=== PATIENT | male | born 1955 | race Caucasian/White ===

== ENCOUNTER → 2017-05-17 08:54 | Outpatient (CLI) | payer OTHER, SELFPAY ==
[2017-05-17 11:00] LABS: ALB/GLOB Ratio 0.9 RATIO (0.9-2.4); AST(SGOT) 27 U/L (15-37); Alanine Aminotransfer ALT/SGPT 35 U/L (16-61); Albumin, Serum 3.5 g/dL (3.2-5.0); Alkaline Phosphatase 83 U/L (45-117); Anion Gap 5 (5-15); BUN 11 mg/dL (7-18); BUN/Creat Ratio 11.9 RATIO (10-20); Calcium,Total 8.2 mg/dL (8.5-10.1); Chloride 106 mmol/L (98-107); Creatinine, Serum 0.93 mg/dL (0.70-1.30); EST Glomerular Filtration Rate 88 mL/min (>60); Est Glom Filt Rate - Afr Amer 106 mL/min (>60); Globulin 3.7 g/dL (2.2-4.2); Glucose 90 mg/dL (74-106); PSA,Total - Annual Screen 1.71 ng/mL (0.00-4.00); Protein, Total 7.2 g/dL (6.4-8.2); Sodium Level 141 mmol/L (136-145)
[2017-05-17 11:01] LABS: Vitamin D,25 Hydroxy 51.3 ng/mL (19.95-100.01)
[2017-05-17 11:57] LABS: Phenytoin (Dilantin) Level 25.6 mL (10.0-20.0)
[2017-05-18 09:06] LABS: Hep C Antibodies 0.1 s/co ratio (0.0-0.9)
[2017-05-19 12:08] LABS: CHOLESTEROL TOTAL 174 mg/dL (100-199); HDL-C 51 mg/dL (>39); HDL-P TOTAL 32.9 umol/L (>=30.5); SMALL LDL-P 423 nmol/L (<=527); TRIGLYCERIDES 69 mg/dL (0-149)
[2017-05-19 14:00] LABS: LDL SIZE 21.3 nm (>20.5); LDL-C 109 mg/dL (0-99); LDL-P 1291 nmol/L (<1000); LP-IR SCORE ** 44 (<=45)
== END ==
PROVIDERS: Family Provider Internal Medicine; PCP Internal Medicine; Visit Provider Internal Medicine
DX: G40.909 Epilepsy, unspecified, not intractable, without status epilepticus (principal); Z11.59 Encounter for screening for other viral diseases; E55.9 Vitamin D deficiency, unspecified; E78.5 Hyperlipidemia, unspecified; Z12.5 Encounter for screening for malignant neoplasm of prostate
CPT/HCPCS: 36415; 80053; 80061; 80185; 82306; 83704; 84153; 86803; G0103

== ENCOUNTER 2017-07-12 12:16 | Outpatient (RCR) | payer OTHER, SELFPAY ==
[2017-07-12 13:44] LABS: Phenytoin (Dilantin) Level 18.3 mL (10.0-20.0)
== END 2017-07-12 13:00 | disposition home or self-care (01) ==
LOC: LAB 12:16
PROVIDERS: Family Provider Internal Medicine; PCP Internal Medicine; Visit Provider Internal Medicine
DX: G40.909 Epilepsy, unspecified, not intractable, without status epilepticus (principal)
CPT/HCPCS: 36415; 80185

== ENCOUNTER → 2018-03-02 12:36 | Outpatient (CLI) | payer OTHER, SELFPAY ==
--- NOTE | 2018-03-02 12:42 | RAD_ITS ---
STUDY: X-RAY - ABDOMEN/PELVIS REASON FOR EXAM: Male, 62 years old. Constipation for one month TECHNIQUE: AP supine and upright views of the abdomen and pelvis. COMPARISON: None. FINDINGS: Normal visualized lung bases. There is an unremarkable bowel gas pattern. There is no demonstrated free abdominal air. The visualized liver, spleen and kidneys are grossly normal in size and morphology. Normal soft tissue structures. There are diffuse degenerative changes of the visualized lumbar spine. Levoscoliosis of the thoracolumbar spine. There is a bony protuberance of the left iliac crest. RAD/Abd Inc Decub and/or Erect IMPRESSION: 1. Nonobstructive bowel gas pattern. No significant fecal retention seen. 2. Left iliac crest osteochondroma. Electronically Signed: Jaun Vasques MD at 7:36 EST , Service support ,
== END ==
PROVIDERS: Family Provider Internal Medicine; PCP Internal Medicine; Referring Provider Internal Medicine Gastroenterology; Visit Provider Internal Medicine Gastroenterology
DX: R10.9 Unspecified abdominal pain (principal); K59.00 Constipation, unspecified
CPT/HCPCS: 74019

== ENCOUNTER → 2018-03-25 11:51 | Outpatient (CLI) | payer OTHER, SELFPAY ==
[2018-03-25 14:16] LABS: Phenytoin (Dilantin) Level 17.9 mL (10.0-20.0)
--- OUTSIDE RECORDS SUMMARY | 2018-05-11 05:19 | XMS RPT_ITS | Continuity of Care Document ---
:1955 Author Organization [facility] Address [facility] [address] Phone Care Team Providers Name Role Phone Dede Galan MD Unavailable Hearing Services-- Tato Mccormick Unavailable Federico PADILLA, Dr. Shira Rothman Unavailable VIKAS Martin Unavailable Unavailable Unavailable Unavailable Problems Name Dates Details Abnormal thyroid blood test (R94.6, 794.5) Comments: tsh high normal and t4 little low. will eat brazil nuts night ly. will recheck in 3 months. with atb Status: Active Abnormal TSH (R79.89, 790.6) Comments: 01-26 2.350 Status: Active Acute foot pain, left (M79.672, 729.5) Comments: 1 week ago stove it and will xray if not continue to get better in next 1-2 weeks. on exam no swelling tenderness or red no deformity. Status: Active Allergic rhinitis (J30.9, 477.9) Comments: off jose urinate better less fatigue. singulair is helping allergies but skin may become issue. have eye signs and symptoms and will use otc antihistamine eye drops Status: Active Benign prostatic hyperplasia with urinary hesitancy (N40.1, 600.01) Comments: some improvement off jose. add saw palmetto help Status: Active Bilateral hearing loss, unspecified hearing loss type (H91.93, 389.9) Status: Active BMI 35.0-35.9,adult (Z68.35, V85.35) Comments: bernie about portion control. went through what eating. went over watch and meassure cereal. eat 4 angelina crackers and glass of milk befre bed. increase exercise.35.8 Status: Active BMI 36.0-36.9,adult (Z68.36, V85.36) Comments: 36.56 Status: Active Cardiomegaly (Renamed from Cardiac enlargement) (I51.7, 429.3) Status: Active Current nonsmoker (Renamed from Current non-smoker) (Z78.9, V49.89) Status: Active Depression (F32.9, 311) Comments: doing wellon paxil. mild now not think needs increase Status: Active Encounter for hepatitis C virus screening test for high risk patient (Z11.59, V73.89) Status: Active Encounter for routine adult medical exam with abnormal findings (Z00.01, V70.0) Comments: 01-25-2017 [facility] Exam, colonoscopy 2014, PSA 2-18,PHQ-9=2 (minimal)6CIT=, BMI=36.5. not sexually active and okay with that. made sure exercise in winter so tolerate exercise in summer work Status: Active Epilepsy, unspecified, not intractable, without status epilepticus (G40.909, 345.90) Comments: see Dr. Deana moffett. talk bout changing meds. fell better and more alert at 350 mg dilantin than 400 mg where level 20. like level better at 14-15. will check now. had episode rigid a tnight per no aura. Status: Active GERD (gastroesophageal reflux disease) (K21.9, 530.81) Comments: stable Status: Active Hyperlipidemia, mild (E78.5, 272.4) Comments: better and hdl good. LDL small good. Status: Active Hypoglycemia (E16.2, 251.2) Comments: talkabout not go from breakfast to dinner without food. Status: Active Irritable bowel syndrome (Renamed from Functional bowel disease) (K58.9, 564.1) Comments: ocassionally get diarrhea but good. colonscnopy done 2014. 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 quite toast in am. eating more veggies. eating less angelina crackers...will work down to 2 squares. not to snack on cookies and sweets. working on exerc ise walk daily. will llok at what do through winter. may do swimming. Status: Active Obstructive sleep apnea, adult (G47.33, 327.23) Status: Active Psoriasis (L40.9, 696.1) Comments: Dr. caballero. arms break out ? blanket. had. 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 ramires shoudl go away Status: Active Sinusitis, chronic (J32.9, 473.9) Comments: stable Status: Active SOB (shortness of breath) on exertion (R06.02, 786.05) Status: Active Vitamin D deficiency, unspecified (E55.9, 268.9) Comments: better now Status: Active Medications Name Dates Details BUDESONIDE, 32MCG/ACT (Nasal Suspension) 1 (one) Suspension Suspension 2 sprays each nostril daily for 0 days Quantity: 1 {Each} Refills: 6 Ordered:23-Oct-2014 Codie Curiel Start : 23-Oct-2014 Active DERMA-SMOOTHE/FS BODY, 0.01% (External Oil) uad Oil BID for 90 days Refills: 3 Ordered:02-Apr-2014 Beatrice PADILLA, Dede Ying MD Start : 02-Apr-2014 Active Comments:disp. QS for 90 days Dilantin 100 MG Oral Capsule 3 (three) Capsule qd for 0 days Quantity: 360 {Capsule} Refills: 3 Ordered:02-Jul-2017 Dede Galan MD, MD, Dana M Start : 02-Jul-2017 Active Dilantin Infatabs 50 MG Oral Tablet Chewable 1 (one) Tablet Chewable qd for 0 days Quantity: 90 {Tablet} Refills: 3 Ordered:23-Sep-2017 Dede Galan MD, MD, Dana M Start : 23-Sep-2017 Active Drisdol 80828 UNIT Oral Capsule 1 Capsule three times a week for 0 days Quantity: 12 {Capsule} Refills: 6 Ordered:28-Apr-2017 Dede Galan MD, MD, Dana M Start : 28-Apr-2017 Active Comments:start 3 times a week for for monthen then twice weekly for month then weekly. MUCINEX, 600MG (Oral Tablet Extended Release 12 Hour) 1 (one) Tablet ER 12HR Tablet ER 12HR bid for 0 days Quantity: 30 {Tablet} Refills: 0 Ordered:13-Aug-2015 Anushka KAPADIA Kassandra Start : 13-Aug-2015 Active Mysoline 250 MG Oral Tablet 1 Tablet QID for 0 days Quantity: 360 {Tablet} Refills: 3 Ordered:02-Jul-2017 Dede Galan MD, MD, Dana M Start : 02-Jul-2017 Active Omeprazole 40 MG Oral Capsule Delayed Release 1 (one) Capsule DR QD for 0 days Quantity: 90 {Capsule} Refills: 3 Ordered:21-Oct-2017 Dede Galan MD, MD, Dana M Start : 21-Oct-2017 Active Paxil 20 MG Oral Tablet 1 Tablet QD for 0 days Quantity: 90 {Tablet} Refills: 3 Ordered:21-Oct-2017 Dede Galan MD, MD, Dana M Start : 21-Oct-2017 Active Comments:ok for generic PROAIR HFA, 108 (90 Base)MCG/ACT (Inhalation Aerosol Solution) 2 (two) Puff(s) tid for 0 days Quantity: 1 {Aerosol_Soln} Refills: 0 Ordered:22-Jun-2012 Long AQUATICS SPECIALIST, Tamiko L Start : 22-Jun-2012 Active Singulair 10 MG Oral Tablet 1 Tablet QD for 0 days Quantity: 90 {Tablet} Refills: 3 Ordered:25-Jan-2017 Dede Galan MD MD, Dede M Start : 25-Jan-2017 Active Singulair 10 MG Oral Tablet 1 Tablet QD for 0 days Quantity: 90 {Tablet} Refills: 3 Ordered:25-Jan-2017 Dede Galan MD, MD, Dede Rothman Start : 25-Jan-2017 Active Comments:ok for generic ANTIVERT, 12.5MG (Oral Tablet) 1 Tablet q6hrs prn for dizziness for 0 days Quantity: 30 {Tablet} Refills: 0 Ordered:25-May-2011 VIKAS Martin Start : 04-Feb-2011 End : 25-May-2011 Inactive Augmentin 875-125 MG Oral Tablet 1 Tablet Tablet bid for 0 days Quantity: 20 {Tablet} Refills: 0 Ordered:13-Dec-2015 VIKAS Martin Start : 24-Apr-2014 End : 13-Dec-2015 Inactive BIAXIN, 500MG (Oral Tablet) 1 Tablet bid for 10 days Quantity: 20 {Tablet} Refills: 0 Ordered:22-Jun-2012 Beverley Reveles CNP Start : 22-Jun-2012 End : 02-Jul-2012 Inactive DILANTIN INFATABS, 50MG (Oral Tablet Chewable) 1 Tablet Chewable qd for 0 days Quantity: 90 {Tablet_Chewable} Refills: 3 Ordered:25-Apr-2013 VIKAS Martin Start : 12-May-2012 End : 25-Apr-2013 Inactive DILANTIN, 50MG (PO Chew Tab) 1 qd for 0 days Refills: 0 Ordered:10-Aug-2008 VIKAS Martin End : 10-Aug-2008 Inactive LEVAQUIN, 500MG (Oral Tablet) 1 Tablet QD for 7 days Quantity: 7 {Tablet} Refills: 0 Ordered:13-Aug-2015 Beverley Reveles CNP Start : 13-Aug-2015 End : 20-Aug-2015 Inactive PEANUT OIL (Oil) 1 Oil daily for 0 days Quantity: 30 {Oil} Refills: 0 Ordered:25-May-2011 VIKAS Martin Start : 11-Aug-2010 End : 25-May-2011 Inactive PREDNISONE, 10MG (Oral Tablet) 3 (three) Tablet for 10 days for 0 days Quantity: 30 {Tablet} Refills: 0 Ordered:04-Feb-2011 Kennedi Eddy LPN Start : 27-Sep-2009 End : 04-Feb-2011 Inactive Comments:take with food XYZAL, 5MG (Oral Tablet) 1 Tablet daily for 0 days Quantity: 30 {Tablet} Refills: 11 Ordered:04-Dec-2011 VIKAS Martin Start : 04-Feb-2011 End : 04-Dec-2011 Inactive JOSE, 180MG (Oral Tablet) 1 Tablet QD for 0 days Quantity: 90 {Tablet} Refills: 3 Ordered:27-Jun-2010 Kennedi Eddy LPN Start : 27-Jun-2010 End : 04-Feb-2011 Discontinued Comments:This order discontinued per [facility]. AVELOX, 400MG (Oral Tablet) 1 Tablet daily for 0 days Quantity: 10 {Tablet} Refills: 0 Ordered:23-Apr-2015 Dede Galan MD, MD, Dana M Start : 23-Apr-2015 End : 23-Apr-2015 Discontinued FLONASE, 50MCG/ACT (Nasal Suspension) 2 sprays each nostril Puff(s) qd for 0 days Quantity: 3 {Box} Refills: 3 Ordered:23-Oct-2014 Dede Galan MD, MD, Dana M Start : 23-Oct-2014 End : 23-Oct-2014 Discontinued NEXIUM, 40MG (Oral Capsule Delayed Release) [address] QD for 0 days Quantity: 30 {Capsule_DR} Refills: 3 Ordered:11-Apr-2007 Dede Galan MD, MD, Dana M Start : 11-Apr-2007 End : 11-Apr-2007 Discontinued PREDNISONE, 20MG (Oral Tablet) 1 Tablet bid x 3 days, 1 qd x4 days, 1/2 x 4 days for 0 days Quantity: 12 {Tablet} Refills: 0 Ordered:27-Dec-2013 Kennedi Eddy LPN Start : 11-Jul-2012 End : 27-Dec-2013 Discontinued RHINOCORT AQUA, 32MCG/ACT (Nasal Suspension) 2 sprays each nostril Suspension qd for 0 days Quantity: 3 {Suspension} Refills: 3 Ordered:24-Nov-2010 Dede Galan MD, MD, Dana M Start : 24-Nov-2010 End : 24-Nov-2010 Discontinued RHINOCORT, 32MCG/ACT Unsure Unsure for 0 days Refills: 0 Ordered:19-Oct-2006 Beatrice PADILLA, Dede Ying MD Start : 19-Oct-2006 End : 19-Oct-2006 Discontinued Comments:This order discontinued per [facility]. Allergies and Adverse Reactions Name Dates Details Multiple foods & environmental allergies (Allergy) Status: Active Should avoid antifungals (Allergy) Status: Active Past Medical History Name Dates Details Acute sinusitis, unspecified (J01.90, 461.9) Status: Inactive as of 13-Dec-2015 Acute sinusitis, unspecified (J01.90, 461.9) Status: Inactive as of 10-Sep-2009 Benign paroxysmal positional vertigo, unspecified laterality (H81.10, 386.11) Status: Inactive as of 25-May-2011 Bronchitis (J40, 490) Comments: recurrent Status: Inactive as of 13-Dec-2015 Corns and callosities (L84, 700) Comments: will shave, use cream, not better to podiatry Status: Inactive as of 12-May-2012 Cough (R05, 786.2) Comments: bronchitis./sinusitis will treat with atb Status: Inactive as of 13-Dec-2015 Dermatitis (L30.9, 692.9) Comments: Dr. Caballero Status: Inactive as of 09-Jul-2009 DISORDERS OF CALCIUM METABOLISM, HYPOCALCEMIA (275.41) Status: Inactive as of 13-Dec-2015 Encounter for routine history and physical exam for male (Z00.00, V70.0) Comments: due to have scope Status: Inactive as of 13-Dec-2015 Fatigue, unspecified type (R53.83, 780.79) Comments: alot better Status: Resolved as of 15-Sep-2016 Forgetfulness (R68.89, 780.99) Comments: trouble name finding or not able to pull up. 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 lower amount working Status: Resolved as of 15-Sep-2016 Poison louisa (L23.7, 692.6) Status: Inactive as of 07-Jan-2010 Prediabetes (R73.03, 790.29) Comments: 10 5.6% Status: Resolved as of 15-Mar-2017 Screening for prostate cancer (Z12.5, V76.44) Status: Resolved as of 15-Mar-2017 Stomach cramps, generalized (R10.84, 789.07) Comments: better some with lower coffee. Status: Resolved as of 15-Sep-2016 Unspecified Diagnosis Status: Inactive as of 12-May-2012 Unspecified Diagnosis Status: Inactive as of 13-Dec-2015 Vertigo (R42, 780.4) Comments: BPPV i think no sdtroke signs and symptoms and no seizure. handout given willdo exercises use bonine had in past. if not better all way then willrefer to ENt for epleys Status: Resolved as of 25-Jan-2017 Wheezing (Renamed from Asthmatic breathing) (R06.2, 786.07) Status: Inactive as of 13-Dec-2015 Procedures Procedure Dates Details Colonoscopy, Screening Completed Comments: 05-24-14 Dr. Quispe repeat in 10 years Tonsillectomy Completed Pinning of leg Completed Date Value Details 30-May-2014 Operative Report Result: Comments: See Note; NOTES: [facility] Medical Records Department [address] [place] [address] Operative Report MR#: [id number] Acct: [id number] Name: JOSE MANUEL STEVENS Rep #: [id number] : 1955 58 From: Leoncio Quispe MD PCP: Dede Galan MD Status: REG CLI DATE OF SERVICE: PROCEDURE PERFORMED: Colonoscopy to the cecum. PREOPERATIVE DIAGNOSIS: [facility] for screening colonoscopy. POSTOPERATIVE DIAGNOSES: Normal-looking colon. No large polyps seen, some scattered diverticula in the sigmoid area. MEDICATIONS GIVEN: Anesthesia via MAC. INSTR UMENT: Olympus adjustable pediatric colonoscope. DESCRIPTION OF PROCEDURE: Informed consent was taken prior to the procedure. The patient was brought to the procedure room, placed left shoulder do wn and given the above medications. Anesthesia via MAC. A rectal exam revealed no palpable masses. The colonoscope was passed in the rectum and rectal mucosa appeared normal. Moving up the left colo n, there were scattered diverticula through the left colon. Up across the transverse colon, the mucosa was normal. Down the right colon, the cecum was well visualized. The base of the cecum was ph otographed. There were no large polyps seen in the right colon. Back up in the ascending colon, the mucosa was normal. Back across the transverse colon, there were no large polyps seen. Down to left colon, there was some scattered diverticula noted. Down towards the distal sigmoid, the rectal mucosa was normal. Retroflexion performed in the rectum showed some internal hemorrhoids. The colon was decompressed. The patient tolerated the procedure well. IMPRESSION: Screening colonoscopy in a 58-year-old male with no large polyps seen. PLAN: Repeat a colonoscopy in 10 years. MD Alejandro Ordonez C: Dede Galan MD T: NTS JOB: [id number] 05/30/14 1244 <Electronically signed by Leoncio Quispe MD> Date Leoncio durán MD CC: Dede Galan MD; Leoncio Quispe Date Dictated: 05/24/1433 Date Transcribed: 05/24/14832 Process Controls Technician: Signed 19-Apr-2014 Thyroid Result: Comments: See Note; NOTES: [facility] Imaging Services [address] [place] [address] Ultrasound Report MR#: [id number] Acct: [id number] Name: JOSE MANUEL STEVENS Rep #: [id number] : 1955 M 58 From: Carlos Enrique Collado PCP: Dede Galan MD Status: REG CLI Study: Thyroid Date of Exam: 04/19/14 Exam# [id number] Ordering Dr: Dede Galan MD STUDY: THYROID ULTRASOU ND REASON FOR EXAM: Male, 58 years old. Thyroid goiter TECHNIQUE: Ultrasound evaluation of the thyroid was performed with real-time and static pickering-scale imaging. COMPARISON: None. FINDINGS: RIGHT LOBE: The right lobe of the thyroid gland measures 4.8 x 1.7 x 1.9 cm. There is a homogeneous echotexture. There are no demonstrated solid, cystic or complex lesions. LEFT LOBE: The left lobe of the thyroid gland measures 4.5 x 1.5 x 1.8 cm. There is a homogeneous echotexture. There are no demonstrated solid, cystic or complex lesions. ISTHMUS: The is thmus measures 2.0 mm. . The regional lymph nodes are normal. IMPRESSION: Normal ultrasound examination of the thyroid. Electronically Signed: Carlos Enrique hernandez MD at 6:30 EST , Service support [phone], CC: Dede Galan MD Process Controls Technician: Signed 19-Apr-2014 Thyroid Result: Comments: See Note; NOTES: [facility] Imaging Services [address] [place] [id number] Ultrasound Report MR#: [id number] Acct: [id number] Name: JOSE MANUEL STEVENS Rep #: [id number] : 1955 M 58 From: Carlos Enrique Collado PCP: Dede Galan MD Status: REG CLI Study: Thyroid Date of Exam: 04/19/14 Exam# [id number] Ordering Dr: Dede Galan MD STUDY: THYROID ULTRASOU ND REASON FOR EXAM: Male, 58 years old. Thyroid goiter TECHNIQUE: Ultrasound evaluation of the thyroid was performed with real-time and static pickering-scale imaging. COMPARISON: None. FINDINGS: RIGHT LOBE: The right lobe of the thyroid gland measures 4.8 x 1.7 x 1.9 cm. There is a homogeneous echotexture. There are no demonstrated solid, cystic or complex lesions. LEFT LOBE: The left lobe of the thyroid gland measures 4.5 x 1.5 x 1.8 cm. There is a homogeneous echotexture. There are no demonstrated solid, cystic or complex lesions. ISTHMUS: The is thmus measures 2.0 mm. . The regional lymph nodes are normal. IMPRESSION: Normal ultrasound examination of the thyroid. Electronically Signed: Carlos Enrique hernandez MD at 6:30 EST , Service support [phone], CC: Dede Galan MD Process Controls Technician: Signed Family History Unknown Family Member Name Dates Details Brother 1 Comments: half brother through mother, DMII (father side) Status: Active Brother 2 Comments: older, OA hip replacement Status: Active Father Comments: Liver cancer, liver cirrhosis, alcoholic. Status: Active Maternal Grandmother Comments: dementia later life Status: Active Mother Comments: nonmelanoma skin cancers, OA hip replacements, in 80's and doing well Status: Active no children Status: Active Paternal Grandfather Comments: hard of hearing. Status: Active Paternal Grandmother Comments: blindness Status: Active Sister 1 Comments: nonmelanoma skin cancers, not know of any issues Status: Active Sister 2 Comments: half sister through mother, healthy Status: Active Social History Name Dates Details Caffeine Use Comments: 6-8 cups coffee qd and alot water. Status: Active Current Work/Study Status: Retired. Comments: still working [employer] Status: Active Exercise History Comments: none Status: Active Living Situation Comments: Lives with spouse, [employer] and important Status: Active No Drug Use Status: Active Non Drinker/No Alcohol Use Status: Active Non Smoker/No Tobacco Use Status: Active Tobacco use: Never smoker. Status: Active Smoking Status Name Dates Details Never smoker Vital Signs Date Test Result Details [id number] Temperature 97.9 f Comments: Method: Temporal Pulse 78 /min Comments: Pattern: Regular Respiration Rate 20 /min Comments: Pattern: Unlabored O2 SAT 98 % Comments: Room air BP Systolic 124 mm[Hg] Comments: Patient Position: Sitting; Cuff Location: Left Arm; Cuff Size: Large BP Diastolic 80 mm[Hg] Comments: Patient Position: Sitting; Cuff Location: Left Arm; Cuff Size: Large Weight 206 lb Height 63.8 in Body Mass Index Calculated 35.58 kg/m2 Body Surface Area Calculated 1.98 m2 :59 Pulse 83 /min Comments: Pattern: Regular Respiration Rate 18 /min Comments: Pattern: Unlabored O2 SAT 97 % Comments: Room air BP Systolic 122 mm[Hg] Comments: Patient Position: Sitting; Cuff Location: Left Arm; Cuff Size: Large BP Diastolic 78 mm[Hg] Comments: Patient Position: Sitting; Cuff Location: Left Arm; Cuff Size: Large Weight 209 lb Height 63.8 in Body Mass Index Calculated 36.1 kg/m2 Body Surface Area Calculated 1.99 m2 :06 BP Systolic 120 mm[Hg] Comments: Patient Position: Sitting; Cuff Location: Left Arm; Cuff Size: Large BP Diastolic 80 mm[Hg] Comments: Patient Position: Sitting; Cuff Location: Left Arm; Cuff Size: Large Weight 210 lb Height 63.8 in Body Mass Index Calculated 36.27 kg/m2 Body Surface Area Calculated 1.99 m2 :41 Temperature 97.9 f Comments: Method: Temporal Pulse 74 /min Comments: Pattern: Regular Respiration Rate 20 /min Comments: Pattern: Unlabored O2 SAT 98 % Comments: Room air BP Systolic 120 mm[Hg] Comments: Patient Position: Sitting; Cuff Location: Left Arm; Cuff Size: Large BP Diastolic 80 mm[Hg] Comments: Patient Position: Sitting; Cuff Location: Left Arm; Cuff Size: Large Weight 211 lb Height 63.8 in Body Mass Index Calculated 36.45 kg/m2 Body Surface Area Calculated 2 m2 :44 Pulse 100 /min Comments: Pattern: Regular BP Systolic 100 mm[Hg] Comments: Patient Position: Standing; Cuff Location: Left Arm; Cuff Size: Standard BP Diastolic 70 mm[Hg] Comments: Patient Position: Standing; Cuff Location: Left Arm; Cuff Size: Standard :44 Pulse 98 /min Comments: Pattern: Regular BP Systolic 104 mm[Hg] Comments: Patient Position: Sitting; Cuff Location: Left Arm; Cuff Size: Standard BP Diastolic 68 mm[Hg] Comments: Patient Position: Sitting; Cuff Location: Left Arm; Cuff Size: Standard :39 Temperature 97.9 f Comments: Method: Temporal Pulse 106 /min Comments: Pattern: Regular Respiration Rate 20 /min Comments: Pattern: Unlabored O2 SAT 95 % Comments: Room air BP Systolic 110 mm[Hg] Comments: Patient Position: Supine; Cuff Location: Left Arm; Cuff Size: Standard BP Diastolic 70 mm[Hg] Comments: Patient Position: Supine; Cuff Location: Left Arm; Cuff Size: Standard Weight 213 lb Height 64 in Body Mass Index Calculated 36.56 kg/m2 Body Surface Area Calculated 2.01 m2 :33 Temperature 97.6 f Comments: Method: Temporal Pulse 74 /min Comments: Pattern: Regular Respiration Rate 20 /min Comments: Pattern: Unlabored O2 SAT 97 % Comments: Room air BP Systolic 120 mm[Hg] Comments: Patient Position: Sitting; Cuff Location: Left Arm; Cuff Size: Large BP Diastolic 80 mm[Hg] Comments: Patient Position: Sitting; Cuff Location: Left Arm; Cuff Size: Large Weight 213 lb Height 64 in Body Mass Index Calculated 36.56 kg/m2 Body Surface Area Calculated 2.01 m2 :30 Temperature 97.4 f Comments: Method: Temporal Pulse 90 /min Comments: Pattern: Regular Respiration Rate 20 /min Comments: Pattern: Unlabored O2 SAT 95 % Comments: Room air BP Systolic 120 mm[Hg] Comments: Patient Position: Sitting; Cuff Location: Left Arm; Cuff Size: Large BP Diastolic 80 mm[Hg] Comments: Patient Position: Sitting; Cuff Location: Left Arm; Cuff Size: Large Weight 213 lb Height 64 in Body Mass Index Calculated 36.56 kg/m2 Body Surface Area Calculated 2.01 m2 :11 Temperature 97 f Comments: Method: Temporal Pulse 74 /min Comments: Pattern: Regular Respiration Rate 20 /min Comments: Pattern: Unlabored O2 SAT 92 % Comments: Room air BP Systolic 120 mm[Hg] Comments: Patient Position: Sitting; Cuff Location: Left Arm; Cuff Size: Large BP Diastolic 80 mm[Hg] Comments: Patient Position: Sitting; Cuff Location: Left Arm; Cuff Size: Large Weight 213 lb Height 64 in Body Mass Index Calculated 36.56 kg/m2 Body Surface Area Calculated 2.01 m2 :42 Temperature 97.6 f Comments: Method: Temporal Pulse 100 /min Comments: Pattern: Regular Respiration Rate 20 /min Comments: Pattern: Unlabored O2 SAT 97 % Comments: Room air BP Systolic 120 mm[Hg] Comments: Patient Position: Sitting; Cuff Location: Left Arm; Cuff Size: Large BP Diastolic 70 mm[Hg] Comments: Patient Position: Sitting; Cuff Location: Left Arm; Cuff Size: Large Weight 214 lb Height 64 in Body Mass Index Calculated 36.73 kg/m2 Body Surface Area Calculated 2.01 m2 :03 Temperature 97.6 f Comments: Method: Temporal Pulse 64 /min Comments: Pattern: Regular Respiration Rate 20 /min Comments: Pattern: Unlabored O2 SAT 94 % Comments: Room air BP Systolic 120 mm[Hg] Comments: Patient Position: Sitting; Cuff Location: Left Arm; Cuff Size: Large BP Diastolic 80 mm[Hg] Comments: Patient Position: Sitting; Cuff Location: Left Arm; Cuff Size: Large Weight 211 lb Height 64 in Body Mass Index Calculated 36.22 kg/m2 Body Surface Area Calculated 2 m2 :19 Temperature 97.6 f Comments: Method: Temporal Pulse 76 /min Comments: Pattern: Regular Respiration Rate 20 /min Comments: Pattern: Unlabored O2 SAT 97 % Comments: Room air BP Systolic 130 mm[Hg] Comments: Patient Position: Sitting; Cuff Location: Left Arm; Cuff Size: Large BP Diastolic 86 mm[Hg] Comments: Patient Position: Sitting; Cuff Location: Left Arm; Cuff Size: Large Weight 209 lb Height 64 in Body Mass Index Calculated 35.87 kg/m2 Body Surface Area Calculated 1.99 m2 :47 Temperature 97.8 f Pulse 79 /min Comments: Pattern: Regular Respiration Rate 18 /min Comments: Pattern: Unlabored O2 SAT 97 % Comments: Room air BP Systolic 114 mm[Hg] Comments: Patient Position: Sitting; Cuff Location: Left Arm; Cuff Size: Standard BP Diastolic 78 mm[Hg] Comments: Patient Position: Sitting; Cuff Location: Left Arm; Cuff Size: Standard Weight 215.125 lb Height 64 in Body Mass Index Calculated 36.93 kg/m2 Body Surface Area Calculated 2.02 m2 :12 Pulse 76 /min Comments: Pattern: Regular Respiration Rate 16 /min Comments: Pattern: Unlabored O2 SAT 96 % Comments: Room air BP Systolic 120 mm[Hg] Comments: Patient Position: Sitting; Cuff Location: Left Arm; Cuff Size: Standard BP Diastolic 70 mm[Hg] Comments: Patient Position: Sitting; Cuff Location: Left Arm; Cuff Size: Standard Weight 211 lb Height 64 in Body Mass Index Calculated 36.22 kg/m2 Body Surface Area Calculated 2 m2 :41 Temperature 97.6 f Comments: Method: Oral Pulse 98 /min Comments: Pattern: Regular Respiration Rate 16 /min Comments: Pattern: Unlabored O2 SAT 98 % Comments: Room air BP Systolic 122 mm[Hg] Comments: Patient Position: Sitting; Cuff Location: Left Arm; Cuff Size: Standard BP Diastolic 78 mm[Hg] Comments: Patient Position: Sitting; Cuff Location: Left Arm; Cuff Size: Standard Weight 211 lb Height 64 in Body Mass Index Calculated 36.22 kg/m2 Body Surface Area Calculated 2 m2 :50 Temperature 97.2 f Comments: Method: Temporal Pulse 78 /min Comments: Pattern: Regular Respiration Rate 16 /min Comments: Pattern: Unlabored O2 SAT 96 % Comments: Room air BP Systolic 124 mm[Hg] Comments: Patient Position: Sitting; Cuff Location: Left Arm; Cuff Size: Standard BP Diastolic 76 mm[Hg] Comments: Patient Position: Sitting; Cuff Location: Left Arm; Cuff Size: Standard Weight 208 lb Height 64 in Body Mass Index Calculated 35.7 kg/m2 Body Surface Area Calculated 1.99 m2 :16 Temperature 97.3 f Comments: Method: Temporal Pulse 92 /min Comments: Pattern: Regular Respiration Rate 16 /min Comments: Pattern: Unlabored O2 SAT 99 % Comments: Room air BP Systolic 130 mm[Hg] Comments: Patient Position: Sitting; Cuff Location: Left Arm; Cuff Size: Standard BP Diastolic 74 mm[Hg] Comments: Patient Position: Sitting; Cuff Location: Left Arm; Cuff Size: Standard Weight 205 lb Height 64 in Body Mass Index Calculated 35.19 kg/m2 Body Surface Area Calculated 1.98 m2 :19 Temperature 97.8 f Comments: Method: Oral Pulse 80 /min Comments: Pattern: Regular Respiration Rate 16 /min O2 SAT 97 % Comments: Room air BP Systolic 108 mm[Hg] Comments: Patient Position: Sitting; Cuff Location: Left Arm; Cuff Size: Standard BP Diastolic 70 mm[Hg] Comments: Patient Position: Sitting; Cuff Location: Left Arm; Cuff Size: Standard Weight 210 lb Height 64 in Body Mass Index Calculated 36.05 kg/m2 Body Surface Area Calculated 2 m2 :38 Temperature 97.6 f Comments: Method: Temporal Pulse 76 /min Comments: Pattern: Regular Respiration Rate 16 /min Comments: Pattern: Unlabored O2 SAT 98 % Comments: Room air BP Systolic 122 mm[Hg] Comments: Patient Position: Sitting; Cuff Location: Left Arm; Cuff Size: Standard BP Diastolic 70 mm[Hg] Comments: Patient Position: Sitting; Cuff Location: Left Arm; Cuff Size: Standard Weight 210 lb Height 64 in Body Mass Index Calculated 36.05 kg/m2 Body Surface Area Calculated 2 m2 :46 Temperature 96.9 f Comments: Method: Temporal Pulse 80 /min Comments: Pattern: Regular Respiration Rate 16 /min Comments: Pattern: Unlabored O2 SAT 97 % Comments: Room air BP Systolic 126 mm[Hg] Comments: Patient Position: Sitting; Cuff Location: Left Arm; Cuff Size: Standard BP Diastolic 80 mm[Hg] Comments: Patient Position: Sitting; Cuff Location: Left Arm; Cuff Size: Standard Weight 219 lb Height 64 in Body Mass Index Calculated 37.59 kg/m2 Body Surface Area Calculated 2.03 m2 :42 Temperature 98.4 f Comments: Method: Oral Pulse 78 /min Comments: Pattern: Regular Respiration Rate 18 /min Comments: Pattern: Unlabored BP Systolic 118 mm[Hg] Comments: Patient Position: Sitting; Cuff Location: Left Arm; Cuff Size: Standard BP Diastolic 82 mm[Hg] Comments: Patient Position: Sitting; Cuff Location: Left Arm; Cuff Size: Standard Weight 213.6 lb Height 64 in Body Mass Index Calculated 36.66 kg/m2 Body Surface Area Calculated 2.01 m2 :52 Temperature 97.2 f Comments: Method: Temporal Pulse 98 /min Comments: Pattern: Regular Respiration Rate 16 /min Comments: Pattern: Unlabored O2 SAT 94 % Comments: Room air BP Systolic 124 mm[Hg] Comments: Patient Position: Sitting; Cuff Location: Left Arm; Cuff Size: Standard BP Diastolic 74 mm[Hg] Comments: Patient Position: Sitting; Cuff Location: Left Arm; Cuff Size: Standard Weight 213.6 lb Height 64 in Body Mass Index Calculated 36.66 kg/m2 Body Surface Area Calculated 2.01 m2 :05 Temperature 98.2 f Comments: Method: Oral Pulse 96 /min Comments: Pattern: Regular Respiration Rate 20 /min O2 SAT 99 % Comments: Room air BP Systolic 138 mm[Hg] Comments: Patient Position: Sitting; Cuff Location: Left Arm; Cuff Size: Standard BP Diastolic 80 mm[Hg] Comments: Patient Position: Sitting; Cuff Location: Left Arm; Cuff Size: Standard Weight 211 lb Height 64 in Body Mass Index Calculated 36.22 kg/m2 Body Surface Area Calculated 2 m2 :15 Temperature 98.5 f Comments: Method: Oral Pulse 88 /min Comments: Pattern: Regular Respiration Rate 18 /min Comments: Pattern: Unlabored O2 SAT 96 % Comments: Room air BP Systolic 110 mm[Hg] Comments: Patient Position: Sitting; Cuff Location: Left Arm; Cuff Size: Standard BP Diastolic 72 mm[Hg] Comments: Patient Position: Sitting; Cuff Location: Left Arm; Cuff Size: Standard Weight 211 lb Height 64 in Body Mass Index Calculated 36.22 kg/m2 Body Surface Area Calculated 2 m2 :44 Temperature 97.8 f Comments: Method: Oral Pulse 70 /min Comments: Pattern: Regular Respiration Rate 20 /min Comments: Pattern: Unlabored BP Systolic 114 mm[Hg] Comments: Patient Position: Sitting; Cuff Location: Left Arm; Cuff Size: Standard BP Diastolic 76 mm[Hg] Comments: Patient Position: Sitting; Cuff Location: Left Arm; Cuff Size: Standard Weight 211 lb Height 64 in Body Mass Index Calculated 36.22 kg/m2 Body Surface Area Calculated 2 m2 :04 Temperature 96.6 f Comments: Method: Oral Pulse 78 /min Comments: Pattern: Regular Respiration Rate 18 /min Comments: Pattern: Unlabored O2 SAT 97 % Comments: Room air Weight 213 lb Height 64 in Body Mass Index Calculated 36.56 kg/m2 Body Surface Area Calculated 2.01 m2 :49 Temperature 97.4 f Comments: Method: Oral Pulse 72 /min Comments: Pattern: Regular Respiration Rate 20 /min Comments: Pattern: Unlabored BP Systolic 124 mm[Hg] Comments: Patient Position: Sitting; Cuff Location: Left Arm; Cuff Size: Standard BP Diastolic 80 mm[Hg] Comments: Patient Position: Sitting; Cuff Location: Left Arm; Cuff Size: Standard Weight 213 lb Height 34 in Body Mass Index Calculated 129.54 kg/m2 Body Surface Area Calculated 1.27 m2 :34 Temperature 98 f Comments: Method: Oral Pulse 68 /min Comments: Pattern: Regular Respiration Rate 20 /min Comments: Pattern: Unlabored BP Systolic 126 mm[Hg] Comments: Patient Position: Sitting; Cuff Location: Left Arm; Cuff Size: Standard BP Diastolic 82 mm[Hg] Comments: Patient Position: Sitting; Cuff Location: Left Arm; Cuff Size: Standard Weight 214 lb Height 64 in Body Mass Index Calculated 36.73 kg/m2 Body Surface Area Calculated 2.01 m2 :26 Temperature 98.3 f Comments: Method: Oral Pulse 86 /min Comments: Pattern: Regular Respiration Rate 18 /min Comments: Pattern: Unlabored BP Systolic 128 mm[Hg] Comments: Patient Position: Sitting; Cuff Location: Left Arm; Cuff Size: Standard BP Diastolic 80 mm[Hg] Comments: Patient Position: Sitting; Cuff Location: Left Arm; Cuff Size: Standard Weight 209 lb Height 64 in Body Mass Index Calculated 35.87 kg/m2 Body Surface Area Calculated 1.99 m2 :40 Temperature 97.9 f Comments: Method: Oral Pulse 68 /min Comments: Pattern: Regular Respiration Rate 20 /min Comments: Pattern: Unlabored BP Systolic 120 mm[Hg] Comments: Patient Position: Sitting; Cuff Location: Left Arm; Cuff Size: Standard BP Diastolic 78 mm[Hg] Comments: Patient Position: Sitting; Cuff Location: Left Arm; Cuff Size: Standard Weight 209 lb Height 64 in Body Mass Index Calculated 35.87 kg/m2 Body Surface Area Calculated 1.99 m2 :37 Pulse 68 /min Comments: Pattern: Regular Respiration Rate 16 /min Comments: Pattern: Unlabored BP Systolic 130 mm[Hg] Comments: Patient Position: Sitting; Cuff Location: Left Arm; Cuff Size: Standard BP Diastolic 74 mm[Hg] Comments: Patient Position: Sitting; Cuff Location: Left Arm; Cuff Size: Standard Weight 215.3125 lb Height 64 in Body Mass Index Calculated 36.96 kg/m2 Body Surface Area Calculated 2.02 m2 :01 Temperature 97.1 f Comments: Method: Oral Pulse 74 /min Comments: Pattern: Regular Respiration Rate 18 /min Comments: Pattern: Unlabored BP Systolic 124 mm[Hg] Comments: Patient Position: Sitting; Cuff Location: Left Arm; Cuff Size: Standard BP Diastolic 78 mm[Hg] Comments: Patient Position: Sitting; Cuff Location: Left Arm; Cuff Size: Standard Weight 215.3125 lb Height 64 in Body Mass Index Calculated 36.96 kg/m2 Body Surface Area Calculated 2.02 m2 :23 Temperature 97.6 f Comments: Method: Oral Pulse 68 /min Comments: Pattern: Regular Respiration Rate 18 /min Comments: Pattern: Unlabored BP Systolic 120 mm[Hg] Comments: Patient Position: Sitting; Cuff Location: Left Arm; Cuff Size: Standard BP Diastolic 80 mm[Hg] Comments: Patient Position: Sitting; Cuff Location: Left Arm; Cuff Size: Standard Weight 211 lb :10 Temperature 96.9 f Comments: Method: Oral Pulse 80 /min Comments: Pattern: Regular Respiration Rate 18 /min Comments: Pattern: Unlabored BP Systolic 92 mm[Hg] Comments: Patient Position: Sitting; Cuff Location: Left Arm; Cuff Size: Standard BP Diastolic 62 mm[Hg] Comments: Patient Position: Sitting; Cuff Location: Left Arm; Cuff Size: Standard :58 Temperature 98.6 f Comments: Method: Oral Pulse 68 /min Comments: Pattern: Regular BP Systolic 102 mm[Hg] Comments: Patient Position: Sitting; Cuff Location: Left Arm; Cuff Size: Standard BP Diastolic 72 mm[Hg] Comments: Patient Position: Sitting; Cuff Location: Left Arm; Cuff Size: Standard Weight 216.4375 lb :35 Temperature 98 f Comments: Method: Oral Pulse 70 /min Comments: Pattern: Regular Respiration Rate 18 /min Comments: Pattern: Unlabored BP Systolic 128 mm[Hg] Comments: Patient Position: Sitting; Cuff Location: Left Arm; Cuff Size: Standard BP Diastolic 80 mm[Hg] Comments: Patient Position: Sitting; Cuff Location: Left Arm; Cuff Size: Standard Weight 219 lb :58 Temperature 98.8 f Comments: Method: Oral Pulse 68 /min Comments: Pattern: Regular Respiration Rate 20 /min Comments: Pattern: Unlabored BP Systolic 122 mm[Hg] Comments: Patient Position: Sitting; Cuff Location: Left Arm; Cuff Size: Large BP Diastolic 76 mm[Hg] Comments: Patient Position: Sitting; Cuff Location: Left Arm; Cuff Size: Large Weight 0 lb Height 0 in Head Circumference 0.00 cm :08 Pulse 74 /min Comments: Pattern: Regular Respiration Rate 16 /min Comments: Pattern: Unlabored BP Systolic 120 mm[Hg] Comments: Patient Position: Sitting; Cuff Location: Left Arm; Cuff Size: Standard BP Diastolic 80 mm[Hg] Comments: Patient Position: Sitting; Cuff Location: Left Arm; Cuff Size: Standard Weight 210 lb Height 0 in Head Circumference 0.00 cm :05 Pulse 70 /min Comments: Pattern: Regular Respiration Rate 16 /min Comments: Pattern: Unlabored BP Systolic 118 mm[Hg] Comments: Patient Position: Sitting; Cuff Location: Left Arm; Cuff Size: Large BP Diastolic 78 mm[Hg] Comments: Patient Position: Sitting; Cuff Location: Left Arm; Cuff Size: Large Weight 213.05 lb Height 0 in Head Circumference 0.00 cm :08 Temperature 95.4 f Comments: Method: Oral Pulse 64 /min Comments: Pattern: Regular Respiration Rate 16 /min Comments: Pattern: Unlabored BP Systolic 126 mm[Hg] Comments: Patient Position: Sitting; Cuff Location: Right Arm; Cuff Size: Large BP Diastolic 83 mm[Hg] Comments: Patient Position: Sitting; Cuff Location: Right Arm; Cuff Size: Large Weight 217 lb Height 0 in Head Circumference 0.00 cm :14 Temperature 97.5 f Comments: Method: Oral Pulse 84 /min Comments: Pattern: Regular Respiration Rate 18 /min Comments: Pattern: Unlabored BP Systolic 120 mm[Hg] Comments: Patient Position: Sitting; Cuff Location: Right Arm; Cuff Size: Standard BP Diastolic 80 mm[Hg] Comments: Patient Position: Sitting; Cuff Location: Right Arm; Cuff Size: Standard Weight 215 lb Height 65 in Body Mass Index Calculated 35.78 kg/m2 Body Surface Area Calculated 2.04 m2 Head Circumference 0.00 cm :05 Temperature 98.6 f Comments: Method: Oral Pulse 72 /min Comments: Pattern: Regular Respiration Rate 20 /min Comments: Pattern: Unlabored BP Systolic 114 mm[Hg] Comments: Patient Position: Sitting; Cuff Location: Left Arm; Cuff Size: Standard BP Diastolic 80 mm[Hg] Comments: Patient Position: Sitting; Cuff Location: Left Arm; Cuff Size: Standard Weight 220 lb Height 0 in Head Circumference 0.00 cm Results Date Description Value Details :30 URINALYSIS (71995) Comments: PATIENT NOT FASTINGPERFORMED BY: [facility] FoundationSaint [facility] Medical CenterNghsnr3621 [facility] [id number] Microscopic Examination MICNIP (Normal) Comments: Microscopic not indicated and not performed. Nitrite, Urine Negative (Normal) Urobilinogen,Semi-Qn 0.2 mg/dL (Normal) Range: 0.2-1.0 Bilirubin Negative (Normal) Occult Blood Negative (Normal) Ketones Negative (Normal) Glucose Negative (Normal) Protein Negative (Normal) WBC Esterase Negative (Normal) Appearance Clear (Normal) Urine-Color Yellow (Normal) pH 7.0 (Normal) Range: 5.0-7.5 Specific Ozan 1.014 (Normal) Range: 1.005-1.030 19-Vdk-108699:30 METABOLIC PANEL, COMPREHENSIVE Comments: PATIENT NOT FASTINGPERFORMED BY: [facility] FoundationSaint [facility] CenterNbfsdv7344 [facility] [id number] ([id number]) ALT (SGPT) 20 [iU]/L (Normal) Range: 0-44 AST (SGOT) 24 [iU]/L (Normal) Range: 0-40 Alkaline Phosphatase 66 [iU]/L (Normal) Range: 39-117 Bilirubin, Total <0.2 mg/dL (Normal) Range: 0.0-1.2 A/G Ratio 1.5 (Normal) Range: 1.2-2.2 Globulin, Total 2.8 g/dL (Normal) Range: 1.5-4.5 Albumin 4.3 g/dL (Normal) Range: 3.6-4.8 Protein, Total 7.1 g/dL (Normal) Range: 6.0-8.5 Calcium 9.0 mg/dL (Normal) Range: 8.6-10.2 Carbon Dioxide, Total 23 mmol/L (Normal) Range: 20-29 Chloride 104 mmol/L (Normal) Range: 96-106 Potassium 4.6 mmol/L (Normal) Range: 3.5-5.2 Sodium 142 mmol/L (Normal) Range: 134-144 BUN/Creatinine Ratio 14 (Normal) Range: 10-24 eGFR If Africn Am 105 mL/min/1.73 (Normal) eGFR If NonAfricn Am 91 mL/min/1.73 (Normal) Creatinine 0.90 mg/dL (Normal) Range: 0.76-1.27 BUN 13 mg/dL (Normal) Range: 8-27 Glucose 98 mg/dL (Normal) Range: 65-99 64-Kkl-353566:30 DRUG ASSAY-TOT PHENYTOIN Comments: PATIENT NOT FASTINGPERFORMED BY: [email or web address] [facility] [id number] ([id number]) Phenytoin (Dilantin), Serum 14.7 ug/mL (Normal) Range: 10.0-20.0 Comments: Detection Limit = 0.8 <0.8 Indicates None Detected [id number]-[id number]:30 CBC W/AUTO DIFF WBC ([id number]) Comments: PATIENT NOT FASTINGPERFORMED BY: [employer] [id number] [facility] HospitalShanghai Yu[facility] GroupNovant [facility] [id number] Immature Grans (Abs) 0.0 {x10E3/uL} (Normal) Range: 0.0-0.1 Immature Granulocytes 0 % (Normal) Baso (Absolute) 0.1 {x10E3/uL} (Normal) Range: 0.0-0.2 Eos (Absolute) 0.3 {x10E3/uL} (Normal) Range: 0.0-0.4 Monocytes(Absolute) 0.5 {x10E3/uL} (Normal) Range: 0.1-0.9 Lymphs (Absolute) 1.5 {x10E3/uL} (Normal) Range: 0.7-3.1 Neutrophils (Absolute) 2.9 {x10E3/uL} (Normal) Range: 1.4-7.0 Basos 1 % (Normal) Eos 6 % (Normal) Monocytes 10 % (Normal) Lymphs 28 % (Normal) Neutrophils 55 % (Normal) Platelets 272 {x10E3/uL} (Normal) Range: 150-379 RDW 13.2 % (Normal) Range: 12.3-15.4 MCHC 35.0 g/dL (Normal) Range: 31.5-35.7 MCH 33.0 pg (Normal) Range: 26.6-33.0 MCV 94 fL (Normal) Range: 79-97 Hematocrit 43.1 % (Normal) Range: 37.5-51.0 Hemoglobin 15.1 g/dL (Normal) Range: 13.0-17.7 RBC 4.58 {x10E6/uL} (Normal) Range: 4.14-5.80 WBC 5.2 {x10E3/uL} (Normal) Range: 3.4-10.8 [id number]-Cjx-[id number]:15 Phenytoin (Dilantin) Level Comments: Time Medication is to be Given? 12[facility] [id number] [place], [place], [address] PHENYTOIN 18.3 mL (Normal) Range: 10.0-20.0 [id number]-Uya-[id number]:07 Comprehensive Metabolic Profil Comments: [facility] [id number] [place], [place], [address] GAP 5 (Normal) Range: 5-15 CO2 30.0 mmol/L (Normal) Range: 21.0-32.0 CL 106 mmol/L (Normal) Range: 98-107 K 4.0 mmol/L (Normal) Range: 3.5-5.1 NA 141 mmol/L (Normal) Range: 136-145 T BILI 0.20 mg/dL (Normal) Range: 0.20-1.00 ALT 35 U/L (Normal) Range: 16-61 Comments: Please note revised ALT reference range vpboshfuv64/28/2018. ALK P 83 U/L (Normal) Range: 45-117 AST 27 U/L (Normal) Range: 15-37 CA 8.2 mg/dL (Abnormal) Range: 8.5-10.1 A/G 0.9 {RATIO} (Normal) Range: 0.9-2.4 GLOB 3.7 g/dL (Normal) Range: 2.2-4.2 ALB 3.5 g/dL (Normal) Range: 3.2-5.0 T PROT 7.2 g/dL (Normal) Range: 6.4-8.2 BUN/CRE 11.9 {RATIO} (Normal) Range: 10-20 EST GFR - AA 106 mL/min (Normal) Comments: GFR Calc EST GFR 88 mL/min (Normal) Comments: Non- GFR Calc CREAT,SERUM 0.93 mg/dL (Normal) Range: 0.70-1.30 Comments: The validity of the calculated GFR AND GFRAA in patients over70 years has not been determined. Clinical correlation isessential. BUN 11 mg/dL (Normal) Range: 7-18 GLU 90 mg/dL (Normal) Range: 74-106 [id number]-[id number]:07 Hepatitis C Antibodies Comments: [facility] (refer to report for specific site)refer to report for address and phone number HEP C AB 0.1 {s/co_ratio} (Normal) Range: 0.0-0.9 Comments: Negative: < 0.8 Indeterminate: 0.8 - 0.9 Positive: > 0.9 The CDC recommends that a positive HCV antibody result be followed up with a HCV Nucleic Acid Amplification test ([id number]).Performed at: [address] [id number] Director: Leoncio Martinez PhD, Phone: [phone] 0-Laj-[id number]:07 NMR Lipoprofile Comments: [facility] (refer to report for specific site)refer to report for address and phone number; appt 05/31 LP-IR SCORE 44 (Normal) Comments: INSULIN RESISTANCE MARKER <--Insulin Sensitive Insulin Resistant--> Percentile in Reference PopulationInsulin Resistance ScoreLP-IR Score Low 25th 50th 75th High <27 27 45 63 >63LP-IR Score is inaccurate if patient is non-fasting.The LP-IR score is a laboratory developed index that hasbeen associated with insulin resistance and diabetes riskand should be used as one component of a physician'sclinical assessment. The LP-IR score listed above has notbeen cleared by the [place] Food and Drug Administration.Performed at: [address] [id number] Director: Deangelo Miller MD, Phone: [phone] INS RES/DIAB RK . (Normal) LDL SIZE 21.3 nm (Normal) Comments: INTERPRETATIVE INFORMATION PARTICLE CONCENTRATION AND SIZE <--Lower CVD Risk Highe r CVD Risk--> LDL AND HDL PARTICLES Percentile in Reference Population HDL-P (total) High 75th 50th 25th Low >34.9 34.9 30.5 26.7 <26.7 Small LDL-P Low 25th 50th 75th High <117 117 527 839 >839 LDL Size <-Large (Pattern A)-> <-Small (Pattern B)-> 23.0 20.6 20.5 19.0 Small LDL-P and LDL Size are associated with CVD risk, butnot after LDL-P is taken into account .These assays were developed and their performancecharacteristics determined by [employer]. These assayshave not been cleared by the [place] Food and DrugAdministration. The clinical utility of these laboratoryvalues have not been fully established. SMALL LDL-P 423 nmol/L (Normal) HDL-P TOTAL 32.9 umol/L (Normal) LD HD PARTICLES . (Normal) LDL-P 1291 nmol/L (Abnormal) Comments: Low < 1000 Moderate 1000 - 1299 Borderline-High 1300 - 1599 High 1600 - 2000 Very High > 2000 TRIGLYCERIDES 69 mg/dL (Normal) Range: 0-149 HDL-C 51 mg/dL (Normal) LDL-C 109 mg/dL (Abnormal) Range: 0-99 Comments: Optimal < 100 Above optimal 100 - 129 Borderline 130 - 159 High 160 - 189 Very high > 189LDL-C is inaccurate if patient is non-fasting. CHOLESTEROL TOT 174 mg/dL (Normal) Range: 100-199 LIPIDS . (Normal) 0-Ekr-153920:07 Phenytoin (Dilantin) Level Comments: Time Medication is to be Given? [facility] [address] [place], [address] PHENYTOIN 25.6 mL (Abnormal) Range: 10.0-20.0 Comments: Critical Result(s) Called to Tamiko at [facility] at: 11:57:19 05/17/2017 by: MISSAEL AND @left message on voicemail to call back Wero AND @at 11:17 7-Aon-342531:07 PSA,Total - Annual Screen Comments: [facility] [id number] [place], [phone] PSA,TOT SCREEN 1.71 ng/mL (Normal) Range: 0.00-4.00 Comments: This test was performed using the TPSA assay method for the[employer] chemistry system. Values obtained with differentassay methods cannot be used interchangably.When changing PSA assays in the course of monitoring apatient, additional sequential testing should be carriedout to confirm baseline values. 3-Fcd-743522:07 Vitamin D,25 Hydroxy Comments: [facility] [id number] [place], [id number] Vitamin D 25-OH 51.3 ng/mL (Normal) Range: 19.95-100.01 Comments: Vitamin D 25(OH) Status Range Deficiency <20 ng/mL (50nmol/L) Insuffciency 20 - 30 ng/mL (50 - 75 nmol/L) Sufficiency 30 - 100 ng/mL (75 - 250 nmol/L) Toxicity >100 ng/mL (>250 nmol/L) 0-Brm-133431:34 CBC With Differential/Platelet Comments: PATIENT NOT FASTINGPERFORMED BY: CB [facility] [id number] [facility] [id number] BY: [facility] [address] [id number] Information: client draw Immature Grans (Abs) 0.0 {x10E3/uL} (Normal) Range: 0.0-0.1 Immature Granulocytes 0 % (Normal) Baso (Absolute) 0.0 {x10E3/uL} (Normal) Range: 0.0-0.2 Eos (Absolute) 0.3 {x10E3/uL} (Normal) Range: 0.0-0.4 Monocytes(Absolute) 0.4 {x10E3/uL} (Normal) Range: 0.1-0.9 Lymphs (Absolute) 1.3 {x10E3/uL} (Normal) Range: 0.7-3.1 Neutrophils (Absolute) 2.8 {x10E3/uL} (Normal) Range: 1.4-7.0 Basos 1 % (Normal) Eos 7 % (Normal) Monocytes 9 % (Normal) Lymphs 26 % (Normal) Neutrophils 57 % (Normal) Platelets 290 {x10E3/uL} (Normal) Range: 150-379 RDW 13.4 % (Normal) Range: 12.3-15.4 MCHC 35.0 g/dL (Normal) Range: 31.5-35.7 MCH 33.0 pg (Normal) Range: 26.6-33.0 MCV 94 fL (Normal) Range: 79-97 Hematocrit 42.6 % (Normal) Range: 37.5-51.0 Hemoglobin 14.9 g/dL (Normal) Range: 12.6-17.7 RBC 4.52 {x10E6/uL} (Normal) Range: 4.14-5.80 WBC 4.9 {x10E3/uL} (Normal) Range: 3.4-10.8 [id number] Comp. Metabolic Panel Comments: PATIENT NOT FASTINGPERFORMED BY: CB [facility] [id number] [facility] [id number] BY: BN [facility] [address] [id number] (14) ALT (SGPT) 18 [iU]/L (Normal) Range: 0-44 AST (SGOT) 23 [iU]/L (Normal) Range: 0-40 Alkaline Phosphatase, S 76 [iU]/L (Normal) Range: 39-117 Bilirubin, Total 0.2 mg/dL (Normal) Range: 0.0-1.2 A/G Ratio 1.4 (Normal) Range: 1.2-2.2 Globulin, Total 2.9 g/dL (Normal) Range: 1.5-4.5 Albumin, Serum 4.1 g/dL (Normal) Range: 3.6-4.8 Protein, Total, Serum 7.0 g/dL (Normal) Range: 6.0-8.5 Calcium, Serum 9.0 mg/dL (Normal) Range: 8.6-10.2 Carbon Dioxide, Total 24 mmol/L (Normal) Range: 18-29 Chloride, Serum 103 mmol/L (Normal) Range: 96-106 Potassium, Serum 4.4 mmol/L (Normal) Range: 3.5-5.2 Sodium, Serum 142 mmol/L (Normal) Range: 134-144 BUN/Creatinine Ratio 13 (Normal) Range: 10-24 eGFR If Africn Am 106 mL/min/1.73 (Normal) eGFR If NonAfricn Am 92 mL/min/1.73 (Normal) Creatinine, Serum 0.89 mg/dL (Normal) Range: 0.76-1.27 BUN 12 mg/dL (Normal) Range: 8-27 Glucose, Serum 102 mg/dL (Abnormal) Range: 65-99 :34 Microscopic Examination Comments: PATIENT NOT FASTINGPERFORMED BY: [employer] [id number] [facility] [id number] BY: [employer] [id number] Bacteria None seen (Normal) Mucus Threads Present (Normal) Epithelial Cells (non None seen {/hpf} Range: 0 - 10 renal) (Normal) RBC 0-2 {/hpf} (Normal) Range: 0 - 2 WBC 0-5 {/hpf} (Normal) Range: 0 - 5 Phenobarbital, Serum 29 ug/mL (Normal) Comments: PATIENT NOT FASTINGPERFORMED BY: [employer] [id number] BY: [address] [id number] :34 Range: 15-40 Comments: Detection Limit = 3 Phenytoin (Dilantin), 21.1 ug/mL Comments: PATIENT NOT FASTINGPERFORMED BY: [employer] [id number] Information: client draw :34 Serum (Abnormal) Range: 10.0-20.0 Comments: Detection Limit = 0.8 <0.8 Indicates None DetectedPatient drug level exceeds published reference range. Evaluateclinically for signs of potential toxicity. [id number] Phenytoin, Free, Serum 1.4 ug/mL (Normal) Comments: PATIENT NOT FASTINGPERFORMED BY: [place] [id number] [facility] [id number] BY: [address] [id number] :34 Range: 1.0-2.0 Comments: Detection Limit = 0.5 :34 Urinalysis, Complete Comments: PATIENT NOT FASTINGPERFORMED BY: [place] [id number] [facility] [id number] BY: [address] [id number] Microscopic Examination See below: Comments: Microscopic was indicated and was performed. (Normal) Microscopic Examination MICRON (Normal) Comments: Microscopic follows if indicated. Nitrite, Urine Negative (Normal) Urobilinogen,Semi-Qn 0.2 mg/dL (Normal) Range: 0.2-1.0 Bilirubin Negative (Normal) Occult Blood Negative (Normal) Ketones Negative (Normal) Glucose Negative (Normal) Protein Negative (Normal) WBC Esterase Negative (Normal) Appearance Clear (Normal) Urine-Color Yellow (Normal) pH 7.0 (Normal) Range: 5.0-7.5 Specific Ozan 1.013 (Normal) Range: 1.005-1.030 Written Authorization WAR (Normal) Comments: PATIENT NOT FASTINGPERFORMED BY: [place] [id number] [facility] [id number] :34 Comments: Written Authorization Received.Authorization received from VIKAS MARTIN [phone] by Cinthya Armenta :50 Blood Glucose , Office (15449) Blood Glucose , Office 106 (Normal) 33-Akb-770344:40 HgA1C , Office (02664) HgA1C , Office 5.3 % (Normal) Range: 4.6 - 7.1 :45 Amylase Comments: [facility] [address] [place], [address] KIMBERLY 98 U/L (Normal) Range: 25-115 86-Ycm-207689:45 CBC-Complete Blood Cnt No Diff Comments: [facility] Xxsqjycpet1585 [facility]. [place], [place], [id number] MPV 8.7 fL (Normal) Range: 6.2-12.0 PLT 308 K/mm3 (Normal) Range: 150-450 RDW SD 46.5 fL (Abnormal) Range: 35.1-43.9 RDW CV 12.7 % (Normal) Range: 11.6-14.6 MCHC 33.0 {g/gl} (Normal) Range: 32-36 MCH 32.7 pg (Abnormal) Range: 27.0-32.0 MCV 99.2 fL (Abnormal) Range: 80-94 HCT 47.0 % (Normal) Range: 40-54 HGB 15.5 g/dL (Normal) Range: 13.0-16.5 RBC 4.74 {M/mm3} (Normal) Range: 4.6-6.2 WBC 7.1 K/mm3 (Normal) Range: 4.4-11.0 17-Jvw-741277:45 Comprehensive Metabolic Profil Comments: [facility] Dwuiempexa[address] [facility]. [place], [place], [id number] GAP 6 (Normal) Range: 5-15 CO2 31.0 mmol/L (Normal) Range: 21.0-32.0 CL 102 mmol/L (Normal) Range: 98-107 K 3.9 mmol/L (Normal) Range: 3.5-5.1 NA 139 mmol/L (Normal) Range: 136-145 T BILI 0.30 mg/dL (Normal) Range: 0.20-1.00 ALT 45 U/L (Normal) Range: 12-78 ALK P 90 U/L (Normal) Range: 45-117 AST 34 U/L (Normal) Range: 15-37 CA 8.6 mg/dL (Normal) Range: 8.5-10.1 A/G 1.0 {RATIO} (Normal) Range: 0.9-2.4 GLOB 4.0 g/dL (Abnormal) Range: 2.3-3.5 ALB 3.8 g/dL (Normal) Range: 3.4-5.0 T PROT 7.8 g/dL (Normal) Range: 6.4-8.2 BUN/CRE 13.0 {RATIO} (Normal) Range: 10-20 EST GFR - AA 119 mL/min (Normal) Comments: GFR Calc EST GFR 98 mL/min (Normal) Comments: Non- GFR Calc CREAT,SERUM 0.84 mg/dL (Normal) Range: 0.70-1.30 Comments: The validity of the calculated GFR AND GFRAA in patients over70 years has not been determined. Clinical correlation isessential. BUN 11 mg/dL (Normal) Range: 7-18 GLU 62 mg/dL (Abnormal) Range: 70-110 50-Emy-189238:45 EBV Acute Prof IgG / IgM Comments: [facility] (refer to report for specific site)refer to report for address and phone number INTERPRETATION Comment (Normal) Comments: EBV Interpretation ChartInterpretation EBV-IgM EA(D)-IgG VCA-IgG EBNA-IgGEBV Seronegative - - - -Early Phase + - - -Acute Primary + +or- + -InfectionConvalescence/Past - +or- + +InfectionReactivated +or- + + +Infection + Antibody Present - Antibody Ab sentPerformed at: [facility] [address] [id number] Director: Leoncio Martinez PhD, Phone: [phone] EB-NAg [id number] 283.0 U/mL (Abnormal) Range: 0.0-17.9 Comments: Negative <18.0 Equivocal 18.0 - 21.9 Positive >21.9 EB-VCA [id number] 188.0 U/mL (Abnormal) Range: 0.0-17.9 Comments: Negative <18.0 Equivocal 18.0 - 21.9 Positive >21.9 EB-EA IgG [id number] 84.5 U/mL (Abnormal) Range: 0.0-8.9 Comments: Hepatitis A, Hepatitis C and HIV antibodies may cross-reactwith this assay. Negative < 9.0 Equivocal 9.0 - 10.9 Positive >10.9 EB-VCA [id number] < 36.0 U/mL (Normal) Range: 0.0-35.9 Comments: Negative <36.0 Equivocal 36.0 - 43.9 Positive >43.9 27-Ucf-790291:45 Phenytoin (Dilantin) Level Comments: Time Medication is to be Given? 1200[facility] [address] [place], [address] PHENYTOIN 20.1 mL (Abnormal) Range: 10.0-20.0 Comments: Critical Result(s) Called at: 19:27:37 08/03/2016 by:Ana CULP 30-Ryh-091138:45 T4 Free Direct Comments: [facility] [address] [place], [address] T4 FREE DIRECT 0.75 ng/dL (Abnormal) Range: 0.76-1.46 14-Drq-320561:45 Thyroid Stim Hormone (TSH) Comments: [facility] [address] [place], [address] TSH 1.86 {uIU/mL} (Normal) Range: 0.358-3.74 44-Fcu-482173:10 Urinalysis, Office (73408) UA - LEUKOCYTE ESTERASE Negative (Normal) UA - NITRITE Negative (Normal) URINE UROBILINGN LANE TIMED Normal mg/dL (Normal) UA - PROTEIN Negative mg/dL (Normal) UA - PH 7 (Normal) UA - BLOOD Negative (Normal) UA - SPECIFIC GRAVITY 1.010 (Normal) UA - KETONES Negative mg/dL (Normal) UA - BILIRUBIN Negative (Normal) UA - GLUCOSE Negative (Normal) 09-Dxi-708073:22 Phenobarbital Comments: Time Medication is to be Given? [address] [place] [address] [address] [place], [address] PHENOBARB 26.8 ug/mL (Normal) Range: 10.0-40.0 81-Ftp-465911:22 Phenytoin (Dilantin) Level Comments: Time Medication is to be Given? [address] [place] [address] [address] [place], [address] ; fu 3-31 PHENYTOIN 16.0 mL (Normal) Range: 10.0-20.0 83-Qxr-827860:23 Free T3 Comments: [facility] [address] [place], [address] FREE T3 2.7 pg/mL (Normal) Range: 2.18-3.98 15-Sfz-164282:23 Methylmalonic Acid Bld Comments: [facility] (refer to report for specific site)refer to report for address and phone number METHYLM [id number] 230 nmol/L (Normal) Range: 0-378 Comments: Performed at: [address] [id number] Director: Deangelo Miller MD, Phone: [phone] 70-Rif-458035:23 NMR Lipoprofile Comments: [facility] (refer to report for specific site)refer to report for address and phone number LP-IR SCORE 42 (Normal) Comments: INSULIN RESISTANCE MARKER <--Insulin Sensitive Insulin Resistant--> Percentile in Reference PopulationInsulin Resistance ScoreLP-IR Score Low 25th 50th 75th High <27 27 45 63 >63LP-IR Score is inaccurate if patient is non-fasting.The LP-IR score is a laboratory developed index that hasbeen associated with insulin resistance and diabetes riskand should be used as one component of a physician'sclinical assessment. The LP-IR score listed above has notbeen cleared by the US Food and Drug Administration. INS RES/DIAB RK . (Normal) LDL SIZE 21.3 nm (Normal) Comments: INTERPRETATIVE INFORMATION PARTICLE CONCENTRATION AND SIZE <--Lower CVD Risk Highe r CVD Risk--> LDL AND HDL PARTICLES Percentile in Reference Population HDL-P (total) High 75th 50th 25th Low >34.9 34.9 30.5 26.7 <26.7 Small LDL-P Low 25th 50th 75th High <117 117 527 839 >839 LDL Size <-Large (Pattern A)-> <-Small (Pattern B)-> 23.0 20.6 20.5 19.0 Small LDL-P and LDL Size are associated with CVD risk, butnot after LDL-P is taken into account .These assays were developed and their performancecharacteristics determined by [employer]. These assayshave not been cleared by the US Food and DrugAdministration. The clinical utility of these laboratoryvalues have not been fully established. SMALL LDL-P 412 nmol/L (Normal) HDL-P TOTAL 31.2 umol/L (Normal) LD HD PARTICLES . (Normal) LDL-P 1186 nmol/L (Abnormal) Comments: Low < 1000 Moderate 1000 - 1299 Borderline-High 1300 - 1599 High 1600 - 2000 Very High > 2000 TRIGLYCERIDES 68 mg/dL (Normal) Range: 0-149 HDL-C 51 mg/dL (Normal) LDL-C 113 mg/dL (Abnormal) Range: 0-99 Comments: Optimal < 100 Above optimal 100 - 129 Borderline 130 - 159 High 160 - 189 Very high > 189LDL-C is inaccurate if patient is non-fasting. CHOLESTEROL TOT 178 mg/dL (Normal) Range: 100-199 LIPIDS . (Normal) 63-Avd-359448:23 Phenobarbital Comments: Time Medication is to be Given? 0000[facility] [address] [facility] [address] [place], [place], [id number] PHENOBARB 26.6 ug/mL (Normal) Range: 10.0-40.0 22-Vir-985778:23 Phenytoin (Dilantin) Level Comments: Time Medication is to be Given? 0000[facility] [address] [place], [place], [address] PHENYTOIN 18.9 mL (Normal) Range: 10.0-20.0 80-Uzu-164086:23 T4 Free Direct Comments: [facility] [address] [facility] [address] [place], [place], [address] T4 FREE DIRECT 0.71 ng/dL (Abnormal) Range: 0.76-1.46 15-Kxa-991525:23 Thyroid Stim Hormone (TSH) Comments: [facility] [address] [facility] [address] [place], [place], [address] TSH 2.15 {uIU/mL} (Normal) Range: 0.358-3.74 71-Ebx-395984:23 Vitamin B12 761 pg/mL (Normal) Comments: [facility] [address] [place], [address] Range: 211-911 :23 Vitamin D,25 Hydroxy Comments: [facility] [address] [place], [address] Vitamin D 25-OH 82.1 ng/mL (Normal) Comments: Vitamin D 25(OH) Status Range Deficiency <20 ng/mL (50nmol/L) Insuffciency 20 - 30 ng/mL (50 - 75 nmol/L) Sufficiency 30 - 100 ng/mL (75 - 250 nmol/L) Toxicity >100 ng/mL (>250 nmol/L) :27 Free T3 Comments: [facility] [address] [place] [place], [id number] FREE T3 2.5 pg/mL (Normal) Range: 2.18-3.98 :27 Lipoprotein A 38 nmol/L (Normal) Comments: [facility] (refer to report for specific site)refer to report for address and phone number Comments: Note: Values greater than or equal to 75 nmol/L may indicate an independent risk factor for CHD, but must be evaluated with caution when applied to non- populations due to th e influence of genetic factors on Lp(a) across ethnicities.Performed at: - [facility] [id number] Director: Leoncio Martinez PhD, Phone: [phone] 94-Dzl-852248:27 Methylmalonic Acid Bld Comments: [facility] (refer to report for specific site)refer to report for address and phone number METHYLM [id number] 257 nmol/L (Normal) Range: 0-378 Comments: Performed at: - [facility] [id number] Director: Deangelo Miller MD, Phone: [phone] 80-Jkd-089139:27 Phenobarbital Comments: Time Medication is to be Given? [address] [place] [address] [address] [place], [address] PHENOBARB 26.8 ug/mL (Normal) Range: 10.0-40.0 48-Ebh-891907:27 Phenytoin (Dilantin) Level Comments: Time Medication is to be Given? 1240[facility] [address] [place], [address] PHENYTOIN 20.5 mL (Abnormal) Range: 10.0-20.0 Comments: Critical Result(s) Called at: 14:39:56 01/07/2016 by:Yola Birmingham at [facility] 00-Dvz-184646:27 T4 Free Direct Comments: [place] [address] [address] [place], [address] T4 FREE DIRECT 0.68 ng/dL (Abnormal) Range: 0.76-1.46 22-Rqo-870621:27 Vitamin B12 689 pg/mL (Normal) Comments: [place] [address] [place], [address] ; f/u on 01/12 Range: 211-911 54-Csf-718580:27 Vitamin D,25 Hydroxy Comments: [place] [address] [place], [address] Vitamin D 25-OH 135.4 ng/mL (Normal) Comments: Vitamin D 25(OH) Status Range Deficiency <20 ng/mL (50nmol/L) Insuffciency 20 - 30 ng/mL (50 - 75 nmol/L) Sufficiency 30 - 100 ng/mL (75 - 250 nmol/L) Toxicity >100 ng/mL (>250 nmol/L)Evidence suggests that patients undergoing fluorescein dyeangiography can retain small amounts of fluorescein in thebody for u p to 48 to 72 hours post-treatment. In the casesof patients with renal insufficiency, retention could bemuch longer.Samples containing fluorescein can produce falsely elevatedvalues when tested with the [employer] Cent[employer] Vitamin D assay.With fluorescein interference, observed Vitamin D values canbe as high as >150 ng/mL (>375 nmol/L). Samples should beresubmitted post fluorescein clearance to ensure there is nointerference with Vitamin D test results. Phenytoin, Free, 1.9 ug/mL (Normal) Comments: PERFORMED BY: Social[facility]ial[facility] [id number] [facility] [id number] BY: [address] [id number] :12 Serum Range: 1.0-2.0 Comments: Detection Limit = 0.5 :12 PSA (Prostate Specific Comments: PERFORMED BY: [facility] [place]6370 [facility] [id number] BY: [address] [id number] Antigen), Screening (92541) Prostate Specific Ag, 1.7 ng/mL (Normal) Range: 0.0-4.0 Serum Comments: [employer] ECLIA methodology. .According to the [place] [employer], Serum PSA shoulddecrease and remain at undetectable levels after radicalprostatectomy. The AUA defines biochemical recurrence as an initialPSA value 0.2 ng/mL or greater followed by a subsequent confirmatoryPSA value 0.2 ng/mL or greater.Values obtained with d ifferent assay methods or kits cannot be usedinterchangeably. Results cannot be interpreted as absolute evidenceof the presence or absence of malignant disease. 79-Qps-696574:00 Miscellaneous Lab Procedure Comments: NO VRO CHARGE REDRAWComments: [id number] PHENYTION FREE,RED,RTTest(s) Ordered: [id number] PHENYTION FREE,RED,RTWWVUMedicine [facility] [address]jjpgf[address] [place] [place], 9[address] [facility] Comments: TEST RESULT UNITS REFERENCE INTERVALPhenytoin, Free, Serum 1.9 ug/mL 1.0 - 2.0 Detection Limit = 0.5 LAB (Normal) TESTING PERFORMED AT [facility]. ORIGINAL REPORT ON FILE IN LAB CONTAINS ADDITIONAL TEST SITE INFORMATION. TEST 68-Scr-658661:58 Lipid Profile Comments: [facility] [address]ab[address] [place], [id number] VLDL 13 mg/dL (Normal) Range: 5-40 LDL 112 mg/dL (Normal) Range: 0-130 HDL 53 mg/dL (Normal) Comments: Reference Range HDL <40 mg/dL Low HDL Cholesterol HDL >or= 60 mg/dL High HDL Cholesterol TRIG 65 mg/dL (Normal) Comments: Serum Triglycerides Reference Interval Normal <150 mg/dL Borderline high 150 - 199 mg/dL High 200 - 499 mg/dL Very High > or = 500 mg/dL CHOL 178 mg/dL (Normal) Comments: <200 mg/dL Desirable 200-240 mg/dL Borderline >240 mg/dL High Risk 88-Eco-107814:58 Vitamin D,25 Hydroxy Comments: [facility] [address] [place], [id number] Vitamin D 25-OH 40.4 ng/mL (Normal) Comments: Vitamin D 25(OH) Status Range Deficiency <20 ng/mL (50nmol/L) Insuffciency 20 - 30 ng/mL (50 - 75 nmol/L) Sufficiency 30 - 100 ng/mL (75 - 250 nmol/L) Toxicity >100 ng/mL (>250 nmol/L) 38-Hcv-244239:33 Lipid Panel With LDL/HDL Comments: PATIENT WAS FASTINGPERFORMED BY: CB [facility] Laeiax9171 [facility] [id number] BY: BN [facility] [address] [id number] Ratio LDL/HDL Ratio 2.2 {ratio_units} Range: 0.0-3.6 (Normal) Comments: LDL/HDL Ratio Men Women 1/2 Avg.Risk 1.0 1.5 Av g.Risk 3.6 3.2 2X Avg.Risk 6.2 5.0 3X Avg.Risk 8.0 6.1 LDL Cholesterol Calc 124 mg/dL (Abnormal) Range: 0-99 VLDL Cholesterol Shawn 13 mg/dL (Normal) Range: 5-40 HDL Cholesterol 56 mg/dL (Normal) Comments: According to ATP-III Guidelines, HDL-C >59 mg/dL is considered anegative risk factor for CHD. Triglycerides 64 mg/dL (Normal) Range: 0-149 Cholesterol, Total 193 mg/dL (Normal) Range: 100-199 Phenytoin, Free, Serum 1.4 ug/mL (Normal) Comments: PATIENT WAS FASTINGPERFORMED BY: [employer]70 [facility] [id number] BY: [employer] [id number] 616:33 Range: 1.0-2.0 Comments: Detection Limit = 0.5 Vitamin D, 25-Hydroxy 62.9 ng/mL (Normal) Comments: PATIENT WAS FASTINGPERFORMED BY: [employer]6370 [facility] [id number] BY: [employer] [address] [id number] 616:33 Range: 30.0-100.0 Comments: Vitamin D deficiency has been defined by the [place] [facility] Cent[facility] and an Endocrine Society practice guideline as alevel of serum 25-OH vitamin D less than 20 ng/mL (1,2).The Endocrine Society went on to further define vitamin Dinsufficiency as a level between 21 and 29 ng/mL (2).1. IOM ([place] of Medicine). 2010. Dietary reference intakes for calcium and D. [place]: The National Academies Press.2. Belinda MF, Courtney [place], Jamar KAY, et al. Evaluation, treatment, and prevention of vitamin D deficiency: an Endocrine Society clinical practice guideline. JCEM. 2010; 96(7):1911-30. 90-Fbi-999166:08 CBC W/Diff, Automated Comments: [facility] [address] [place], [address] ; [address] Absolute Lymph 1.50 {X10_3/ul} (Normal) Range: 0.83-4.51 Absolute Neut 2.9 {X10_3/uL} (Normal) Range: 2.0-7.7 IM GRAN % 0.200 % (Normal) Range: 0.0-0.9 Comments: IG% - Immature Granulocytes (promyelocytes, myelocytes andmetamyelocytes) > 1% indicates that a LEFT SHIFT is Present. BASO% 0.6 % (Normal) Range: 0-1 EO% 7.7 % (Abnormal) Range: 0-5 MONO% 7.7 % (Normal) Range: 0-10 LY% 28.8 % (Normal) Range: 19-41 NEUT% 55.0 % (Normal) Range: 47-70 MPV 8.4 fL (Normal) Range: 6.2-12.0 PLT 257 K/mm3 (Normal) Range: 150-450 RDW SD 45.7 fL (Abnormal) Range: 35.1-43.9 RDW CV 12.6 % (Normal) Range: 11.6-14.6 MCHC 33.3 {g/gl} (Normal) Range: 32-36 MCH 32.7 pg (Abnormal) Range: 27.0-32.0 MCV 98.1 fL (Abnormal) Range: 80-94 HCT 46.5 % (Normal) Range: 40-54 HGB 15.5 g/dL (Normal) Range: 13.0-16.5 RBC 4.74 {M/mm3} (Normal) Range: 4.6-6.2 WBC 5.2 K/mm3 (Normal) Range: 4.4-11.0 54-Fta-190633:08 Comprehensive Metabolic Profil Comments: [facility] [address] [place], [place], [address] GAP 7 (Normal) Range: 5-15 CO2 29.0 mmol/L (Normal) Range: 21.0-32.0 CL 107 mmol/L (Normal) Range: 98-107 K 3.9 mmol/L (Normal) Range: 3.5-5.1 NA 143 mmol/L (Normal) Range: 136-145 T BILI 0.20 mg/dL (Normal) Range: 0.20-1.00 ALT 33 U/L (Normal) Range: 12-78 ALK P 78 U/L (Normal) Range: 50-136 AST 22 U/L (Normal) Range: 15-37 CA 8.3 mg/dL (Abnormal) Range: 8.5-10.1 A/G 1.0 {RATIO} (Normal) Range: 0.9-2.4 GLOB 3.8 g/dL (Abnormal) Range: 2.3-3.5 ALB 3.7 g/dL (Normal) Range: 3.4-5.0 T PROT 7.5 g/dL (Normal) Range: 6.4-8.2 BUN/CRE 15.5 {RATIO} (Normal) Range: 10-20 EST GFR - AA 110 mL/min (Normal) Comments: GFR Calc EST GFR 91 mL/min (Normal) Comments: Non- GFR Calc CREAT,SERUM 0.90 mg/dL (Normal) Range: 0.70-1.30 Comments: The validity of the calculated GFR AND GFRAA in patients over70 years has not been determined. Clinical correlation isessential. BUN 14 mg/dL (Normal) Range: 7-18 GLU 96 mg/dL (Normal) Range: 70-110 49-Ypo-397353:08 Dilantin, Free 1.2 ug/mL (Normal) Comments: [facility] (refer to report for specific site)refer to report for address and phone number Range: 1.0-2.0 Comments: Detection Limit = 0.5Performed at: [address] [id number] Director: Denagelo Miller MD, Phone: [phone] 22-Wts-021801:08 Phenobarbital Comments: [facility] [address] [place], [address] PHENOBARB 28.8 ug/mL (Normal) Range: 10.0-40.0 29-Jif-729311:08 PSA,Total - Annual Screen Comments: [facility] [address] [place], [address] PSA,TOT SCREEN 1.71 ng/mL (Normal) Range: 0.00-4.00 Comments: This test was performed using the TPSA assay method for the[facility] [place] chemistry system. Values obtained with differentassay methods cannot be used interchangably.When changing PSA assays in the course of monitoring apatient, additional sequential testing should be carriedout to confirm baseline values. 12-Ccs-260055:08 Thyroid Stim Hormone (TSH) Comments: [facility] [address]ucsu[address] [place], [address] TSH 3.48 {uIU/mL} (Normal) Range: 0.358-3.74 16-Jtv-404428:08 Vitamin D,25 Hydroxy Comments: [facility] [address]wdhoqrp[address] [place] [place], [address] Vitamin D 25-OH > 150.0 ng/mL (Normal) Comments: Vitamin D 25(OH) Status Range Deficiency <20 ng/mL (50nmol/L) Insuffciency 20 - 30 ng/mL (50 - 75 nmol/L) Sufficiency 30 - 100 ng/mL (75 - 250 nmol/L) Toxicity >100 ng/mL (>250 nmol/L)Evidence suggests that patients undergoing fluorescein dyeangiography can retain small amounts of fluorescein in thebody for u p to 48 to 72 hours post-treatment. In the casesof patients with renal insufficiency, retention could bemuch longer.Samples containing fluorescein can produce falsely elevatedvalues when tested with the [employer] Centaur Vitamin D assay.With fluorescein interference, observed Vitamin D values canbe as high as >150 ng/mL (>375 nmol/L). Samples should beresubmitted post fluorescein clearance to ensure there is nointerference with Vitamin D test results. 79-Lnx-422927:16 CBC W/Diff, Automated Comments: Test performed at:[facility] [address]av[address] [place]ín [place] [id number] ; has fu 10-23-14 will review then Absolute Lymph 1.22 {X10_3/ul} (Normal) Range: 0.83-4.51 Absolute Neut 2.7 {X10_3/uL} (Normal) Range: 2.0-7.7 IM GRAN % 0.000 % (Normal) Range: 0.0-0.9 Comments: IG% - Immature Granulocytes (promyelocytes, myelocytes andmetamyelocytes) > 1% indicates that a LEFT SHIFT is Present. BASO% 0.8 % (Normal) Range: 0-1 EO% 7.4 % (Abnormal) Range: 0-5 MONO% 8.8 % (Normal) Range: 0-10 LY% 25.7 % (Normal) Range: 19-41 NEUT% 57.3 % (Normal) Range: 47-70 MPV 8.7 fL (Normal) Range: 6.2-12.0 PLT 288 K/mm3 (Normal) Range: 150-450 RDW SD 44.6 fL (Abnormal) Range: 35.1-43.9 RDW CV 12.6 % (Normal) Range: 11.6-14.6 MCHC 34.5 {g/gl} (Normal) Range: 32-36 MCH 33.6 pg (Abnormal) Range: 27.0-32.0 MCV 97.4 fL (Abnormal) Range: 80-94 HCT 45.5 % (Normal) Range: 40-54 HGB 15.7 g/dL (Normal) Range: 13.0-16.5 RBC 4.67 {M/mm3} (Normal) Range: 4.6-6.2 WBC 4.8 K/mm3 (Normal) Range: 4.4-11.0 72-Pxx-674493:16 Comprehensive Metabolic Profil Comments: Test performed at:[facility] [address] [place] [address] GAP 8 (Normal) Range: 5-15 CO2 28.0 mmol/L (Normal) Range: 21.0-32.0 CL 103 mmol/L (Normal) Range: 98-107 K 3.9 mmol/L (Normal) Range: 3.5-5.1 NA 139 mmol/L (Normal) Range: 136-145 T BILI 0.30 mg/dL (Normal) Range: 0.20-1.00 ALT 38 U/L (Normal) Range: 12-78 ALK P 72 U/L (Normal) Range: 50-136 AST 28 U/L (Normal) Range: 15-37 CA 8.6 mg/dL (Normal) Range: 8.5-10.1 A/G 1.0 {RATIO} (Normal) Range: 0.9-2.4 GLOB 3.6 g/dL (Normal) Range: 2.7-4.2 ALB 3.6 g/dL (Normal) Range: 3.4-5.0 T PROT 7.2 g/dL (Normal) Range: 6.4-8.2 BUN/CRE 11.1 {RATIO} (Normal) Range: 10-20 EST GFR - AA 112 mL/min (Normal) EST GFR 92 mL/min (Normal) CREAT,SERUM 0.9 mg/dL (Normal) Range: 0.8-1.3 BUN 10 mg/dL (Normal) Range: 7-18 GLU 89 mg/dL (Normal) Range: 70-110 38-Qsg-177268:16 Phenobarbital Comments: Time Medication is to be Given? 0000Test performed at:[facility] [address] [place] [address] PHENOBARB 26.9 ug/mL (Normal) Range: 10.0-40.0 :16 Phenytoin (Dilantin) Level Comments: Time Medication is to be Given? 0000Test performed at:[facility] [address] [place] [address] PHENYTOIN 16.0 ug/mL (Normal) Range: 10.0-20.0 21-Fvm-204441:16 Vitamin D,25 Hydroxy Comments: Test performed at:[facility] [address] [place] [address] Vitamin D 25-OH 19.2 ng/mL (Normal) Comments: Vitamin D 25(OH) Status Range Deficiency <20 ng/mL (50nmol/L) Insuffciency 20 - 30 ng/mL (50 - 75 nmol/L) Sufficiency 30 - 100 ng/mL (75 - 250 nmol/L) Toxicity >100 ng/mL (>250 nmol/L) :48 CBC W/Diff, Automated Comments: Test performed at:[facility] [address] [place] [address] Absolute Lymph 1.50 {X10_3/ul} (Normal) Range: 0.83-4.51 Absolute Neut 2.3 {X10_3/uL} (Normal) Range: 2.0-7.7 IM GRAN % 0.200 % (Normal) Range: 0.0-0.9 Comments: IG% - Immature Granulocytes (promyelocytes, myelocytes andmetamyelocytes) > 1% indicates that a LEFT SHIFT is Present. BASO% 0.6 % (Normal) Range: 0-1 EO% 9.6 % (Abnormal) Range: 0-5 MONO% 10.2 % (Abnormal) Range: 0-10 LY% 31.2 % (Normal) Range: 19-41 NEUT% 48.2 % (Normal) Range: 47-70 MPV 8.2 fL (Normal) Range: 6.2-12.0 PLT 257 K/mm3 (Normal) Range: 150-450 RDW SD 45.2 fL (Abnormal) Range: 35.1-43.9 RDW CV 12.6 % (Normal) Range: 11.6-14.6 MCHC 33.5 {g/gl} (Normal) Range: 32-36 MCH 32.6 pg (Abnormal) Range: 27.0-32.0 MCV 97.4 fL (Abnormal) Range: 80-94 HCT 44.8 % (Normal) Range: 40-54 HGB 15.0 g/dL (Normal) Range: 13.0-16.5 RBC 4.60 {M/mm3} (Normal) Range: 4.6-6.2 WBC 4.8 K/mm3 (Normal) Range: 4.4-11.0 [id number] Comprehensive Metabolic Profil Comments: Test performed at:[facility] [address] [place], [place] [id number] GAP 6 (Normal) Range: 5-15 CO2 30.0 mmol/L (Normal) Range: 21.0-32.0 CL 103 mmol/L (Normal) Range: 98-107 K 4.4 mmol/L (Normal) Range: 3.5-5.1 NA 139 mmol/L (Normal) Range: 136-145 T BILI 0.30 mg/dL (Normal) Range: 0.00-4.00 ALT 25 U/L (Normal) Range: 12-78 ALK P 83 U/L (Normal) Range: 50-136 AST 26 U/L (Normal) Range: 15-37 CA 8.8 mg/dL (Normal) Range: 8.5-10.1 A/G 1.0 {RATIO} (Normal) Range: 0.9-2.4 GLOB 3.6 g/dL (Normal) Range: 2.7-4.2 ALB 3.6 g/dL (Normal) Range: 3.4-5.0 T PROT 7.2 g/dL (Normal) Range: 6.4-8.2 BUN/CRE 11.1 {RATIO} (Normal) Range: 10-20 EST GFR - AA 112 mL/min (Normal) EST GFR 92 mL/min (Normal) CREAT,SERUM 0.9 mg/dL (Normal) Range: 0.8-1.3 BUN 10 mg/dL (Normal) Range: 7-18 GLU 97 mg/dL (Normal) Range: 70-110 [id number] Phenobarbital Comments: Time Medication is to be Given? 1200Test performed at:[facility] [address] [place] [address] PHENOBARB 25.3 ug/mL (Normal) Range: 10.0-40.0 :48 Phenytoin (Dilantin) Level Comments: Time Medication is to be Given? 1200Test performed at:[facility] [address] [place], [place] [id number] PHENYTOIN 19.6 ug/mL (Normal) Range: 10.0-20.0 :48 Vitamin D,25 Hydroxy Comments: Test performed at:[facility] [address] [place], [place] [address] Vitamin D 25-OH 44.8 ng/mL (Normal) Comments: Vitamin D 25(OH) Status Range Deficiency <20 ng/mL (50nmol/L) Insuffciency 20 - 30 ng/mL (50 - 75 nmol/L) Sufficiency 30 - 100 ng/mL (75 - 250 nmol/L) Toxicity >100 ng/mL (>250 nmol/L) :23 Phenobarbital Comments: Time Medication is to be Given? 0000Test performed at:[facility] [address] [place] [address] PHENOBARB 28.8 ug/mL (Normal) Range: 10.0-40.0 [id number] Phenytoin (Dilantin) Level Comments: Time Medication is to be Given? 0000Test performed at:[facility] [address] [place] [address] PHENYTOIN 19.4 ug/mL (Normal) Range: 10.0-20.0 [id number]:54 CBC W/Diff, Automated Comments: Test performed at:[facility] [address] [place] [address] Absolute Lymph 1.20 {X10_3/ul} (Normal) Range: 0.83-4.51 Absolute Neut 3.0 {X10_3/uL} (Normal) Range: 2.0-7.7 IM GRAN % 0.200 % (Normal) Range: 0.0-0.9 Comments: IG% - Immature Granulocytes (promyelocytes, myelocytes andmetamyelocytes) > 1% indicates that a LEFT SHIFT is Present. BASO% 1.0 % (Normal) Range: 0-1 EO% 8.3 % (Abnormal) Range: 0-5 MONO% 8.9 % (Normal) Range: 0-10 LY% 23.2 % (Normal) Range: 19-41 NEUT% 58.4 % (Normal) Range: 47-70 MPV 8.2 fL (Normal) Range: 6.2-12.0 PLT 294 K/mm3 (Normal) Range: 150-450 RDW SD 43.2 fL (Normal) Range: 35.1-43.9 RDW CV 12.3 % (Normal) Range: 11.6-14.6 MCHC 33.7 {g/gl} (Normal) Range: 32-36 MCH 32.7 pg (Abnormal) Range: 27.0-32.0 MCV 96.9 fL (Abnormal) Range: 80-94 HCT 44.2 % (Normal) Range: 40-54 HGB 14.9 g/dL (Normal) Range: 13.0-16.5 RBC 4.56 {M/mm3} (Abnormal) Range: 4.6-6.2 WBC 5.2 K/mm3 (Normal) Range: 4.4-11.0 [id number] Comprehensive Metabolic Profil Comments: Test performed at:[facility] [address] [place] [address] GAP 4 (Abnormal) Range: 5-15 CO2 31.0 mmol/L (Normal) Range: 21.0-32.0 CL 104 mmol/L (Normal) Range: 98-107 K 4.1 mmol/L (Normal) Range: 3.5-5.1 NA 139 mmol/L (Normal) Range: 136-145 T BILI 0.30 mg/dL (Normal) Range: 0.00-4.00 ALT 31 U/L (Normal) Range: 12-78 ALK P 73 U/L (Normal) Range: 50-136 AST 23 U/L (Normal) Range: 15-37 CA 8.6 mg/dL (Normal) Range: 8.5-10.1 A/G 1.0 {RATIO} (Normal) Range: 0.9-2.4 GLOB 3.5 g/dL (Normal) Range: 2.7-4.2 ALB 3.4 g/dL (Normal) Range: 3.4-5.0 T PROT 6.9 g/dL (Normal) Range: 6.4-8.2 BUN/CRE 11.1 {RATIO} (Normal) Range: 10-20 EST GFR - AA 112 mL/min (Normal) EST GFR 92 mL/min (Normal) CREAT,SERUM 0.9 mg/dL (Normal) Range: 0.8-1.3 BUN 10 mg/dL (Normal) Range: 7-18 GLU 90 mg/dL (Normal) Range: 70-110 [id number] Lipid Profile Comments: Test performed at:[facility] [address] [place], [place] [id number] VLDL 14 mg/dL (Normal) Range: 5-40 LDL 113 mg/dL (Normal) Range: 0-130 HDL 45 mg/dL (Normal) Comments: Reference Range HDL <40 mg/dL Low HDL Cholesterol HDL >or= 60 mg/dL High HDL Cholesterol TRIG 72 mg/dL (Normal) Range: 0-199 Comments: Serum Triglycerides Reference Interval Normal <150 mg/dL Borderline high 150 - 199 mg/dL High 200 - 499 mg/dL Very High > or = 500 mg/dL CHOL 172 mg/dL (Normal) Comments: <200 mg/dL Desirable 200-240 mg/dL Borderline >240 mg/dL High Risk [id number] Phenobarbital Comments: Time Medication is to be Given? 0600Test performed at:[facility] [address] [place] [address] PHENOBARB 27.6 ug/mL (Normal) Range: 10.0-40.0 [id number]:54 Phenytoin (Dilantin) Level Comments: Time Medication is to be Given? 0600Test performed at:[facility] [address] [place] [address] PHENYTOIN 22.2 ug/mL (Abnormal) Range: 10.0-20.0 Comments: RESULTS CALLED TO VIKAS [place] 04/10/14 1336 CCrytzer.REPORT READ BACK BY SAME. [id number] PSA,Total - Annual Screen Comments: Test performed at:[facility] [address] [place] [address] PSA,TOT SCREEN 1.91 ng/mL (Normal) Range: 0.00-4.00 Comments: This test was performed using the TPSA assay method for the[facility] [place] chemistry system. Values obtained with differentassay methods cannot be used interchangably.When changing PSA assays in the course of monitoring apatient, additional sequential testing should be carriedout to confirm baseline values. [id number]:54 Vitamin D,25 Hydroxy Comments: Test performed at:[facility] [address] [place] [address] Vitamin D 25-OH 58.4 ng/mL (Normal) Comments: Vitamin D 25(OH) Status Range Deficiency <20 ng/mL (50nmol/L) Insuffciency 20 - 30 ng/mL (50 - 75 nmol/L) Sufficiency 30 - 100 ng/mL (75 - 250 nmol/L) Toxicity >100 ng/mL (>250 nmol/L); ADDENDA: normal and pt has apt next week [id number] CBCD ALC 1.31 {X10_3/ul} (Normal) Range: 0.83-4.51 ANC 3.4 {X10_3/uL} (Normal) Range: 2.0-7.7 IG% 0.200 % (Normal) Range: 0.0-0.9 Comments: IG% - Immature Granulocytes (promyelocytes, myelocytes andmetamyelocytes) > 1% indicates that a LEFT SHIFT is Present. B% 0.5 % (Normal) Range: 0-1 E% 7.0 % (Abnormal) Range: 0-5 M% 7.5 % (Normal) Range: 0-10 L% 23.4 % (Normal) Range: 19-41 N% 61.4 % (Normal) Range: 47-70 MPV 8.3 fL (Normal) Range: 6.2-12.0 PLT 270 K/mm3 (Normal) Range: 150-450 RDWSD 45.2 fL (Abnormal) Range: 35.1-43.9 RDWCV 12.9 % (Normal) Range: 11.6-14.6 MCHC 34.1 {g/gl} (Normal) Range: 32-36 MCH 32.8 pg (Abnormal) Range: 27.0-32.0 MCV 96.2 fL (Abnormal) Range: 80-94 HCT 42.8 % (Normal) Range: 40-54 HGB 14.6 g/dL (Normal) Range: 13.0-16.5 RBC 4.45 {M/mm3} (Abnormal) Range: 4.6-6.2 WBC 5.6 K/mm3 (Normal) Range: 4.4-11.0 :44 CMP GAP 3 (Abnormal) Range: 5-15 CO2 29.0 mmol/L (Normal) Range: 21.0-32.0 CL 106 mmol/L (Normal) Range: 98-107 K 4.0 mmol/L (Normal) Range: 3.5-5.1 NA 138 mmol/L (Normal) Range: 136-145 BIT 0.20 mg/dL (Normal) Range: 0.00-1.00 ALT 31 U/L (Normal) Range: 12-78 ALK 71 U/L (Normal) Range: 45-117 AST 21 U/L (Normal) Range: 15-37 CA 8.7 mg/dL (Normal) Range: 8.5-10.1 AG 1.0 {RATIO} (Normal) Range: 0.9-2.4 GLOB 3.4 g/dL (Normal) Range: 2.7-4.2 ALB 3.4 g/dL (Normal) Range: 3.4-5.0 TPROT 6.8 g/dL (Normal) Range: 6.4-8.2 BC 12.5 {RATIO} (Normal) Range: 10-20 GFRAA 128 mL/min (Normal) GFR 106 mL/min (Normal) CREAT 0.8 mg/dL (Normal) Range: 0.8-1.3 BUN 10 mg/dL (Normal) Range: 7-18 GLU 90 mg/dL (Normal) Range: 70-110 [id number]-Qsg-[id number] DIL 19.8 ug/mL (Normal) Comments: Time Medication is to be Given? 1300 Range: 10.0-20.0 :44 PHEN 26.9 ug/mL (Normal) Comments: Time Medication is to be Given? 1300 Range: 10.0-40.0 :44 VITD 72.0 mg/mL (Normal) Comments: Vitamin D 25(OH) Status RangeDeficiency <20 ng/mL (50nmol/L)Insuffciency 20 - 30 ng/mL (50 - 75 nmol/L)Sufficiency 30 - 100 ng/mL (75 - 250 nmol/L)Toxicity >100 ng/mL (>250 nmol/L) 8-[id number]:21 CBCD ANC 3.1 {X10_3/uL} (Normal) Range: 2.0-7.7 IG% 0.000 % (Normal) Range: 0.0-0.9 Comments: IG% - Immature Granulocytes (promyelocytes, myelocytes andmetamyelocytes) > 1% indicates that a LEFT SHIFT is Present. B% 0.4 % (Normal) Range: 0-1 E% 7.2 % (Abnormal) Range: 0-5 M% 8.6 % (Normal) Range: 0-10 L% 23.9 % (Normal) Range: 19-41 N% 59.9 % (Normal) Range: 47-70 MPV 8.1 fL (Normal) Range: 6.2-12.0 PLT 297 K/mm3 (Normal) Range: 150-450 RDWSD 42.1 fL (Normal) Range: 35.1-43.9 RDWCV 12.4 % (Normal) Range: 11.6-14.6 MCHC 34.6 {g/gl} (Normal) Range: 32-36 MCH 32.9 pg (Abnormal) Range: 27.0-32.0 MCV 95.2 fL (Abnormal) Range: 80-94 HCT 46.0 % (Normal) Range: 40-54 HGB 15.9 g/dL (Normal) Range: 13.0-16.5 RBC 4.83 {M/mm3} (Normal) Range: 4.6-6.2 WBC 5.1 K/mm3 (Normal) Range: 4.4-11.0 :21 CMP GAP 7 (Normal) Range: 5-15 CO2 29.0 mmol/L (Normal) Range: 21.0-32.0 CL 104 mmol/L (Normal) Range: 98-107 K 4.2 mmol/L (Normal) Range: 3.5-5.1 NA 140 mmol/L (Normal) Range: 136-145 BIT 0.30 mg/dL (Normal) Range: 0.00-1.00 ALT 36 U/L (Normal) Range: 12-78 ALK 83 U/L (Normal) Range: 50-136 AST 26 U/L (Normal) Range: 15-37 CA 8.6 mg/dL (Normal) Range: 8.5-10.1 AG 1.1 {RATIO} (Normal) Range: 0.9-2.4 GLOB 3.5 g/dL (Normal) Range: 2.7-4.2 ALB 3.9 g/dL (Normal) Range: 3.4-5.0 TPROT 7.4 g/dL (Normal) Range: 6.4-8.2 BC 13.3 {RATIO} (Normal) Range: 10-20 GFRAA 112 mL/min (Normal) GFR 92 mL/min (Normal) CREAT 0.9 mg/dL (Normal) Range: 0.8-1.3 BUN 12 mg/dL (Normal) Range: 7-18 GLU 98 mg/dL (Normal) Range: 70-110 [id number] DIL 19.5 ug/mL (Normal) Comments: Time Medication is to be Given? 1100 Range: 10.0-20.0 [id number]-[id number]:21 LIPID VLDL 19 mg/dL (Normal) Range: 5-40 LDL 115 mg/dL (Normal) Range: 0-130 HDL 45 mg/dL (Normal) Comments: Reference RangeHDL <40 mg/dL Low HDL CholesterolHDL >or= 60 mg/dL High HDL Cholesterol TRIG 93 mg/dL (Normal) Range: 0-199 Comments: Serum Triglycerides Reference IntervalNormal <150 mg/dLBorderline high 150 - 199 mg/dLHigh 200 - 499 mg/ dLVery High > or = 500 mg/dL CHOL 179 mg/dL (Normal) Comments: <200 mg/dL [id number] mg/dL Borderline>240 mg/dL High Risk :21 PHEN 28.9 ug/mL (Normal) Comments: Time Medication is to be Given? 1100 Range: 10.0-40.0 :21 VITD 22.5 mg/mL (Normal) Comments: Vitamin D 25(OH) Status RangeDeficiency <20 ng/mL (50nmol/L)Insuffciency 20 - 30 ng/mL (50 - 75 nmol/L)Sufficiency 30 - 100 ng/mL (75 - 250 nmol/L)Toxicity >100 ng/mL (>250 nmol/L) 10-Oct-20129:46 CBCMD Comments: BEATRICE AND DEANA BOTH ORDERED THE PHENYTOIN ANC 2.3 3/uL (Normal) Range: 2.0-7.7 IG% 0.00 % (Normal) Range: 0.0-0.0 B% 0.4 % (Normal) Range: 0-1 E% 6.6 % (Abnormal) Range: 0-5 M% 10.9 % (Abnormal) Range: 0-10 L% 33.4 % (Normal) Range: 19-41 N% 48.7 % (Normal) Range: 47-70 MPV 8.5 fL (Normal) Range: 6.2-12.0 PLT 226 K/mm3 (Normal) Range: 150-450 RDWSD 46.8 fL (Abnormal) Range: 35.1-43.9 RDWCV 13.2 % (Normal) Range: 11.6-14.6 MCHC 33.2 g/dL (Normal) Range: 32-36 MCH 32.0 pg (Normal) Range: 27.0-32.0 MCV 96.5 fL (Abnormal) Range: 80-94 HCT 43.7 % (Normal) Range: 40-54 HGB 14.5 g/dL (Normal) Range: 13.0-16.5 RBC 4.53 {M/mm3} (Abnormal) Range: 4.6-6.2 WBC 4.7 {k/mm3} (Normal) Range: 4.4-11.0 :46 DIL 18.7 ug/mL (Normal) Comments: BEATRICE AND DEANA BOTH ORDERED THE PHENYTOIN Range: 10.0-20.0 :38 Lower Respiratory Culture Comments: PATIENT NOT FASTINGPERFORMED BY: [facility] [id number] Result 1 RRF (Normal) Comments: Routine respiratory grazyna Lower Respiratory Final report Culture (Normal) Request Problem Final report Comments: PATIENT NOT FASTINGPERFORMED BY: [facility] Onylsi9657 [facility] [id number] :38 (Normal) Comments: A specimen was received for microbiology/virology testing with eitheran incorrect test number or without a written test number. Thespecimen has been processed according to the default policy listed int e Microbiology Appendix of the Directory of Services. Please use thecorrect test numbers to assure optimum processing of the specimens. [id number] CBCMD RBCM NORM C+C {NORMAL} (Normal) EOS 7 % (Abnormal) Range: 0-5 PE ADEQUATE (Normal) MON 5 % (Normal) Range: 0-10 LYMPH 25 % (Normal) Range: 19-41 PMN 63 % (Normal) Range: 47-70 ANC 2.9 3/uL (Normal) Range: 2.0-7.7 MARY 100 (Normal) MPV 8.7 fL (Normal) Range: 6.2-12.0 PLT 266 K/mm3 (Normal) Range: 150-450 RDWSD 44.1 fL (Abnormal) Range: 35.1-43.9 RDWCV 12.6 % (Normal) Range: 11.6-14.6 MCHC 34.2 g/dL (Normal) Range: 32-36 MCH 32.8 pg (Abnormal) Range: 27.0-32.0 HCT 45.6 % (Normal) Range: 40-54 MCV 96.0 fL (Abnormal) Range: 80-94 HGB 15.6 g/dL (Normal) Range: 13.0-16.5 RBC 4.75 {M/mm3} (Normal) Range: 4.6-6.2 WBC 5.0 {k/mm3} (Normal) Range: 4.4-11.0 :02 CMP GAP 7 (Normal) Range: 5-15 CO2 28.0 mmol/L (Normal) Range: 21.0-32.0 CL 102 mmol/L (Normal) Range: 98-107 K 3.9 mmol/L (Normal) Range: 3.5-5.1 NA 137 mmol/L (Normal) Range: 136-145 BIT 0.30 mg/dL (Normal) Range: 0.00-1.00 ALT 36 U/L (Normal) Range: 12-78 ALK 71 U/L (Normal) Range: 50-136 AST 23 U/L (Normal) Range: 15-37 CA 8.5 mg/dL (Normal) Range: 8.5-10.1 AG 1.0 {RATIO} (Normal) Range: 0.9-2.4 GLOB 3.8 g/dL (Normal) Range: 2.7-4.2 ALB 3.8 g/dL (Normal) Range: 3.4-5.0 TPROT 7.6 g/dL (Normal) Range: 6.4-8.2 BC 13.3 {RATIO} (Normal) Range: 10-20 GFR 92 mL/min (Normal) GFRAA 112 mL/min (Normal) CREAT 0.9 mg/dL (Normal) Range: 0.8-1.3 BUN 12 mg/dL (Normal) Range: 7-18 GLU 96 mg/dL (Normal) Range: 70-110 : DIL 13.2 ug/mL (Normal) Range: 10.0-20.0 :02 LIPID HDL 50 mg/dL (Normal) Comments: Reference Range HDL <40 mg/dL Low HDL Cholesterol HDL >or= 60 mg/dL High HDL Cholesterol LDL 121 mg/dL (Normal) Range: 0-130 VLDL 15 mg/dL (Normal) Range: 5-40 CHOL 186 mg/dL (Normal) Comments: <200 mg/dL Desirable 200-240 mg/dL Borderline >240 mg/dL High Risk TRIG 74 mg/dL (Normal) Comments: Serum Triglycerides Reference Interval Normal <150 mg/dL Borderline high 150 - 199 mg/dL High 200 - 499 mg/dL Very High > or = 500 mg/dL [id number] MISC (Normal) Comments: PRIMIDONE (MYSOLINE (R)), SERUM PRIMODONE, SERUM RESULT: 9.0 ug/mL LIMITS: 5.0-12.0 DETECTION LIMIT = 0.3 <0.3 INDICATES NONE DETECTED. TESTING PERFORMED AT [facility]. ORIGINAL REPORT ON FILE IN LAB CONTAINS ADDITIONAL TEST SITE INFORMATION. [id number] VITD 28.4 ng/mL (Abnormal) Range: 30.0-100.0 Comments: Vitamin D deficiency has been defined by the [place] of[place] and an Endocrine Society practice guideline as alevel of serum 25-OH vitamin D less than 20 ng/mL (1,2).The Endocrine Society went on to further define vitamin Dinsufficiency as a level between 21 and 29 ng/mL (2).1. IOM ([place] [employer]). 2010. Dietary reference intakes for calcium and D. [place]: The National Academies Press.2. Belinda NIELSEN, Courtney ROSS, Jamar KAY, et al. Evaluation, treatment, and prevention of vitamin D deficiency: an Endocrine Society clinical practice guideline. JCEM. 2010; 96(): 1911-30.Performed at: [address], [place], [place] [id number] Director: Sean Hansen PhD, Phone: [phone] [id number] CBCMD Comments: ORDERED DILANTIN CBCMD PSA PHENOBARB LIPID CMPVITD ORDERED MYSOLINE DILANTIN RBCM NORM C+C {NORMAL} (Normal) PE ADEQUATE (Normal) BAS 1 % (Normal) Range: 0-1 EOS 7 % (Abnormal) Range: 0-5 MON 4 % (Normal) Range: 0-10 LYMPH 29 % (Normal) Range: 19-41 BAND 2 % (Normal) Range: 0-5 PMN 57 % (Normal) Range: 47-70 MARY 100 (Normal) ANC 3.0 3/uL (Normal) Range: 2.0-7.7 PLT 324 K/mm3 (Normal) Range: 150-450 RDW 13.1 % (Normal) Range: 11.6-14.6 MCHC 33.9 g/dL (Normal) Range: 32-36 MCH 33.0 pg (Abnormal) Range: 27.0-32.0 MCV 97.6 fL (Abnormal) Range: 80-94 HCT 43.7 % (Normal) Range: 40-54 HGB 14.8 g.dL (Normal) Range: 13.0-15.0 Comments: Please note: Revised HEMOGLOBIN REFERENCE RANGES Reference Range effective 11. RBC 4.48 {M/mm3} (Abnormal) Range: 4.6-6.2 WBC 5.1 K/mm3 (Normal) Range: 4.4-11.0 [id number] DIL 11.0 ug/mL (Normal) Comments: ORDERED DILANTIN CBCMD PSA PHENOBARB LIPID CMPVITD ORDERED MYSOLINE DILANTIN Range: 10.0-20.0 [id number] MISC . (Normal) Comments: ORDERED DILANTIN CBCMD PSA PHENOBARB LIPID CMPVITD ORDERED MYSOLINE DILANTIN Comments: TEST RESULT LIMITSPrimidone (Mysoline(R)), Serum Primidone, Serum 8.9 ug/mL 5.0 - 12.0 Detection Limit = 0.3 < 0.3 indicates None Detected Phenobarbital, Serum 22 ug/mL 15 - 40 Detection Limit = 2 < 2 indicates None Detected TESTING PERFORMED AT [facility]. ORIGINAL REPORT ON FILE IN LAB CONTAINS ADDITIONAL TEST SITE INFORMATION. [id number] PSA 1.11 ng/mL (Normal) Comments: ORDERED DILANTIN CBCMD PSA PHENOBARB LIPID CMPVITD ORDERED MYSOLINE DILANTIN Range: 0.00-4.00 Comments: NEW TEST ASSAY METHOD AUGUST 31, 2011This test was performed using the TPSA assay method for the[employer] chemistry system. Values obtained with differentassay methods cannot be used interchangably.When ch anging PSA assays in the course of monitoring apatient, additional sequential testing should be carriedout to confirm baseline values. [id number] CMP Comments: ORDERED DILANTIN CBCMD PSA PHENOBARB LIPID CMPVITD ORDERED MYSOLINE DILANTIN GAP 7 (Normal) Range: 5-15 CO2 27.0 mmol/L (Normal) Range: 21.0-32.0 CL 102 mmol/L (Normal) Range: 98-107 K 4.2 mmol/L (Normal) Range: 3.5-5.1 NA 136 mmol/L (Normal) Range: 136-145 BIT 0.30 mg/dL (Normal) Range: 0.00-1.00 ALT 33 U/L (Normal) Range: 12-78 ALK 67 U/L (Normal) Range: 50-136 AST 22 U/L (Normal) Range: 15-37 CA 8.3 mg/dL (Abnormal) Range: 8.5-10.1 AG 1.0 {RATIO} (Normal) Range: 0.9-2.4 GLOB 3.6 g/dL (Normal) Range: 2.7-4.2 ALB 3.6 g/dL (Normal) Range: 3.4-5.0 TPROT 7.2 g/dL (Normal) Range: 6.4-8.2 BC 12.2 {RATIO} (Normal) Range: 10-20 GFRAA 113 mL/min (Normal) GFR 93 mL/min (Normal) CREAT 0.9 mg/dL (Normal) Range: 0.8-1.3 BUN 11 mg/dL (Normal) Range: 7-18 GLU 94 mg/dL (Normal) Range: 70-110 33-[id number] LIPID Comments: ORDERED DILANTIN CBCMD PSA PHENOBARB LIPID CMPVITD ORDERED MYSOLINE DILANTIN VLDL 14 mg/dL (Normal) Range: 5-40 HDL 46 mg/dL (Normal) Comments: Reference Range HDL <40 mg/dL Low HDL Cholesterol HDL >or= 60 mg/dL High HDL Cholesterol LDL 107 mg/dL (Normal) Range: 0-130 TRIG 69 mg/dL (Normal) Comments: Serum Triglycerides Reference Interval Normal <150 mg/dL Borderline high 150 - 199 mg/dL High 200 - 499 mg/dL Very High > or = 500 mg/dL CHOL 167 mg/dL (Normal) Comments: <200 mg/dL Desirable 200-240 mg/dL Borderline >240 mg/dL High Risk [id number]:32 VIT D,25 37821 26.6 ng/mL (Abnormal) Range: 30.0-100.0 Comments: Vitamin D deficiency has been defined by the [place] [employer] and an Endocrine Society practice guideline as alevel of serum 25-OH vitamin D less than 20 ng/mL (1,2).The Endocrine Society went on to further define vitamin Dinsufficiency as a level between 21 and 29 ng/mL (2).1. IOM ([place] [employer]). 2010. Dietary reference intakes for calcium and D. [place]: The National Academies Press.2. Belinda MF, Courtney [place], Jamar KAY, et al. Evaluation, treatment, and prevention of vitamin D deficiency: an Endocrine Society clinical practice guideline. JCEM. 2010; 96(7): 1911-30.Performed at: [address] [id number] Director: Zeny Contreras MD, Phone: [phone] PSA, SCREEN 1.3 ng/mL (Normal) Range: 0.0-4.0 [id number] VITD 53.5 ng/mL (Normal) Comments: preventative; ORDERED DILANTIN CBCMD PSA PHENOBARB LIPID CMPVITD ORDERED MYSOLINE DILANTIN Range: 30.0-100.0 Comments: Vitamin D deficiency has been defined by the [place] [employer] and an Endocrine Society practice guideline as alevel of serum 25-OH vitamin D less than 20 ng/mL (1,2).The Endocrine Society went on to further define vitamin Dinsufficiency as a level between 21 and 29 ng/mL (2).1. IOM ([place] [employer] [place]). 2010. Dietary reference intakes for calcium and D. [place]: The National Academies Press.2. Belinda MF, Courtney [place], Jamar KAY, et al. Evaluation, treatment, and prevention of vitamin D deficiency: an Endocrine Society clinical practice guideline. JCEM. 2010; 96(7): 1911-30.Performed at: - [facility] [id number] Director: Zeny Contreras MD, Phone: [phone] [id number] COMP METABOLIC Comments: preventative GAP 7 (Normal) Range: 5-15 CO2 26.0 mmol/L (Normal) Range: 21.0-32.0 CL 105 mmol/L (Normal) Range: 98-107 K 4.0 mmol/L (Normal) Range: 3.5-5.1 NA 138 mmol/L (Normal) Range: 136-145 T BILI 0.30 mg/dL (Normal) Range: 0.00-1.00 ALT 28 U/L (Normal) Range: 12-78 ALK P 67 U/L (Normal) Range: 50-136 AST 22 U/L (Normal) Range: 15-37 CA 8.3 mg/dL (Abnormal) Range: 8.5-10.1 A/G 1.1 {RATIO} (Normal) Range: 0.9-2.4 GLOB 3.5 g/dL (Normal) Range: 2.7-4.2 ALB 3.8 g/dL (Normal) Range: 3.4-5.0 T PROT 7.3 g/dL (Normal) Range: 6.4-8.2 BUN/CRE 13.3 {RATIO} (Normal) Range: 10-20 EST GFR - AA 113 mL/min (Normal) EST GFR 93 mL/min (Normal) CREAT,SERUM 0.9 mg/dL (Normal) Range: 0.8-1.3 BUN 12 mg/dL (Normal) Range: 7-18 GLU 98 mg/dL (Normal) Range: 70-110 [id number] LIPID Comments: preventative VLDL 17 mg/dL (Normal) Range: 5-40 LDL 120 mg/dL (Normal) Range: 0-130 HDL 47 mg/dL (Normal) Comments: Reference Range HDL <40 mg/dL Low HDL Cholesterol HDL >or= 60 mg/dL High HDL Cholesterol TRIG 83 mg/dL (Normal) Comments: Serum Triglycerides Reference Interval Normal <150 mg/dL Borderline high 150 - 199 mg/dL High 200 - 499 mg/dL Very High > or = 500 mg/dL CHOL 184 mg/dL (Normal) Comments: <200 mg/dL Desirable 200-240 mg/dL Borderline >240 mg/dL High Risk [id number] CBCD,SMEAR DIFF Comments: preventative RED CELL MORPH SeeNote {NORMAL} Comments: Result: NORM C+C (Normal) PLT EST SeeNote (Normal) Comments: Result: ADEQUATE EOS 4 % (Normal) Range: 0-5 MONOCYTE 9 % (Normal) Range: 0-10 LYMPH 25 % (Normal) Range: 19-41 SEGS 62 % (Normal) Range: 47-70 CELLS COUNTED 100 (Normal) ABSOLUTE NEUT 3.1 3/uL (Normal) Range: 2.0-7.7 PLT 314 K/mm3 (Normal) Range: 150-450 RDW 13.0 % (Normal) Range: 11.6-14.6 MCHC 34.5 g/dL (Normal) Range: 32-36 MCH 33.2 pg (Abnormal) Range: 27.0-32.0 HCT 44.5 % (Normal) Range: 40-54 MCV 96.3 fL (Abnormal) Range: 80-94 HGB 15.3 g/dL (Normal) Range: 14.0-18.0 RBC 4.61 {M/mm3} Range: 4.6-6.2 (Normal) WBC 5.0 K/mm3 (Normal) Range: 4.4-11.0 PHENOBARB 25.6 ug/mL (Normal) Range: 10.0-40.0 :32 PHENYTOIN 16.6 ug/mL (Normal) Range: 10.0-20.0 :32 Phenobarbital, Serum 21 ug/mL (Normal) Comments: PATIENT NOT FASTINGPERFORMED BY: [facility] [id number] [facility] [id number] Range: 15-40 Comments: Detection Limit = 2 <2 indicates None Detected :27 Phenytoin (Dilantin) ([id number]) Comments: PATIENT NOT FASTINGPERFORMED BY: [facility] [id number] [facility] [place] [id number] Phenytoin (Dilantin), Serum 12.6 ug/mL (Normal) Range: 10.0-20.0 Comments: : Therapeutic 6.0 - 14.0 . Detectio n Limit = 0.6 <0.6 Indicates None Detected : CALCIFIDIOL ([id number]) VIT D 25 Comments: PATIENT NOT FASTINGPERFORMED BY: [facility] [id number] [facility] [place] [id number] Vitamin D, 25-Hydroxy 25.6 ng/mL (Abnormal) Range: 32.0-100.0 Comments: Recent studies consider the lower limit of 32.0 ng/mL to be athreshold for optimal health.William ROJAS. J Nutr. 2004;135(2):317-22. :46 CBCD,SMEAR DIFF ANISO 1+ (Normal) EOS 5 % (Normal) Range: 0-5 PLT EST SeeNote (Normal) Comments: Result: ADEQUATE RED CELL MORPH N CHROM {NORMAL} (Normal) MONOCYTE 5 % (Normal) Range: 0-10 LYMPH 20 % (Normal) Range: 19-41 BAND 2 % (Normal) Range: 0-5 SEGS 68 % (Normal) Range: 47-70 ABSOLUTE NEUT 3.6 3/uL (Normal) Range: 2.0-7.7 CELLS COUNTED 100 (Normal) MCHC 33.1 g/dL (Normal) Range: 32-36 PLT 302 K/mm3 (Normal) Range: 150-450 RDW 13.2 % (Normal) Range: 11.6-14.6 MCH 33.0 pg (Abnormal) Range: 27.0-32.0 MCV 99.7 fL (Abnormal) Range: 80-94 HCT 46.3 % (Normal) Range: 40-54 HGB 15.3 g/dL (Normal) Range: 14.0-18.0 RBC 4.64 {M/mm3} (Normal) Range: 4.6-6.2 WBC 6.1 K/mm3 (Normal) Range: 4.4-11.0 :58 CBCD ABSOLUTE NEUT 2.6 3/uL (Normal) Range: 2.0-7.7 BASO% 0.6 % (Normal) Range: 0-1 EO% 6.7 % (Abnormal) Range: 0-5 MONO% 8.2 % (Normal) Range: 0-10 LY% 24.9 % (Normal) Range: 19-41 NEUT% 59.6 % (Normal) Range: 47-70 MPV 6.8 fL (Normal) Range: 6.5-12.0 PLT 303 K/mm3 (Normal) Range: 150-450 RDW 13.1 % (Normal) Range: 11.6-14.6 MCH 33.7 pg (Abnormal) Range: 27.0-32.0 MCHC 35.0 g/dL (Normal) Range: 32-36 MCV 96.0 fL (Abnormal) Range: 80-94 HCT 43.2 % (Normal) Range: 40-54 HGB 15.1 g/dL (Normal) Range: 14.0-18.0 RBC 4.50 {M/mm3} (Abnormal) Range: 4.6-6.2 WBC 4.4 K/mm3 (Normal) Range: 4.4-11.0 [id number] COMP METABOLIC GAP 9 (Normal) Range: 5-15 CL 104 mmol/L (Normal) Range: 98-107 CO2 28.0 mmol/L (Normal) Range: 21.0-32.0 K 4.2 mmol/L (Normal) Range: 3.5-5.1 NA 141 mmol/L (Normal) Range: 136-145 T BILI 0.20 mg/dL (Normal) Range: 0.00-1.00 ALK P 55 U/L (Normal) Range: 50-136 ALT 32 U/L (Normal) Range: 12-78 AST 26 U/L (Normal) Range: 15-37 A/G 1.0 {RATIO} (Normal) Range: 0.9-2.4 CA 8.4 mg/dL (Abnormal) Range: 8.5-10.1 ALB 3.6 g/dL (Normal) Range: 3.4-5.0 GLOB 3.6 g/dL (Normal) Range: 2.7-4.2 T PROT 7.2 g/dL (Normal) Range: 6.4-8.2 BUN/CRE 15.0 {RATIO} (Normal) Range: 10-20 CREAT,SERUM 0.8 mg/dL (Normal) Range: 0.8-1.3 EST GFR 107 mL/min (Normal) EST GFR - AA 130 mL/min (Normal) BUN 12 mg/dL (Normal) Range: 7-18 GLU 87 mg/dL (Normal) Range: 70-110 [id number] LIPID VLDL 16 mg/dL (Normal) Range: 5-40 LDL 120 mg/dL (Normal) Range: 0-130 HDL 48 mg/dL (Normal) Comments: Reference Range HDL <40 mg/dL Low HDL Cholesterol HDL >or= 60 mg/dL High HDL Cholesterol TRIG 79 mg/dL (Normal) Comments: Serum Triglycerides Reference Interval Normal <150 mg/dL Borderline high 150 - 199 mg/dL High 200 - 499 mg/dL Very High > or = 500 mg/dL CHOL 184 mg/dL (Normal) Comments: <200 mg/dL Desirable 200-240 mg/dL Borderline >240 mg/dL High Risk :58 PHENOBARB 22.6 ug/mL (Normal) Range: 10.0-40.0 :58 PHENYTOIN 15.8 ug/mL (Normal) Range: 10.0-20.0 :58 PSA, SCREEN 1.2 ng/mL (Normal) Range: 0.0-4.0 [id number]:58 VIT D,25 40151 40.2 ng/mL (Normal) Range: 32.0-100.0 Comments: Recent studies consider the lower limit of 32.0 ng/mL to dave threshold for optimal health.William ROJAS. J Nutr. 2004;135(2):317-22.Performed at: - [facility] [id number] Director: Zeny Contreras MD, Phone: [phone] [id number] CBCD ABSOLUTE NEUT 3.3 3/uL (Normal) Range: 2.0-7.7 BASO% 0.8 % (Normal) Range: 0-1 EO% 6.2 % (Abnormal) Range: 0-5 MONO% 7.2 % (Normal) Range: 0-10 HCT 45.3 % (Normal) Range: 40-54 HGB 15.4 g/dL (Normal) Range: 14.0-18.0 LY% 23.5 % (Normal) Range: 19-41 MCH 32.9 pg (Abnormal) Range: 27.0-32.0 MCHC 34.0 g/dL (Normal) Range: 32-36 MCV 96.8 fL (Abnormal) Range: 80-94 MPV 5.7 fL (Abnormal) Range: 6.5-12.0 NEUT% 62.3 % (Normal) Range: 47-70 PLT 298 K/mm3 (Normal) Range: 150-450 RBC 4.68 {M/mm3} (Normal) Range: 4.6-6.2 RDW 13.2 % (Normal) Range: 11.6-14.6 WBC 5.3 K/mm3 (Normal) Range: 4.4-11.0 [id number] COMP METABOLIC ALK P 75 U/L (Normal) Range: 50-136 ALT 35 U/L (Normal) Range: 12-78 AST 21 U/L (Normal) Range: 15-37 CA 8.7 mg/dL (Normal) Range: 8.5-10.1 CL 103 mmol/L (Normal) Range: 98-107 CO2 29.0 mmol/L (Normal) Range: 21.0-32.0 GAP 6 (Normal) Range: 5-15 K 4.3 mmol/L (Normal) Range: 3.5-5.1 NA 138 mmol/L (Normal) Range: 136-145 T BILI 0.30 mg/dL (Normal) Range: 0.00-1.00 A/G 1.0 {RATIO} (Normal) Range: 0.9-2.4 ALB 3.6 g/dL (Normal) Range: 3.4-5.0 BUN 12 mg/dL (Normal) Range: 7-18 BUN/CRE 12.0 {RATIO} (Normal) Range: 10-20 CREAT,SERUM 1.0 mg/dL (Normal) Range: 0.8-1.3 EST GFR 83 mL/min (Normal) EST GFR - AA 101 mL/min (Normal) GLOB 3.7 g/dL (Normal) Range: 2.7-4.2 GLU 88 mg/dL (Normal) Range: 70-110 T PROT 7.3 g/dL (Normal) Range: 6.4-8.2 :48 LIPID HDL 41 mg/dL (Normal) Comments: Reference RangeHDL <40 mg/dL Low HDL CholesterolHDL >or= 60 mg/dL High HDL Cholesterol LDL 109 mg/dL (Normal) Range: 0-130 VLDL 14 mg/dL (Normal) Range: 5-40 CHOL 164 mg/dL (Normal) Comments: <200 mg/dL [id number] mg/dL Borderline>240 mg/dL High Risk TRIG 71 mg/dL (Normal) Comments: Serum Triglycerides Reference IntervalNormal <150 mg/dLBorderline high 150 - 199 mg/dLHigh 200 - 499 mg/ dLVery High > or = 500 mg/dL :48 PHENOBARB 20.8 ug/mL (Normal) Range: 10.0-40.0 :48 PHENYTOIN 15.0 ug/mL (Normal) Range: 10.0-20.0 :48 PSA, SCREEN 1.2 ng/mL (Normal) Range: 0.0-4.0 :48 VIT D,25 34274 27.8 ng/mL (Abnormal) Range: 32.0-100.0 Comments: Recent studies consider the lower limit of 32.0 ng/mL to dave threshold for optimal health.William ROJAS. J Nutr. 2004;135(2):317-22.Performed at: - [facility] [address] [id number] Director: Zeny Contreras MD :00 CBCD BASO% 0.6 % (Normal) Range: 0-1 EO% 6.5 % (Abnormal) Range: 0-5 HCT 44.7 % (Normal) Range: 40-54 HGB 15.2 g/dL (Normal) Range: 14.0-18.0 LY% 24.5 % (Normal) Range: 19-41 MCH 32.6 pg (Abnormal) Range: 27.0-32.0 MCHC 34.0 g/dL (Normal) Range: 32-36 MCV 95.8 fL (Abnormal) Range: 80-94 MONO% 6.5 % (Normal) Range: 0-10 MPV 6.6 fL (Normal) Range: 6.5-12.0 NEUT% 61.9 % (Normal) Range: 47-70 PLT 324 K/mm3 (Normal) Range: 150-450 RBC 4.67 {M/mm3} (Normal) Range: 4.6-6.2 RDW 13.4 % (Normal) Range: 11.6-14.6 WBC 5.4 K/mm3 (Normal) Range: 4.4-11.0 :00 COMP METABOLIC A/G 1.0 {RATIO} (Normal) Range: 0.9-2.4 ALB 3.6 g/dL (Normal) Range: 3.4-5.0 ALK P 67 U/L (Normal) Range: 50-136 ALT 30 U/L (Normal) Range: 30-65 AST 25 U/L (Normal) Range: 15-37 BUN 10 mg/dL (Normal) Range: 7-18 BUN/CRE 11.1 {RATIO} (Normal) Range: 10-20 CA 8.6 mg/dL (Normal) Range: 8.5-10.1 CL 106 mmol/L (Normal) Range: 98-107 CO2 30.0 mmol/L (Normal) Range: 21.0-32.0 CREAT,SERUM 0.9 mg/dL (Normal) Range: 0.8-1.3 EST GFR 93 mL/min (Normal) EST GFR - AA 113 mL/min (Normal) GAP 5 (Normal) Range: 5-15 GLOB 3.7 g/dL (Normal) Range: 2.7-4.2 GLU 81 mg/dL (Normal) Range: 70-110 K 5.1 mmol/L (Normal) Range: 3.5-5.1 NA 141 mmol/L (Normal) Range: 136-145 T BILI 0.20 mg/dL (Normal) Range: 0.00-1.00 T PROT 7.3 g/dL (Normal) Range: 6.4-8.2 :00 LIPID CHOL 192 mg/dL (Normal) Comments: <200 mg/dL Desirable 200-240 mg/dL Borderline >240 mg/dL High Risk HDL 49 mg/dL (Normal) Comments: Reference Range HDL <40 mg/dL Low HDL Cholesterol HDL >or= 60 mg/dL High HDL Cholesterol LDL 131 mg/dL (Abnormal) Range: 0-130 TRIG 60 mg/dL (Normal) Comments: Serum Triglycerides Reference Interval Normal <150 mg/dL Borderline high 150 - 199 mg/dL High 200 - 499 mg/dL Very High > or = 500 mg/dL VLDL 12 mg/dL (Normal) Range: 5-40 :00 PHENOBARB 21.9 ug/mL (Normal) Range: 10.0-40.0 : PHENYTOIN 19.2 ug/mL (Normal) Range: 10.0-20.0 :00 TSH 2.12 {uIU/mL} (Normal) Range: 0.358-3.74 :00 VIT D,25 28676 56.4 ng/mL (Normal) Range: 32.0-100.0 Comments: Recent studies consider the lower limit of 32.0 ng/mL to dave threshold for optimal health.William ROJAS. J Nutr. 2004;135(2):317-22.Performed At: [facility] [place], [place] [id number] :03 CA 8.6 mg/dL (Normal) Range: 8.5-10.1 :03 PHOS 3.1 mg/dL (Normal) Range: 2.5-4.9 :03 PTH,[id number] PTH,Intact 33 pg/mL (Normal) Range: 15-65 Comments: Performed At: [facility] [facility], [place] [id number]:03 PTH,[id number] PTH,Intact 33 pg/mL (Normal) Range: 15-65 Comments: Performed At: [facility] [facility], [place] [id number] :03 PTH,[id number] PTH,Intact 33 pg/mL (Normal) Range: 15-65 Comments: Performed At: [facility] [place] [address], [place] [id number] :03 VIT D,25 07252 24.0 ng/mL (Abnormal) Range: 32.0-100.0 Comments: Recent studies consider the lower limit of 32.0 ng/mL to dave threshold for optimal health.William ROJAS. J Nutr. 2004;135(2):317-22. :00 CBC, EMPLOYEE HCT 43.7 % (Normal) Range: 40-54 HGB 15.0 g/dL (Normal) Range: 14.0-18.0 MCH 33.1 pg (Abnormal) Range: 27.0-32.0 MCHC 34.3 g/dL (Normal) Range: 32-36 MCV 96.5 fL (Abnormal) Range: 80-94 MPV 6.3 fL (Abnormal) Range: 6.5-12.0 PLT 341 K/mm3 (Normal) Range: 150-450 RBC 4.53 {M/mm3} (Abnormal) Range: 4.6-6.2 RDW 13.1 % (Normal) Range: 11.6-14.6 WBC 5.1 K/mm3 (Normal) Range: 4.4-11.0 :00 EMP PROF A/G 1.1 {RATIO} (Normal) Range: 0.9-2.4 ALB 3.6 g/dL (Normal) Range: 3.4-5.0 ALK P 81 U/L (Normal) Range: 50-136 AST 26 U/L (Normal) Range: 15-37 BUN 12 mg/dL (Normal) Range: 7-18 BUN/CRE 12.0 {RATIO} (Normal) Range: 10-20 CA 8.1 mg/dL (Abnormal) Range: 8.5-10.1 CHOL 175 mg/dL (Normal) Comments: <200 mg/dL Desirable 200-240 mg/dL Borderline >240 mg/dL High Risk CREAT,SERUM 1.0 mg/dL (Normal) Range: 0.8-1.3 EST GFR 83 mL/min (Normal) EST GFR - AA 101 mL/min (Normal) Comments: ESTIMATED GLOMERULAR FILTRATION RATE The National Kidney Foundation (NKF) guidelines forChronic kidney disease (CKD) recommends all laboratoriesestimate the level of glomerular filtration ra te (GFR)in p atients from age 18 - 70 years of age.The eGFR for patient's is the eGFRmultiplied by 1.212. [facility] Laboratory uses the abbreviated Modification of Diet inRenal Disease (MDRD) study equati on to calculate the eGFR.The Estimated GFR equation is not applicable for patients<18 years of age or patients >70 years of age.The following conditions may alter the eGFR calculationresult: extre mes in body size, severe malnutrition orobesity, skeletal muscle disease, paraplegia, quadriplegia,vegetarian diet, , certain drug therapy and rapidlychanging kidney function. Association o f GFR and Staging of Kidney Disease*GFR (mL/min) With Kidney Disease W/O Kidney Disease>/= 90 Stage One [id number] - 89 Stage Two Suspect Decreased GFR30 - 59 Stage Three Stage Three15 - 29 Stage Four Stage Four< 15 or Dialysis Stage Five Stage Five *Each stage assumes the associ ated GFR level has been ineffect for at least three months.Additional studies & clinical assessments are indicated toconclude diagnosis of Chronic Kidney Disease (CKD). GLOB 3.4 g/dL (Normal) Range: 2.7-4.2 GLU 95 mg/dL (Normal) Range: 70-110 HDL 40 mg/dL (Normal) Comments: Reference Range HDL <40 mg/dL Low HDL Cholesterol HDL >or= 60 mg/dL High HDL Cholesterol LDH 179 U/L (Normal) Range: 100-190 LDL 124 mg/dL (Normal) Range: 0-130 PHOS 2.8 mg/dL (Normal) Range: 2.5-4.9 T BILI 0.25 mg/dL (Normal) Range: 0.00-1.00 T PROT 7.0 g/dL (Normal) Range: 6.4-8.2 TRIG 55 mg/dL (Normal) Comments: Serum Triglycerides Reference Interval Normal <150 mg/dL Borderline high 150 - 199 mg/dL High 200 - 499 mg/dL Very High > or = 500 mg/dL URIC 5.0 mg/dL (Normal) Range: 3.5-7.2 VLDL 11 mg/dL (Normal) Range: 5-40 [id number] EMP URINALYSIS BILIRUBIN URINE SeeNote (Normal) Comments: Result: NEGATIVE CLARITY CLEAR (Normal) COLOR YELLOW (Normal) GLUCOSE, UR SeeNote (Normal) Comments: Result: NEGATIVE KETONE UR SeeNote mg/dL (Normal) Comments: Result: NEGATIVE LEUK ESTERASE SeeNote (Normal) Comments: Result: NEGATIVE NITRITE UR SeeNote (Normal) Comments: Result: NEGATIVE OCCULT BLOOD-UR SeeNote (Normal) Comments: Result: NEGATIVE pH UR 7.0 (Normal) Range: 5.0-8.0 PROT DIPSTX SeeNote (Normal) Comments: Result: NEGATIVE SP.GR. DIPSTX 1.010 (Normal) Range: 1.002-1.030 UROBILI 0.2 EU/dl (Normal) Range: 0.2 - 1.0 [id number]:31 CBCD BASO% 0.6 % (Normal) Range: 0-1 EO% 4.0 % (Normal) Range: 0-5 LY% 23.2 % (Normal) Range: 19-41 MCH 32.8 pg (Abnormal) Range: 27.0-32.0 MCHC 34.0 g/dL (Normal) Range: 32-36 MCV 96.3 fL (Abnormal) Range: 80-94 MONO% 8.1 % (Normal) Range: 0-10 MPV 6.1 fL (Abnormal) Range: 6.5-12.0 NEUT% 64.1 % (Normal) Range: 47-70 PLT 336 K/mm3 (Normal) Range: 150-450 RDW 13.5 % (Normal) Range: 11.6-14.6 HCT 43.0 % (Normal) Range: 40-54 HGB 14.6 g/dL (Normal) Range: 14.0-18.0 RBC 4.46 {M/mm3} (Abnormal) Range: 4.6-6.2 WBC 5.2 K/mm3 (Normal) Range: 4.4-11.0 :31 COMP METABOLIC ALK P 76 U/L (Normal) Range: 50-136 ALT 39 U/L (Normal) Range: 30-65 AST 25 U/L (Normal) Range: 15-37 CA 8.3 mg/dL (Abnormal) Range: 8.5-10.1 CL 103 mmol/L (Normal) Range: 98-107 CO2 30.5 mmol/L (Normal) Range: 21.0-32.0 GAP 3 (Abnormal) Range: 5-15 K 4.0 mmol/L (Normal) Range: 3.5-5.1 NA 136 mmol/L (Normal) Range: 136-145 T BILI 0.25 mg/dL (Normal) Range: 0.00-1.00 A/G 1.1 {RATIO} (Normal) Range: 0.9-2.4 ALB 3.6 g/dL (Normal) Range: 3.4-5.0 BUN 12 mg/dL (Normal) Range: 7-18 BUN/CRE 12.0 {RATIO} (Normal) Range: 10-20 CREAT,SERUM 1.0 mg/dL (Normal) Range: 0.8-1.3 GLOB 3.4 g/dL (Normal) Range: 2.7-4.2 GLU 89 mg/dL (Normal) Range: 70-110 T PROT 7.0 g/dL (Normal) Range: 6.4-8.2 : PHENOBARB 21.1 ug/mL (Normal) Range: 15.0-40.0 : PHENYTOIN 22.5 ug/mL (Abnormal) Range: 10.0-20.0 : PRO TIME INR 1.1 (Normal) PROTIME 11.9 s (Abnormal) Range: 9.1-11.7 : PSA,TOT SCREEN 1.12 ng/mL (Normal) Range: 0.00-4.00 Comments: This test was performed using the TPSA method for the[employer] chemistry system.Values obtained with different assay methods cannot be usedinterchangably.When changing PSA assays in the course of monito ring apatient, additional sequential testing should be carriedout to confirm baseline values. :31 PTT 36.3 s (Abnormal) Range: 25.2-36.2 :31 TSH 2.40 {uIU/mL} (Normal) Range: 0.34-4.82 :58 CBC, EMPLOYEE HCT 45.4 % (Normal) Range: 40-54 HGB 15.7 Gm/dl (Normal) Range: 14.0-18.0 MCH 32.2 PG (Abnormal) Range: 27-32 MCHC 34.7 g/dL (Normal) Range: 32-36 MCV 93 fL (Normal) Range: 80-94 MPV 6.3 fL (Abnormal) Range: 6.5-12.0 PLT 351 K/mm3 (Normal) Range: 150-450 RBC 4.88 {M/mm3} (Normal) Range: 4.6-6.2 RDW 12.9 % (Normal) Range: 11.6-14.6 WBC 4.8 K/mm3 (Normal) Range: 4.4-11.0 :58 CBCD BASO% 0.9 % (Normal) Range: 0-1 EO% 5.8 % (Abnormal) Range: 0-5 HCT 45.4 % (Normal) Range: 40-54 HGB 15.7 g/dL (Normal) Range: 14.0-18.0 LY% 27.5 % (Normal) Range: 19-41 MCH 32.2 pg (Abnormal) Range: 27.0-32.0 MCHC 34.7 g/dL (Normal) Range: 32-36 MCV 93.0 fL (Normal) Range: 80-94 MONO% 9.3 % (Normal) Range: 0-10 MPV 6.3 fL (Abnormal) Range: 6.5-12.0 NEUT% 56.5 % (Normal) Range: 47-70 PLT 351 K/mm3 (Normal) Range: 150-450 RBC 4.88 {M/mm3} (Normal) Range: 4.6-6.2 RDW 12.9 % (Normal) Range: 11.6-14.6 WBC 4.8 K/mm3 (Normal) Range: 4.4-11.0 :58 COMP METABOLIC A/G 1.0 {RATIO} (Normal) Range: 0.9-2.4 ALB 3.7 g/dL (Normal) Range: 3.4-5.0 ALK P 87 U/L (Normal) Range: 50-136 ALT 45 [iU]/L (Normal) Range: 30-65 AST 30 U/L (Normal) Range: 15-37 BUN 12 mg/dL (Normal) Range: 7-18 BUN/CRE 13.3 {RATIO} (Normal) Range: 10-20 CA 8.4 mg/dL (Abnormal) Range: 8.5-10.1 CL 104 mmol/L (Normal) Range: 98-107 CO2 32.5 mmol/L (Abnormal) Range: 21.0-32.0 Comments: Please Note Reference Interval Change CREAT,SERUM 0.9 mg/dL (Normal) Range: 0.8-1.3 GAP 5 (Normal) Range: 5-15 GLOB 3.7 g/dL (Normal) Range: 2.7-4.2 Comments: Please Note Reference Interval Change GLU 91 mg/dL (Normal) Range: 70-110 K 4.3 mmol/L (Normal) Range: 3.5-5.1 NA 141 mmol/L (Normal) Range: 136-145 T BILI 0.24 mg/dL (Normal) Range: 0.00-1.00 T PROT 7.4 g/dL (Normal) Range: 6.4-8.2 :58 EMP PROF A/G 1.0 {RATIO} (Normal) Range: 0.9-2.4 ALB 3.7 g/dL (Normal) Range: 3.4-5.0 ALK P 80 U/L (Normal) Range: 50-136 AST 28 U/L (Normal) Range: 15-37 BUN 12 mg/dL (Normal) Range: 7-18 BUN/CRE 12.0 {RATIO} (Normal) Range: 10-20 CA 8.2 mg/dL (Abnormal) Range: 8.5-10.1 CHOL 177 mg/dL (Normal) Comments: <200 mg/dL Desirable 200-240 mg/dL Borderline >240 mg/dL High Risk CREAT,SERUM 1.0 mg/dL (Normal) Range: 0.8-1.3 GLOB 3.7 g/dL (Normal) Range: 2.7-4.2 Comments: Please Note Reference Interval Change GLU 90 mg/dL (Normal) Range: 70-110 HDL 39 mg/dL (Normal) Comments: Reference Range HDL <40 mg/dL Low HDL Cholesterol HDL >or= 60 mg/dL High HDL Cholesterol LDH 198 U/L (Abnormal) Range: 100-190 LDL 117 mg/dL (Normal) Range: 0-130 PHOS 3.0 mg/dL (Normal) Range: 2.5-4.9 T BILI 0.24 mg/dL (Normal) Range: 0.00-1.00 T PROT 7.4 g/dL (Normal) Range: 6.4-8.2 TRIG 103 mg/dL (Normal) Comments: Serum Triglycerides Reference Interval Normal <150 mg/dL Borderline high 150 - 199 mg/dL High 200 - 499 mg/dL Very High > or = 500 mg/dL URIC 5.0 mg/dL (Normal) Range: 3.5-7.2 VLDL 21 mg/dL (Normal) Range: 5-40 [id number] EMP URINALYSIS BILIRUBIN URINE SeeNote (Normal) Comments: Result: NEGATIVE CLARITY CLEAR (Normal) COLOR STRAW (Normal) GLUCOSE, UR SeeNote (Normal) Comments: Result: NEGATIVE KETONE UR SeeNote mg/dL (Normal) Comments: Result: NEGATIVE LEUK ESTERASE SeeNote (Normal) Comments: Result: NEGATIVE NITRITE UR SeeNote (Normal) Comments: Result: NEGATIVE OCCULT BLOOD-UR SeeNote (Normal) Comments: Result: NEGATIVE pH UR 7.0 (Normal) Range: 5.0-8.0 PROT DIPSTX SeeNote (Normal) Comments: Result: NEGATIVE SP.GR. DIPSTX <=1.005 (Normal) Range: 1.002-1.030 UROBILI 0.2 EU/dl (Normal) Range: 0.2 - 1.0 :58 LIPID CHOL 179 mg/dL (Normal) Comments: <200 mg/dL Desirable 200-240 mg/dL Borderline >240 mg/dL High Risk HDL 40 mg/dL (Normal) Comments: Reference Range HDL <40 mg/dL Low HDL Cholesterol HDL >or= 60 mg/dL High HDL Cholesterol LDL 118 mg/dL (Normal) Range: 0-130 TRIG 103 mg/dL (Normal) Comments: Serum Triglycerides Reference Interval Normal <150 mg/dL Borderline high 150 - 199 mg/dL High 200 - 499 mg/dL Very High > or = 500 mg/dL VLDL 21 mg/dL (Normal) Range: 5-40 :58 PHENOBARB 19.7 ug/mL (Normal) Range: 10.0-40.0 :58 PHENYTOIN 23.2 ug/mL (Abnormal) Range: 10.0-20.0 Comments: CRITICAL VALUE REPEATED AND VERIFIED. CALLED TO VIKAS 05/31/07 1425 DANIEL CHERY.RESULTS READ BACK BY Santos MARTIN . :53 DEXA BONE DENSITY STUDY (HP) Radiology Report See Note (Normal) Comments: Exam Number: [id number] BONE DENSITOMETRY HISTORYHypocalcemia. Bone densitometry of the lumbar spine and left hip was performed. Thebest criteria for evaluation of osteoporosis is the T-value whichrepre sents the comparison of the patient's bone mass to an expectedpeak bone mass. For most patients, the mean T-value of L1 through L4and the T-value of the total left hip are most useful. In this patien t, the mean T-value of L1 through L4 is 0.6 which isnormal. Digital lateral view for evaluation of vertebral deformityonly demonstrates lumbar vertebral bodies only. There is no obviouscompression frac tures of lumbar vertebral bodies. The T-value of theleft femoral neck is -1.1 which is in the range of osteopenia. TheT-value of the total left hip is 0.6 which is normal. IMPRESSION1. Bone densitome try of the lumbar spine and total left hip are inthe normal range. Reported By: FLETCHER ESCALONA M.D. [id number] CBCD BASO% 0.7 % (Normal) Range: 0-1 EO% 5.3 % (Abnormal) Range: 0-5 HCT 44.6 % (Normal) Range: 40-54 HGB 15.1 g/dL (Normal) Range: 14.0-18.0 LY% 24.4 % (Normal) Range: 19-41 MCH 31.9 pg (Normal) Range: 27.0-32.0 MCHC 33.9 g/dL (Normal) Range: 32-36 MCV 94.1 fL (Abnormal) Range: 80-94 MONO% 8.5 % (Normal) Range: 0-10 MPV 6.2 fL (Abnormal) Range: 6.5-12.0 NEUT% 61.1 % (Normal) Range: 47-70 PLT 337 K/mm3 (Normal) Range: 150-450 RBC 4.74 {M/mm3} (Normal) Range: 4.6-6.2 RDW 13.1 % (Normal) Range: 11.6-14.6 WBC 5.5 K/mm3 (Normal) Range: 4.4-11.0 :20 COMP METABOLIC A/G 1.0 {RATIO} (Normal) Range: 0.9-2.4 ALB 3.6 g/dL (Normal) Range: 3.4-5.0 ALK P 79 U/L (Normal) Range: 50-136 ALT 42 [iU]/L (Normal) Range: 30-65 AST 26 U/L (Normal) Range: 15-37 BUN 14 mg/dL (Normal) Range: 7-18 BUN/CRE 15.6 {RATIO} (Normal) Range: 10-20 CA 8.2 mg/dL (Abnormal) Range: 8.5-10.1 CL 103 mmol/L (Normal) Range: 98-107 CO2 29.7 mmol/L (Abnormal) Range: 22.0-29.0 CREAT,SERUM 0.9 mg/dL (Normal) Range: 0.8-1.3 GAP 7 (Normal) Range: 5-15 GLOB 3.7 g/dL (Abnormal) Range: 2.3-3.5 GLU 89 mg/dL (Normal) Range: 70-110 K 4.3 mmol/L (Normal) Range: 3.5-5.1 NA 140 mmol/L (Normal) Range: 136-145 T BILI 0.31 mg/dL (Normal) Range: 0.00-1.00 T PROT 7.3 g/dL (Normal) Range: 6.4-8.2 :20 LIPID CHOL 171 mg/dL (Normal) Comments: <200 mg/dL Desirable 200-240 mg/dL Borderline >240 mg/dL High Risk HDL 37 mg/dL (Normal) Comments: Reference Range HDL <40 mg/dL Low HDL Cholesterol HDL >or= 60 mg/dL High HDL Cholesterol LDL 121 mg/dL (Normal) Range: 0-130 TRIG 65 mg/dL (Normal) Comments: Serum Triglycerides Reference Interval Normal <150 mg/dL Borderline high 150 - 199 mg/dL High 200 - 499 mg/dL Very High > or = 500 mg/dL VLDL 13 mg/dL (Normal) Range: 5-40 [id number] PHENOBARB 21.4 ug/mL (Normal) Range: 10.0-40.0 :20 PHENYTOIN 20.1 ug/mL (Abnormal) Range: 10.0-20.0 Comments: RESULTS CALLED TO IBETH DINH 07/20/06 C[facility] AZAR.REPORT READ BACK BY SAME . :20 PSA,TOT SCREEN 0.98 ng/mL (Normal) Range: 0.00-4.00 Comments: This test was performed using the TPSA method for the[employer] chemistry system.Values obtained with different assay methods cannot be usedinterchangably.When changing PSA assays in the course of monito ring apatient, additionaly sequential testing should be carriedout to confirm baseline values. Plan of Care Name Dates Details Instructions Cough : Follow up if no improvement or if symptoms worsen Indication: Cough Epilepsy, unspecified, not intractable, without status epilepticus : Flu (Influenza) *: flu Indication: Epilepsy, unspecified, not intractable, without status epilepticus Epilepsy, unspecified, not intractable, without status epilepticus : Eprescribed prescriptions ([id number]) Indication: Epilepsy, unspecified, not intractable, without status epilepticus Cardiomegaly (Renamed from Cardiac enlargement) : Heartburn *: gerd Indication: Cardiomegaly (Renamed from Cardiac enlargement) Cardiomegaly (Renamed from Cardiac enlargement) : Eprescribed prescriptions ([id number]) Indication: Cardiomegaly (Renamed from Cardiac enlargement) Epilepsy, unspecified, not intractable, without status epilepticus : Eprescribed prescriptions ([id number]) Indication: Epilepsy, unspecified, not intractable, without status epilepticus Epilepsy, unspecified, not intractable, without status epilepticus : Eprescribed prescriptions ([id number]) Indication: Epilepsy, unspecified, not intractable, without status epilepticus Need for prophylactic vaccination and inoculation against influenza : Flu (Influenza) *: flu shot Indication: Need for prophylactic vaccination and inoculation against influenza Nasal congestion : Follow up if no improvement or if symptoms worsen Indication: Nasal congestion Acute sinusitis, unspecified : *URI Treatment Indication: Acute sinusitis, unspecified Acute sinusitis, unspecified : *URI Symptoms Indication: Acute sinusitis, unspecified Acute sinusitis, unspecified : *Antibiotic Usage Education - Male Indication: Acute sinusitis, unspecified Depression : Eprescribed prescriptions ([id number]) Indication: Depression Sinusitis, chronic : Sinus Headache: face pain Indication: Sinusitis, chronic Wheezing (Renamed from Asthmatic breathing) : Follow up if no improvement or if symptoms worsen Indication: Wheezing (Renamed from Asthmatic breathing) Bronchitis : *URI Treatment Indication: Bronchitis Bronchitis : *URI Symptoms Indication: Bronchitis Bronchitis : *Antibiotic Usage Education - Female Indication: Bronchitis Depression : Depression: Brief Version *: depressed Indication: Depression Cough : *URI Treatment Indication: Cough Cough : *URI Symptoms Indication: Cough Depression : Depression: Brief Version *: depressed Indication: Depression Allergic rhinitis : Follow up if no improvement or if symptoms worsen Indication: Allergic rhinitis Sinusitis, chronic : *URI Symptoms Indication: Sinusitis, chronic Sinusitis, chronic : *Antibiotic Usage Education - Male Indication: Sinusitis, chronic Acute sinusitis, unspecified : *URI Treatment Indication: Acute sinusitis, unspecified Acute sinusitis, unspecified : *URI Symptoms Indication: Acute sinusitis, unspecified Acute sinusitis, unspecified : *Antibiotic Usage Education - Male Indication: Acute sinusitis, unspecified Acute sinusitis, unspecified : *URI Treatment Indication: Acute sinusitis, unspecified Acute sinusitis, unspecified : Antibiotic Usage Education - Male Indication: Acute sinusitis, unspecified Acute sinusitis, unspecified : URI Symptoms Indication: Acute sinusitis, unspecified Planned Observations CALCIFIDIOL ([id number]) VIT D 25Indication: Depression On: 09-May-2018 Request CBC W/AUTO DIFF WBC ([id number])Indication: Epilepsy, unspecified, not intractable, without status epilepticus On: 09-May-2018 Request DRUG ASSAY-PHENOBARBITOL ([id number])Indication: Epilepsy, unspecified, not intractable, without status epilepticus On: 09-May-2018 Request DRUG ASSAY-TOT PHENYTOIN ([id number])Indication: Epilepsy, unspecified, not intractable, without status epilepticus On: 09-May-2018 Request METABOLIC PANEL, COMPREHENSIVE ([id number])Indication: Epilepsy, unspecified, not intractable, without status epilepticus On: 09-May-2018 Request CALCIFIDIOL ([id number]) VIT D 25Indication: Depression On: 1-Rdv-143634:11 Request DRUG ASSAY-PHENOBARBITOL ([id number])Indication: Epilepsy, unspecified, not intractable, without status epilepticus On: 3-Kgk-161872:10 Request DRUG ASSAY-TOT PHENYTOIN ([id number])Indication: Epilepsy, unspecified, not intractable, without status epilepticus On: 48-Poz-666719:05 Request Comments: in 3 weeks and standing order prn DRUG ASSAY-FREE PHENYTOIN ([id number])Indication: Epilepsy, unspecified, not intractable, without status epilepticus On: 2-Icz-667551:16 Request LIPOPROTEIN, BLD, BY NMR ([id number])Indication: Hyperlipidemia, mild On: 99-Gqs-364842:55 Request Comments: 4months along withphenytoin level METABOLIC PANEL, COMPREHENSIVE (59454)Indication: Hyperlipidemia, mild On: 57-Iaw-742335:55 Request PSA (Prostate Specific Antigen), Screening (50488)Indication: Screening for prostate cancer On: :51 Request Comments: check in 6 weeks CALCIFIDIOL (98376) VIT D 25Indication: Vitamin D deficiency, unspecified On: :51 Request Comments: check in 6 weeks HEPATITIS C ANTIBODY (77730)Indication: Encounter for hepatitis C virus screening test for high risk patient On: :50 Request Comments: check 6 weeks Phenytoin (Dilantin) ([id number])Indication: Epilepsy, unspecified, not intractable, without status epilepticus On: 32-Iht-195844:25 Request Comments: standing order DRUG ASSAY-TOT PHENYTOIN ([id number])Indication: Epilepsy, unspecified, not intractable, without status epilepticus On: 3-Hvu-326469:03 Request DRUG ASSAY-FREE PHENYTOIN ([id number])Indication: Vertigo On: 9-Gnp-100175:15 Request DRUG ASSAY-PHENOBARBITOL ([id number])Indication: Vertigo On: 9-Mjd-735851:14 Request URINALYSIS, W/ MICRO ([id number])Indication: Epilepsy, unspecified, not intractable, without status epilepticus On: :14 Request LIPOPROTEIN, BLD, BY NMR ([id number])Indication: Prediabetes On: :14 Request CBC with auto diff ([id number])Indication: Epilepsy, unspecified, not intractable, without status epilepticus On: :14 Request METABOLIC PANEL, COMPREHENSIVE ([id number])Indication: Epilepsy, unspecified, not intractable, without status epilepticus On: :14 Request Phenytoin (Dilantin) ([id number])Indication: Epilepsy, unspecified, not intractable, without status epilepticus On: : Request Comments: last dose 3 hours Metabolic Panel, Comprehensive (06032)Indication: Stomach cramps, generalized On: : Request CBC (Auto) ([id number])Indication: Stomach cramps, generalized On: :57 Request Amylase ([id number])Indication: Stomach cramps, generalized On: 98-Oll-628864:56 Request EBV Panel ([id number])Indication: Fatigue, unspecified type On: 73-Ofm-847537:56 Request T4, FREE (THYROXINE) ([id number])Indication: Abnormal TSH On: 76-Zbo-708651:55 Request TSH ([id number])Indication: Abnormal TSH On: 20-Tgu-883950:55 Request CALCIFIDIOL (79836) VIT D 25Indication: Vitamin D deficiency, unspecified On: :09 Request T4, FREE (THYROXINE) ([id number])Indication: Abnormal thyroid blood test On: :08 Request TSH ([id number])Indication: Abnormal thyroid blood test On: :08 Request DRUG ASSAY-PHENOBARBITOL ([id number])Indication: Epilepsy, unspecified, not intractable, without status epilepticus On: 77-Nfl-685056:03 Request Phenytoin (Dilantin) ([id number])Indication: Epilepsy, unspecified, not intractable, without status epilepticus On: :03 Request TSH ([id number])Indication: Nontoxic goiter, unspecified On: :58 Request Comments: add to labs already drawn Anti-TPO Antibody (34377)Indication: Abnormal thyroid blood test On: : Request TSH (03373)Indication: Abnormal thyroid blood test On: : Request T4, FREE (THYROXINE) ([id number])Indication: Abnormal thyroid blood test On: Request T3, FREE (TRIDOTHYRONINE) ([id number])Indication: Abnormal thyroid blood test On: Request DRUG ASSAY-PHENOBARBITOL ([id number])Indication: Epilepsy, unspecified, not intractable, without status epilepticus On: Request Phenytoin (Dilantin) ([id number])Indication: Epilepsy, unspecified, not intractable, without status epilepticus On: Request Comments: not free regular dilantin CALCIFIDIOL (66744) VIT D 25Indication: Vitamin D deficiency, unspecified On: : Request T3, FREE (TRIDOTHYRONINE) ([id number])Indication: Abnormal TSH On: :38 Request T4, FREE (THYROXINE) ([id number])Indication: Abnormal TSH On: Request Methymalonic Acid, Serum (45432)Indication: Forgetfulness On: :37 Request Vitamin B-12 (cyanocobalamin) (03232)Indication: Forgetfulness On: 37 Request LIPOPROTEIN, BLD, BY NMR ([id number])Indication: Prediabetes On: 34 Request CALCIFIDIOL (34362) VIT D 25Indication: Vitamin D deficiency, unspecified On: Request DRUG ASSAY-PHENOBARBITOL ([id number])Indication: Epilepsy, unspecified, not intractable, without status epilepticus On: : Request Comments: standing order prn Phenytoin (Dilantin) ([id number])Indication: Epilepsy, unspecified, not intractable, without status epilepticus On: : Request Comments: standing order prn DRUG ASSAY-FREE PHENYTOIN ([id number])Indication: Epilepsy, unspecified, not intractable, without status epilepticus On: 83-Fmf-802483:02 Request LIPID PANEL ([id number])Indication: Cardiomegaly (Renamed from Cardiac enlargement) On: :00 Request Comments: in 4 weeks CALCIFIDIOL (33831) VIT D 25Indication: Vitamin D deficiency, unspecified On: :58 Request Comments: 4 weeks DRUG ASSAY-FREE PHENYTOIN ([id number])Indication: Epilepsy, unspecified, not intractable, without status epilepticus On: 21-Qdl-640542:56 Request Comments: recheck in 4 weeks before am dose PSA (PROSTATE SPECIFIC ANTIGEN) (V76.44)Indication: Encounter for routine history and physical exam for male On: :44 Request METABOLIC PANEL, COMPREHENSIVE ([id number])Indication: Epilepsy, unspecified, not intractable, without status epilepticus On: :37 Request CBC with auto diff ([id number])Indication: Epilepsy, unspecified, not intractable, without status epilepticus On: :37 Request TSH ([id number])Indication: Nontoxic goiter, unspecified On: :37 Request CALCIFIDIOL (96710) VIT D 25Indication: Vitamin D deficiency, unspecified On: :37 Request DRUG ASSAY-FREE PHENYTOIN ([id number])Indication: Epilepsy, unspecified, not intractable, without status epilepticus On: :36 Request DRUG ASSAY-PHENOBARBITOL ([id number])Indication: Epilepsy, unspecified, not intractable, without status epilepticus On: 72-Zbp-395229:36 Request METABOLIC PANEL, COMPREHENSIVE ([id number])Indication: Epilepsy, unspecified, not intractable, without status epilepticus On: :34 Request CBC W/AUTO DIFF WBC ([id number])Indication: Epilepsy, unspecified, not intractable, without status epilepticus On: :34 Request CALCIFIDIOL (87386) VIT D 25Indication: Vitamin D deficiency, unspecified On: :34 Request DRUG ASSAY-PHENOBARBITOL ([id number])Indication: Epilepsy, unspecified, not intractable, without status epilepticus On: 58-Esr-819988:31 Request Comments: stqanding order prn Phenytoin (Dilantin) ([id number])Indication: Epilepsy, unspecified, not intractable, without status epilepticus On: :29 Request Comments: standing order prn PSA (PROSTATE SPECIFIC ANTIGEN) (V76.44)Indication: Encounter for routine history and physical exam for male On: :11 Request METABOLIC PANEL, COMPREHENSIVE ([id number])Indication: Epilepsy, unspecified, not intractable, without status epilepticus On: :10 Request LIPID PANEL ([id number])Indication: Epilepsy, unspecified, not intractable, without status epilepticus On: :10 Request CBC WITH MANUAL DIFF ([id number])Indication: Epilepsy, unspecified, not intractable, without status epilepticus On: : Request CALCIFIDIOL ([id number]) VIT D 25Indication: Vitamin D deficiency, unspecified On: : Request DRUG ASSAY-PHENOBARBITOL ([id number])Indication: Epilepsy, unspecified, not intractable, without status epilepticus On: : Request DRUG ASSAY-FREE PHENYTOIN ([id number])Indication: Epilepsy, unspecified, not intractable, without status epilepticus On: :10 Request METABOLIC PANEL, COMPREHENSIVE ([id number])Indication: Epilepsy, unspecified, not intractable, without status epilepticus On: :24 Request CBC WITH MANUAL DIFF ([id number])Indication: Epilepsy, unspecified, not intractable, without status epilepticus On: :24 Request CALCIFEDIOL ([id number])Indication: Vitamin D deficiency, unspecified On: :23 Request DRUG ASSAY-PHENOBARBITOL ([id number])Indication: Epilepsy, unspecified, not intractable, without status epilepticus On: :22 Request Comments: prn standing order Phenytoin (Dilantin) ([id number])Indication: Epilepsy, unspecified, not intractable, without status epilepticus On: :22 Request Comments: prn standing order. DRUG ASSAY-PHENOBARBITOL ([id number])Indication: Epilepsy, unspecified, not intractable, without status epilepticus On: :32 Request Phenytoin (Dilantin) ([id number])Indication: Epilepsy, unspecified, not intractable, without status epilepticus On: :31 Request LIPID PANEL ([id number])Indication: Cardiomegaly (Renamed from Cardiac enlargement) On: :27 Request METABOLIC PANEL, COMPREHENSIVE ([id number])Indication: Epilepsy, unspecified, not intractable, without status epilepticus On: :27 Request CBC WITH MANUAL DIFF ([id number])Indication: Epilepsy, unspecified, not intractable, without status epilepticus On: :27 Request CALCIFIDIOL ([id number]) VIT D 25Indication: Vitamin D deficiency, unspecified On: :26 Request CBC with manual diff ([id number])Indication: Epilepsy, unspecified, not intractable, without status epilepticus On: 82-Hfw-902945:25 Request Phenytoin (Dilantin) ([id number])Indication: Epilepsy, unspecified, not intractable, without status epilepticus On: 22-Etq-111986:25 Request Sputum Culture ([id number])Indication: Bronchitis On: 1-Dwd-714210:06 Request Phenytoin (Dilantin) ([id number])Indication: Epilepsy, unspecified, not intractable, without status epilepticus On: 66-Hvi-060570:14 Request Comments: Dr. 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 On: 38-Swt-480661:12 Request LIPID PANEL ([id number])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 On: 71-Nmj-336290:12 Request DRUG ASSAY-PHENOBARBITOL ([id number])Indication: Epilepsy, unspecified, not intractable, without status epilepticus On: 88-Rjp-474387:08 Request CBC WITH MANUAL DIFF ([id number])Indication: Epilepsy, unspecified, not intractable, without status epilepticus On: 8-Ima-582295:29 Request CALCIFIDIOL (22498) VIT D 25Indication: Vitamin D deficiency, unspecified On: 12-War-192005:07 Request Phenytoin (Dilantin) ([id number])Indication: Epilepsy, unspecified, not intractable, without status epilepticus On: : Request DRUG ASSAY-PHENOBARBITOL ([id number])Indication: Epilepsy, unspecified, not intractable, without status epilepticus On: :07 Request Lipid Panel ([id number])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 On: :02 Request TSH ([id number])Indication: Nontoxic goiter, unspecified On: :02 Request CBC (Auto) ([id number])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 On: :02 Request Metabolic Panel, Comprehensive ([id number])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 On: 70-Vou-089365:02 Request DRUG ASSAY-PHENOBARBITOL ([id number])Indication: Epilepsy, unspecified, not intractable, without status epilepticus On: 28-Pwp-634596:27 Request PSA (PROSTATE SPECIFIC ANTIGEN) (V76.44)Indication: Encounter for routine history and physical exam for male On: 28-Qae-010243:22 Request CBC, Platelets & Auto Diff ([id number])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 On: 74-Qnk-642814:21 Request Lipid Panel ([id number])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 On: 90-Nyd-887438:21 Request Metabolic Panel, Comprehensive ([id number])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 On: 64-Crs-070198:21 Request CALCIFIDIOL (01565) VIT D 25Indication: Vitamin D deficiency, unspecified On: 28-Zom-671684:20 Request Phenytoin (Dilantin) (07773)Indication: Epilepsy, unspecified, not intractable, without status epilepticus On: 83-Pxl-631089:20 Request LIPID PANEL ([id number])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 On: 74-Fyy-301185:48 Request DRUG ASSAY-PHENOBARBITOL ([id number])Indication: Epilepsy, unspecified, not intractable, without status epilepticus On: :43 Request Phenytoin (Dilantin) (88394)Indication: Epilepsy, unspecified, not intractable, without status epilepticus On: :43 Request CBC (Auto) ([id number])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 On: :42 Request Metabolic Panel, Comprehensive ([id number])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 On: :42 Request TSH ([id number])Indication: Nontoxic goiter, unspecified On: :42 Request CALCIFIDIOL ([id number]) VIT D 25Indication: Vitamin D deficiency, unspecified On: : Request VITAMIN D, 1, 25-DIHYDROXY ([id number])Indication: Vitamin D deficiency, unspecified On: 32-Ory-997946:53 Request DRUG ASSAY-PHENOBARBITOL ([id number])Indication: Epilepsy, unspecified, not intractable, without status epilepticus On: : Request Phenytoin (Dilantin) ([id number])Indication: Epilepsy, unspecified, not intractable, without status epilepticus On: : Request CBC (Auto) ([id number])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 On: :26 Request Metabolic Panel, Comprehensive ([id number])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 On: : Request Comments: in six months (approximately) Lipid Panel (88076)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 On: : Request PARATHORMONE ([id number])Indication: DISORDERS OF CALCIUM METABOLISM, HYPOCALCEMIA On: :21 Request Phosphorus (68047)Indication: DISORDERS OF CALCIUM METABOLISM, HYPOCALCEMIA On: : Request CALCIFIDIOL (05758) VIT D 25Indication: DISORDERS OF CALCIUM METABOLISM, HYPOCALCEMIA On: : Request Calcium Serum (95307)Indication: DISORDERS OF CALCIUM METABOLISM, HYPOCALCEMIA On: :21 Request Comments: in three months (approximately) TSH (02951) On: :43 Request PSA (PROSTATE SPECIFIC ANTIGEN) (V76.44)Indication: Encounter for routine adult medical exam with abnormal findings On: :43 Request PTT (Activated Partial Thromboplastin Time) ([id number])Indication: Epilepsy, unspecified, not intractable, without status epilepticus On: :38 Request PT (Prothrobim Time) ([id number])Indication: Epilepsy, unspecified, not intractable, without status epilepticus On: :38 Request CBC (Auto) ([id number])Indication: Epilepsy, unspecified, not intractable, without status epilepticus On: :38 Request Metabolic Panel, Comprehensive ([id number])Indication: Epilepsy, unspecified, not intractable, without status epilepticus On: :38 Request DRUG ASSAY-PHENOBARBITOL ([id number])Indication: Epilepsy, unspecified, not intractable, without status epilepticus On: :37 Request Comments: level Phenytoin (Dilantin) ([id number])Indication: Epilepsy, unspecified, not intractable, without status epilepticus On: :37 Request Lipid Panel (79731)Indication: Encounter for routine adult medical exam with abnormal findings On: :48 Request CBC (Auto) ([id number])Indication: Epilepsy, unspecified, not intractable, without status epilepticus On: 15-Ttg-553310:47 Request Metabolic Panel, Comprehensive ([id number])Indication: Epilepsy, unspecified, not intractable, without status epilepticus On: :47 Request DRUG ASSAY-PHENOBARBITOL ([id number])Indication: Epilepsy, unspecified, not intractable, without status epilepticus On: 78-Nvv-360404:47 Request Phenytoin (Dilantin) ([id number])Indication: Epilepsy, unspecified, not intractable, without status epilepticus On: :46 Request PSA (PROSTATE SPECIFIC ANTIGEN) ([id number])Indication: Encounter for routine history and physical exam for male On: :54 Request DRUG ASSAY-PHENOBARBITOL ([id number])Indication: Epilepsy, unspecified, not intractable, without status epilepticus On: 70-Gbz-677495:54 Request Phenytoin (Dilantin) (44080)Indication: Dermatitis On: :53 Request CBC, Platelets & Auto Diff (33076)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 On: 67-Jrh-739156:53 Request Metabolic Panel, Comprehensive (94287)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 On: :52 Request Lipid Panel ([id number])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 On: 10-Xrt-469827:52 Request Planned Encounters Medical; [facility] (Doctor) - On: 07-Feb-2018 14:30 [facility] Beatrice PADILLA, Dede Crouch MD Planned Procedures Flu Vaccine (Quadrivalent) On: 07-Jan-2018 Intent 40875Yb: VIKAS Martin Comments: Lot #:[id number] date: 6-86-80Vmffod given:0.5mlRoute: IMSite given:L DltdGiven by: Sherri and ISAIAS signed [employer] Flu Vaccine (Quadrivalent) On: 25-Jan-2017 Intent 10410Rr: Dede Galan MD Comments: Lot #:[id number] date:09/27/2017Amount given:0.5mlRoute: IMSite given:L DltdGiven by: Sherri and ISAIAS signed [employer] Dede Galan MD ELECTROCARDIOGRAM, COMPLETE On: 03-Aug-2016 Intent (ECG) (78197)By: Beatrice PADILLA, Comments: see scanned document of test done to see results reviewed today with patient Dede Crouch MD Flu Vaccine (Quadrivalent) On: 04-Feb-2016 Intent 35834Tb: Dede Galan MD Comments: Lot:[id number]:10/09/16Dose:0.5mLRoute:IMSite:L DltdGiven By:asVIS signed Dede Galan MD Radiology - Foot - LeftBy: On: 13-Jan-2016 Intent Dede Galan MD, MD, Comments: if does not continue to get better. Dede Rothman TDAP VACCINE >7 IM (79168)By: On: 13-Dec-2015 Intent Dede Galan MD, MD, Comments: Lot:[id number]:05/03/18Dose:0.5mlRoute:imSite:l armGiven By:Magdalena signed Dede Rothman [place] (39753)By: On: 23-Apr-2015 Intent Vinny Wu Comments: shingleslot:[id number]:02/16/16ite:lt subqroute:TAMIKO Torres [place] (49387)By: On: 23-Apr-2015 Intent Dede Galan MD, MD, Dana M Flu Vaccine (Quadrivalent) On: 22-Jan-2015 Intent 98669Tg: Dede Galan MD Comments: Lot:[id number]:10/10/15Dose:0.5mLRoute:IMSite:L DltdGiven By:LUZ MARINA signed Dede Galan MD IMMUNIZ ADMNIN, 1 VAC, On: 29-Jan-2014 Intent SNGL/COMBO (58650)By: Visit, Nurse FLU VAC, SPLIT, >3 YEARS, On: 29-Jan-2014 Intent INTRAMUSC (84715)By: Beatrice PADILLA, Comments: Lot:[id number]:10/09/14Dose:0.5mLRoute:IMSite:L DltdGiven By:LUZ MARINA signed Dede Crouch MD Ultrasound - ThyroidBy: Beatrice On: 25-Apr-2013 Intent Dede PADILLA MD, Dana M Eprescribed prescriptions On: 25-Apr-2013 Intent (G8553)By: Tamiko Shaffer LPN Eprescribed prescriptions On: 28-Mar-2013 Intent (G8553)By: Valencia Pérez Eprescribed prescriptions On: 01-Nov-2012 Intent (G8553)By: Tamiko Shaffer LPN Aerosol Treatment (44481)By: On: 11-Jul-2012 Intent Beverley Reveles CNP Aerosol Treatment (70102)By: On: 22-Jun-2012 Intent Beverley Reveles CNP Pulse Oximetry (94815)By: On: 07-Apr-2012 Intent Nahum, VIKAS FLU VAC, SPLIT, >3 YEARS, On: 05-Feb-2012 Intent INTRAMUSC (18328)By: Moisés, Comments: Lot:[id number]:6.30.13Dose:prefilledRoute:IMSite:L DltdGiven By:LUZ MARINA signed Codie IMMUNIZ ADMNIN, 1 VAC, On: 05-Feb-2012 Intent SNGL/COMBO (00641)By: Codie Curiel Bio Z (24639)By: Beatrice PADILLA, On: 24-Nov-2010 Intent Dede Crouch MD EKG (19996)By: Dede Galan MD On: 24-Nov-2010 Intent Dede Lyn MD Solu -Medrol Injection, 125 mg On: 27-Sep-2009 Intent (J2930)By: Mihaela Prabhakar DO Comments: Lot #[id number]-8/1/12Site-right hipDose- 125 mggiven by:[facility] EKG (93067)By: Dede Galan MD On: 09-Jul-2009 Intent Dede Lyn MD DXA, BONE DENSITY, AXIAL On: 09-Jul-2009 Intent SKELETON (92429)By: Dede Galan MD, MD, Dana M EKG ([id number])By: Kimberly Beebe On: 07-Feb-2008 Intent Comments: done-aw Bio Z ([id number])By: Kimberly Beebe On: 07-Feb-2008 Intent Comments: done-aw ELECTROCARDIOGRAM, COMPLETE On: 20-Jul-2006 Intent (ECG) (17498)By: Dede Galan MD, MD, Dana M Bio Z (56301)By: Beatrice PADILLA, On: 20-Jul-2006 Intent Dede Crouch MD Bone Density StudyBy: Beatrice On: 20-Jul-2006 Intent Dede PADILLA MD, Dana M Instructions Name Dates Details BMI 35.0-35.9,adult : How to access health information online Indication: BMI 35.0-35.9,adult BMI 35.0-35.9,adult : How to access health information online - Detail Indication: BMI 35.0-35.9,adult BMI 35.0-35.9,adult : Patient Instructions Indication: BMI 35.0-35.9,adult Current nonsmoker (Renamed from Current non-smoker) : How to access health information online - Detail Indication: Current nonsmoker (Renamed from Current non-smoker) Current nonsmoker (Renamed from Current non-smoker) : Patient Instructions Indication: Current nonsmoker (Renamed from Current non-smoker) BMI 36.0-36.9,adult : How to access health information online Indication: BMI 36.0-36.9,adult BMI 36.0-36.9,adult : How to access health information online - Detail Indication: BMI 36.0-36.9,adult BMI 36.0-36.9,adult : Patient Instructions Indication: BMI 36.0-36.9,adult Vertigo : How to access health information online Indication: Vertigo Vertigo : How to access health information online - Detail Indication: Vertigo Vertigo : Patient Instructions Indication: Vertigo BMI 36.0-36.9,adult : How to access health information online Indication: BMI 36.0-36.9,adult BMI 36.0-36.9,adult : How to access health information online - Detail Indication: BMI 36.0-36.9,adult BMI 36.0-36.9,adult : Patient Instructions Indication: BMI 36.0-36.9,adult BMI 36.0-36.9,adult : How to access health information online Indication: BMI 36.0-36.9,adult BMI 36.0-36.9,adult : How to access health information online - Detail Indication: BMI 36.0-36.9,adult BMI 36.0-36.9,adult : Patient Instructions Indication: BMI 36.0-36.9,adult BMI 36.0-36.9,adult : How to access health information online Indication: BMI 36.0-36.9,adult BMI 36.0-36.9,adult : How to access health information online - Detail Indication: BMI 36.0-36.9,adult BMI 36.0-36.9,adult : Patient Instructions Indication: BMI 36.0-36.9,adult Epilepsy, unspecified, not intractable, without status epilepticus : How to access health information online Indication: Epilepsy, unspecified, not intractable, without status epilepticus Epilepsy, unspecified, not intractable, without status epilepticus : How to access health information online - Detail Indication: Epilepsy, unspecified, not intractable, without status epilepticus Epilepsy, unspecified, not intractable, without status epilepticus : Patient Instructions Indication: Epilepsy, unspecified, not intractable, without status epilepticus Epilepsy, unspecified, not intractable, without status epilepticus : How to access health information online Indication: Epilepsy, unspecified, not intractable, without status epilepticus Epilepsy, unspecified, not intractable, without status epilepticus : How to access health information online - Detail Indication: Epilepsy, unspecified, not intractable, without status epilepticus Epilepsy, unspecified, not intractable, without status epilepticus : Patient Instructions Indication: Epilepsy, unspecified, not intractable, without status epilepticus Encounter for routine adult medical exam with abnormal findings : How to access health information online Indication: Encounter for routine adult medical exam with abnormal findings Encounter for routine adult medical exam with abnormal findings : How to access health information online - Detail Indication: Encounter for routine adult medical exam with abnormal findings Encounter for routine adult medical exam with abnormal findings : Patient Instructions Indication: Encounter for routine adult medical exam with abnormal findings Epilepsy, unspecified, not intractable, without status epilepticus : How to access health information online Indication: Epilepsy, unspecified, not intractable, without status epilepticus Epilepsy, unspecified, not intractable, without status epilepticus : How to access health information online - Detail Indication: Epilepsy, unspecified, not intractable, without status epilepticus Epilepsy, unspecified, not intractable, without status epilepticus : Patient Instructions Indication: Epilepsy, unspecified, not intractable, without status epilepticus Cardiomegaly (Renamed from Cardiac enlargement) : How to access health information online Indication: Cardiomegaly (Renamed from Cardiac enlargement) Cardiomegaly (Renamed from Cardiac enlargement) : How to access health information online - Detail Indication: Cardiomegaly (Renamed from Cardiac enlargement) Cardiomegaly (Renamed from Cardiac enlargement) : Patient Instructions Indication: Cardiomegaly (Renamed from Cardiac enlargement) Epilepsy, unspecified, not intractable, without status epilepticus : How to access health information online Indication: Epilepsy, unspecified, not intractable, without status epilepticus Epilepsy, unspecified, not intractable, without status epilepticus : How to access health information online - Detail Indication: Epilepsy, unspecified, not intractable, without status epilepticus Epilepsy, unspecified, not intractable, without status epilepticus : Patient Instructions Indication: Epilepsy, unspecified, not intractable, without status epilepticus Epilepsy, unspecified, not intractable, without status epilepticus : How to access health information online Indication: Epilepsy, unspecified, not intractable, without status epilepticus Epilepsy, unspecified, not intractable, without status epilepticus : How to access health information online - Detail Indication: Epilepsy, unspecified, not intractable, without status epilepticus Epilepsy, unspecified, not intractable, without status epilepticus : Patient Instructions Indication: Epilepsy, unspecified, not intractable, without status epilepticus Depression : Patient Instructions Indication: Depression Sinusitis, chronic : Patient Instructions Indication: Sinusitis, chronic Sinusitis, chronic : Patient Instructions Indication: Sinusitis, chronic GERD (gastroesophageal reflux disease) : Patient Instructions Indication: GERD (gastroesophageal reflux disease) Epilepsy, unspecified, not intractable, without status epilepticus : Patient Instructions Indication: Epilepsy, unspecified, not intractable, without status epilepticus Depression : Patient Instructions Indication: Depression Encounters Office Visit On: 07-Jan-2018 14:09 Encounter Diagnosis: Need for prophylactic vaccination and inoculation against influenza End: 09-Jan-2018 20:57 [facility] Order On: 23-Dec-2017 15:54 Encounter Diagnosis: Epilepsy, unspecified, not intractable, without status epilepticus End: 23-Dec-2017 15:58 [facility] Office Visit On: 28-Sep-2017 11:36 Encounter Reason: Follow up for chronic medical issues - The patient feels well with minor complaints and is sleeping well. Patient has been compliant with instructions. Current medication use: no side effects, compliant End: 28-Sep-2017 12:28 with dosing regimen and considered effective by patient. Patient sleeps 7 hours per night. Impact of disease: emotional impact-mild. Nutrition: balanced diet and supplemental vitamins. The medical issu es the patient is following up for include cardiac issues, depression, high blood pressure, high cholesterol and other (epilepsy, non toxic goiter, BPH, vitamin d def., psoriasis, allergic rhinitis).Encounter Diagnosis: BMI 35.0-35.9,adult, Current nonsmoker (Renamed from Current non-smoker), GERD (gastroesophageal reflux disease), Psoriasis, Sinusitis, chronic, Epilepsy, unspecified, not intractable, without status epilepticus, Hypoglycemia, Nontoxic goiter, unspecified, Raised intraocular pressure, bilateral, Irritable bowel syndrome (Renamed from Functional bowel disease), Bilateral hearing loss, unspecified hearing loss type, Depression, Vitamin D deficiency, unspecified, Allergic rhinitis, Benign prostatic hyperplasia with urinary hesitancy, Hyperlipidemia, mild, Retinal cyst of right eye, Encounter for routine adult medical exam with abnormal findings, Obesity (BMI 30.0-34.9), Cardiomegaly (Renamed from Cardiac enlargement), Obstructive sleep apnea, adult, Abnormal thyroid blood test, BMI 36.0-36.9,adult [facility] Office Visit On: 31-May-2017 12:55 Encounter Reason: Follow up for chronic medical issues - The patient feels well with minor complaints, has good energy level and is sleeping well. Patient has been compliant with instructions. Current medication use: no End: 31-May-2017 13:26 side effects and compliant with dosing regimen. Patient sleeps 8 hours per night. Nutrition: balanced diet and supplemental vitamins. The medical issues the patient is following up for include All ident ified problems below, depression, gastric reflux, high blood pressure and other., [ADDITIONAL REASON] Follow up tests - Date: (05/17 and 05/18). Encounter Diagnosis: BMI 36.0-36.9,adult, Current nonsmoker (Renamed from Current non-smoker), Raised intraocular pressure, bilateral, Nontoxic goiter, unspecified, Irritable bowel syndrome (Renamed from Functional bowel disease), Depression, Bilateral hearing loss, unspecified hearing loss type, Psoriasis, Allergic rhinitis, Abnormal TSH, Vitamin D deficiency, unspecified, GERD (gastroesophageal reflux disease), Sinusitis, chronic, Benign prostatic hyperplasia with urinary hesitancy, Hypoglycemia, Epilepsy, unspecified, not intractable, without status epilepticus, Obesity (BMI 30.0-34.9), Encounter for routine adult medical exam with abnormal findings, Hyperlipidemia, mild, Obstructive sleep apnea, adult, Cardiomegaly (Renamed from Cardiac enlargement), Retinal cyst of right eye [facility] Lab Order On: 18-May-2017 10:09 Encounter Diagnosis: Epilepsy, unspecified, not intractable, without status epilepticus End: 18-May-2017 10:17 [facility] Office Visit On: 15-Mar-2017 13:06 Encounter Reason: Follow up acute care visit - The patient feeling better since last seen and improving. Patient has been compliant with instructions. Current medication use: compliant with dosing regimen. Patient sleeps End: 15-Mar-2017 13:48 7 hours per night. Impact of disease: emotional impact-moderate. Nutrition: balanced diet and supplemental vitamins. The medical issues the patient is following up for include other (allergies).Encounter Diagnosis: BMI 36.0-36.9,adult, Current nonsmoker (Renamed from Current non-smoker), Allergic rhinitis, Sinusitis, chronic, Hypoglycemia, Psoriasis, Prediabetes, Abnormal TSH, GERD (gastroesophageal reflux disease), Vitamin D deficiency, unspecified, Nontoxic goiter, unspecified, Raised intraocular pressure, bilateral, Irritable bowel syndrome (Renamed from Functional bowel disease), Bilateral hearing loss, unspecified hearing loss type, Depression, Hyperlipidemia, mild, Encounter for routine adult medical exam with abnormal findings, Benign prostatic hyperplasia with urinary hesitancy, Epilepsy, unspecified, not intractable, without status epilepticus, Obstructive sleep apnea, adult, Retinal cyst of right eye, Cardiomegaly (Renamed from Cardiac enlargement), Nasal congestion, Acute foot pain, left, SOB (shortness of breath) on exertion, Encounter for hepatitis C virus screening test for high risk patient, BMI 35.0-35.9,adult, Obesity (BMI 30.0-34.9) [facility] Office Visit On: 25-Jan-2017 11:54 Encounter Diagnosis: Hypoglycemia, BMI 36.0-36.9,adult, Sinusitis, chronic, Depression, Encounter for routine adult medical exam with abnormal findings, Current nonsmoker (Renamed from Current non-smoker), Raised intraocular pressure, bilateral, End: 26-Jan-2017 13:11 GERD (gastroesophageal reflux disease), Vitamin D deficiency, unspecified, Nontoxic goiter, unspecified, Irritable bowel syndrome (Renamed from Functional bowel disease), Allergic rhinitis, Benign prostatic hyperplasia with urinary hesitancy, Forgetfulness, Epilepsy, unspecified, not intractable, without status epilepticus, Prediabetes, Retinal cyst of right eye, Abnormal TSH, Cardiomegaly (Renamed from Cardiac enlargement), Obstructive sleep apnea, adult, Psoriasis, Screening for prostate cancer, Need for prophylactic vaccination and inoculation against influenza, Bilateral hearing loss, unspecified hearing loss type, Encounter for hepatitis C virus screening test for high risk patient, Hyperlipidemia, mild [facility] Order On: 13-Jan-2017 14:59 Encounter Diagnosis: Epilepsy, unspecified, not intractable, without status epilepticus End: 13-Jan-2017 15:05 [facility] Office Visit On: 15-Sep-2016 15:39 Encounter Reason: Follow up acute care visit - The patient feeling better since last seen and improving. Patient has been compliant with instructions. Current medication use: no side effects, compliant with dosing regime End: 15-Sep-2016 16:17 n and considered effective by patient. Patient sleeps 8 hours per night. Impact of disease: emotional impact-mild. Nutrition: balanced diet and supplemental vitamins. The medical issues the patient is f ollowing up for include other (jittery and fatigue).Encounter Diagnosis: Vertigo, Current nonsmoker (Renamed from Current non-smoker), BMI 36.0-36.9,adult, Nervous, Stomach cramps, generalized, Fatigue, unspecified type, Epilepsy, unspecified, not intractable, without status epilepticus, Prediabetes [facility] Office Visit On: 07-Aug-2016 13:32 Encounter Reason: Follow up acute care visit - The patient feels the same. Patient has been compliant with instructions. Current medication use: no side effects and compliant with dosing regimen. Patient sleeps 7 hours p End: 07-Aug-2016 14:13 er night. Impact of disease: emotional impact-moderate. Nutrition: balanced diet and supplemental vitamins. The medical issues the patient is following up for include other (multiple somatic symptoms ).Encounter Diagnosis: BMI 36.0-36.9,adult, Hypoglycemia, Prediabetes, Fatigue, unspecified type, Nervous, Stomach cramps, generalized [facility] Office Visit On: 03-Aug-2016 16:29 Encounter Diagnosis: BMI 36.0-36.9,adult, Stomach cramps, generalized, Nervous, SOB (shortness of breath) on exertion, Fatigue, unspecified type, Abnormal TSH, Depression, Epilepsy, unspecified, not intractable, without status epilepticus End: 03-Aug-2016 17:14 [facility] Office Visit On: 10-Jul-2016 14:10 Encounter Reason: Follow up acute care visit - The patient feels the same and has decreased energy level. Patient has been compliant with instructions. Current medication use: no side effects, compliant with dosing regim End: 10-Jul-2016 14:34 en and considered effective by patient. Patient sleeps 7 hours per night. Impact of disease: emotional impact-mild. Nutrition: balanced diet and supplemental vitamins. The medical issues the patient is following up for include other (weight diet and exercise ).Encounter Diagnosis: BMI 36.0-36.9,adult, Current nonsmoker (Renamed from Current non-smoker), Psoriasis, Prediabetes, Allergic rhinitis, Depression, Forgetfulness, Cardiomegaly (Renamed from Cardiac enlargement), Nontoxic goiter, unspecified, GERD (gastroesophageal reflux disease), Raised intraocular pressure, bilateral, Epilepsy, unspecified, not intractable, without status epilepticus, Obstructive sleep apnea, adult, Vitamin D deficiency, unspecified, Abnormal thyroid blood test, Irritable bowel syndrome (Renamed from Functional bowel disease), BPH without urinary obstruction, Abnormal TSH, Retinal cyst of right eye, Sinusitis, chronic, BMI 35.0-35.9,adult, Acute foot pain, left, Encounter for routine history and physical exam for male, Nasal congestion [facility] Office Visit On: 02-Jun-2016 13:41 Encounter Reason: Follow up for chronic medical issues - The patient feels well with minor complaints and has decreased energy level. Patient has been compliant with instructions. Current medication use: no side effects, End: 02-Jun-2016 14:11 compliant with dosing regimen and considered effective by patient. Patient sleeps 8 hours per night. Impact of disease: emotional impact-mild. Nutrition: balanced diet and supplemental vitamins. The il dical issues the patient is following up for include blood sugar issues, cardiac issues, depression, high blood pressure, high cholesterol and other (epilepsy, overweight, DARIEN, BPH, allergic rhinitis ).Encounter Diagnosis: BMI 36.0-36.9,adult, Epilepsy, unspecified, not intractable, without status epilepticus, Current nonsmoker (Renamed from Current non-smoker), Abnormal thyroid blood test, Vitamin D deficiency, unspecified [facility] Order On: 30-Mar-2016 16:57 Encounter Diagnosis: Nontoxic goiter, unspecified End: 30-Mar-2016 16:59 [facility] Office Visit On: 04-Feb-2016 14:23 Encounter Reason: Injections - The medication the patient is here to receive is other (flu).Encounter Diagnosis: Need for prophylactic vaccination and inoculation against influenza End: 05-Feb-2016 14:11 [facility] Office Visit On: 13-Jan-2016 13:03 Encounter Reason: Follow up acute care visit - The patient feeling better since last seen and improving. Patient has been compliant with instructions. Current medication use: no side effects, compliant with dosing regime End: 13-Jan-2016 13:50 n and considered effective by patient. Patient sleeps 7 hours per night. Impact of disease: emotional impact-mild. Nutrition: balanced diet and supplemental vitamins. The medical issues the patient is following up for include other (dilantin level ). Encounter Diagnosis: Epilepsy, unspecified, not intractable, without status epilepticus, Current nonsmoker (Renamed from Current non-smoker), Acute foot pain, left, Vitamin D deficiency, unspecified, Abnormal thyroid blood test [facility] Office Visit On: 13-Dec-2015 10:17 Encounter Reason: Physical male exam - Last seen between 3-6 months ago. General health: feels well with minor complaints, has decreased energy level and is sleeping well. The patient's appetite is normal. Nutrition: nor End: 27-Dec-2015 7:02 mal/adequate. Exercises 0 days per week. Sleeps on average 10 hours per night. Normal bowel and bladder habits. Safety measures include appropriate use of safety belts and home smoke detectors. Current emotional problems include anxiety. Preventative measures done by patient are screening, colonoscopy (2014) and PSA ().Encounter Diagnosis: Encounter for routine history and physical exam for male, Current nonsmoker (Renamed from Current non-smoker), BMI 35.0-35.9,adult, Need for Tdap vaccination (Renamed from Need for onqyiahwhg-wzuxgqo-utvddqgvy (Tdap) vaccine, adult/adolescent), Retinal cyst of right eye, Irritable bowel syndrome (Renamed from Functional bowel disease), Obstructive sleep apnea, adult, Nasal congestion, GERD (gastroesophageal reflux disease), Cardiomegaly (Renamed from Cardiac enlargement), Raised intraocular pressure, bilateral, BPH without urinary obstruction, Nontoxic goiter, unspecified, Sinusitis, chronic, Epilepsy, unspecified, not intractable, without status epilepticus, Vitamin D deficiency, unspecified, Depression, Allergic rhinitis, Psoriasis, Prediabetes, Abnormal TSH, Forgetfulness [facility] Nurse Visit (Non-[facility]) On: 25-Nov-2015 14:10 [facility] End: 25-Nov-2015 14:10 Lab Order On: 25-Nov-2015 10:59 Encounter Diagnosis: Epilepsy, unspecified, not intractable, without status epilepticus, Screening for prostate cancer End: 25-Nov-2015 11:03 [facility] Office Visit On: 13-Aug-2015 14:41 Encounter Reason: Upper Respiratory Infection (URI) - Symptoms include scratchy throat, productive cough (thick brown), fever and chills. Onset was sudden 5 day(s) ago. The symptoms occur constantly. The patient describe End: 13-Aug-2015 15:05 s this as worsening. Symptoms are not exacerbated by activity, smoking, lying down or cold air. Associated symptoms include headache and colored sputum. Presenting symptoms included nasal congestion, sc ratchy throat, productive cough, fever and chills.Encounter Diagnosis: Sinusitis, chronic, Cough [facility] Office Visit On: 28-May-2015 13:04 Encounter Reason: Follow up tests - Date: (05/24/15 blood work)., [ADDITIONAL REASON] Follow up Meds - The patient feels well with minor complaints, has good energy l End: 28-May-2015 13:53 evel and is sleeping well. Patient has been compliant with instructions. Current medication use: no side effects, compliant with dosing regimen and considered effective by patient. Encounter Diagnosis: Epilepsy, unspecified, not intractable, without status epilepticus, Psoriasis, Vitamin D deficiency, unspecified [facility] Office Visit On: 23-Apr-2015 14:40 Encounter Diagnosis: Need for zoster vaccination End: 29-Apr-2015 6:48 [facility] Office Visit On: 23-Apr-2015 13:27 Encounter Reason: Follow up tests - Date: (04/10 blood work)., [ADDITIONAL REASON] Follow up for chronic medical issues - The patient feels well with minor complai End: 23-Apr-2015 14:08 nts, has good energy level (will get decreased when he becomes irritated) and is sleeping well. Patient has been compliant with instructions. Current medication use: no side effects. Patient sleeps 8 ho urs per night. Impact of disease: emotional impact-mild. Nutrition: balanced diet and supplemental vitamins. The medical issues the patient is following up for include blood sugar issues, cardiac issues , depression, gastric reflux and other (Goiter, DARIEN, IBS, psoriasis, allergic rhinitis, epilepsy, glaucoma, obesity ). Encounter Diagnosis: Vitamin D deficiency, unspecified, GERD (gastroesophageal reflux disease), Cardiomegaly (Renamed from Cardiac enlargement), Raised intraocular pressure, bilateral, Psoriasis, Retinal cyst of right eye, Nasal congestion, Encounter for routine history and physical exam for male, Irritable bowel syndrome (Renamed from Functional bowel disease), Epilepsy, unspecified, without mention of intractable epilepsy (345.90), Obstructive sleep apnea, adult, BPH without urinary obstruction, Nontoxic goiter, unspecified, Sinusitis, chronic, Depression, Allergic rhinitis, Need for zoster vaccination [facility] Office Visit On: 22-Jan-2015 14:57 Encounter Reason: Injections - The medication the patient is here to receive is other (flu).Encounter Diagnosis: Need for prophylactic vaccination and inoculation against influenza End: 23-Jan-2015 18:08 [facility] Office Visit On: 23-Oct-2014 12:46 Encounter Reason: Follow up for chronic medical issues - The patient feels well with minor complaints (edgy), has good energy level and is sleeping well. Patient has been compliant with instructions. Current medication u End: 23-Oct-2014 13:49 se: experiencing side effects (dilanting causes grumpiness but I will make that trade). Patient sleeps 8 hours per night. Impact of disease: emotional impact- mild. Nutrition: balanced diet and supplemen levi vitamins. The medical issues the patient is following up for include cardiac issues, depression, gastric reflux and other (Goiter, DARIEN, IBS, psoriasis, allergic rhinitis, epilepsy, glaucoma, obesity )., [ADDITIONAL REASON] Follow up tests - Date: (10.23.14). Encounter Diagnosis: Epilepsy, unspecified, without mention of intractable epilepsy (345.90), Depression (311.), GERD (530.81), BPH without Urin. Obst (600.00), Vitamin D deficiency, unspecified (268.9), Allergic Rhinitis(477.9), Retinal cyst of right eye, Sinusitis,chronic (473.9), Obstructive sleep apnea (327.23), Irritable bowel syndrome (Renamed from Functional bowel disease), Raised intraocular pressure, bilateral, WMV V70.0 (Renamed from WMV), Nasal congestion, Cardiomegaly (Renamed from Cardiac enlargement), Psoriasis, Goiter, unspecified (240.9), Well Male Exam (V70.0) [facility] Historical Summary On: 19-Jun-2014 7:32 [facility] End: 19-Jun-2014 7:32 Annotation/Addendum On: 24-Apr-2014 14:11 Encounter Diagnosis: Unspecified Diagnosis End: 24-Apr-2014 14:12 [facility] Office Visit On: 24-Apr-2014 13:16 Encounter Reason: Follow up for chronic medical issues - The patient feels well with minor complaints (sinuses all better but still some stuffiness ), has good energy level and is sleeping well. Patient has been complian End: 24-Apr-2014 13:44 t with instructions. Current medication use: experiencing side effects (dilanting causes grumpiness but I will make that trade). Patient sleeps 8 hours per night. Impact of disease: emotional impact-mil d. Nutrition: balanced diet and supplemental vitamins. The medical issues the patient is following up for include cardiac issues, depression, gastric reflux and other (Goiter, DARIEN, IBS, psoriasis, allergic rhinitis, epilepsy, glaucoma, obesity ). Encounter Diagnosis: Epilepsy, unspecified, without mention of intractable epilepsy (345.90), Obstructive sleep apnea (327.23), Irritable bowel syndrome (Renamed from Functional bowel disease), Vitamin D deficiency, unspecified (268.9), Sinusitis,chronic (473.9), Allergic Rhinitis(477.9), Depression (311.), GERD (530.81), Nasal congestion, Retinal cyst of right eye, Raised intraocular pressure, bilateral, Psoriasis, Goiter, unspecified (240.9), Cardiomegaly (Renamed from Cardiac enlargement), WMV V70.0 (Renamed from WMV), BPH without Urin. Obst (600.00) [facility] Office Visit On: 29-Jan-2014 15:01 Encounter Reason: Injections - The medication the patient is here to receive is other (flu).Encounter Diagnosis: NEED FOR PROPHYLACTIC VACCINATION AND INOCULATION AGAINST INFLUENZA (V04.81) End: 01-Feb-2014 5:55 [facility] Office Visit On: 27-Dec-2013 14:12 Encounter Reason: Sinusitis/ - The duration of the symptoms are 5 days The course has been increasing. The sinusitis/ has no relieving factors. Associated features include The symptoms have been associated with cough, na End: 27-Dec-2013 14:48 bibi discharge/stuffy nose, sinus pain and sore throat. No previous evaluations were reported. Note for Sinusitis/: At least a week Encounter Diagnosis: ACUTE SINUSITIS, UNSPECIFIED (461.9), Nasal congestion [facility] Office Visit On: 24-Oct-2013 13:36 Encounter Reason: Follow up for chronic medical issues - The patient feels well with minor complaints (sinuses all better but still some stuffiness ), has good energy level and is sleeping well. Patient has been complian End: 24-Oct-2013 14:15 t with instructions. Current medication use: experiencing side effects (dilanting causes grumpiness but I will make that trade). Patient sleeps 8 hours per night. Impact of disease: emotional impact-mil d. Nutrition: balanced diet and supplemental vitamins. The medical issues the patient is following up for include cardiac issues, depression, gastric reflux and other (Goiter, DARIEN, IBS, psoriasis, allergic rhinitis, epilepsy, glaucoma, obesity ). Encounter Diagnosis: Depression (311.), Psoriasis, Allergic Rhinitis(477.9), GERD (530.81), Sinusitis,chronic (473.9), Obstructive sleep apnea (327.23), Irritable bowel syndrome (Renamed from Functional bowel disease), Vitamin D deficiency, unspecified (268.9), Goiter, unspecified (240.9), Epilepsy, unspecified, without mention of intractable epilepsy (345.90), Cardiomegaly (Renamed from Cardiac enlargement), WMV V70.0 (Renamed from WMV), Retinal cyst of right eye , Raised intraocular pressure, bilateral, Well Male Exam (V70.0) [facility] Office Visit On: 25-Apr-2013 13:43 Encounter Reason: Follow up tests - Date: ()., [ADDITIONAL REASON] Follow up for chronic medical issues - The patient feels well with minor complai End: 25-Apr-2013 14:28 nts (sinuses all better but still some stuffiness ), has good energy level and is sleeping well. Patient has been compliant with instructions. Current medication use: experiencing side effects (dilantin g causes grumpiness but I will make that trade). Patient sleeps 8 hours per night. Impact of disease: emotional impact-mild. Nutrition: balanced diet and supplemental vitamins. The medical issues the pa christine is following up for include cardiac issues, depression, gastric reflux and other (Goiter, DARIEN, IBS, psoriasis, allergic rhinitis, epilepsy, glaucoma, obesity ). Encounter Diagnosis: Sinusitis,chronic (473.9), Obstructive sleep apnea (327.23), Epilepsy, unspecified, without mention of intractable epilepsy (345.90), GERD (530.81), Psoriasis, Allergic Rhinitis(477.9), Irritable bowel syndrome (Renamed from Functional bowel disease), Goiter, unspecified (240.9), Vitamin D deficiency, unspecified (268.9), Depression (311.), Cardiomegaly (Renamed from Cardiac enlargement), WMV V70.0 (Renamed from WMV) [facility] Office Visit On: 28-Mar-2013 13:38 Encounter Reason: Cold Symptoms - Symptoms include nasal congestion, runny nose, postnasal drainage, scratchy throat and productive cough (white-yellow mucus), while symptoms do not include headache. Onset was 1 week(s) End: 28-Mar-2013 14:02 ago. The patient describes this as worsening. Associated symptoms include plugged ear(s), while associated symptoms do not include fever or chills. Current treatment includes oral decongestants.Encounter Diagnosis: Sinusitis,chronic (473.9) [facility] Office Visit On: 01-Nov-2012 11:52 Encounter Reason: Follow up for chronic medical issues - The patient feels well with minor complaints (ear might be full of wax -both but R is worse), has good energy level and is sleeping well. Patient has been complian End: 01-Nov-2012 12:34 t with instructions. Current medication use: no side effects. Patient sleeps 8 hours per night. Impact of disease: emotional impact-mild. Nutrition: balanced diet and supplemental vitamins. The medical issues the patient is following up for include cardiac issues, depression, gastric reflux and other (Goiter, DARIEN, IBS, psoriasis, allergic rhinitis, epilepsy, glaucoma, obesity )., [ADDITIONAL REASON] Follow up tests - Date: (labs including dilantin). Encounter Diagnosis: GERD (530.81), Depression (311.), Vitamin D deficiency, unspecified (268.9), Epilepsy, unspecified, without mention of intractable epilepsy (345.90), Sinusitis,chronic (473.9), Goiter, unspecified (240.9), Psoriasis (696.1), Obstructive sleep apnea (327.23), Irritable bowel syndrome (564.1), Wheezing (786.07), BRONCHITIS, NOT SPECIFIED ACUTE OR CHRONIC (490.), Cardiomegaly (429.3), WMV V70.0 (Renamed from WMV), Allergic Rhinitis(477.9), Well Male Exam (V70.0) [facility] Lab Order On: 20-Jul-2012 14:23 Encounter Diagnosis: Epilepsy, unspecified, without mention of intractable epilepsy (345.90) End: 20-Jul-2012 14:26 [facility] Lab Order On: 11-Jul-2012 14:05 Encounter Diagnosis: BRONCHITIS, NOT SPECIFIED ACUTE OR CHRONIC (490.) End: 11-Jul-2012 14:06 [facility] Office Visit On: 11-Jul-2012 11:58 Encounter Reason: Follow up acute care visit - The patient does not feel well, has decreased energy level and worsening. Patient has been compliant with instructions. Current medication use: no side effects, compliant wi End: 11-Jul-2012 12:18 th dosing regimen and not considered effective by patient (after 10 days comming back ). The medical issues the patient is following up for include All identified problems below and other (bronchitis).Encounter Diagnosis: BRONCHITIS, NOT SPECIFIED ACUTE OR CHRONIC (490.), Wheezing (786.07), Cough (786.2) [facility] Office Visit On: 22-Jun-2012 16:11 Encounter Reason: Sinusitis - The last clinic visit was 2 week(s) ago. No changes in management were made at the last visit. Symptoms include nasal congestion, purulent rhinorrhea, postnasal drainage, cheek pain, cheek p End: 22-Jun-2012 16:43 ressure, forehead pain, forehead pressure, cough, ear fullness, ear pressure and headache. Onset was gradual. The patient describes this as moderate in severity and worsening. Symptoms are exacerbated b y remaining upright. Symptoms are relieved by lying down.Encounter Diagnosis: BRONCHITIS, NOT SPECIFIED ACUTE OR CHRONIC (490.), Cough (786.2), Wheezing (786.07) [facility] Office Visit On: 12-May-2012 11:43 Encounter Reason: Follow up for chronic medical issues - The patient feels well with minor complaints, has good energy level and is sleeping well. Patient has been compliant with instructions. Current medication use: no End: 12-May-2012 12:20 side effects, compliant with dosing regimen and considered effective by patient. Patient sleeps 8 hours per night. Impact of disease: emotional impact-mild. Nutrition: balanced diet and supplemental vit amins. The medical issues the patient is following up for include cardiac issues, depression, gastric reflux and other (Goiter, DARIEN, IBS, psoriasis, allergic rhinitis, epilepsy, glaucoma, obesity ).Encounter Diagnosis: GERD (530.81), Epilepsy, unspecified, without mention of intractable epilepsy (345.90), Depression (311.), Glaucoma (365.9), Low back pain (724.2), Sinusitis,chronic (473.9), Goiter, unspecified (240.9), Cardiomegaly (429.3), DISORDERS OF CALCIUM METABOLISM, HYPOCALCEMIA (275.41), Vitamin D deficiency, unspecified (268.9), Allergic Rhinitis(477.9), WMV V70.0 (Renamed from WMV), Psoriasis (696.1), Irritable bowel syndrome (564.1), Obstructive sleep apnea (327.23) [facility] Office Visit On: 07-Apr-2012 12:03 Encounter Reason: Sinusitis/ - The duration of the symptoms are 4 days The course has been constant. The sinusitis/ has no relieving factors. Associated features include The symptoms have been associated with cough, nasa End: 07-Apr-2012 12:46 l discharge/stuffy nose and sinus pain.Encounter Diagnosis: Cough (786.2) [facility] Office Visit On: 05-Feb-2012 13:21 Encounter Reason: Injections - The medication the patient is here to receive is other (flu shot).Encounter Diagnosis: NEED FOR PROPHYLACTIC VACCINATION AND INOCULATION AGAINST INFLUENZA (V04.81) End: 05-Feb-2012 18:59 [facility] Office Visit On: 04-Dec-2011 11:49 Encounter Reason: Follow up for chronic medical issues - The patient feels well with minor complaints, has good energy level and is sleeping well. Patient has been compliant with instructions. Current medication use: no End: 04-Dec-2011 12:16 side effects and considered effective by patient. Patient sleeps 7 hours per night. Impact of disease: emotional impact-mild. Nutrition: balanced diet and supplemental vitamins. The medical issues the p atient is following up for include cardiac issues, depression, gastric reflux and other (psoriasis, epilepsy, obesity, IBS, DARIEN, vitamin d def. ).Encounter Diagnosis: GERD (530.81), Depression (311.), Allergic Rhinitis(477.9), Psoriasis (696.1), Epilepsy, unspecified, without mention of intractable epilepsy (345.90), Irritable bowel syndrome (564.1), Vitamin D deficiency, unspecified (268.9), Obstructive sleep apnea (327.23), WMV V70.0 (Renamed from WMV), Hypertension with LVH (402.90) [facility] Lab Order On: 08-Jun-2011 9:23 Encounter Diagnosis: Unspecified Diagnosis End: 08-Jun-2011 9:26 [facility] Office Visit On: 25-May-2011 11:34 Encounter Reason: Follow up for chronic medical issues - The patient feels well with minor complaints, has good energy level and is sleeping well. Patient has been compliant with instructions. Current medication use: no End: 25-May-2011 12:29 side effects, compliant with dosing regimen and considered effective by patient. Patient sleeps 7 hours per night. Impact of disease: emotional impact-mild. Nutrition: balanced diet and supplemental vit amins. The medical issues the patient is following up for include cardiac issues, depression, gastric reflux, high blood pressure, high cholesterol, osteoarthritis and other (epilepsy, obesity, DARIEN, goiter, glaucoma ).Encounter Diagnosis: Allergic Rhinitis(477.9), Irritable bowel syndrome (564.1), Depression (311.), Hypertension with LVH (402.90), Obstructive sleep apnea (327.23), Vitamin D deficiency, unspecified (268.9), Epilepsy, unspecified, without mention of intractable epilepsy (345.90), Psoriasis (696.1), Goiter, unspecified (240.9), WMV V70.0 (Renamed from WMV), CORNS AND CALLOSITIES (700.), Well Male Exam (V70.0) [facility] Office Visit On: 04-Feb-2011 15:18 Encounter Reason: Seasonal Allergy - Symptoms include itching eyes and watery eyes, while symptoms do not include itching nose, runny nose, itching throat, cough, sneezing or wheezing. The patient describes this as worse End: 04-Feb-2011 15:47 christine. Associated symptoms include fatigue.Encounter Diagnosis: Allergic Rhinitis(477.9), VERTIGO, BENIGN PAROXYSMAL POSITION (386.11) [facility] Office Visit On: 24-Nov-2010 11:40 Encounter Reason: Follow up for chronic medical issues - The patient feels well with no complaints, has decreased energy level and is sleeping well. Patient has been compliant with instructions. Current medication use: n End: 24-Nov-2010 12:17 o side effects, compliant with dosing regimen and considered effective by patient. Patient sleeps 9 hours per night. Impact of disease: emotional impact-mild. Nutrition: balanced diet. The medical issue s the patient is following up for include All identified problems below, cardiac issues (cardiomegaly), depression, gastric reflux, high blood pressure and other (IBS, Vit D deficency).Encounter Diagnosis: Sinusitis,chronic (473.9), GERD (530.81), Allergic Rhinitis(477.9), Epilepsy, unspecified, without mention of intractable epilepsy (345.90), Vitamin D deficiency, unspecified (268.9), Obstructive sleep apnea (327.23), Hypertension with LVH (402.90), Irritable bowel syndrome (564.1), Depression (311.), WMV V70.0 (Renamed from WMV) [facility] Office Visit On: 09-Sep-2010 15:28 Encounter Reason: Sinusitis - The last clinic visit was 3 week(s) ago (was on atb levaquin for 2 weeks. ). No changes in management were made at the last visit. Symptoms include nasal congestion, forehead pain, forehead End: 09-Sep-2010 15:58 pressure, cough and headache. Onset was gradual 2 week(s) ago. The symptoms occur intermittently. The episodes occur daily. The patient describes this as mild and unchanged. Symptoms are exacerbated by air conditioning. Symptoms are relieved by oral decongestant and saline nasal drops. Current treatment includes increased oral fluid intake, oral decongestant and saline nasal drops. By report there is good compliance with treatment. First episode of sinusitis occurred 3 week(s) ago. The patient was previously evaluated by me. Previous presentation included nasal congestion, forehead pain, forehead pr essure and headache. Past treatment has included none (rx for levaquin 2 weeks ago. ).Encounter Diagnosis: Sinusitis,chronic (473.9) [facility] Office Visit On: 11-Aug-2010 10:43 Encounter Reason: Follow up for chronic medical issues - The patient feels well with no complaints, has decreased energy level and is sleeping well. Patient has been compliant with instructions. Current medication use: n End: 11-Aug-2010 11:39 o side effects, compliant with dosing regimen and considered effective by patient. Patient sleeps 9 hours per night. Nutrition: balanced diet. The medical issues the patient is following up for include All identified problems below, cardiac issues (cardiomegaly), depression, gastric reflux, high blood pressure and other (IBS, Vit D deficency).Encounter Diagnosis: Allergic Rhinitis(477.9), Epilepsy, unspecified, without mention of intractable epilepsy (345.90), Vitamin D deficiency, unspecified (268.9), Irritable bowel syndrome (564.1), Low back pain (724.2), Cardiomegaly (429.3), Depression (311.), GERD (530.81), Hypertension with LVH (402.90), Goiter, unspecified (240.9), Psoriasis (696.1), Sinusitis,chronic (473.9) [facility] Office Visit On: 07-Jan-2010 13:22 Encounter Reason: Follow up for chronic medical issues - The patient feels well with minor complaints ,has good energy level and is sleeping well. Patient has been compliant with instructions. Current medication use: no End: 07-Jan-2010 14:08 side effects ,compliant with dosing regimen and considered effective by patient. Patient sleeps 7 hours per night. Impact of disease: emotional impact-mild. Nutrition: balanced diet and supplemental vit amins. The medical issues the patient is following up for include cardiac issues ,depression ,gastric reflux ,high blood pressure ,high cholesterol and other (glaucoma, obesity, DARIEN, IBS, epilepsy, psoriasis, vitamin d def.). Encounter Diagnosis: Goiter, unspecified (240.9), Hypertension with LVH (402.90), GERD (530.81), Depression (311.), DISORDERS OF CALCIUM METABOLISM, HYPOCALCEMIA (275.41), Sinusitis,chronic (473.9), Cardiomegaly (429.3), Psoriasis (696.1), Glaucoma (365.9), Epilepsy, unspecified, without mention of intractable epilepsy (345.90), Obstructive sleep apnea (327.23), Allergic Rhinitis(477.9), Well Male Exam (V70.0), Irritable bowel syndrome (564.1), Low back pain (724.2), Vitamin D deficiency, unspecified (268.9) [facility] Office Visit On: 27-Sep-2009 13:07 Encounter Reason: Rash - The onset of the rash has been gradual and has been occurring in a persistent pattern for 10 days. The course has been constant. The rash is characterized as red and weeping. The rash was first s End: 29-Sep-2009 21:12 een on the face. It spread to the face (eye). Note for Rash: no vision changeEncounter Diagnosis: Poison louisa (692.6) [facility] Phone Encounter On: 03-Sep-2009 15:41 [facility] End: 03-Sep-2009 15:44 Office Visit On: 28-Aug-2009 10:54 Encounter Reason: Allergic rhinitis - The allergic rhinitis has been occurring in spring season pattern for 1 weeks. The course has been gradually worsening. being inside ,being outside and grass. The allergic rhinitis a End: 28-Aug-2009 11:25 re relieved by steriod nasal sprays (usually but not this time.). Associated features include The symptoms have been associated with watery eyes and itchy eyes. Encounter Diagnosis: Acute sinusitis, unspecified (461.9) [facility] Office Visit On: 09-Jul-2009 13:35 Encounter Reason: Follow up for chronic medical issues - The patient feels well with minor complaints and has decreased energy level. Patient has been compliant with instructions. Current medication use: no side effects End: 09-Jul-2009 14:29 ,compliant with dosing regimen and considered effective by patient. Patient sleeps 7 hours per night. Impact of disease: emotional impact-mild. Nutrition: balanced diet and supplemental vitamins. The me dical issues the patient is following up for include cardiac issues ,depression ,fibromyalgia ,gastric reflux and other (epilepsy, vitamin d def., obesity, goiter, allergic rhinitis, psoriasis, IBS, glaucoma, DARIEN). Encounter Diagnosis: Cardiomegaly (429.3), Sinusitis,chronic (473.9), DISORDERS OF CALCIUM METABOLISM, HYPOCALCEMIA (275.41), Depression (311.), GERD (530.81), Hypertension with LVH (402.90), Goiter, unspecified (240.9), Epilepsy, unspecified, without mention of intractable epilepsy (345.90), Glaucoma (365.9), Obstructive sleep apnea (327.23), Psoriasis (696.1), Allergic Rhinitis(477.9), Vitamin D deficiency, unspecified (268.9), Low back pain (724.2), Irritable bowel syndrome (564.1), Well Male Exam (V70.0) [facility] Office Visit On: 15-Mar-2009 14:57 Encounter Reason: Sinus pain - The onset of the pain has been acute and has been occurring in a persistent pattern for 3 days. The course has been constant. The pain is characterized as a pressure sensation. The pain is End: 15-Mar-2009 15:22 described as being located in the frontal area and the temporal area. Encounter Diagnosis: Acute sinusitis, unspecified (461.9) [facility] Office Visit On: 02-Jan-2009 11:07 Encounter Reason: Follow up for chronic medical issues - The patient feels well with minor complaints ,has good energy level and is sleeping well. Patient has been compliant with instructions. Current medication use: no End: 02-Jan-2009 11:48 side effects ,compliant with dosing regimen and considered effective by patient. Patient sleeps 7 hours per night. Impact of disease: emotional impact-mild. Nutrition: balanced diet and supplemental vit amins. The medical issues the patient is following up for include cardiac issues ,depression ,high blood pressure ,high cholesterol and other (obesity, allergic rhinitis, epilepsy, goiter, DARIEN, psoriasis ). Encounter Diagnosis: Goiter, unspecified (240.9), Vitamin D deficiency, unspecified (268.9), Depression (311.), Dermatitis(692.9), Cardiomegaly (429.3), Hypertension with LVH (402.90), Glaucoma (365.9), DISORDERS OF CALCIUM METABOLISM, HYPOCALCEMIA (275.41), Epilepsy, unspecified, without mention of intractable epilepsy (345.90), Psoriasis (696.1), Allergic Rhinitis(477.9), Irritable bowel syndrome (564.1), Obstructive sleep apnea (327.23), Sinusitis,chronic (473.9), GERD (530.81), Low back pain (724.2) [facility] Historical Summary On: 25-Oct-2008 11:41 [facility] End: 25-Oct-2008 11:41 Phone Encounter On: 10-Aug-2008 12:20 [facility] End: 10-Aug-2008 12:28 Phone Encounter On: 05-Jul-2008 14:47 Encounter Diagnosis: Vitamin D deficiency, unspecified (268.9) End: 05-Jul-2008 14:54 [facility] Office Visit On: 19-Jun-2008 13:05 Encounter Reason: Follow up for chronic medical issues - The patient feels well with minor complaints ,has good energy level and is sleeping well. Patient has been compliant with instructions. Current medication use: no End: 19-Jun-2008 13:28 side effects ,compliant with dosing regimen and considered effective by patient. Patient sleeps 7 hours per night. Impact of disease: emotional impact-mild. Nutrition: balanced diet and supplemental vit amins. The medical issues the patient is following up for include cardiac issues ,depression ,gastric reflux ,high blood pressure and other (allergic rhinitis, IBS, psoriasis, seziure disorder, sleep apnea ). Encounter Diagnosis: Hypertension with LVH (402.90), Irritable bowel syndrome (564.1), Obstructive sleep apnea (327.23), Glaucoma (365.9), Allergic Rhinitis(477.9), DISORDERS OF CALCIUM METABOLISM, HYPOCALCEMIA (275.41), Psoriasis (696.1), goiter, Epilepsy, unspecified, without mention of intractable epilepsy (345.90), Depression (311.), Dermatitis(692.9), Cardiomegaly (429.3), GERD (530.81), Sinusitis,chronic (473.9), WMV [facility] Office Visit On: 07-Feb-2008 14:07 Encounter Reason: Follow up for chronic medical issues - The patient feels well with no complaints. Patient has been compliant with instructions. Current medication use: experiencing side effects (Mysoline occasionally c End: 07-Feb-2008 14:44 auses drowsiness). Patient sleeps 9 hours per night. Nutrition: balanced diet. The medical issues the patient is following up for include All identified problems below ,cardiac issues ,depression ,gastr ic reflux ,high blood pressure and other (epilepsy). Encounter Diagnosis: Depression (311.), Epilepsy, unspecified, without mention of intractable epilepsy (345.90), Hypertension with LVH (402.90), Irritable bowel syndrome (564.1), Obstructive sleep apnea (327.23), WMV, Glaucoma (365.9), Sinusitis,chronic (473.9), Allergic Rhinitis(477.9), GERD (530.81), DISORDERS OF CALCIUM METABOLISM, HYPOCALCEMIA (275.41), Cardiomegaly (429.3), Psoriasis (696.1), Dermatitis(692.9), goiter [facility] Office Visit On: 11-Apr-2007 12:14 Encounter Reason: Follow up for chronic medical issues - The patient feels well with minor complaints (LLQ Pain- occasionally- none today). Patient has been compliant with instructions. Current medication use: no side ef End: 11-Apr-2007 12:50 fects ,experiencing side effects (drowsiness with Dilantin) ,has decreased dose ,has increased dose ,compliant with dosing regimen ,non-compliant with dosing regimen ,considered effective by patient and not considered effective by patient. Patient sleeps 8 hours per night. Nutrition: balanced diet. The medical issues the patient is following up for include All identified problems below ,cardiac issues ,depression ,gastric reflux ,high blood pressure and other (DARIEN, Glaucoma). Note for Follow up for chronic medical issues: occas ache in abd move around in lower sides, mild comes and goes doing for awhile not worese relate to caffiene. does have IBS. some loose stoools rarely but can get constipationEncounter Diagnosis: Epilepsy, unspecified, without mention of intractable epilepsy (345.90), Allergic Rhinitis(477.9), GERD (530.81), Depression (311.), Irritable bowel syndrome (564.1), Obstructive sleep apnea (327.23), Dermatitis(692.9), WMV [facility] Office Visit On: 19-Oct-2006 12:27 Encounter Diagnosis: Allergic Rhinitis(477.9) End: 19-Oct-2006 12:28 [facility] Office Visit On: 20-Jul-2006 11:05 Encounter Reason: Follow up for chronic medical issues - The patient feels well with minor complaints ,has good energy level and is sleeping well. Patient has been compliant with instructions. Current medication use: no End: 20-Jul-2006 12:04 side effects ,compliant with dosing regimen and considered effective by patient. Impact of disease: emotional impact-mild. Nutrition: balanced diet. The medical issues the patient is following up for in clude depression ,gastric reflux ,high blood pressure and other (epilepsy, psoriasis, eczema ). Encounter Diagnosis: Hypertension with LVH (402.90), Allergic Rhinitis(477.9), Epilepsy, unspecified, without mention of intractable epilepsy (345.90), GERD (530.81), Depression (311.), Dermatitis(692.9), Obstructive sleep apnea (327.23), Psoriasis (696.1), Glaucoma (365.9), Cardiomegaly (429.3), Sinusitis,chronic (473.9), DISORDERS OF CALCIUM METABOLISM, HYPOCALCEMIA (275.41), Well Male Exam (V70.0) [facility] Historical Summary On: 14-Jul-2006 14:53 [facility] End: 14-Jul-2006 15:04 Historical Summary On: 19-May-2006 14:22 [facility] End: 19-May-2006 14:24 [facility]; freddie guarantor
--- OUTSIDE RECORDS SUMMARY | 2018-05-11 05:20 | XMS RPT_ITS | Continuity of Care Document ---
:1955 Author Organization [facility] Address [facility] [address] Phone Care Team Providers Name Role Phone [...] Dana M Start : 23-Sep-2017 Active Drisdol 90354 UNIT Oral Capsule 1 Capsule three times [...] Quantity: 1 {Aerosol_Soln} Refills: 0 Ordered:22-Jun-2012 Long REPEATER CHIEF, Tamiko L Start : 22-Jun-2012 Active Singulair 10 MG Oral Tablet 1 Tablet QD for 0 days Quantity: 90 {Tablet} Refills: 3 Ordered:01-Feb-2018 Dede Galan MD MD, Dede M Start : 01-Feb-2018 Active Comments:ok for generic ANTIVERT, 12.5MG (Oral [...] days Quantity: 20 {Tablet} Refills: 0 Ordered:22-Jun-2012 Anushka KAPADIA Kassandra Start : 22-Jun-2012 End : 02-Jul-2012 Inactive [...] days Quantity: 7 {Tablet} Refills: 0 Ordered:13-Aug-2015 Anushka KAPADIA Beverley Jones Start : 13-Aug-2015 End : 20-Aug-2015 Inactive [...] Unsure for 0 days Refills: 0 Ordered:19-Oct-2006 Dede Galan MD, MD, Dana M Start : 19-Oct-2006 End : 19-Oct-2006 Discontinued [...] for Tdap vaccination (Renamed from Need for ukbipbtmic-hlkmsbx-lgxggrchi (Tdap) vaccine, adult/adolescent) (Z23, V06.1) Status: Inactive [...] Operative Report Result: Comments: See Note; NOTES: [facility] Medical Records Department [address] [place] [address] Operative Report MR#: [id number] Acct: [id number] Name: JOSE MANUEL STEVENS Rep #: [id number] : 1955 58 From: Leoncio Quispe MD PCP: Dede Galan MD Status: REG CLI DATE OF SERVICE: PROCEDURE PERFORMED: Colonoscopy to the cecum. PREOPERATIVE DIAGNOSIS: The kodak ent for screening colonoscopy. 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 19-Apr-2014 Thyroid Result: Comments: See Note; NOTES: [facility] Imaging Services [address] [place] [address] Ultrasound Report MR#: [id number] Acct: [id number] Name: JOSE MANUEL STEVENS Rep #: [id number] : 1955 M 58 From: Carlos Enrique Collado PCP: Dede Galan MD Status: REG CLI Study: Thyroid Date of Exam: 04/19/14 Exam# [id number] Ordering Dr: Dede Galan MD STUDY: THYROID [...] MD at 6:30 EST , Service support [phone], CC: Dede Galan MD 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: 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 Comments: still working [employer] [facility] Status: Active Exercise History Comments: none Status: Active Living Situation Comments: Lives with spouse, alevism and important Status: Active No Drug Use Status: Active Non Drinker/No Alcohol Use Status: Active Non Smoker/No Tobacco Use Status: Active Tobacco use: Never smoker. Status: Active Smoking Status Name Dates Details Never smoker Vital Signs Date Test Result Details 02-Fym-877764:46 Temperature 97.9 f Comments: Method: Temporal Pulse [...] Results Date Description Value Details :30 URINALYSIS (75230) Comments: PATIENT NOT FASTINGPERFORMED BY: PADMAJA [facility]CoSum[facility] HospitalKhvhdj0974 [facility] [id number] Microscopic Examination MICNIP (Normal) Comments: Microscopic not indicated and not performed. Nitrite, Urine Negative (Normal) Urobilinogen,Semi-Qn 0.2 mg/dL (Normal) Range: 0.2-1.0 Bilirubin Negative (Normal) Occult Blood Negative (Normal) Ketones Negative (Normal) Glucose Negative (Normal) Protein Negative (Normal) WBC Esterase Negative (Normal) Appearance Clear (Normal) Urine-Color Yellow (Normal) pH 7.0 (Normal) Range: 5.0-7.5 Specific [place] 1.014 (Normal) Range: 1.005-1.030 74-Rat-943798:30 METABOLIC PANEL, COMPREHENSIVE Comments: PATIENT NOT FASTINGPERFORMED BY: [facility]edSum[facility] Oaks HospitalWpbwsw3010 [facility] [id number] (07842) ALT (SGPT) 20 [iU]/L (Normal) Range: 0-44 [...] 8-27 Glucose 98 mg/dL (Normal) Range: 65-99 62-Trd-346946:30 DRUG ASSAY-TOT PHENYTOIN Comments: PATIENT NOT FASTINGPERFORMED BY: [facility]6370 [facility] [id number] (83135) Phenytoin (Dilantin), Serum 14.7 ug/mL (Normal) Range: 10.0-20.0 Comments: Detection Limit = 0.8 <0.8 Indicates None Detected :30 CBC W/AUTO DIFF WBC (22129) Comments: PATIENT NOT FASTINGPERFORMED BY: [facility]6370 [facility] [id number] Immature Grans (Abs) 0.0 {x10E3/uL} (Normal) Range: [...] 4.14-5.80 WBC 5.2 {x10E3/uL} (Normal) Range: 3.4-10.8 8-Tqa-349826:15 Phenytoin (Dilantin) Level Comments: Time Medication is to be Given? [facility] [address]jl[address] [place], [address] PHENYTOIN 18.3 mL (Normal) Range: 10.0-20.0 7-Jju-626422:07 Comprehensive Metabolic Profil Comments: [facility] Ujpdkhdggt[address] [place], [address] GAP 5 (Normal) Range: 5-15 CO2 30.0 mmol/L (Normal) Range: 21.0-32.0 CL 106 mmol/L (Normal) Range: 98-107 K 4.0 mmol/L (Normal) Range: 3.5-5.1 NA 141 mmol/L (Normal) Range: 136-145 T BILI 0.20 mg/dL (Normal) Range: 0.20-1.00 ALT 35 U/L (Normal) Range: 16-61 Comments: Please note revised ALT reference range gituscwjt77/28/2018. ALK P 83 U/L (Normal) Range: 45-117 [...] 7-18 GLU 90 mg/dL (Normal) Range: 74-106 1-Yfy-519747:07 Hepatitis C Antibodies Comments: [facility] (refer to report for specific site)refer to report for address and phone number HEP C AB 0.1 {s/co_ratio} (Normal) Range: 0.0-0.9 Comments: Negative: < 0.8 Indeterminate: 0.8 - 0.9 Positive: > 0.9 The CDC recommends that a positive HCV antibody result be followed up with a HCV Nucleic Acid Amplification test (620166).Performed at: [address] [id number] Director: Leoncio Martinez PhD, Phone: [phone] 8-Bzs-441364:07 NMR Lipoprofile Comments: [facility] (refer to report [...] the US Food and Drug Administration.Performed at: [address] [id number] Director: Deangelo Miller MD, Phone: [phone] INS RES/DIAB RK . (Normal) LDL SIZE [...] mg/dL (Normal) Range: 100-199 LIPIDS . (Normal) 9-Yim-929247:07 Phenytoin (Dilantin) Level Comments: Time Medication is to be Given? 0000[facility] [address]ptdvv[address] [place], [place], [address] PHENYTOIN 25.6 mL (Abnormal) Range: 10.0-20.0 Comments: Critical Result(s) Called to Tamiko at [facility] at: 11:57:19 05/17/2017 by: MISSAEL AND @left message on voicemail to call back Wero AND @at 11:17 3-Ydq-291413:07 PSA,Total - Annual Screen Comments: [facility] [address] [place], [address] PSA,TOT SCREEN 1.71 ng/mL (Normal) Range: 0.00-4.00 Comments: This test was performed using the TPSA assay method for theBiOM chemistry system. Values obtained with differentassay methods cannot be used interchangably.When changing PSA assays in the course of monitoring apatient, additional sequential testing should be carriedout to confirm baseline values. 8-Plr-141882:07 Vitamin D,25 Hydroxy Comments: [facility] [address] [place], [address] Vitamin D 25-OH 51.3 ng/mL (Normal) Range: 19.95-100.01 Comments: Vitamin D 25(OH) Status Range Deficiency <20 ng/mL (50nmol/L) Insuffciency 20 - 30 ng/mL (50 - 75 nmol/L) Sufficiency 30 - 100 ng/mL (75 - 250 nmol/L) Toxicity >100 ng/mL (>250 nmol/L) 5-Gpm-399899:34 CBC With Differential/Platelet Comments: PATIENT NOT FASTINGPERFORMED BY: CB [facility] Ymdflx1921 [facility] [id number] BY: BN [facility] [address] [id number] Information: client draw Immature Grans (Abs) 0.0 [...] 4.14-5.80 WBC 4.9 {x10E3/uL} (Normal) Range: 3.4-10.8 5-Aam-044784:34 Comp. Metabolic Panel Comments: PATIENT NOT FASTINGPERFORMED BY: CB [facility] [address] [id number] BY: BN [facility] Ugxnxhgvnw5279 [facility] [id number] (14) ALT (SGPT) 18 [iU]/L (Normal) Range: [...] Microscopic Examination Comments: PATIENT NOT FASTINGPERFORMED BY: Nukona haku [facility] [id number] BY: [address] [id number] Bacteria None seen (Normal) Mucus Threads Present (Normal) Epithelial Cells (non None seen {/hpf} Range: 0 - 10 renal) (Normal) RBC 0-2 {/hpf} (Normal) Range: 0 - 2 WBC 0-5 {/hpf} (Normal) Range: 0 - 5 Phenobarbital, Serum 29 ug/mL (Normal) Comments: PATIENT NOT FASTINGPERFORMED BY: Nukona haku [facility] [id number] BY: [address] [id number] :34 Range: 15-40 Comments: Detection Limit = 3 Phenytoin (Dilantin), 21.1 ug/mL Comments: PATIENT NOT FASTINGPERFORMED BY: Minded Oayadc0453 [facility] [id number] Information: client draw :34 Serum (Abnormal) Range: 10.0-20.0 Comments: Detection Limit = 0.8 <0.8 Indicates None DetectedPatient drug level exceeds published reference range. Evaluateclinically for signs of potential toxicity. Phenytoin, Free, Serum 1.4 ug/mL (Normal) Comments: PATIENT NOT FASTINGPERFORMED BY: Nukona Meyiju9274 [facility] [id number] BY: BN [facility] [id number] :34 Range: 1.0-2.0 Comments: Detection Limit = 0.5 1-Xkp-415820:34 Urinalysis, Complete Comments: PATIENT NOT FASTINGPERFORMED BY: [place] 8514170 [facility] [id number] BY: [address] [id number] Microscopic Examination See below: Comments: Microscopic was indicated and was performed. (Normal) Microscopic Examination MICRON (Normal) Comments: Microscopic follows if indicated. Nitrite, Urine Negative (Normal) Urobilinogen,Semi-Qn 0.2 mg/dL (Normal) Range: 0.2-1.0 Bilirubin Negative (Normal) Occult Blood Negative (Normal) Ketones Negative (Normal) Glucose Negative (Normal) Protein Negative (Normal) WBC Esterase Negative (Normal) Appearance Clear (Normal) Urine-Color Yellow (Normal) pH 7.0 (Normal) Range: 5.0-7.5 Specific [place] 1.013 (Normal) Range: 1.005-1.030 Written Authorization WAR (Normal) Comments: PATIENT NOT FASTINGPERFORMED BY: [address] [id number] :34 Comments: Written Authorization Received.Authorization received from VIKAS MARTIN [id number] by Cinthya Armenta :50 Blood Glucose , Office (78872) Blood Glucose , Office 106 (Normal) 46-Gfi-400195:40 HgA1C , Office (63797) HgA1C , Office 5.3 % (Normal) Range: 4.6 - 7.1 71-Cpm-838217:45 Amylase Comments: [facility] [address] [place], [address] KIMBERLY 98 U/L (Normal) Range: 25-115 57-Vcz-016918:45 CBC-Complete Blood Cnt No Diff Comments: [facility] [address] [place], [address] MPV 8.7 fL (Normal) Range: 6.2-12.0 PLT [...] 4.6-6.2 WBC 7.1 K/mm3 (Normal) Range: 4.4-11.0 27-Fne-211691:45 Comprehensive Metabolic Profil Comments: [facility] [address] [place], [address] GAP 6 (Normal) Range: 5-15 CO2 31.0 [...] 7-18 GLU 62 mg/dL (Abnormal) Range: 70-110 82-Abd-831194:45 EBV Acute Prof IgG / IgM Comments: [facility] (refer to report for specific site)refer to report for address and phone number INTERPRETATION Comment (Normal) Comments: EBV Interpretation ChartInterpretation EBV-IgM EA(D)-IgG VCA-IgG EBNA-IgGEBV Seronegative - - - -Early Phase + - - -Acute Primary + +or- + -InfectionConvalescence/Past - +or- + +InfectionReactivated +or- + + +Infection + Antibody Present - Antibody Ab sentPerformed at: [facility] [id number] Director: Leoncio Martinez PhD, Phone: [phone] EB-NAg [id number] 283.0 U/mL (Abnormal) Range: 0.0-17.9 Comments: Negative <18.0 Equivocal 18.0 - 21.9 Positive >21.9 EB-VCA [id number] 188.0 U/mL (Abnormal) Range: 0.0-17.9 Comments: Negative <18.0 Equivocal 18.0 - 21.9 Positive >21.9 EB-EA IgG 54929 84.5 U/mL (Abnormal) Range: 0.0-8.9 Comments: Hepatitis A, Hepatitis C and HIV antibodies may cross-reactwith this assay. Negative < 9.0 Equivocal 9.0 - 10.9 Positive >10.9 EB-VCA [id number] < 36.0 U/mL (Normal) Range: 0.0-35.9 Comments: Negative <36.0 Equivocal 36.0 - 43.9 Positive >43.9 32-Kjd-938201:45 Phenytoin (Dilantin) Level Comments: Time Medication is to be Given? 1200[facility] [address] [place], [place], [id number] PHENYTOIN 20.1 mL (Abnormal) Range: 10.0-20.0 Comments: Critical Result(s) Called at: 19:27:37 08/03/2016 by:Ana CUPL 89-Sdg-014491:45 T4 Free Direct Comments: [facility] [address]fg[address] [place], [place], [address] T4 FREE DIRECT 0.75 ng/dL (Abnormal) Range: 0.76-1.46 99-Hcf-586414:45 Thyroid Stim Hormone (TSH) Comments: [facility] [address] [place], [address] TSH 1.86 {uIU/mL} (Normal) Range: 0.358-3.74 65-Mns-405763:10 Urinalysis, Office (30466) UA - LEUKOCYTE ESTERASE Negative (Normal) UA - NITRITE Negative (Normal) URINE UROBILINGN LANE TIMED Normal mg/dL (Normal) UA - PROTEIN Negative mg/dL (Normal) UA - PH 7 (Normal) UA - BLOOD Negative (Normal) UA - SPECIFIC GRAVITY 1.010 (Normal) UA - KETONES Negative mg/dL (Normal) UA - BILIRUBIN Negative (Normal) UA - GLUCOSE Negative (Normal) 64-Use-935519:22 Phenobarbital Comments: Time Medication is to be Given? [address] [place] [address] [address] [place], [address] PHENOBARB 26.8 ug/mL (Normal) Range: 10.0-40.0 76-Zov-262910:22 Phenytoin (Dilantin) Level Comments: Time Medication is to be Given? [address] [place] [address] [address] [place], [place], [phone] ; fu 3-31 PHENYTOIN 16.0 mL (Normal) Range: 10.0-20.0 04-Mjv-818276:23 Free T3 Comments: [facility] [address] [place], [address] FREE T3 2.7 pg/mL (Normal) Range: 2.18-3.98 46-Vzu-497095:23 Methylmalonic Acid Bld Comments: [facility] (refer to report for specific site)refer to report for address and phone number [facility] [phone] nmol/L (Normal) Range: 0-378 Comments: Performed at: [address] [id number] Director: Deangelo Miller MD, Phone: [phone] 62-Pqf-594113:23 NMR Lipoprofile Comments: [facility] (refer to report [...] mg/dL (Normal) Range: 100-199 LIPIDS . (Normal) 12-Sll-629376:23 Phenobarbital Comments: Time Medication is to be Given? 0000[facility] Xuliwxbrng9289 [facility] [address]. [place], [place], [address] PHENOBARB 26.6 ug/mL (Normal) Range: 10.0-40.0 95-Fsy-474047:23 Phenytoin (Dilantin) Level Comments: Time Medication is to be Given? 0000[facility] [address]zm[address] [place], [place], [address] PHENYTOIN 18.9 mL (Normal) Range: 10.0-20.0 04-Fyc-984785:23 T4 Free Direct Comments: [facility] [address] [place], [place], [address] T4 FREE DIRECT 0.71 ng/dL (Abnormal) Range: 0.76-1.46 81-Zdd-153573:23 Thyroid Stim Hormone (TSH) Comments: [facility] [address]hwzz[address] [place], [place], [address] TSH 2.15 {uIU/mL} (Normal) Range: 0.358-3.74 72-Xhx-309138:23 Vitamin B12 761 pg/mL (Normal) Comments: [facility] [address] [place], [place], [address] Range: 211-911 11-Ouf-152279:23 Vitamin D,25 Hydroxy Comments: [facility] [address] [place], [address] Vitamin D 25-OH 82.1 ng/mL (Normal) Comments: Vitamin D 25(OH) Status Range Deficiency <20 ng/mL (50nmol/L) Insuffciency 20 - 30 ng/mL (50 - 75 nmol/L) Sufficiency 30 - 100 ng/mL (75 - 250 nmol/L) Toxicity >100 ng/mL (>250 nmol/L) 66-Wyh-394397:27 Free T3 Comments: [facility] [address] [place], [address] FREE T3 2.5 pg/mL (Normal) Range: 2.18-3.98 [...] factors on Lp(a) across ethnicities.Performed at: - [facility] [id number] Director: Leoncio Martinez PhD, Phone: [phone] 93-Hlf-156039:27 Methylmalonic Acid Bld Comments: [facility] (refer to report for specific site)refer to report for address and phone number METHYLM [phone] nmol/L (Normal) Range: 0-378 Comments: Performed at: - [facility] [id number] Director: Deangelo Miller MD, Phone: [phone] 26-Zpj-420644:27 Phenobarbital Comments: Time Medication is to be Given? [address] [place] [address] [address]fs[address]65 [place], [address] PHENOBARB 26.8 ug/mL (Normal) Range: 10.0-40.0 28-Rgp-446139:27 Phenytoin (Dilantin) Level Comments: Time Medication is to be Given? [facility] [address]apjik[address] [place], [address] PHENYTOIN 20.5 mL (Abnormal) Range: 10.0-20.0 Comments: Critical Result(s) Called at: 14:39:56 01/07/2016 by:Yola Birmingham at [facility] 53-Hea-063256:27 T4 Free Direct Comments: [facility] [address]lx[address]xpj[address] [place], [id number] T4 FREE DIRECT 0.68 ng/dL (Abnormal) Range: 0.76-1.46 40-Gjg-945396:27 Vitamin B12 689 pg/mL (Normal) Comments: [facility] [address]sc[address] [place], [address] ; f/u on 01/12 Range: 211-911 27-Thl-544093:27 Vitamin D,25 Hydroxy Comments: [facility] [address]epbnac[address] [place], [address] Vitamin D 25-OH 135.4 ng/mL (Normal) Comments: [...] Free, 1.9 ug/mL (Normal) Comments: PERFORMED BY: [facility]6370 [facility] [id number] BY: [facility]1447 [facility] [id number] :12 Serum Range: 1.0-2.0 Comments: Detection Limit = 0.5 30-Tat-660812:12 PSA (Prostate Specific Comments: PERFORMED BY: [facility] Sntuov3296 [facility] [id number] BY: [address] [id number] Antigen), Screening (06140) Prostate Specific Ag, 1.7 ng/mL (Normal) Range: 0.0-4.0 Serum Comments: [employer] ECLIA methodology. .According to the [place] [employer] Association, Serum PSA shoulddecrease and remain at undetectable levels after radicalprostatectomy. The AUA defines biochemical recurrence as an initialPSA value 0.2 ng/mL or greater followed by a subsequent confirmatoryPSA value 0.2 ng/mL or greater.Values obtained with d ifferent assay methods or kits cannot be usedinterchangeably. Results cannot be interpreted as absolute evidenceof the presence or absence of malignant disease. 55-Gat-167818:00 Miscellaneous Lab Procedure Comments: NO VRO CHARGE REDRAWComments: [id number] PHENYTION FREE,RED,RTTest(s) Ordered: [id number] PHENYTION FREE,RED,[facility]WBrec[facility]ville [facility] [address]zfeehh[address] [place], [place], [address] [facility] Comments: TEST RESULT UNITS REFERENCE INTERVALPhenytoin, Free, Serum 1.9 ug/mL 1.0 - 2.0 Detection Limit = 0.5 LAB (Normal) TESTING PERFORMED AT [facility]. ORIGINAL REPORT ON FILE IN LAB CONTAINS ADDITIONAL TEST SITE INFORMATION. TEST 41-Khp-072583:58 Lipid Profile Comments: [facility] [address] [place], [address] VLDL 13 mg/dL (Normal) Range: 5-40 LDL [...] mg/dL Borderline >240 mg/dL High Risk :58 Vitamin D,25 Hydroxy Comments: [facility] [address]vxwi[address] [place], [address] Vitamin D 25-OH 40.4 ng/mL (Normal) Comments: Vitamin D 25(OH) Status Range Deficiency <20 ng/mL (50nmol/L) Insuffciency 20 - 30 ng/mL (50 - 75 nmol/L) Sufficiency 30 - 100 ng/mL (75 - 250 nmol/L) Toxicity >100 ng/mL (>250 nmol/L) 49-Krm-989768:33 Lipid Panel With LDL/HDL Comments: PATIENT WAS FASTINGPERFORMED BY: CB [facility] [address] [id number] BY: BN [facility] [address] [id number] Ratio LDL/HDL Ratio 2.2 {ratio_units} Range: 0.0-3.6 [...] ug/mL (Normal) Comments: PATIENT WAS FASTINGPERFORMED BY: [facility] Fbtppl8187 [facility] [id number] BY: [facility] [id number] 616:33 Range: 1.0-2.0 Comments: Detection Limit = 0.5 Vitamin D, 25-Hydroxy 62.9 ng/mL (Normal) Comments: PATIENT WAS FASTINGPERFORMED BY: [facility] Dqepxt0762 [facility] [id number] BY: [facility] [id number] 616:33 Range: 30.0-100.0 Comments: Vitamin D deficiency has been defined by the [place] of[place] and an Endocrine Society practice guideline as alevel of serum 25-OH vitamin D less than 20 ng/mL (1,2).The Endocrine Society went on to further define vitamin Dinsufficiency as a level between 21 and 29 ng/mL (2).1. IOM ([place] of Medicine). 2010. Dietary reference intakes for calcium and D. [place]: The National Academies Press.2. Belinda MF, Courtney NC, Jamar KAY, et al. Evaluation, treatment, and prevention of vitamin D deficiency: an Endocrine Society clinical practice guideline. JCEM. 2010; 96(7):1911-30. 25-Rko-230924:08 CBC W/Diff, Automated Comments: [facility] [address]ws[address] [place], [address] ; [address] Absolute Lymph 1.50 {X10_3/ul} (Normal) Range: 0.83-4.51 [...] 4.6-6.2 WBC 5.2 K/mm3 (Normal) Range: 4.4-11.0 83-Ynd-120433:08 Comprehensive Metabolic Profil Comments: [facility] [address] [place], [place], [address] GAP 7 (Normal) Range: 5-15 CO2 29.0 [...] 7-18 GLU 96 mg/dL (Normal) Range: 70-110 21-Tdh-388072:08 Dilantin, Free 1.2 ug/mL (Normal) Comments: [facility] (refer to report for specific site)refer to report for address and phone number Range: 1.0-2.0 Comments: Detection Limit = 0.5Performed at: [address] [id number] Director: Deangelo Miller MD, Phone: [phone] 67-Kfq-677961:08 Phenobarbital Comments: [facility] [address] [place], [address] PHENOBARB 28.8 ug/mL (Normal) Range: 10.0-40.0 35-Riy-817099:08 PSA,Total - Annual Screen Comments: [facility] [address] [place], [address] PSA,TOT SCREEN 1.71 ng/mL (Normal) Range: 0.00-4.00 Comments: This test was performed using the TPSA assay method for the[employer] chemistry system. Values obtained with differentassay methods cannot be used interchangably.When changing PSA assays in the course of monitoring apatient, additional sequential testing should be carriedout to confirm baseline values. 11-Fsr-057330:08 Thyroid Stim Hormone (TSH) Comments: [facility] [address]rax[address] [place], [address] TSH 3.48 {uIU/mL} (Normal) Range: 0.358-3.74 :08 Vitamin D,25 Hydroxy Comments: [facility] [address]aflx[address] [place], [address] Vitamin D 25-OH > 150.0 ng/mL (Normal) [...] is nointerference with Vitamin D test results. 80-Qvr-591262:16 CBC W/Diff, Automated Comments: Test performed at:[facility] [address] [place] [address] ; [facility] will review then Absolute Lymph 1.22 [...] 4.6-6.2 WBC 4.8 K/mm3 (Normal) Range: 4.4-11.0 04-Mwe-183163:16 Comprehensive Metabolic Profil Comments: Test performed at:[facility] [address]so[address] [place] [address] GAP 8 (Normal) Range: 5-15 CO2 28.0 [...] 7-18 GLU 89 mg/dL (Normal) Range: 70-110 :16 Phenobarbital Comments: Time Medication is to be Given? 0000Test performed at:[facility] Mdwnpvsvts4916 [facility] [place] [address] PHENOBARB 26.9 ug/mL (Normal) Range: 10.0-40.0 :16 Phenytoin (Dilantin) Level Comments: Time Medication is to be Given? 0000Test performed at:[facility] [address] [place] [address] PHENYTOIN 16.0 ug/mL (Normal) Range: 10.0-20.0 :16 Vitamin D,25 Hydroxy Comments: Test performed at:[facility] Bnygkfjkel4484 [facility] [place] [address] Vitamin D 25-OH 19.2 ng/mL (Normal) Comments: Vitamin D 25(OH) Status Range Deficiency <20 ng/mL (50nmol/L) Insuffciency 20 - 30 ng/mL (50 - 75 nmol/L) Sufficiency 30 - 100 ng/mL (75 - 250 nmol/L) Toxicity >100 ng/mL (>250 nmol/L) 54-Uju-726040:48 CBC W/Diff, Automated Comments: Test performed at:[facility] Zkybth[address]mf[address] [facility] [place] [address] Absolute Lymph 1.50 {X10_3/ul} (Normal) Range: [...] 4.6-6.2 WBC 4.8 K/mm3 (Normal) Range: 4.4-11.0 23-Clo-582317:48 Comprehensive Metabolic Profil Comments: Test performed at:[facility] [address] [place], [place] [id number] GAP 6 (Normal) Range: 5-15 CO2 30.0 [...] 7-18 GLU 97 mg/dL (Normal) Range: 70-110 26-Tgo-655334:48 Phenobarbital Comments: Time Medication is to be Given? 1200Test performed at:[facility] [address] [place] [address] PHENOBARB 25.3 ug/mL (Normal) Range: 10.0-40.0 :48 Phenytoin (Dilantin) Level Comments: Time Medication is to be Given? 1200Test performed at:[facility] [address] [place] [address] PHENYTOIN 19.6 ug/mL (Normal) Range: 10.0-20.0 :48 Vitamin D,25 Hydroxy Comments: Test performed at:[facility] [address] [place], [place] [address] Vitamin D 25-OH 44.8 ng/mL (Normal) Comments: Vitamin D 25(OH) Status Range Deficiency <20 ng/mL (50nmol/L) Insuffciency 20 - 30 ng/mL (50 - 75 nmol/L) Sufficiency 30 - 100 ng/mL (75 - 250 nmol/L) Toxicity >100 ng/mL (>250 nmol/L) :23 Phenobarbital Comments: Time Medication is to be Given? 0000Test performed at:[facility] [address] [place] [address] PHENOBARB 28.8 ug/mL (Normal) Range: 10.0-40.0 3-Miu-313963:23 Phenytoin (Dilantin) Level Comments: Time Medication is to be Given? 0000Test performed at:[facility] [address] [place] [address] PHENYTOIN 19.4 ug/mL (Normal) Range: 10.0-20.0 :54 CBC W/Diff, Automated Comments: Test performed at:[facility] [address] [place] [address] Absolute Lymph 1.20 {X10_3/ul} (Normal) [...] 4.6-6.2 WBC 5.2 K/mm3 (Normal) Range: 4.4-11.0 :54 Comprehensive Metabolic Profil Comments: Test performed at:[facility] [address] [place] [address] GAP 4 (Abnormal) Range: 5-15 [...] 7-18 GLU 90 mg/dL (Normal) Range: 70-110 16-Psl-101259:54 Lipid Profile Comments: Test performed at:[facility] [address] [place], [place] [address] VLDL 14 mg/dL (Normal) Range: 5-40 LDL [...] 200-240 mg/dL Borderline >240 mg/dL High Risk :54 Phenobarbital Comments: Time Medication is to be Given? 0600Test performed at:[facility] [address] [place] [address] PHENOBARB 27.6 ug/mL (Normal) Range: 10.0-40.0 :54 Phenytoin (Dilantin) Level Comments: Time Medication is to be Given? 0600Test performed at:[facility] [address] [place] [address] PHENYTOIN 22.2 ug/mL (Abnormal) Range: 10.0-20.0 Comments: RESULTS CALLED TO VIKAS MARTIN 04/10/14 1336 CCrytzer.REPORT READ BACK BY SAME. :54 PSA,Total - Annual Screen Comments: Test performed at:[facility] [address] [place] [address] PSA,TOT SCREEN 1.91 ng/mL (Normal) Range: 0.00-4.00 Comments: This test was performed using the TPSA assay method for [employer] chemistry system. Values obtained with differentassay methods cannot be used interchangably.When changing PSA assays in the course of monitoring apatient, additional sequential testing should be carriedout to confirm baseline values. :54 Vitamin D,25 Hydroxy Comments: Test performed at:[facility] [address] [place] [address] Vitamin D 25-OH 58.4 ng/mL (Normal) Comments: Vitamin D 25(OH) Status Range Deficiency <20 ng/mL (50nmol/L) Insuffciency 20 - 30 ng/mL (50 - 75 nmol/L) Sufficiency 30 - 100 ng/mL (75 - 250 nmol/L) Toxicity >100 ng/mL (>250 nmol/L); ADDENDA: normal and pt has apt next week :44 CBCD ALC 1.31 {X10_3/ul} (Normal) Range: 0.83-4.51 [...] 4.6-6.2 WBC 5.6 K/mm3 (Normal) Range: 4.4-11.0 5-Saw-828773:44 CMP GAP 3 (Abnormal) Range: 5-15 CO2 [...] 7-18 GLU 90 mg/dL (Normal) Range: 70-110 :44 DIL 19.8 ug/mL (Normal) Comments: Time Medication is to be Given? 1300 Range: 10.0-20.0 :44 PHEN 26.9 ug/mL (Normal) Comments: Time Medication is to be Given? 1300 Range: 10.0-40.0 :44 VITD 72.0 mg/mL (Normal) Comments: Vitamin D 25(OH) Status RangeDeficiency <20 ng/mL (50nmol/L)Insuffciency 20 - 30 ng/mL (50 - 75 nmol/L)Sufficiency 30 - 100 ng/mL (75 - 250 nmol/L)Toxicity >100 ng/mL (>250 nmol/L) 9-Xno-774064:21 CBCD ANC 3.1 {X10_3/uL} (Normal) Range: 2.0-7.7 [...] 7-18 GLU 98 mg/dL (Normal) Range: 70-110 :21 DIL 19.5 ug/mL (Normal) Comments: Time Medication is to be Given? 1100 Range: 10.0-20.0 :21 LIPID VLDL 19 mg/dL (Normal) Range: 5-40 [...] CHOL 179 mg/dL (Normal) Comments: <200 mg/dL Wxnjahxor355-511 mg/dL Borderline>240 mg/dL High Risk 9-Eqq-715918:21 PHEN 28.9 ug/mL (Normal) Comments: Time Medication [...] Respiratory Culture Comments: PATIENT NOT FASTINGPERFORMED BY: [facility] Uxbogs3130 [facility] [id number] Result 1 RRF (Normal) Comments: Routine respiratory grazyna Lower Respiratory Final report Culture (Normal) Request Problem Final report Comments: PATIENT NOT FASTINGPERFORMED BY: [facility] [id number] [facility] [id number] :38 (Normal) Comments: A specimen was received for microbiology/virology testing with eitheran incorrect test number or without a written test number. Thespecimen has been processed according to the default policy listed int e Microbiology Appendix of the Directory of Services. Please use thecorrect test numbers to assure optimum processing of the specimens. 17-Zbq-564344:02 CBCMD RBCM NORM C+C {NORMAL} (Normal) EOS [...] 4.6-6.2 WBC 5.0 {k/mm3} (Normal) Range: 4.4-11.0 : CMP GAP 7 (Normal) Range: 5-15 CO2 [...] Very High > or = 500 mg/dL 67-Gdx-378045:02 MISC (Normal) Comments: PRIMIDONE (MYSOLINE (R)), SERUM PRIMODONE, SERUM RESULT: 9.0 ug/mL LIMITS: 5.0-12.0 DETECTION LIMIT = 0.3 <0.3 INDICATES NONE DETECTED. TESTING PERFORMED AT [facility]. ORIGINAL REPORT ON FILE IN LAB CONTAINS ADDITIONAL TEST SITE INFORMATION. 74-Mlq-124088:02 VITD 28.4 ng/mL (Abnormal) Range: 30.0-100.0 Comments: Vitamin D deficiency has been defined by the [place] of[place] and an Endocrine Society practice guideline as alevel of serum 25-OH vitamin D less than 20 ng/mL (1,2).The Endocrine Society went on to further define vitamin Dinsufficiency as a level between 21 and 29 ng/mL (2).1. IOM ([place] [employer]). 2010. Dietary reference intakes for calcium and D. [place]: The National Academies Press.2. Belinda MF, Courtney NC, Jamar KAY, et al. Evaluation, treatment, and prevention of vitamin D deficiency: an Endocrine Society clinical practice guideline. JCEM. 2010; 96(7): 1911-30.Performed at: [facility] [address] [id number] Director: Sean Hansen PhD, Phone: [phone] 30-Fzt-591024:18 CBCMD Comments: ORDERED DILANTIN CBCMD PSA PHENOBARB [...] 4.6-6.2 WBC 5.1 K/mm3 (Normal) Range: 4.4-11.0 11-Jde-675121:18 DIL 11.0 ug/mL (Normal) Comments: ORDERED DILANTIN CBCMD PSA PHENOBARB LIPID CMPVITD ORDERED MYSOLINE DILANTIN Range: 10.0-20.0 26-Dbh-179769:18 MISC . (Normal) Comments: ORDERED DILANTIN CBCMD PSA PHENOBARB LIPID CMPVITD ORDERED MYSOLINE DILANTIN Comments: TEST RESULT LIMITSPrimidone (Mysoline(R)), Serum Primidone, Serum 8.9 ug/mL 5.0 - 12.0 Detection Limit = 0.3 < 0.3 indicates None Detected Phenobarbital, Serum 22 ug/mL 15 - 40 Detection Limit = 2 < 2 indicates None Detected TESTING PERFORMED AT [facility]. ORIGINAL REPORT ON FILE IN LAB CONTAINS ADDITIONAL TEST SITE INFORMATION. 57-Oye-087269:18 PSA 1.11 ng/mL (Normal) Comments: ORDERED DILANTIN CBCMD PSA PHENOBARB LIPID CMPVITD ORDERED MYSOLINE DILANTIN Range: 0.00-4.00 Comments: NEW TEST ASSAY METHOD AUGUST 31, 2011This test was performed using the TPSA assay method for theBiOM chemistry system. Values obtained with differentassay methods cannot be used interchangably.When ch anging PSA assays in the course of monitoring apatient, additional sequential testing should be carriedout to confirm baseline values. 32-Vjz-071850:18 CMP Comments: ORDERED DILANTIN CBCMD PSA PHENOBARB [...] 7-18 GLU 94 mg/dL (Normal) Range: 70-110 52-Iva-088614:18 LIPID Comments: ORDERED DILANTIN CBCMD PSA PHENOBARB [...] 200-240 mg/dL Borderline >240 mg/dL High Risk 72-Iou-922956:32 VIT D,25 90316 26.6 ng/mL (Abnormal) Range: 30.0-100.0 Comments: Vitamin D deficiency has been defined by the [place] of[place]icine and an Endocrine Society practice guideline as alevel of serum 25-OH vitamin D less than 20 ng/mL (1,2).The Endocrine Society went on to further define vitamin Dinsufficiency as a level between 21 and 29 ng/mL (2).1. IOM ([place] [employer]). 2010. Dietary reference intakes for calcium and D. [place]: The National Academies Press.2. Belinda MF, Courtney NC, Jamar KAY, et al. Evaluation, treatment, and prevention of vitamin D deficiency: an Endocrine Society clinical practice guideline. JCEM. 2010; 96(7): 1911-30.Performed at: [address] [id number] Director: Zeny Contreras MD, Phone: [phone] 56-Gcd-074174:32 PSA, SCREEN 1.3 ng/mL (Normal) Range: 0.0-4.0 73-Ihh-662619:18 VITD 53.5 ng/mL (Normal) Comments: preventative; ORDERED DILANTIN CBCMD PSA PHENOBARB LIPID CMPVITD ORDERED MYSOLINE DILANTIN Range: 30.0-100.0 Comments: Vitamin D deficiency has been defined by the [place] of[place]icine and an Endocrine Society practice guideline as alevel of serum 25-OH vitamin D less than 20 ng/mL (1,2).The Endocrine Society went on to further define vitamin Dinsufficiency as a level between 21 and 29 ng/mL (2).1. IOM ([place] of Medicine). 2010. Dietary reference intakes for calcium and D. [place]: The National Academies Press.2. Belinda MF, Courtney NC, Jamar KAY, et al. Evaluation, treatment, and prevention of vitamin D deficiency: an Endocrine Society clinical practice guideline. JCEM. 2010; 96(7): 1911-30.Performed at: [address] [id number] Director: Zeny Contreras MD, Phone: [phone] 48-Zux-994097:32 COMP METABOLIC Comments: preventative GAP 7 (Normal) [...] 7-18 GLU 98 mg/dL (Normal) Range: 70-110 :32 LIPID Comments: preventative VLDL 17 mg/dL (Normal) [...] 200-240 mg/dL Borderline >240 mg/dL High Risk :32 CBCD,SMEAR DIFF Comments: preventative RED CELL MORPH [...] ug/mL (Normal) Comments: PATIENT NOT FASTINGPERFORMED BY: CB [facility] [id number] RoadDublin [place] [id number] :27 Range: 15-40 Comments: Detection Limit = 2 <2 indicates None Detected :27 Phenytoin (Dilantin) (66414) Comments: PATIENT NOT FASTINGPERFORMED BY: CB [facility] Wzistt5162 [address] RoadDublin [place] [id number] Phenytoin (Dilantin), Serum 12.6 ug/mL (Normal) Range: 10.0-20.0 Comments: : Therapeutic 6.0 - 14.0 . Detectio n Limit = 0.6 <0.6 Indicates None Detected : CALCIFIDIOL (57197) VIT D 25 Comments: PATIENT NOT FASTINGPERFORMED BY: CB [facility] [id number] [address]Dublin [place] [id number] Vitamin D, 25-Hydroxy 25.6 ng/mL (Abnormal) Range: [...] 4.6-6.2 WBC 6.1 K/mm3 (Normal) Range: 4.4-11.0 34-Ycx-195764:58 CBCD ABSOLUTE NEUT 2.6 3/uL (Normal) Range: [...] 4.6-6.2 WBC 4.4 K/mm3 (Normal) Range: 4.4-11.0 :58 COMP METABOLIC GAP 9 (Normal) Range: 5-15 [...] 7-18 GLU 87 mg/dL (Normal) Range: 70-110 :58 LIPID VLDL 16 mg/dL (Normal) Range: 5-40 [...] PSA, SCREEN 1.2 ng/mL (Normal) Range: 0.0-4.0 :58 VIT D,25 85872 40.2 ng/mL (Normal) Range: 32.0-100.0 Comments: Recent studies consider the lower limit of 32.0 ng/mL to dave threshold for optimal health.William ROJAS. J Nutr. 2005 Feb;135(2):317-22.Performed at: - [facility] [place] [id number] Director: Zeny Contreras MD, Phone: [phone] 29-Vtr-514450:48 CBCD ABSOLUTE NEUT 3.3 3/uL (Normal) Range: [...] 11.6-14.6 WBC 5.3 K/mm3 (Normal) Range: 4.4-11.0 :48 COMP METABOLIC ALK P 75 U/L (Normal) [...] CHOL 164 mg/dL (Normal) Comments: <200 mg/dL Pdcydjrji753-117 mg/dL Borderline>240 mg/dL High Risk TRIG 71 mg/dL (Normal) Comments: Serum Triglycerides Reference IntervalNormal <150 mg/dLBorderline high 150 - 199 mg/dLHigh 200 - 499 mg/ dLVery High > or = 500 mg/dL :48 PHENOBARB 20.8 ug/mL (Normal) Range: 10.0-40.0 :48 PHENYTOIN 15.0 ug/mL (Normal) Range: 10.0-20.0 :48 PSA, SCREEN 1.2 ng/mL (Normal) Range: 0.0-4.0 :48 VIT D,25 22653 27.8 ng/mL (Abnormal) Range: 32.0-100.0 Comments: Recent studies consider the lower limit of 32.0 ng/mL to dave threshold for optimal health.William ROJAS. J Nutr. 2004;135(2):317-22.Performed at: [facility] [address] [id number] Director: Zeny Contreras MD 11-Rln-01293:00 CBCD BASO% 0.6 % (Normal) Range: 0-1 [...] {uIU/mL} (Normal) Range: 0.358-3.74 :00 VIT D,25 80991 56.4 ng/mL (Normal) Range: 32.0-100.0 Comments: Recent studies consider the lower limit of 32.0 ng/mL to dave threshold for optimal health.William ROJAS. J Nutr. 2004;135(2):317-22.Performed At: [facility] [facility] [place], [place] [id number] 88-Lam-131284:03 CA 8.6 mg/dL (Normal) Range: 8.5-10.1 : PHOS 3.1 mg/dL (Normal) Range: 2.5-4.9 :03 PTH,[id number] PTH,Intact 33 pg/mL (Normal) Range: 15-65 Comments: Performed At: [employer] [place], [place] [id number] 01-Hkt-030507:03 PTH,[id number] PTH,Intact 33 pg/mL (Normal) Range: 15-65 Comments: Performed At: [address] [id number] 03-Ulw-110398:03 PTH,[id number] PTH,Intact 33 pg/mL (Normal) Range: 15-65 Comments: Performed At: [address] [id number] 52-Tij-838127:03 VIT D,25 39024 24.0 ng/mL (Abnormal) Range: 32.0-100.0 Comments: Recent [...] for patient's is the eGFRmultiplied by 1.212. [facility] Laboratory uses the abbreviated Modification of Diet [...] Disease W/O Kidney Disease>/= 90 Stage One Rnqega72 - 89 Stage Two Suspect Decreased GFR30 [...] 3.5-7.2 VLDL 11 mg/dL (Normal) Range: 5-40 45-Xmm-589040:00 EMP URINALYSIS BILIRUBIN URINE SeeNote (Normal) Comments: [...] 0.2 EU/dl (Normal) Range: 0.2 - 1.0 78-Fow-297740:31 CBCD BASO% 0.6 % (Normal) Range: 0-1 [...] 4.6-6.2 WBC 5.2 K/mm3 (Normal) Range: 4.4-11.0 42-Qjw-425925:31 COMP METABOLIC ALK P 76 U/L (Normal) [...] T PROT 7.0 g/dL (Normal) Range: 6.4-8.2 :31 PHENOBARB 21.1 ug/mL (Normal) Range: 15.0-40.0 :31 PHENYTOIN 22.5 ug/mL (Abnormal) Range: 10.0-20.0 :31 PRO TIME INR 1.1 (Normal) PROTIME 11.9 s (Abnormal) Range: 9.1-11.7 :31 PSA,TOT SCREEN 1.12 ng/mL (Normal) Range: 0.00-4.00 Comments: This test was performed using the TPSA method for the[facility] chemistry system.Values obtained with different assay methods [...] T PROT 7.4 g/dL (Normal) Range: 6.4-8.2 74-Lmb-354187:58 EMP PROF A/G 1.0 {RATIO} (Normal) Range: [...] 3.5-7.2 VLDL 21 mg/dL (Normal) Range: 5-40 02-Jfy-026702:58 EMP URINALYSIS BILIRUBIN URINE SeeNote (Normal) Comments: [...] 0.2 EU/dl (Normal) Range: 0.2 - 1.0 06-Lex-638084:58 LIPID CHOL 179 mg/dL (Normal) Comments: <200 [...] mg/dL VLDL 21 mg/dL (Normal) Range: 5-40 36-Kwb-279707:58 PHENOBARB 19.7 ug/mL (Normal) Range: 10.0-40.0 :58 PHENYTOIN 23.2 ug/mL (Abnormal) Range: 10.0-20.0 Comments: CRITICAL VALUE REPEATED AND VERIFIED. CALLED TO VIAKS 05/31/07 1425 DANIEL CHERY.RESULTS READ BACK BY Karen MARTIN . 59-Kiw-241667:53 DEXA BONE DENSITY STUDY () Radiology Report See Note (Normal) Comments: Exam Number: [id number] BONE DENSITOMETRY HISTORYHypocalcemia. Bone densitometry of the [...] normal range. Reported By: FLETCHER ESCALONA M.D. 93-Ibu-326973:20 CBCD BASO% 0.7 % (Normal) Range: 0-1 [...] mg/dL VLDL 13 mg/dL (Normal) Range: 5-40 :20 PHENOBARB 21.4 ug/mL (Normal) Range: 10.0-40.0 :20 PHENYTOIN 20.1 ug/mL (Abnormal) Range: 10.0-20.0 Comments: RESULTS CALLED TO IBETH DINH 07/20/06 CINTHIA AZAR.REPORT READ BACK BY SAME . :20 PSA,TOT SCREEN 0.98 ng/mL (Normal) Range: 0.00-4.00 Comments: This test was performed using the TPSA method for [employer] chemistry system.Values obtained with different assay methods [...] Indication: Acute sinusitis, unspecified Planned Observations CALCIFIDIOL (15912) VIT D 25Indication: Depression On: 09-May-2018 Request CBC W/AUTO DIFF WBC (10444)Indication: Epilepsy, unspecified, not intractable, without status epilepticus On: 09-May-2018 Request DRUG ASSAY-PHENOBARBITOL (05615)Indication: Epilepsy, unspecified, not intractable, without status epilepticus On: 09-May-2018 Request DRUG ASSAY-TOT PHENYTOIN (48081)Indication: Epilepsy, unspecified, not intractable, without status epilepticus On: 09-May-2018 Request METABOLIC PANEL, COMPREHENSIVE (38669)Indication: Epilepsy, unspecified, not intractable, without status epilepticus On: 09-May-2018 Request CALCIFIDIOL (20057) VIT D 25Indication: Depression On: 1-Cab-350386:11 Request DRUG ASSAY-PHENOBARBITOL (87836)Indication: Epilepsy, unspecified, not intractable, without status epilepticus On: 8-Cgc-900316:10 Request DRUG ASSAY-TOT PHENYTOIN (36885)Indication: Epilepsy, unspecified, not intractable, without status epilepticus On: 64-Upo-145335:05 Request Comments: in 3 weeks and standing order prn DRUG ASSAY-FREE PHENYTOIN (44204)Indication: Epilepsy, unspecified, not intractable, without status epilepticus On: 5-Aeh-237708:16 Request LIPOPROTEIN, BLD, BY NMR (86967)Indication: Hyperlipidemia, mild On: :55 Request Comments: 4months along withphenytoin level METABOLIC PANEL, COMPREHENSIVE (48910)Indication: Hyperlipidemia, mild On: :55 Request PSA (Prostate Specific Antigen), Screening (31930)Indication: Screening for prostate cancer On: 24-Xej-724724:51 Request Comments: check in 6 weeks CALCIFIDIOL (70036) VIT D 25Indication: Vitamin D deficiency, unspecified On: :51 Request Comments: check in 6 weeks HEPATITIS C ANTIBODY (96322)Indication: Encounter for hepatitis C virus screening test for high risk patient On: 52-Lrc-029636:50 Request Comments: check 6 weeks Phenytoin (Dilantin) (53329)Indication: Epilepsy, unspecified, not intractable, without status epilepticus On: 62-Ztw-574435:25 Request Comments: standing order DRUG ASSAY-TOT PHENYTOIN (45974)Indication: Epilepsy, unspecified, not intractable, without status epilepticus On: 9-Vgl-886204:03 Request DRUG ASSAY-FREE PHENYTOIN (50303)Indication: Vertigo On: :15 Request DRUG ASSAY-PHENOBARBITOL (76389)Indication: Vertigo On: :14 Request URINALYSIS, W/ MICRO (60674)Indication: Epilepsy, unspecified, not intractable, without status epilepticus On: :14 Request LIPOPROTEIN, BLD, BY NMR (21403)Indication: Prediabetes On: :14 Request CBC with auto diff (16020)Indication: Epilepsy, unspecified, not intractable, without status epilepticus On: 6-Ins-267321:14 Request METABOLIC PANEL, COMPREHENSIVE (57583)Indication: Epilepsy, unspecified, not intractable, without status epilepticus On: 9-Tfx-350197:14 Request Phenytoin (Dilantin) (93219)Indication: Epilepsy, unspecified, not intractable, without status epilepticus On: 91-Wpw-346965:01 Request Comments: last dose 3 hours Metabolic Panel, Comprehensive (16911)Indication: Stomach cramps, generalized On: 39-Osv-636321:01 Request CBC (Auto) (84952)Indication: Stomach cramps, generalized On: :57 Request Amylase (49894)Indication: Stomach cramps, generalized On: :56 Request EBV Panel (97316)Indication: Fatigue, unspecified type On: 77-Lcn-338049:56 Request T4, FREE (THYROXINE) (23088)Indication: Abnormal TSH On: 16-Qtz-147550:55 Request TSH (89331)Indication: Abnormal TSH On: 85-Ibz-675248:55 Request CALCIFIDIOL (33896) VIT D 25Indication: Vitamin D deficiency, unspecified On: 36-Sjo-960853:09 Request T4, FREE (THYROXINE) (82819)Indication: Abnormal thyroid blood test On: :08 Request TSH (17614)Indication: Abnormal thyroid blood test On: 71-Mqn-783925:08 Request DRUG ASSAY-PHENOBARBITOL (56683)Indication: Epilepsy, unspecified, not intractable, without status epilepticus On: 86-Bgx-407495:03 Request Phenytoin (Dilantin) (50205)Indication: Epilepsy, unspecified, not intractable, without status epilepticus On: 92-Rrw-846795:03 Request TSH (21992)Indication: Nontoxic goiter, unspecified On: 44-Vlk-312238:58 Request Comments: add to labs already drawn Anti-TPO Antibody (63546)Indication: Abnormal thyroid blood test On: :32 Request TSH (84422)Indication: Abnormal thyroid blood test On: : Request T4, FREE (THYROXINE) (74910)Indication: Abnormal thyroid blood test On: Request T3, FREE (TRIDOTHYRONINE) (09519)Indication: Abnormal thyroid blood test On: : Request DRUG ASSAY-PHENOBARBITOL (67684)Indication: Epilepsy, unspecified, not intractable, without status epilepticus On: Request Phenytoin (Dilantin) (39044)Indication: Epilepsy, unspecified, not intractable, without status epilepticus On: : Request Comments: not free regular dilantin CALCIFIDIOL (74922) VIT D 25Indication: Vitamin D deficiency, unspecified On: : Request T3, FREE (TRIDOTHYRONINE) (89852)Indication: Abnormal TSH On: : Request T4, FREE (THYROXINE) (79658)Indication: Abnormal TSH On: Request Methymalonic Acid, Serum (36963)Indication: Forgetfulness On: :37 Request Vitamin B-12 (cyanocobalamin) (76711)Indication: Forgetfulness On: :37 Request LIPOPROTEIN, BLD, BY NMR (72574)Indication: Prediabetes On: :34 Request CALCIFIDIOL (92454) VIT D 25Indication: Vitamin D deficiency, unspecified On: Request DRUG ASSAY-PHENOBARBITOL (26500)Indication: Epilepsy, unspecified, not intractable, without status epilepticus On: :02 Request Comments: standing order prn Phenytoin (Dilantin) (89481)Indication: Epilepsy, unspecified, not intractable, without status epilepticus On: : Request Comments: standing order prn DRUG ASSAY-FREE PHENYTOIN (92445)Indication: Epilepsy, unspecified, not intractable, without status epilepticus On: :02 Request LIPID PANEL (33792)Indication: Cardiomegaly (Renamed from Cardiac enlargement) On: 13-Krz-218572:00 Request Comments: in 4 weeks CALCIFIDIOL (43714) VIT D 25Indication: Vitamin D deficiency, unspecified On: :58 Request Comments: 4 weeks DRUG ASSAY-FREE PHENYTOIN (18016)Indication: Epilepsy, unspecified, not intractable, without status epilepticus On: 11-Uei-738520:56 Request Comments: recheck in 4 weeks before am dose PSA (PROSTATE SPECIFIC ANTIGEN) (V76.44)Indication: Encounter for routine history and physical exam for male On: :44 Request METABOLIC PANEL, COMPREHENSIVE (34621)Indication: Epilepsy, unspecified, not intractable, without status epilepticus On: :37 Request CBC with auto diff (71077)Indication: Epilepsy, unspecified, not intractable, without status epilepticus On: :37 Request TSH (32085)Indication: Nontoxic goiter, unspecified On: :37 Request CALCIFIDIOL (71928) VIT D 25Indication: Vitamin D deficiency, unspecified On: :37 Request DRUG ASSAY-FREE PHENYTOIN (26196)Indication: Epilepsy, unspecified, not intractable, without status epilepticus On: :36 Request DRUG ASSAY-PHENOBARBITOL (33470)Indication: Epilepsy, unspecified, not intractable, without status epilepticus On: :36 Request METABOLIC PANEL, COMPREHENSIVE (63940)Indication: Epilepsy, unspecified, not intractable, without status epilepticus On: :34 Request CBC W/AUTO DIFF WBC (29768)Indication: Epilepsy, unspecified, not intractable, without status epilepticus On: :34 Request CALCIFIDIOL (60890) VIT D 25Indication: Vitamin D deficiency, unspecified On: :34 Request DRUG ASSAY-PHENOBARBITOL (50482)Indication: Epilepsy, unspecified, not intractable, without status epilepticus On: :31 Request Comments: stqanding order prn Phenytoin (Dilantin) (95154)Indication: Epilepsy, unspecified, not intractable, without status epilepticus On: :29 Request Comments: standing order prn PSA (PROSTATE SPECIFIC ANTIGEN) (V76.44)Indication: Encounter for routine history and physical exam for male On: :11 Request METABOLIC PANEL, COMPREHENSIVE (33293)Indication: Epilepsy, unspecified, not intractable, without status epilepticus On: : Request LIPID PANEL (23243)Indication: Epilepsy, unspecified, not intractable, without status epilepticus On: : Request CBC WITH MANUAL DIFF (52523)Indication: Epilepsy, unspecified, not intractable, without status epilepticus On: : Request CALCIFIDIOL (70871) VIT D 25Indication: Vitamin D deficiency, unspecified On: : Request DRUG ASSAY-PHENOBARBITOL ([id number])Indication: Epilepsy, unspecified, not intractable, without status epilepticus On: : Request DRUG ASSAY-FREE PHENYTOIN ([id number])Indication: Epilepsy, unspecified, not intractable, without status epilepticus On: : Request METABOLIC PANEL, COMPREHENSIVE ([id number])Indication: Epilepsy, unspecified, not intractable, without status epilepticus On: :24 Request CBC WITH MANUAL DIFF ([id number])Indication: Epilepsy, unspecified, not intractable, without status epilepticus On: :24 Request CALCIFEDIOL ([id number])Indication: Vitamin D deficiency, unspecified On: :23 Request DRUG ASSAY-PHENOBARBITOL ([id number])Indication: Epilepsy, unspecified, not intractable, without status epilepticus On: :22 Request Comments: prn standing order Phenytoin (Dilantin) ([id number])Indication: Epilepsy, unspecified, not intractable, without status epilepticus On: :22 Request Comments: prn standing order. DRUG ASSAY-PHENOBARBITOL ([id number])Indication: Epilepsy, unspecified, not intractable, without status epilepticus On: :32 Request Phenytoin (Dilantin) ([id number])Indication: Epilepsy, unspecified, not intractable, without status epilepticus On: :31 Request LIPID PANEL ([id number])Indication: Cardiomegaly (Renamed from Cardiac enlargement) On: :27 Request METABOLIC PANEL, COMPREHENSIVE ([id number])Indication: Epilepsy, unspecified, not intractable, without status epilepticus On: : Request CBC WITH MANUAL DIFF ([id number])Indication: Epilepsy, unspecified, not intractable, without status epilepticus On: : Request CALCIFIDIOL ([id number]) VIT D 25Indication: Vitamin D deficiency, unspecified On: :26 Request CBC with manual diff ([id number])Indication: Epilepsy, unspecified, not intractable, without status epilepticus On: :25 Request Phenytoin (Dilantin) ([id number])Indication: Epilepsy, unspecified, not intractable, without status epilepticus On: :25 Request Sputum Culture ([id number])Indication: Bronchitis On: :06 Request Phenytoin (Dilantin) ([id number])Indication: Epilepsy, unspecified, not intractable, without status epilepticus On: 68-Lqm-833597:14 Request Comments: Dr. 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 On: :12 Request LIPID PANEL ([id number])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 On: :12 Request DRUG ASSAY-PHENOBARBITOL ([id number])Indication: Epilepsy, unspecified, not intractable, without status epilepticus On: :08 Request CBC WITH MANUAL DIFF ([id number])Indication: Epilepsy, unspecified, not intractable, without status epilepticus On: 6-Eof-719003:29 Request CALCIFIDIOL ([id number]) VIT D 25Indication: Vitamin D deficiency, unspecified On: :07 Request Phenytoin (Dilantin) ([id number])Indication: Epilepsy, unspecified, not intractable, without status epilepticus On: : Request DRUG ASSAY-PHENOBARBITOL ([id number])Indication: Epilepsy, unspecified, not intractable, without status epilepticus On: :07 Request Lipid Panel ([id number])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 On: : Request TSH ([id number])Indication: Nontoxic goiter, unspecified On: : Request CBC (Auto) ([id number])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 On: : Request Metabolic Panel, Comprehensive ([id number])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 On: :02 Request DRUG ASSAY-PHENOBARBITOL ([id number])Indication: Epilepsy, unspecified, not intractable, without status epilepticus On: :27 Request PSA (PROSTATE SPECIFIC ANTIGEN) (V76.44)Indication: Encounter for routine history and physical exam for male On: :22 Request CBC, Platelets & Auto Diff ([id number])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 On: :21 Request Lipid Panel ([id number])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 On: :21 Request Metabolic Panel, Comprehensive ([id number])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 On: :21 Request CALCIFIDIOL (13573) VIT D 25Indication: Vitamin D deficiency, unspecified On: 25-Yfd-731346:20 Request Phenytoin (Dilantin) ([id number])Indication: Epilepsy, unspecified, not intractable, without status epilepticus On: :20 Request LIPID PANEL ([id number])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 On: 00-Zdy-946192:48 Request DRUG ASSAY-PHENOBARBITOL ([id number])Indication: Epilepsy, unspecified, not intractable, without status epilepticus On: 05-Pmq-121712:43 Request Phenytoin (Dilantin) ([id number])Indication: Epilepsy, unspecified, not intractable, without status epilepticus On: :43 Request CBC (Auto) ([id number])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 On: : Request Metabolic Panel, Comprehensive ([id number])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 On: :42 Request TSH ([id number])Indication: Nontoxic goiter, unspecified On: : Request CALCIFIDIOL ([id number]) VIT D 25Indication: Vitamin D deficiency, unspecified On: : Request VITAMIN D, 1, 25-DIHYDROXY ([id number])Indication: Vitamin D deficiency, unspecified On: :53 Request DRUG ASSAY-PHENOBARBITOL ([id number])Indication: Epilepsy, unspecified, not intractable, without status epilepticus On: : Request Phenytoin (Dilantin) ([id number])Indication: Epilepsy, unspecified, not intractable, without status epilepticus On: : Request CBC (Auto) ([id number])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 On: : Request Metabolic Panel, Comprehensive ([id number])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 On: : Request Comments: in six months (approximately) Lipid Panel ([id number])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 On: : Request PARATHORMONE ([id number])Indication: DISORDERS OF CALCIUM METABOLISM, HYPOCALCEMIA On: : Request Phosphorus (41346)Indication: DISORDERS OF CALCIUM METABOLISM, HYPOCALCEMIA On: : Request CALCIFIDIOL (04329) VIT D 25Indication: DISORDERS OF CALCIUM METABOLISM, HYPOCALCEMIA On: : Request Calcium Serum (93153)Indication: DISORDERS OF CALCIUM METABOLISM, HYPOCALCEMIA On: : Request Comments: in three months (approximately) TSH (89709) On: :43 Request PSA (PROSTATE SPECIFIC ANTIGEN) (V76.44)Indication: Encounter for routine adult medical exam with abnormal findings On: :43 Request PTT (Activated Partial Thromboplastin Time) ([id number])Indication: Epilepsy, unspecified, not intractable, without status epilepticus On: :38 Request PT (Prothrobim Time) ([id number])Indication: Epilepsy, unspecified, not intractable, without status epilepticus On: :38 Request CBC (Auto) ([id number])Indication: Epilepsy, unspecified, not intractable, without status epilepticus On: :38 Request Metabolic Panel, Comprehensive ([id number])Indication: Epilepsy, unspecified, not intractable, without status epilepticus On: :38 Request DRUG ASSAY-PHENOBARBITOL ([id number])Indication: Epilepsy, unspecified, not intractable, without status epilepticus On: :37 Request Comments: level Phenytoin (Dilantin) ([id number])Indication: Epilepsy, unspecified, not intractable, without status epilepticus On: :37 Request Lipid Panel ([id number])Indication: Encounter for routine adult medical exam with abnormal findings On: :48 Request CBC (Auto) ([id number])Indication: Epilepsy, unspecified, not intractable, without status epilepticus On: :47 Request Metabolic Panel, Comprehensive ([id number])Indication: Epilepsy, unspecified, not intractable, without status epilepticus On: 96-Cjn-860332:47 Request DRUG ASSAY-PHENOBARBITOL ([id number])Indication: Epilepsy, unspecified, not intractable, without status epilepticus On: :47 Request Phenytoin (Dilantin) (75035)Indication: Epilepsy, unspecified, not intractable, without status epilepticus On: 91-Xmh-407434:46 Request PSA (PROSTATE SPECIFIC ANTIGEN) (73324)Indication: Encounter for routine history and physical exam for male On: :54 Request DRUG ASSAY-PHENOBARBITOL ([id number])Indication: Epilepsy, unspecified, not intractable, without status epilepticus On: 82-Hoo-073199:54 Request Phenytoin (Dilantin) ([id number])Indication: Dermatitis On: :53 Request CBC, Platelets & Auto Diff ([id number])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 On: 56-Hvn-349965:53 Request Metabolic Panel, Comprehensive ([id number])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 On: 16-Duh-047541:52 Request Lipid Panel ([id number])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 On: 05-Qha-115787:52 Request Planned Encounters Medical; [facility] (Doctor) - On: 07-Feb-2018 14:30 [facility] Beatrice PADILLA, Dede Crouch MD Planned Procedures Flu Vaccine (Quadrivalent) On: 07-Jan-2018 Intent [id number]: VIKAS Martin Comments: Lot #:[id number] date: 4-26-09Pdybdg given:0.5mlRoute: IMSite given:L DltdGiven by: Sherri and ISAIAS signed [employer] Flu Vaccine (Quadrivalent) On: 25-Jan-2017 Intent [id number]: Dede Galan MD Comments: Lot #:[id number] date:09/27/2017Amount given:0.5mlRoute: IMSite given:L DltdGiven by: Sherri and ISAIAS signed [employer] Dede Galan MD ELECTROCARDIOGRAM, COMPLETE On: 03-Aug-2016 Intent (ECG) ([id number])By: Beatrice PADILLA, Comments: see scanned document of test done to see results reviewed today with patient Dede Crouch MD Flu Vaccine (Quadrivalent) On: 04-Feb-2016 Intent [id number]: Dede Galan MD Comments: Lot:[id number]:10/09/16Dose:0.5mLRoute:IMSite:L DltdGiven By:asVIS signed Dede Galan MD Radiology - Foot - LeftBy: On: 13-Jan-2016 Intent Dede Galan MD, MD, Comments: if does not continue to get better. Dede Rothman TDAP VACCINE >7 IM ([id number])By: On: 13-Dec-2015 Intent Dede Galan MD, MD, Comments: Lot:[id number]:05/03/18Dose:0.5mlRoute:imSite:l armGiven By:Magdalena signed Dede Rothman [place] VACC, [place] ([id number])By: On: 23-Apr-2015 Intent Vinny Wu Comments: shingleslot:[id number]:02/16/16ite:lt subqroute:TAMIKO Torres [place] VACC, [place] (38474)By: On: 23-Apr-2015 Intent Dede Galan MD, MD, Dana M Flu Vaccine (Quadrivalent) On: 22-Jan-2015 Intent [id number]: Dede Galan MD Comments: Lot:[id number]:10/10/15Dose:0.5mLRoute:IMSite:L DltdGiven By:LUZ MARINA signed Dede Galan MD IMMUNIZ ADMNIN, 1 VAC, On: 29-Jan-2014 Intent SNGL/COMBO ([id number])By: Mio, Nurse FLU VAC, SPLIT, >3 YEARS, On: 29-Jan-2014 Intent INTRAMUSC (39704)By: Beatrice PADILLA, Comments: Lot:[id number]:10/09/14Dose:0.5mLRoute:IMSite:L DltdGiven By:LUZ MARINA signed Dede Crouch MD Ultrasound - ThyroidBy: Beatrice On: 25-Apr-2013 Intent Dede PADILLA MD, Dana M Eprescribed prescriptions On: 25-Apr-2013 Intent ([id number])By: Tamiko Shaffer LPN Eprescribed prescriptions On: 28-Mar-2013 Intent ([id number])By: Valencia Pérez Eprescribed prescriptions On: 01-Nov-2012 Intent (G8553)By: Tamiko Shaffer LPN Aerosol Treatment (14227)By: On: 11-Jul-2012 Intent Beverley Reveles CNP Aerosol Treatment (40534)By: On: 22-Jun-2012 Intent Beverley Reveles CNP Pulse Oximetry (74061)By: On: 07-Apr-2012 Intent VIKAS Martin FLU VAC, SPLIT, >3 YEARS, On: 05-Feb-2012 Intent INTRAMUSC (68324)By: Moisés, Comments: Lot:[id number]:10.09.12Dose:prefilledRoute:IMSite:L DltdGiven By:LUZ MARINA signed Codie MCCALL ADMNIN, 1 VAC, On: 05-Feb-2012 Intent SNGL/COMBO (38624)By: Codie Curiel Bio Z (74954)By: Beatrice PADILLA, On: 24-Nov-2010 Intent Dede Crouch MD EKG (33179)By: Dede Galan MD On: 24-Nov-2010 Intent Dede Lyn MD Solu -Medrol Injection, 125 mg On: 27-Sep-2009 Intent ([id number])By: Mihaela Prabhakar DO Comments: Lot #[id number]-0/1/12Site-right hipDose- 125 mggiven by:[facility] EKG (07799)By: Dede Galan MD On: 09-Jul-2009 Intent Dede Lyn MD DXA, BONE DENSITY, AXIAL On: 09-Jul-2009 Intent SKELETON (87935)By: Dede Galan MD, MD, Dana M EKG ([id number])By: Kimberly Beebe On: 07-Feb-2008 Intent Comments: done-aw Bio Z (30609)By: Kimberly Beebe On: 07-Feb-2008 Intent Comments: done-aw ELECTROCARDIOGRAM, COMPLETE On: 20-Jul-2006 Intent (ECG) (83058)By: eDde Galan MD, MD, Dana M Bio Z ([id number])By: Beatrice PADILLA, On: 20-Jul-2006 Intent Dede Crouch [...] for Tdap vaccination (Renamed from Need for rxoonpbglv-cxvqtpw-dysioztor (Tdap) vaccine, adult/adolescent), Retinal cyst of right [...] 14:22 [facility] End: 19-May-2006 14:24 [facility]; freddie guarantor
--- OUTSIDE RECORDS SUMMARY | 2018-05-11 05:21 | XMS RPT_ITS | Continuity of Care Document ---
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 Start : 22-Jun-2012 Active Singulair [...] for Tdap vaccination (Renamed from Need for jmisunmzal-dwzdspt-zdpvipigm (Tdap) vaccine, adult/adolescent) (Z23, V06.1) Status: Inactive [...] Operative Report Result: Comments: See Note; NOTES: [facility] Medical Records Department [address] [place] [address] Operative Report MR#: [id number] Acct: [id number] Name: JOSE MANUEL STEVENS Rep #: [id number] : 1955 58 From: Leoncio Quispe MD [...] Alejandro Ordonez C: Dede Galan MD T: [facility] JOB: [id number] 05/30/14 1244 <Electronically signed by Leoncio Quispe MD> Date Leoncio durán MD CC: Dede Galan MD; Leoncio Quispe Date Dictated: 05/24/14832 Date Transcribed: 05/24/14832 Urban And Regional Planner: Signed 19-Apr-2014 Thyroid Result: Comments: See Note; NOTES: [facility] Imaging Services [address] [place] [address] Ultrasound Report MR#: [id number] Acct: [id number] Name: JOSE MANUEL STEVENS Rep #: [id number] : 1955 M 58 From: Carlos Enrique Collado PCP: Dede Galan MD Status: REG CLI Study: Thyroid Date of Exam: 04/19/14 Exam# [id number] Ordering Dr: Dede Galan MD STUDY: THYROID [...] MD at 6:30 EST , Service support [phone], CC: Dede Galan MD Urban And Regional Planner: Signed 19-Apr-2014 Thyroid Result: Comments: See Note; NOTES: [facility] [place] Imaging Services [address] [place] [address] Ultrasound Report MR#: [id number] Acct: [id number] Name: JOSE MANUEL STEVENS Rep #: [id number] : 1955 M 58 From: Carlos Enrique Collado PCP: Dede Galan MD Status: REG CLI Study: Thyroid Date of Exam: 04/19/14 Exam# [id number] Ordering Dr: Dede Galan MD STUDY: THYROID [...] MD at 6:30 EST , Service support [phone], CC: Dede Galan MD Urban And Regional Planner: Signed Family History Unknown Family Member Name [...] Work/Study Status: Retired. Comments: still working [employer] [facility] Status: Active Exercise History Comments: none Status: Active Living Situation Comments: Lives with spouse, anglican and important Status: Active No Drug Use Status: Active Non Drinker/No Alcohol Use Status: Active Non Smoker/No Tobacco Use Status: Active Tobacco use: Never smoker. Status: Active Smoking Status Name Dates Details Never smoker Vital Signs Date Test Result Details 16-Ixh-979545:46 Temperature 97.9 f Comments: Method: Temporal Pulse [...] Results Date Description Value Details :30 URINALYSIS (70612) Comments: PATIENT NOT FASTINGPERFORMED BY: PADMAJA [facility] HospitalDqhncc3970 [facility] [id number] Microscopic Examination MICNIP (Normal) Comments: Microscopic not indicated and not performed. Nitrite, Urine Negative (Normal) Urobilinogen,Semi-Qn 0.2 mg/dL (Normal) Range: 0.2-1.0 Bilirubin Negative (Normal) Occult Blood Negative (Normal) Ketones Negative (Normal) Glucose Negative (Normal) Protein Negative (Normal) WBC Esterase Negative (Normal) Appearance Clear (Normal) Urine-Color Yellow (Normal) pH 7.0 (Normal) Range: 5.0-7.5 Specific Barry 1.014 (Normal) Range: 1.005-1.030 36-Pzv-637690:30 METABOLIC PANEL, COMPREHENSIVE Comments: PATIENT NOT FASTINGPERFORMED BY: [facility] HospitalWfioen2389 [facility] [id number] (18752) ALT (SGPT) 20 [iU]/L (Normal) Range: 0-44 [...] 8-27 Glucose 98 mg/dL (Normal) Range: 65-99 65-Znx-724665:30 DRUG ASSAY-TOT PHENYTOIN Comments: PATIENT NOT FASTINGPERFORMED BY: [facility]6370 [facility] [id number] (95417) Phenytoin (Dilantin), Serum 14.7 ug/mL (Normal) Range: 10.0-20.0 Comments: Detection Limit = 0.8 <0.8 Indicates None Detected :30 CBC W/AUTO DIFF WBC (45249) Comments: PATIENT NOT FASTINGPERFORMED BY: [facility]6370 [facility] [id number] Immature Grans (Abs) 0.0 {x10E3/uL} (Normal) Range: [...] 4.14-5.80 WBC 5.2 {x10E3/uL} (Normal) Range: 3.4-10.8 3-Kqf-838343:15 Phenytoin (Dilantin) Level Comments: Time Medication is to be Given? [facility] [address]qfjmueq[address] [place], [address] PHENYTOIN 18.3 mL (Normal) Range: 10.0-20.0 0-Gtu-798890:07 Comprehensive Metabolic Profil Comments: [facility] Rnjfjpdyqs7168 [place], [address] GAP 5 (Normal) Range: 5-15 CO2 30.0 mmol/L (Normal) Range: 21.0-32.0 CL 106 mmol/L (Normal) Range: 98-107 K 4.0 mmol/L (Normal) Range: 3.5-5.1 NA 141 mmol/L (Normal) Range: 136-145 T BILI 0.20 mg/dL (Normal) Range: 0.20-1.00 ALT 35 U/L (Normal) Range: 16-61 Comments: Please note revised ALT reference range bcdlnyxay74/28/2018. ALK P 83 U/L (Normal) Range: 45-117 [...] 7-18 GLU 90 mg/dL (Normal) Range: 74-106 2-Mdg-603482:07 Hepatitis C Antibodies Comments: [facility] (refer to report for specific site)refer to report for address and phone number HEP C AB 0.1 {s/co_ratio} (Normal) Range: 0.0-0.9 Comments: Negative: < 0.8 Indeterminate: 0.8 - 0.9 Positive: > 0.9 The CDC recommends that a positive HCV antibody result be followed up with a HCV Nucleic Acid Amplification test (953086).Performed at: [address] [id number] Director: Leoncio Martinez PhD, Phone: [phone] 2-Rli-027660:07 NMR Lipoprofile Comments: [facility] (refer to report [...] the US Food and Drug Administration.Performed at: [address] [id number] Director: Deangelo Miller MD, Phone: [phone] INS RES/DIAB RK . (Normal) LDL SIZE [...] mg/dL (Normal) Range: 100-199 LIPIDS . (Normal) 2-Acx-571202:07 Phenytoin (Dilantin) Level Comments: Time Medication is to be Given? [facility] Soihvzzphy[address] [place], [place], [address] PHENYTOIN 25.6 mL (Abnormal) Range: 10.0-20.0 Comments: Critical Result(s) Called to Tamiko at [facility] at: 11:57:19 05/17/2017 by: MISSAEL AND @left message on voicemail to call back Wero AND @at 11:17 9-Ckx-005134:07 PSA,Total - Annual Screen Comments: [facility] Uqoeefpfxp7498 [place], [id number] PSA,TOT SCREEN 1.71 ng/mL (Normal) Range: 0.00-4.00 Comments: This test was performed using the TPSA assay method for theBeta Dash chemistry system. Values obtained with differentassay methods cannot be used interchangably.When changing PSA assays in the course of monitoring apatient, additional sequential testing should be carriedout to confirm baseline values. 3-Nwa-086905:07 Vitamin D,25 Hydroxy Comments: [facility] Vruziewfsw2048 [place], [id number] Vitamin D 25-OH 51.3 ng/mL (Normal) Range: 19.95-100.01 Comments: Vitamin D 25(OH) Status Range Deficiency <20 ng/mL (50nmol/L) Insuffciency 20 - 30 ng/mL (50 - 75 nmol/L) Sufficiency 30 - 100 ng/mL (75 - 250 nmol/L) Toxicity >100 ng/mL (>250 nmol/L) 3-Hjo-884392:34 CBC With Differential/Platelet Comments: PATIENT NOT FASTINGPERFORMED BY: CB [facility] Tqdmvu3270 [facility] [id number] BY: BN [facility] [address] [id number] Information: client draw Immature Grans (Abs) 0.0 [...] 4.14-5.80 WBC 4.9 {x10E3/uL} (Normal) Range: 3.4-10.8 3-Gtv-258036:34 Comp. Metabolic Panel Comments: PATIENT NOT FASTINGPERFORMED BY: CB [facility] [address] [id number] BY: BN [facility] Uqmlpcpybk6449 [facility] [id number] (14) ALT (SGPT) 18 [iU]/L (Normal) Range: [...] Microscopic Examination Comments: PATIENT NOT FASTINGPERFORMED BY: [facility] [employer] [facility] [id number] BY: [address] [id number] Bacteria None seen (Normal) Mucus Threads Present (Normal) Epithelial Cells (non None seen {/hpf} Range: 0 - 10 renal) (Normal) RBC 0-2 {/hpf} (Normal) Range: 0 - 2 WBC 0-5 {/hpf} (Normal) Range: 0 - 5 Phenobarbital, Serum 29 ug/mL (Normal) Comments: PATIENT NOT FASTINGPERFORMED BY: [employer] [facility] [id number] BY: [address] [id number] :34 Range: 15-40 Comments: Detection Limit = 3 Phenytoin (Dilantin), 21.1 ug/mL Comments: PATIENT NOT FASTINGPERFORMED BY: [facility] Lnkbqt2516 [facility] [id number] Information: client draw :34 Serum (Abnormal) Range: 10.0-20.0 Comments: Detection Limit = 0.8 <0.8 Indicates None DetectedPatient drug level exceeds published reference range. Evaluateclinically for signs of potential toxicity. Phenytoin, Free, Serum 1.4 ug/mL (Normal) Comments: PATIENT NOT FASTINGPERFORMED BY: [facility] Bmdccz0781 [facility] [id number] BY: BN [facility] [id number] :34 Range: 1.0-2.0 Comments: Detection Limit = 0.5 7-Qzi-385422:34 Urinalysis, Complete Comments: PATIENT NOT FASTINGPERFORMED BY: [place] 4366470 [facility] [id number] BY: [address] [id number] Microscopic Examination See below: Comments: Microscopic was indicated and was performed. (Normal) Microscopic Examination MICRON (Normal) Comments: Microscopic follows if indicated. Nitrite, Urine Negative (Normal) Urobilinogen,Semi-Qn 0.2 mg/dL (Normal) Range: 0.2-1.0 Bilirubin Negative (Normal) Occult Blood Negative (Normal) Ketones Negative (Normal) Glucose Negative (Normal) Protein Negative (Normal) WBC Esterase Negative (Normal) Appearance Clear (Normal) Urine-Color Yellow (Normal) pH 7.0 (Normal) Range: 5.0-7.5 Specific Barry 1.013 (Normal) Range: 1.005-1.030 Written Authorization WAR (Normal) Comments: PATIENT NOT FASTINGPERFORMED BY: [address] [id number] :34 Comments: Written Authorization Received.Authorization received from VIKAS MARTIN [id number] by Cinthya Armenta :50 Blood Glucose , Office (22661) Blood Glucose , Office 106 (Normal) 37-Hyq-418048:40 HgA1C , Office (85453) HgA1C , Office 5.3 % (Normal) Range: 4.6 - 7.1 65-Jdz-543312:45 Amylase Comments: [facility] [address] [place], [address] KIMBERLY 98 U/L (Normal) Range: 25-115 42-Ova-338135:45 CBC-Complete Blood Cnt No Diff Comments: [facility] [address] [place], [address] MPV 8.7 fL (Normal) Range: [...] 4.6-6.2 WBC 7.1 K/mm3 (Normal) Range: 4.4-11.0 68-Fvd-707244:45 Comprehensive Metabolic Profil Comments: [facility] Tdloqyznkx24[address] [place], [address] GAP 6 (Normal) Range: 5-15 CO2 31.0 [...] 7-18 GLU 62 mg/dL (Abnormal) Range: 70-110 49-Ykx-291567:45 EBV Acute Prof IgG / IgM Comments: [facility] (refer to report for specific site)refer to report for address and phone number INTERPRETATION Comment (Normal) Comments: EBV Interpretation ChartInterpretation EBV-IgM EA(D)-IgG VCA-IgG EBNA-IgGEBV Seronegative - - - -Early Phase + - - -Acute Primary + +or- + -InfectionConvalescence/Past - +or- + +InfectionReactivated +or- + + +Infection + Antibody Present - Antibody Ab sentPerformed at: [facility] [id number] Director: Leoncio Martinez PhD, Phone: [phone] EB-NAg AjQ85859 283.0 U/mL (Abnormal) Range: 0.0-17.9 Comments: Negative <18.0 Equivocal 18.0 - 21.9 Positive >21.9 EB-VCA PgD28988 188.0 U/mL (Abnormal) Range: 0.0-17.9 Comments: Negative <18.0 Equivocal 18.0 - 21.9 Positive >21.9 EB-EA IgG 29759 84.5 U/mL (Abnormal) Range: 0.0-8.9 Comments: Hepatitis A, Hepatitis C and HIV antibodies may cross-reactwith this assay. Negative < 9.0 Equivocal 9.0 - 10.9 Positive >10.9 EB-VCA [id number] < 36.0 U/mL (Normal) Range: 0.0-35.9 Comments: Negative <36.0 Equivocal 36.0 - 43.9 Positive >43.9 95-Gnr-267460:45 Phenytoin (Dilantin) Level Comments: Time Medication is to be Given? 1200[facility] Nufduecjtt[address] [place], [place], [address] PHENYTOIN 20.1 mL (Abnormal) Range: 10.0-20.0 Comments: Critical Result(s) Called at: 19:27:37 08/03/2016 by:Ana CULP 20-Xiz-658621:45 T4 Free Direct Comments: [facility] Kicmejhvmn[address] [place], [place], [address] T4 FREE DIRECT 0.75 ng/dL (Abnormal) Range: 0.76-1.46 15-Euu-985966:45 Thyroid Stim Hormone (TSH) Comments: [facility] Fagtigfons[address] [place], [address] TSH 1.86 {uIU/mL} (Normal) Range: 0.358-3.74 32-Gye-733917:10 Urinalysis, Office (78039) UA - LEUKOCYTE ESTERASE Negative (Normal) UA - NITRITE Negative (Normal) URINE UROBILINGN LANE TIMED Normal mg/dL (Normal) UA - PROTEIN Negative mg/dL (Normal) UA - PH 7 (Normal) UA - BLOOD Negative (Normal) UA - SPECIFIC GRAVITY 1.010 (Normal) UA - KETONES Negative mg/dL (Normal) UA - BILIRUBIN Negative (Normal) UA - GLUCOSE Negative (Normal) 22-Rey-456994:22 Phenobarbital Comments: Time Medication is to be Given? [address] [place] [address] T[address] [place], [address] PHENOBARB 26.8 ug/mL (Normal) Range: 10.0-40.0 01-Yjg-628592:22 Phenytoin (Dilantin) Level Comments: Time Medication is to be Given? [address] [place] [address] Iwo[address] [place], [place], [id number] ; fu 3-31 PHENYTOIN 16.0 mL (Normal) Range: 10.0-20.0 72-Pgg-243795:23 Free T3 Comments: [facility] Ajqzqnmorg3052 [place], [address] FREE T3 2.7 pg/mL (Normal) Range: 2.18-3.98 95-Epj-572675:23 Methylmalonic Acid Bld Comments: [facility] (refer to report for specific site)refer to report for address and phone number [facility] [id number] 230 nmol/L (Normal) Range: 0-378 Comments: Performed at: [address] [id number] Director: Deangelo Miller MD, Phone: [phone] 64-Lxl-603120:23 NMR Lipoprofile Comments: [facility] (refer to report [...] mg/dL (Normal) Range: 100-199 LIPIDS . (Normal) 26-Kqc-990571:23 Phenobarbital Comments: Time Medication is to be Given? 0000[facility] Xaefxxwsut1015 [facility] [address]. [place], [place], [address] PHENOBARB 26.6 ug/mL (Normal) Range: 10.0-40.0 70-Sev-659084:23 Phenytoin (Dilantin) Level Comments: Time Medication is to be Given? 0000[facility] Kzflibqbzj220[address] [place], [place], [address] PHENYTOIN 18.9 mL (Normal) Range: 10.0-20.0 78-Ckc-790705:23 T4 Free Direct Comments: [facility] Pycizkimvf1750 [address] [place], [place], [address] T4 FREE DIRECT 0.71 ng/dL (Abnormal) Range: 0.76-1.46 51-Ify-331338:23 Thyroid Stim Hormone (TSH) Comments: [facility] Wdtwybvoxv[address] [place], [place], [address] TSH 2.15 {uIU/mL} (Normal) Range: 0.358-3.74 54-Xqa-257759:23 Vitamin B12 761 pg/mL (Normal) Comments: [facility] Twphwcvfst2[address] [place], [place], [address] Range: 211-911 68-Xxz-730387:23 Vitamin D,25 Hydroxy Comments: [facility] Rcmhovyipf7952 [place], [id number] Vitamin D 25-OH 82.1 ng/mL (Normal) Comments: Vitamin D 25(OH) Status Range Deficiency <20 ng/mL (50nmol/L) Insuffciency 20 - 30 ng/mL (50 - 75 nmol/L) Sufficiency 30 - 100 ng/mL (75 - 250 nmol/L) Toxicity >100 ng/mL (>250 nmol/L) 72-Vws-583167:27 Free T3 Comments: [facility] Byfrbxxkwd3670 [place], [address] FREE T3 2.5 pg/mL (Normal) Range: [...] factors on Lp(a) across ethnicities.Performed at: - [facility] [id number] Director: Leoncio Martinez PhD, Phone: [phone] 94-Grh-455775:27 Methylmalonic Acid Bld Comments: [facility] (refer to report for specific site)refer to report for address and phone number METHYLM [id number] 257 nmol/L (Normal) Range: 0-378 Comments: Performed at: - [facility] [id number] Director: Deangelo Miller MD, Phone: [phone] 75-Ewj-182661:27 Phenobarbital Comments: Time Medication is to be Given? [address] [place] [address] Mgotlrqeut0057 [place], [address] PHENOBARB 26.8 ug/mL (Normal) Range: 10.0-40.0 14-Ygb-463745:27 Phenytoin (Dilantin) Level Comments: Time Medication is to be Given? [facility] Qqvnumycaz1561 [place], [address] PHENYTOIN 20.5 mL (Abnormal) Range: 10.0-20.0 Comments: Critical Result(s) Called at: 14:39:56 01/07/2016 by:Yola Birmingham at [facility] 64-Nox-326002:27 T4 Free Direct Comments: [facility] Peqbauaekr6[address] [place], [id number] T4 FREE DIRECT 0.68 ng/dL (Abnormal) Range: 0.76-1.46 84-Xem-545434:27 Vitamin B12 689 pg/mL (Normal) Comments: [facility] Oipqtjzerh2605 [address] [place], [address] ; f/u on 01/12 Range: 211-911 85-Swx-605449:27 Vitamin D,25 Hydroxy Comments: [facility] Dvqhjxznab48[address] [place], [address] Vitamin D 25-OH 135.4 ng/mL (Normal) Comments: [...] Free, 1.9 ug/mL (Normal) Comments: PERFORMED BY: [facility]6370 [facility] [id number] BY: [facility][note 3]1447 [facility] [id number] :12 Serum Range: 1.0-2.0 Comments: Detection Limit = 0.5 82-Vve-650068:12 PSA (Prostate Specific Comments: PERFORMED BY: [facility] Njqzji1394 [facility] [id number] BY: [address] [id number] Antigen), Screening (87870) Prostate Specific Ag, 1.7 ng/mL (Normal) Range: 0.0-4.0 Serum Comments: i.[employer] ECLIA methodology. .According to the [place] [employer], Serum PSA shoulddecrease and remain at undetectable levels after radicalprostatectomy. The AUA defines biochemical recurrence as an initialPSA value 0.2 ng/mL or greater followed by a subsequent confirmatoryPSA value 0.2 ng/mL or greater.Values obtained with d ifferent assay methods or kits cannot be usedinterchangeably. Results cannot be interpreted as absolute evidenceof the presence or absence of malignant disease. 07-Tju-555164:00 Miscellaneous Lab Procedure Comments: NO VRO CHARGE REDRAWComments: [id number] PHENYTION FREE,RED,RTTest(s) Ordered: [id number] PHENYTION FREE,RED,RTWKettering Health Hamilton Swbisnacen9[address] [place], [place], [address] [facility] Comments: TEST RESULT UNITS REFERENCE INTERVALPhenytoin, Free, Serum 1.9 ug/mL 1.0 - 2.0 Detection Limit = 0.5 LAB (Normal) [facility]. ORIGINAL REPORT ON FILE IN LAB CONTAINS ADDITIONAL TEST SITE INFORMATION. TEST 41-Wzf-261434:58 Lipid Profile Comments: [facility] Crqrnzvkwv1602G[place]ia [place], [id number] VLDL 13 mg/dL (Normal) Range: 5-40 LDL [...] High Risk :58 Vitamin D,25 Hydroxy Comments: [facility] Angxlotxfi7356 [address] [place], [id number] Vitamin D 25-OH 40.4 ng/mL (Normal) Comments: Vitamin D 25(OH) Status Range Deficiency <20 ng/mL (50nmol/L) Insuffciency 20 - 30 ng/mL (50 - 75 nmol/L) Sufficiency 30 - 100 ng/mL (75 - 250 nmol/L) Toxicity >100 ng/mL (>250 nmol/L) 94-Znt-190990:33 Lipid Panel With LDL/HDL Comments: PATIENT WAS FASTINGPERFORMED BY: CB [facility] [address] [id number] BY: BN [facility] [address] [id number] Ratio LDL/HDL Ratio 2.2 {ratio_units} Range: 0.0-3.6 [...] (Normal) Comments: PATIENT WAS FASTINGPERFORMED BY: [facility] Wnkdap0771 [facility] [id number] BY: [facility] [id number] 616:33 Range: 1.0-2.0 Comments: Detection Limit = 0.5 Vitamin D, 25-Hydroxy 62.9 ng/mL (Normal) Comments: PATIENT WAS FASTINGPERFORMED BY: [facility] Uaepcu8095 [facility] [id number] BY: [facility] [id number] 616:33 Range: 30.0-100.0 Comments: Vitamin D deficiency has been defined by the [place] ofMedicine and an Endocrine Society practice guideline as alevel of serum 25-OH vitamin D less than 20 ng/mL (1,2).The Endocrine Society went on to further define vitamin Dinsufficiency as a level between 21 and 29 ng/mL (2).1. IOM ([place] of Medicine). 2010. Dietary reference intakes for calcium and D. [place]: The National Academies Press.2. Belinda MF, Courtney NC, Jamar KAY, et al. Evaluation, treatment, and prevention of vitamin D deficiency: an Endocrine Society clinical practice guideline. JCEM. 2010; 96(7):1911-30. 02-Fex-023255:08 CBC W/Diff, Automated Comments: [facility] Gvxsyycojb06[address] [place], [address] ; [address] Absolute Lymph 1.50 {X10_3/ul} [...] 4.6-6.2 WBC 5.2 K/mm3 (Normal) Range: 4.4-11.0 59-Vjf-039093:08 Comprehensive Metabolic Profil Comments: [facility] Brpkhrzwox[address] [place], [place], [address] GAP 7 (Normal) Range: 5-15 CO2 29.0 [...] 7-18 GLU 96 mg/dL (Normal) Range: 70-110 13-Jmg-917570:08 Dilantin, Free 1.2 ug/mL (Normal) Comments: [facility] (refer to report for specific site)refer to report for address and phone number Range: 1.0-2.0 Comments: Detection Limit = 0.5Performed at: [address] [id number] Director: Deangelo Miller MD, Phone: [phone] 97-Ikb-651124:08 Phenobarbital Comments: [facility] [address] [place], [address] PHENOBARB 28.8 ug/mL (Normal) Range: 10.0-40.0 46-Jxo-024824:08 PSA,Total - Annual Screen Comments: [facility] [address] [place], [address] PSA,TOT SCREEN 1.71 ng/mL (Normal) Range: 0.00-4.00 Comments: This test was performed using the TPSA assay method for theABSMaterialsBucketFeet chemistry system. Values obtained with differentassay methods cannot be used interchangably.When changing PSA assays in the course of monitoring apatient, additional sequential testing should be carriedout to confirm baseline values. 94-Rmo-467015:08 Thyroid Stim Hormone (TSH) Comments: [facility] Nezhfcvhhh8[address] [place], [id number] TSH 3.48 {uIU/mL} (Normal) Range: 0.358-3.74 :08 Vitamin D,25 Hydroxy Comments: [facility] Waarpmktrp34[address] [place], [address] Vitamin D 25-OH > 150.0 ng/mL (Normal) [...] is nointerference with Vitamin D test results. 65-Pyw-891197:16 CBC W/Diff, Automated Comments: Test performed at:[facility] Jwpbkquyze[address] [place] [id number] ; [facility] 10-23-14 will review then Absolute Lymph [...] 4.6-6.2 WBC 4.8 K/mm3 (Normal) Range: 4.4-11.0 76-Jed-217561:16 Comprehensive Metabolic Profil Comments: Test performed at:[facility] Lnnmddkblb9685 [place] [address] GAP 8 (Normal) Range: 5-15 CO2 28.0 [...] Medication is to be Given? 0000Test performed at:[facility] Bmvrubsxcn2706 [facility] [place] [address] PHENOBARB 26.9 ug/mL (Normal) Range: 10.0-40.0 :16 Phenytoin (Dilantin) Level Comments: Time Medication is to be Given? 0000Test performed at:[facility] [address] [place] [address] PHENYTOIN 16.0 ug/mL (Normal) Range: 10.0-20.0 :16 Vitamin D,25 Hydroxy Comments: Test performed at:[facility] Xlgdldxupc3842 [place] [address] Vitamin D 25-OH 19.2 ng/mL (Normal) Comments: Vitamin D 25(OH) Status Range Deficiency <20 ng/mL (50nmol/L) Insuffciency 20 - 30 ng/mL (50 - 75 nmol/L) Sufficiency 30 - 100 ng/mL (75 - 250 nmol/L) Toxicity >100 ng/mL (>250 nmol/L) 33-Emg-255404:48 CBC W/Diff, Automated Comments: Test performed at:[facility] Bufogbgwlv5189 [place] [address] Absolute Lymph 1.50 {X10_3/ul} (Normal) [...] 4.6-6.2 WBC 4.8 K/mm3 (Normal) Range: 4.4-11.0 69-Lgx-834008:48 Comprehensive Metabolic Profil Comments: Test performed at:[facility] Whdlwoqqij37[address] [place], [place] [address] GAP 6 (Normal) Range: 5-15 CO2 30.0 [...] 7-18 GLU 97 mg/dL (Normal) Range: 70-110 41-Rag-926142:48 Phenobarbital Comments: Time Medication is to be Given? 1200Test performed at:[facility] Ohpopgbazp[address] [place] [address] PHENOBARB 25.3 ug/mL (Normal) Range: 10.0-40.0 :48 Phenytoin (Dilantin) Level Comments: Time Medication is to be Given? 1200Test performed at:[facility] [id number] [place] [address] PHENYTOIN 19.6 ug/mL (Normal) Range: 10.0-20.0 :48 Vitamin D,25 Hydroxy Comments: Test performed at:[facility] [address] [place], [place] [address] Vitamin D 25-OH 44.8 ng/mL (Normal) Comments: Vitamin D 25(OH) Status Range Deficiency <20 ng/mL (50nmol/L) Insuffciency 20 - 30 ng/mL (50 - 75 nmol/L) Sufficiency 30 - 100 ng/mL (75 - 250 nmol/L) Toxicity >100 ng/mL (>250 nmol/L) :23 Phenobarbital Comments: Time Medication is to be Given? 0000Test performed at:[facility] [address] [place] [id number] PHENOBARB 28.8 ug/mL (Normal) Range: 10.0-40.0 6-Lyx-191833:23 Phenytoin (Dilantin) Level Comments: Time Medication is to be Given? 0000Test performed at:[facility] [address] [place] [address] PHENYTOIN 19.4 ug/mL (Normal) Range: 10.0-20.0 :54 CBC W/Diff, Automated Comments: Test performed at:[facility] [address] [place] [address] Absolute Lymph 1.20 {X10_3/ul} (Normal) [...] :54 Comprehensive Metabolic Profil Comments: Test performed at:[facility] [address] [place] [address] GAP 4 (Abnormal) Range: 5-15 [...] 7-18 GLU 90 mg/dL (Normal) Range: 70-110 62-Fjm-658639:54 Lipid Profile Comments: Test performed at:[facility] [address] [place], [place] [address] VLDL 14 mg/dL (Normal) Range: 5-40 LDL [...] Medication is to be Given? 0600Test performed at:[facility] [address] [place] [address] PHENOBARB 27.6 ug/mL (Normal) Range: 10.0-40.0 :54 Phenytoin (Dilantin) Level Comments: Time Medication is to be Given? 0600Test performed at:[facility] [address] [place] [address] PHENYTOIN 22.2 ug/mL (Abnormal) Range: 10.0-20.0 Comments: RESULTS CALLED TO VIKAS MARTIN 04/10/14 1336 CCrytzer.REPORT READ BACK BY SAME. :54 PSA,Total - Annual Screen Comments: Test performed at:[facility] [address] [place] [address] PSA,TOT SCREEN 1.91 ng/mL (Normal) Range: 0.00-4.00 Comments: This test was performed using the TPSA assay method for ID AMERICA chemistry system. Values obtained with differentassay methods cannot be used interchangably.When changing PSA assays in the course of monitoring apatient, additional sequential testing should be carriedout to confirm baseline values. :54 Vitamin D,25 Hydroxy Comments: Test performed at:[facility] [address] [place] [address] Vitamin D [...] 4.6-6.2 WBC 5.6 K/mm3 (Normal) Range: 4.4-11.0 2-Tyw-144202:44 CMP GAP 3 (Abnormal) Range: 5-15 CO2 [...] - 250 nmol/L)Toxicity >100 ng/mL (>250 nmol/L) 6-Qop-168067:21 CBCD ANC 3.1 {X10_3/uL} (Normal) Range: 2.0-7.7 [...] CHOL 179 mg/dL (Normal) Comments: <200 mg/dL Jdqlzxbcn250-307 mg/dL Borderline>240 mg/dL High Risk 8-Khn-309631:21 PHEN 28.9 ug/mL (Normal) Comments: Time Medication [...] Culture Comments: PATIENT NOT FASTINGPERFORMED BY: [facility] [id number] [facility] [id number] Result 1 RRF (Normal) Comments: Routine respiratory grazyna Lower Respiratory Final report Culture (Normal) Request Problem Final report Comments: PATIENT NOT FASTINGPERFORMED BY: [facility] [id number] [facility] [id number] :38 (Normal) Comments: A specimen was received for microbiology/virology testing with eitheran incorrect test number or without a written test number. Thespecimen has been processed according to the default policy listed int e Microbiology Appendix of the Directory of Services. Please use thecorrect test numbers to assure optimum processing of the specimens. 94-Kal-418337:02 CBCMD RBCM NORM C+C {NORMAL} (Normal) EOS [...] Very High > or = 500 mg/dL 41-Biv-041230:02 MISC (Normal) Comments: PRIMIDONE (MYSOLINE (R)), SERUM PRIMODONE, SERUM RESULT: 9.0 ug/mL LIMITS: 5.0-12.0 DETECTION LIMIT = 0.3 <0.3 INDICATES NONE DETECTED. TESTING PERFORMED AT [facility]. ORIGINAL REPORT ON FILE IN LAB CONTAINS ADDITIONAL TEST SITE INFORMATION. 46-Cdt-465193:02 VITD 28.4 ng/mL (Abnormal) Range: 30.0-100.0 Comments: Vitamin D deficiency has been defined by the [place] ofMedicine and an Endocrine Society practice guideline as alevel of serum 25-OH vitamin D less than 20 ng/mL (1,2).The Endocrine Society went on to further define vitamin Dinsufficiency as a level between 21 and 29 ng/mL (2).1. IOM ([place] of [employer]). 2010. Dietary reference intakes for calcium and D. [place]: The National Academies Press.2. Belinda MF, Courtney NC, Jamar KAY, et al. Evaluation, treatment, and prevention of vitamin D deficiency: an Endocrine Society clinical practice guideline. JCEM. 2010; 96(7): 1911-30.Performed at: [facility] [address] [id number] Director: Sean Hansen PhD, Phone: [phone] 09-Dhu-096365:18 CBCMD Comments: ORDERED DILANTIN CBCMD PSA PHENOBARB [...] 4.6-6.2 WBC 5.1 K/mm3 (Normal) Range: 4.4-11.0 55-Lhb-083634:18 DIL 11.0 ug/mL (Normal) Comments: ORDERED DILANTIN CBCMD PSA PHENOBARB LIPID CMPVITD ORDERED MYSOLINE DILANTIN Range: 10.0-20.0 54-Eco-683862:18 MISC . (Normal) Comments: ORDERED DILANTIN CBCMD PSA PHENOBARB LIPID CMPVITD ORDERED MYSOLINE DILANTIN Comments: TEST RESULT LIMITSPrimidone (Mysoline(R)), Serum Primidone, Serum 8.9 ug/mL 5.0 - 12.0 Detection Limit = 0.3 < 0.3 indicates None Detected Phenobarbital, Serum 22 ug/mL 15 - 40 Detection Limit = 2 < 2 indicates None Detected TESTING PERFORMED AT [facility]. ORIGINAL REPORT ON FILE IN LAB CONTAINS ADDITIONAL TEST SITE INFORMATION. 63-Mgf-046824:18 PSA 1.11 ng/mL (Normal) Comments: ORDERED DILANTIN CBCMD PSA PHENOBARB LIPID CMPVITD ORDERED MYSOLINE DILANTIN Range: 0.00-4.00 Comments: NEW TEST ASSAY METHOD AUGUST 31, 2011This test was performed using the TPSA assay method for the[employer] Dash chemistry system. Values obtained with differentassay methods cannot be used interchangably.When ch anging PSA assays in the course of monitoring apatient, additional sequential testing should be carriedout to confirm baseline values. 69-Gmg-821238:18 CMP Comments: ORDERED DILANTIN CBCMD PSA PHENOBARB [...] 7-18 GLU 94 mg/dL (Normal) Range: 70-110 17-Gqh-074183:18 LIPID Comments: ORDERED DILANTIN CBCMD PSA PHENOBARB [...] 200-240 mg/dL Borderline >240 mg/dL High Risk 19-Feb-864359:32 VIT D,25 22359 26.6 ng/mL (Abnormal) Range: 30.0-100.0 Comments: Vitamin D deficiency has been defined by the [place] of[place]icine and an Endocrine Society practice guideline as alevel of serum 25-OH vitamin D less than 20 ng/mL (1,2).The Endocrine Society went on to further define vitamin Dinsufficiency as a level between 21 and 29 ng/mL (2).1. IOM ([place] [employer]). 2010. Dietary reference intakes for calcium and D. [place]: The National Academies Press.2. Belinda MF, Courtney NC, Jamar KAY, et al. Evaluation, treatment, and prevention of vitamin D deficiency: an Endocrine Society clinical practice guideline. JCEM. 2010; 96(7): 1911-30.Performed at: [address] [id number] Director: Zeny Contreras MD, Phone: [phone] 82-Yyt-753296:32 PSA, SCREEN 1.3 ng/mL (Normal) Range: 0.0-4.0 81-Clg-547026:18 VITD 53.5 ng/mL (Normal) Comments: preventative; ORDERED DILANTIN CBCMD PSA PHENOBARB LIPID CMPVITD ORDERED MYSOLINE DILANTIN Range: 30.0-100.0 Comments: Vitamin D deficiency has been defined by the [place] of[place] and an Endocrine Society practice guideline as alevel of serum 25-OH vitamin D less than 20 ng/mL (1,2).The Endocrine Society went on to further define vitamin Dinsufficiency as a level between 21 and 29 ng/mL (2).1. IOM ([place]). 2010. Dietary reference intakes for calcium and D. [place]: The National Academies Press.2. Belinda MF, Courtney NC, Jamar KAY, et al. Evaluation, treatment, and prevention of vitamin D deficiency: an Endocrine Society clinical practice guideline. JCEM. 2010; 96(7): 1911-30.Performed at: [address] [id number] Director: Zeny Contreras MD, Phone: [phone] 12-Axk-995048:32 COMP METABOLIC Comments: preventative GAP 7 (Normal) [...] Comments: PATIENT NOT FASTINGPERFORMED BY: CB [facility] [id number] Road[address]ublin [place] [id number] :27 Range: 15-40 Comments: Detection Limit = 2 <2 indicates None Detected :27 Phenytoin (Dilantin) (51204) Comments: PATIENT NOT FASTINGPERFORMED BY: CB [facility] Vymvlw69[address] [place] [id number] Phenytoin (Dilantin), Serum 12.6 ug/mL (Normal) Range: 10.0-20.0 Comments: : Therapeutic 6.0 - 14.0 . Detectio n Limit = 0.6 <0.6 Indicates None Detected : CALCIFIDIOL (88937) VIT D 25 Comments: PATIENT NOT FASTINGPERFORMED BY: CB [facility] [id number] [address] [place] [id number] Vitamin D, 25-Hydroxy 25.6 ng/mL (Abnormal) Range: [...] 4.6-6.2 WBC 6.1 K/mm3 (Normal) Range: 4.4-11.0 72-Etk-101602:58 CBCD ABSOLUTE NEUT 2.6 3/uL (Normal) Range: [...] ng/mL (Normal) Range: 0.0-4.0 :58 VIT D,25 88288 40.2 ng/mL (Normal) Range: 32.0-100.0 Comments: Recent studies consider the lower limit of 32.0 ng/mL to dave threshold for optimal health.William ROJAS. J Nutr. 2005 Feb;135(2):317-22.Performed at: - [facility] [place] [id number] Director: Zeny Contreras MD, Phone: [phone] 30-Axj-086554:48 CBCD ABSOLUTE NEUT 3.3 3/uL (Normal) Range: [...] CHOL 164 mg/dL (Normal) Comments: <200 mg/dL Xpiqcpgse913-854 mg/dL Borderline>240 mg/dL High Risk TRIG 71 mg/dL (Normal) Comments: Serum Triglycerides Reference IntervalNormal <150 mg/dLBorderline high 150 - 199 mg/dLHigh 200 - 499 mg/ dLVery High > or = 500 mg/dL :48 PHENOBARB 20.8 ug/mL (Normal) Range: 10.0-40.0 :48 PHENYTOIN 15.0 ug/mL (Normal) Range: 10.0-20.0 :48 PSA, SCREEN 1.2 ng/mL (Normal) Range: 0.0-4.0 :48 VIT D,25 94485 27.8 ng/mL (Abnormal) Range: 32.0-100.0 Comments: Recent studies consider the lower limit of 32.0 ng/mL to dave threshold for optimal health.William ROJAS. J Nutr. 2004;135(2):317-22.Performed at: [facility] [address] [id number] Director: Zeny Contreras MD 38-Uln-18305:00 CBCD BASO% 0.6 % (Normal) Range: 0-1 [...] {uIU/mL} (Normal) Range: 0.358-3.74 :00 VIT D,25 40670 56.4 ng/mL (Normal) Range: 32.0-100.0 Comments: Recent studies consider the lower limit of 32.0 ng/mL to dave threshold for optimal health.William ROJAS. J Nutr. 2004;135(2):317-22.Performed At: [facility] [facility] [place], [place] [id number] 74-Hkw-032303:03 CA 8.6 mg/dL (Normal) Range: 8.5-10.1 : PHOS 3.1 mg/dL (Normal) Range: 2.5-4.9 :03 PTH,[id number] PTH,Intact 33 pg/mL (Normal) Range: 15-65 Comments: Performed At: [facility] [employer] [facility] [place], [place] [id number] 09-Emm-386664:03 PTH,[id number] PTH,Intact 33 pg/mL (Normal) Range: 15-65 Comments: Performed At: [address] [id number] 10-Zhz-514285:03 PTH,[id number] PTH,Intact 33 pg/mL (Normal) Range: 15-65 Comments: Performed At: [address] [id number] 43-Scc-994584:03 VIT D,25 11223 24.0 ng/mL (Abnormal) Range: 32.0-100.0 Comments: Recent [...] for patient's is the eGFRmultiplied by 1.212. [facility] Laboratory uses the abbreviated Modification of [...] Disease W/O Kidney Disease>/= 90 Stage One Bsioog83 - 89 Stage Two Suspect Decreased GFR30 [...] 3.5-7.2 VLDL 11 mg/dL (Normal) Range: 5-40 72-Xow-753346:00 EMP URINALYSIS BILIRUBIN URINE SeeNote (Normal) Comments: [...] 0.2 EU/dl (Normal) Range: 0.2 - 1.0 19-Ujm-570522:31 CBCD BASO% 0.6 % (Normal) Range: 0-1 [...] 4.6-6.2 WBC 5.2 K/mm3 (Normal) Range: 4.4-11.0 81-Ppl-198229:31 COMP METABOLIC ALK P 76 U/L (Normal) [...] was performed using the TPSA method for the[facility] chemistry system.Values obtained with different assay methods [...] T PROT 7.4 g/dL (Normal) Range: 6.4-8.2 75-Mfs-348001:58 EMP PROF A/G 1.0 {RATIO} (Normal) Range: [...] 3.5-7.2 VLDL 21 mg/dL (Normal) Range: 5-40 94-Vmr-511169:58 EMP URINALYSIS BILIRUBIN URINE SeeNote (Normal) Comments: [...] 0.2 EU/dl (Normal) Range: 0.2 - 1.0 75-Eki-595120:58 LIPID CHOL 179 mg/dL (Normal) Comments: <200 [...] mg/dL VLDL 21 mg/dL (Normal) Range: 5-40 45-Hch-672664:58 PHENOBARB 19.7 ug/mL (Normal) Range: 10.0-40.0 :58 PHENYTOIN 23.2 ug/mL (Abnormal) Range: 10.0-20.0 Comments: CRITICAL VALUE REPEATED AND VERIFIED. CALLED TO VIKAS 05/31/07 1425 DANIEL CHERY.RESULTS READ BACK BY Karen MARTIN . 19-Qbf-636098:53 DEXA BONE DENSITY STUDY () Radiology Report See Note (Normal) Comments: Exam Number: [id number] BONE DENSITOMETRY HISTORYHypocalcemia. Bone densitometry of the [...] normal range. Reported By: FLETCHER ESCALONA M.D. 68-Hqn-636016:20 CBCD BASO% 0.7 % (Normal) Range: 0-1 [...] was performed using the TPSA method for ID [employer] chemistry system.Values obtained with different assay methods [...] Indication: Acute sinusitis, unspecified Planned Observations CALCIFIDIOL (42483) VIT D 25Indication: Depression On: 09-May-2018 Request CBC W/AUTO DIFF WBC (66408)Indication: Epilepsy, unspecified, not intractable, without status epilepticus On: 09-May-2018 Request DRUG ASSAY-PHENOBARBITOL (10932)Indication: Epilepsy, unspecified, not intractable, without status epilepticus On: 09-May-2018 Request DRUG ASSAY-TOT PHENYTOIN (02121)Indication: Epilepsy, unspecified, not intractable, without status epilepticus On: 09-May-2018 Request METABOLIC PANEL, COMPREHENSIVE (52667)Indication: Epilepsy, unspecified, not intractable, without status epilepticus On: 09-May-2018 Request CALCIFIDIOL (71216) VIT D 25Indication: Depression On: 6-Fsr-223371:11 Request DRUG ASSAY-PHENOBARBITOL (27348)Indication: Epilepsy, unspecified, not intractable, without status epilepticus On: 8-Fpi-343359:10 Request DRUG ASSAY-TOT PHENYTOIN (39826)Indication: Epilepsy, unspecified, not intractable, without status epilepticus On: 97-Zsz-270759:05 Request Comments: in 3 weeks and standing order prn DRUG ASSAY-FREE PHENYTOIN (80194)Indication: Epilepsy, unspecified, not intractable, without status epilepticus On: 5-Tqw-848443:16 Request LIPOPROTEIN, BLD, BY NMR (15006)Indication: Hyperlipidemia, mild On: :55 Request Comments: 4months along withphenytoin level METABOLIC PANEL, COMPREHENSIVE (94049)Indication: Hyperlipidemia, mild On: :55 Request PSA (Prostate Specific Antigen), Screening (10005)Indication: Screening for prostate cancer On: 41-Xbm-388322:51 Request Comments: check in 6 weeks CALCIFIDIOL (99607) VIT D 25Indication: Vitamin D deficiency, unspecified On: :51 Request Comments: check in 6 weeks HEPATITIS C ANTIBODY (63281)Indication: Encounter for hepatitis C virus screening test for high risk patient On: 87-Pct-565516:50 Request Comments: check 6 weeks Phenytoin (Dilantin) (73846)Indication: Epilepsy, unspecified, not intractable, without status epilepticus On: 87-Bcz-257641:25 Request Comments: standing order DRUG ASSAY-TOT PHENYTOIN (16422)Indication: Epilepsy, unspecified, not intractable, without status epilepticus On: 5-Lpz-377883:03 Request DRUG ASSAY-FREE PHENYTOIN (17468)Indication: Vertigo On: :15 Request DRUG ASSAY-PHENOBARBITOL (96416)Indication: Vertigo On: :14 Request URINALYSIS, W/ MICRO (59791)Indication: Epilepsy, unspecified, not intractable, without status epilepticus On: :14 Request LIPOPROTEIN, BLD, BY NMR (92174)Indication: Prediabetes On: :14 Request CBC with auto diff (72675)Indication: Epilepsy, unspecified, not intractable, without status epilepticus On: 6-Pmo-164197:14 Request METABOLIC PANEL, COMPREHENSIVE (72750)Indication: Epilepsy, unspecified, not intractable, without status epilepticus On: 3-Nsl-303236:14 Request Phenytoin (Dilantin) (81301)Indication: Epilepsy, unspecified, not intractable, without status epilepticus On: 25-Wuz-616502:01 Request Comments: last dose 3 hours Metabolic Panel, Comprehensive (35107)Indication: Stomach cramps, generalized On: 21-Bnu-254979:01 Request CBC (Auto) (84539)Indication: Stomach cramps, generalized On: :57 Request Amylase (78765)Indication: Stomach cramps, generalized On: :56 Request EBV Panel (99665)Indication: Fatigue, unspecified type On: 23-Sfq-813063:56 Request T4, FREE (THYROXINE) (57848)Indication: Abnormal TSH On: 15-Zyb-708482:55 Request TSH (14181)Indication: Abnormal TSH On: 56-Tzv-391649:55 Request CALCIFIDIOL (84899) VIT D 25Indication: Vitamin D deficiency, unspecified On: 49-Hmn-515465:09 Request T4, FREE (THYROXINE) (98996)Indication: Abnormal thyroid blood test On: :08 Request TSH (63979)Indication: Abnormal thyroid blood test On: 92-Cgn-219909:08 Request DRUG ASSAY-PHENOBARBITOL (82198)Indication: Epilepsy, unspecified, not intractable, without status epilepticus On: 66-Gbp-099233:03 Request Phenytoin (Dilantin) (55289)Indication: Epilepsy, unspecified, not intractable, without status epilepticus On: 21-Hqq-482548:03 Request TSH (90025)Indication: Nontoxic goiter, unspecified On: 04-Cqc-909084:58 Request Comments: add to labs already drawn Anti-TPO Antibody (70753)Indication: Abnormal thyroid blood test On: :32 Request TSH (09417)Indication: Abnormal thyroid blood test On: : Request T4, FREE (THYROXINE) (88413)Indication: Abnormal thyroid blood test On: Request T3, FREE (TRIDOTHYRONINE) (01407)Indication: Abnormal thyroid blood test On: : Request DRUG ASSAY-PHENOBARBITOL (72146)Indication: Epilepsy, unspecified, not intractable, without status epilepticus On: Request Phenytoin (Dilantin) (22918)Indication: Epilepsy, unspecified, not intractable, without status epilepticus On: : Request Comments: not free regular dilantin CALCIFIDIOL (72709) VIT D 25Indication: Vitamin D deficiency, unspecified On: : Request T3, FREE (TRIDOTHYRONINE) (65443)Indication: Abnormal TSH On: : Request T4, FREE (THYROXINE) (83194)Indication: Abnormal TSH On: Request Methymalonic Acid, Serum (79011)Indication: Forgetfulness On: :37 Request Vitamin B-12 (cyanocobalamin) (67280)Indication: Forgetfulness On: :37 Request LIPOPROTEIN, BLD, BY NMR (35822)Indication: Prediabetes On: :34 Request CALCIFIDIOL (72922) VIT D 25Indication: Vitamin D deficiency, unspecified On: Request DRUG ASSAY-PHENOBARBITOL (90311)Indication: Epilepsy, unspecified, not intractable, without status epilepticus On: :02 Request Comments: standing order prn Phenytoin (Dilantin) (59554)Indication: Epilepsy, unspecified, not intractable, without status epilepticus On: : Request Comments: standing order prn DRUG ASSAY-FREE PHENYTOIN (34387)Indication: Epilepsy, unspecified, not intractable, without status epilepticus On: :02 Request LIPID PANEL (83639)Indication: Cardiomegaly (Renamed from Cardiac enlargement) On: 60-Akh-428901:00 Request Comments: in 4 weeks CALCIFIDIOL (00578) VIT D 25Indication: Vitamin D deficiency, unspecified On: :58 Request Comments: 4 weeks DRUG ASSAY-FREE PHENYTOIN (82388)Indication: Epilepsy, unspecified, not intractable, without status epilepticus On: 26-Nso-030304:56 Request Comments: recheck in 4 weeks before am dose PSA (PROSTATE SPECIFIC ANTIGEN) (V76.44)Indication: Encounter for routine history and physical exam for male On: :44 Request METABOLIC PANEL, COMPREHENSIVE (60313)Indication: Epilepsy, unspecified, not intractable, without status epilepticus On: :37 Request CBC with auto diff (97453)Indication: Epilepsy, unspecified, not intractable, without status epilepticus On: :37 Request TSH (96802)Indication: Nontoxic goiter, unspecified On: :37 Request CALCIFIDIOL (42434) VIT D 25Indication: Vitamin D deficiency, unspecified On: :37 Request DRUG ASSAY-FREE PHENYTOIN (76417)Indication: Epilepsy, unspecified, not intractable, without status epilepticus On: :36 Request DRUG ASSAY-PHENOBARBITOL (71195)Indication: Epilepsy, unspecified, not intractable, without status epilepticus On: :36 Request METABOLIC PANEL, COMPREHENSIVE (14808)Indication: Epilepsy, unspecified, not intractable, without status epilepticus On: :34 Request CBC W/AUTO DIFF WBC (95611)Indication: Epilepsy, unspecified, not intractable, without status epilepticus On: :34 Request CALCIFIDIOL (49939) VIT D 25Indication: Vitamin D deficiency, unspecified On: :34 Request DRUG ASSAY-PHENOBARBITOL (71776)Indication: Epilepsy, unspecified, not intractable, without status epilepticus On: :31 Request Comments: stqanding order prn Phenytoin (Dilantin) (56274)Indication: Epilepsy, unspecified, not intractable, without status epilepticus On: :29 Request Comments: standing order prn PSA (PROSTATE SPECIFIC ANTIGEN) (V76.44)Indication: Encounter for routine history and physical exam for male On: :11 Request METABOLIC PANEL, COMPREHENSIVE (56361)Indication: Epilepsy, unspecified, not intractable, without status epilepticus On: : Request LIPID PANEL (37318)Indication: Epilepsy, unspecified, not intractable, without status epilepticus On: : Request CBC WITH MANUAL DIFF (46786)Indication: Epilepsy, unspecified, not intractable, without status epilepticus On: : Request CALCIFIDIOL (97673) VIT D 25Indication: Vitamin D deficiency, unspecified On: : Request DRUG ASSAY-PHENOBARBITOL (25033)Indication: Epilepsy, unspecified, not intractable, without status epilepticus On: : Request DRUG ASSAY-FREE PHENYTOIN (71640)Indication: Epilepsy, unspecified, not intractable, without status epilepticus On: : Request METABOLIC PANEL, COMPREHENSIVE (74015)Indication: Epilepsy, unspecified, not intractable, without status epilepticus On: :24 Request CBC WITH MANUAL DIFF (72728)Indication: Epilepsy, unspecified, not intractable, without status epilepticus On: :24 Request CALCIFEDIOL (87897)Indication: Vitamin D deficiency, unspecified On: :23 Request DRUG ASSAY-PHENOBARBITOL (77108)Indication: Epilepsy, unspecified, not intractable, without status epilepticus On: :22 Request Comments: prn standing order Phenytoin (Dilantin) (24999)Indication: Epilepsy, unspecified, not intractable, without status epilepticus On: :22 Request Comments: prn standing order. DRUG ASSAY-PHENOBARBITOL (65265)Indication: Epilepsy, unspecified, not intractable, without status epilepticus On: :32 Request Phenytoin (Dilantin) (73743)Indication: Epilepsy, unspecified, not intractable, without status epilepticus On: :31 Request LIPID PANEL (05825)Indication: Cardiomegaly (Renamed from Cardiac enlargement) On: :27 Request METABOLIC PANEL, COMPREHENSIVE (34961)Indication: Epilepsy, unspecified, not intractable, without status epilepticus On: : Request CBC WITH MANUAL DIFF ([id number])Indication: Epilepsy, unspecified, not intractable, without status epilepticus On: : Request CALCIFIDIOL (68645) VIT D 25Indication: Vitamin D deficiency, unspecified On: :26 Request CBC with manual diff (71593)Indication: Epilepsy, unspecified, not intractable, without status epilepticus On: :25 Request Phenytoin (Dilantin) (50458)Indication: Epilepsy, unspecified, not intractable, without status epilepticus On: :25 Request Sputum Culture ([id number])Indication: Bronchitis On: :06 Request Phenytoin (Dilantin) (12562)Indication: Epilepsy, unspecified, not intractable, without status epilepticus On: 10-Bub-319366:14 Request Comments: Dr. 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 On: :12 Request LIPID PANEL (92543)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 On: :12 Request DRUG ASSAY-PHENOBARBITOL (05177)Indication: Epilepsy, unspecified, not intractable, without status epilepticus On: :08 Request CBC WITH MANUAL DIFF (99124)Indication: Epilepsy, unspecified, not intractable, without status epilepticus On: 2-Nlw-533546:29 Request CALCIFIDIOL (31074) VIT D 25Indication: Vitamin D deficiency, unspecified On: :07 Request Phenytoin (Dilantin) (38809)Indication: Epilepsy, unspecified, not intractable, without status epilepticus On: : Request DRUG ASSAY-PHENOBARBITOL (57026)Indication: Epilepsy, unspecified, not intractable, without status epilepticus On: :07 Request Lipid Panel (01164)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 On: : Request TSH (32375)Indication: Nontoxic goiter, unspecified On: : Request CBC (Auto) (18130)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 On: : Request Metabolic Panel, Comprehensive (13976)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 On: :02 Request DRUG ASSAY-PHENOBARBITOL (77109)Indication: Epilepsy, unspecified, not intractable, without status epilepticus On: :27 Request PSA (PROSTATE SPECIFIC ANTIGEN) (V76.44)Indication: Encounter for routine history and physical exam for male On: :22 Request CBC, Platelets & Auto Diff (98721)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 On: :21 Request Lipid Panel (65863)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 On: :21 Request Metabolic Panel, Comprehensive (79021)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 On: :21 Request CALCIFIDIOL (71044) VIT D 25Indication: Vitamin D deficiency, unspecified On: 27-Pkg-980962:20 Request Phenytoin (Dilantin) (12962)Indication: Epilepsy, unspecified, not intractable, without status epilepticus On: :20 Request LIPID PANEL (11473)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 On: 75-Gjt-549737:48 Request DRUG ASSAY-PHENOBARBITOL (76027)Indication: Epilepsy, unspecified, not intractable, without status epilepticus On: 34-Ytd-471674:43 Request Phenytoin (Dilantin) (81168)Indication: Epilepsy, unspecified, not intractable, without status epilepticus On: :43 Request CBC (Auto) (48286)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 On: : Request Metabolic Panel, Comprehensive (62521)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 On: :42 Request TSH (87564)Indication: Nontoxic goiter, unspecified On: : Request CALCIFIDIOL (74134) VIT D 25Indication: Vitamin D deficiency, unspecified On: : Request VITAMIN D, 1, 25-DIHYDROXY (22745)Indication: Vitamin D deficiency, unspecified On: :53 Request DRUG ASSAY-PHENOBARBITOL (80936)Indication: Epilepsy, unspecified, not intractable, without status epilepticus On: : Request Phenytoin (Dilantin) (07275)Indication: Epilepsy, unspecified, not intractable, without status epilepticus On: : Request CBC (Auto) (11410)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 On: : Request Metabolic Panel, Comprehensive (24772)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 On: : Request Comments: in six months (approximately) Lipid Panel (49490)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 On: : Request PARATHORMONE (54854)Indication: DISORDERS OF CALCIUM METABOLISM, HYPOCALCEMIA On: : Request Phosphorus (08351)Indication: DISORDERS OF CALCIUM METABOLISM, HYPOCALCEMIA On: : Request CALCIFIDIOL (76121) VIT D 25Indication: DISORDERS OF CALCIUM METABOLISM, HYPOCALCEMIA On: : Request Calcium Serum (03598)Indication: DISORDERS OF CALCIUM METABOLISM, HYPOCALCEMIA On: : Request Comments: in three months (approximately) TSH (01068) On: :43 Request PSA (PROSTATE SPECIFIC ANTIGEN) (V76.44)Indication: Encounter for routine adult medical exam with abnormal findings On: :43 Request PTT (Activated Partial Thromboplastin Time) (05852)Indication: Epilepsy, unspecified, not intractable, without status epilepticus On: :38 Request PT (Prothrobim Time) (67689)Indication: Epilepsy, unspecified, not intractable, without status epilepticus On: :38 Request CBC (Auto) (23940)Indication: Epilepsy, unspecified, not intractable, without status epilepticus On: :38 Request Metabolic Panel, Comprehensive (74591)Indication: Epilepsy, unspecified, not intractable, without status epilepticus On: :38 Request DRUG ASSAY-PHENOBARBITOL (58835)Indication: Epilepsy, unspecified, not intractable, without status epilepticus On: :37 Request Comments: level Phenytoin (Dilantin) (45557)Indication: Epilepsy, unspecified, not intractable, without status epilepticus On: :37 Request Lipid Panel (57553)Indication: Encounter for routine adult medical exam with abnormal findings On: :48 Request CBC (Auto) (53442)Indication: Epilepsy, unspecified, not intractable, without status epilepticus On: :47 Request Metabolic Panel, Comprehensive (59381)Indication: Epilepsy, unspecified, not intractable, without status epilepticus On: 69-Emq-494591:47 Request DRUG ASSAY-PHENOBARBITOL (08978)Indication: Epilepsy, unspecified, not intractable, without status epilepticus On: :47 Request Phenytoin (Dilantin) (92999)Indication: Epilepsy, unspecified, not intractable, without status epilepticus On: 42-Azx-931289:46 Request PSA (PROSTATE SPECIFIC ANTIGEN) (83774)Indication: Encounter for routine history and physical exam for male On: :54 Request DRUG ASSAY-PHENOBARBITOL (15203)Indication: Epilepsy, unspecified, not intractable, without status epilepticus On: 53-Ude-540559:54 Request Phenytoin (Dilantin) (50131)Indication: Dermatitis On: :53 Request CBC, Platelets & Auto Diff (55961)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 On: 01-Txv-285928:53 Request Metabolic Panel, Comprehensive (93201)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 On: 72-Swy-355559:52 Request Lipid Panel (15342)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 On: 36-Yxg-590771:52 Request Planned Encounters Medical; [facility] Exam (Doctor) - On: 07-Feb-2018 14:30 [facility] Beatrice PADILLA, Dede Crouch MD Planned Procedures Flu Vaccine (Quadrivalent) On: 07-Jan-2018 Intent 70010Fm: VIKAS Martin Comments: Lot #:[id number] date: 8-98-87Oozoip given:0.5mlRoute: IMSite given:L DltdGiven by: Sherri and ISAIAS signed Fluarix Flu Vaccine (Quadrivalent) On: 25-Jan-2017 Intent 66711Wm: Dede Galan MD Comments: Lot #:[id number] date:09/27/2017Amount given:0.5mlRoute: IMSite given:L DltdGiven by: Sherri and ISAIAS signed Fluarix Dede Galan MD ELECTROCARDIOGRAM, COMPLETE On: 03-Aug-2016 Intent (ECG) (41041)By: Beatrice PADILLA, Comments: see scanned document of test done to see results reviewed today with patient Dede Crouch MD Flu Vaccine (Quadrivalent) On: 04-Feb-2016 Intent 58720Vm: Dede Galan MD Comments: Lot:[id number]:10/09/16Dose:0.5mLRoute:IMSite:L DltdGiven By:asVIS signed Dede Galan MD Radiology - Foot - LeftBy: On: 13-Jan-2016 Intent Dede Galan MD, MD, Comments: if does not continue to get better. Dede Rothman TDAP VACCINE >7 IM (31733)By: On: 13-Dec-2015 Intent Dede Galan MD, MD, Comments: Lot:[id number]:05/03/18Dose:0.5mlRoute:imSite:l armGiven By:Magdalena signed Dede Rothman [place] VACC[place] (07980)By: On: 23-Apr-2015 Intent Vinny Wu Comments: shingleslot:[id number]:02/16/16ite:lt subqroute:TAMIKO Torres [place]ACC, [place] (97310)By: On: 23-Apr-2015 Intent Dede Galan MD, MD, Dana M Flu Vaccine (Quadrivalent) On: 22-Jan-2015 Intent 65948Wh: Dede Galan MD Comments: Lot:[id number]:10/10/15Dose:0.5mLRoute:IMSite:L DltdGiven By:LUZ MARINA signed Dede Galan MD IMMUNIZ ADMNIN, 1 VAC, On: 29-Jan-2014 Intent SNGL/COMBO (29243)By: Mio, Nurse FLU VAC, SPLIT, >3 YEARS, On: 29-Jan-2014 Intent INTRAMUSC (18454)By: Beatrice PADILLA, Comments: Lot:[id number]:10/09/14Dose:0.5mLRoute:IMSite:L DltdGiven By:LUZ MARINA signed Dede Crouch MD Ultrasound - ThyroidBy: Beatrice On: 25-Apr-2013 Intent Dede PADILLA MD, Dana M Eprescribed prescriptions On: 25-Apr-2013 Intent (G8553)By: Tamiko Shaffer LPN Eprescribed prescriptions On: 28-Mar-2013 Intent (G8553)By: Valencia Pérez Eprescribed prescriptions On: 01-Nov-2012 Intent (G8553)By: Tamiko Shaffer LPN Aerosol Treatment (64303)By: On: 11-Jul-2012 Intent Beverley Reveles CNP Aerosol Treatment (70718)By: On: 22-Jun-2012 Intent Beverley Reveles CNP Pulse Oximetry (33098)By: On: 07-Apr-2012 Intent VIKAS Martin FLU VAC, SPLIT, >3 YEARS, On: 05-Feb-2012 Intent INTRAMUSC (31085)By: Moisés, Comments: Lot:[id number]:10.09.12Dose:prefilledRoute:IMSite:L DltdGiven By:LUZ MARINA signed Codie MCCALL ADMNIN, 1 VAC, On: 05-Feb-2012 Intent SNGL/COMBO (56032)By: Codie Curiel Bio Z (15457)By: Beatrice PADILLA, On: 24-Nov-2010 Intent Dede Crouch MD EKG (78437)By: Dede Galan MD On: 24-Nov-2010 Intent Dede Lyn MD Solu -Medrol Injection, 125 mg On: 27-Sep-2009 Intent (J2930)By: Mihaela Prabhakar DO Comments: Lot #[id number]-1/1/12Site-right hipDose- 125 mggiven by:[facility] EKG (61242)By: Dede Galan MD On: 09-Jul-2009 Intent Dede Lyn MD DXA, BONE DENSITY, AXIAL On: 09-Jul-2009 Intent SKELETON (89178)By: Dede Galan MD, MD, Dana M EKG (95892)By: Kimberly Beebe On: 07-Feb-2008 Intent Comments: done-aw Bio Z (88093)By: Kimberly Beebe On: 07-Feb-2008 Intent Comments: done-aw ELECTROCARDIOGRAM, COMPLETE On: 20-Jul-2006 Intent (ECG) (97214)By: Dede Galan MD, MD, Dana M Bio Z (63814)By: Beatrice PADILLA, On: 20-Jul-2006 Intent Dede Crouch [...] for Tdap vaccination (Renamed from Need for nhokmmjppp-rgxdfgc-rxyqhyjii (Tdap) vaccine, adult/adolescent), Retinal cyst of right [...] 14:22 [facility] End: 19-May-2006 14:24 [facility]; freddie guarantor
--- OUTSIDE RECORDS SUMMARY | 2018-05-11 05:23 | XMS RPT_ITS ---
:1955 Author Organization OHIP Care Team Providers Name Role Phone Dede Galan Attending Unavailable Bonezzi, Dede Referring Unavailable Bonezzi, Dede Primary Care Unavailable Bonezzi, Dede Attending Unavailable Bonezzi, Dede Referring Unavailable Bonezzi, Dede Primary Care Unavailable Bonezzi, Dede Attending Unavailable Bonezzi, Dede Referring Unavailable Bonezzi, Dede Primary Care Unavailable Bonezzi, Dede Attending Unavailable Bonezzi, Dede Referring Unavailable Bonezzi, Dede Primary Care Unavailable Bonezzi, Dede Primary Care Unavailable JaLeoncio mckeon Attending Unavailable Brittaney, Leoncio Referring Unavailable PROBLEMS PROBLEMS DATE TYPE CONDITION / CODE ATTENDING STATUS SOURCE 08/10/2017 Unknown G40.909 - Bonezzi, Dede Active [place] Epilepsy, Community unspecified, not Hospital intractable, Repository without status epilepticus / G40.909(ICD-10) 05/17/2017 Unknown E55.9 - Vitamin D Bonezzi, Dede Active [place] deficiency, Community unspecified / Hospital E55.9(ICD-10) Repository 05/17/2017 Unknown Z12.5 - Encounter Bonezzi, Dede Active [place] for screening for Community malignant Hospital neoplasm of Repository prostate / Z12.5(ICD-10) 05/17/2017 Unknown E78.5 - Dede Galan Active [place] Hyperlipidemia, Community unspecified / Hospital E78.5(ICD-10) Repository PROCEDURES PROCEDURES No Procedure Records FoundRESULTS RESULTS PHENYTOIN (DILANTIN) Collected: 03/25/2018 Status: F Source: KEVIN LEVEL 12:42 PM [facility] REPOSITORY Order Comment: PATIENT HASNT TAKEN MEDICATION TODAY Time Medication is to be Given? 0000 TYPE CODE TESTS RESULT OUT OF RANGE REFERENCE UNITS LAB L501.7700 10.0-20.0 mL Normal PHENYTOIN 17.9 Performed By: #### L501.7700 #### [facility] [address] [place], [address] ABD INC DECUB Observed: 03/02/2018 Status: F Source: KEVIN AND/OR ERECT 12:42 PM [facility] REPOSITORY [facility] Imaging Services [address] [place] [address] Abd Inc Decub and/or Erect MR#: [id number] Acct: [id number] Name: EMMETT STEVENS Rep #: [id number] : 1955 62 From: Jaun Vasques MD PCP: Dede Galan MD Status: REG CLI Study: Abd Inc Decub and/or Erect Date of Exam: 03/02/18 Exam# [id number] Ordering Dr: Leoncio Quispe MD STUDY: X-RAY - ABDOMEN/PELVIS REASON FOR EXAM: Male, 62 years old. Constipation for one month TECHNIQUE: AP supine and upright views of the abdomen and pelvis. COMPARISON: None. FINDINGS: Normal visualized lung bases. There is an unremarkable bowel gas pattern. There is no demonstrated free abdominal air. The visualized liver, spleen and kidneys are grossly normal in size and morphology. Normal soft tissue structures. There are diffuse degenerative changes of the visualized lumbar spine. Levoscoliosis of the thoracolumbar spine. There is a bony protuberance of the left iliac crest. RAD/Abd Inc Decub and/or Erect IMPRESSION: 1. Nonobstructive bowel gas pattern. No significant fecal retention seen. 2. Left iliac crest osteochondroma. Electronically Signed: Jaun Vasques MD at 7:36 EST , Service support , CC: Dede Galan MD; Leoncio Quispe Florist Designer: Signed PHENYTOIN (DILANTIN) Collected: 07/12/2017 Status: F Source: [place]ET[place] LEVEL 12:15 PM [facility] REPOSITORY Order Comment: Time Medication is to be Given? 1230 TYPE CODE TESTS RESULT OUT OF RANGE REFERENCE UNITS LAB L501.7700 10.0-20.0 mL Normal PHENYTOIN 18.3 Performed By: #### L501.7700 #### [facility] Laboratory [facility] [place], [address] COMPREHENSIVE METABOLIC Collected: 05/17/2017 Status: F Source: KEVIN PROFIL 10:07 AM [facility] REPOSITORY TYPE CODE TESTS RESULT OUT OF RANGE REFERENCE UNITS LAB L501.0100 74-106 mg/dL Normal GLU 90 LAB L501.1000 7-18 mg/dL Normal BUN 11 LAB L501.1100 0.70-1.30 mg/dL Normal 0.93 CREAT,SERUM Result Comment: The validity of the calculated GFR AND GFRAA in patients over 70 years has not been determined. Clinical correlation is essential. LAB L501.1110 >60 mL/min Normal EST GFR 88 Result Comment: Non- GFR Calc LAB L501.1115 >60 mL/min Normal EST GFR - AA 106 Result Comment: GFR Calc LAB L501.1300 10-20 RATIO Normal BUN/CRE 11.9 LAB L501.1500 6.4-8.2 g/dL T Normal PROT 7.2 LAB L501.1800 3.2-5.0 g/dL Normal ALB 3.5 LAB L501.1950 2.2-4.2 g/dL Normal GLOB 3.7 LAB L501.2000 0.9-2.4 RATIO Normal A/G 0.9 LAB L501.2200 8.5-10.1 mg/dL Low CA 8.2 LAB L501.4100 15-37 U/L Normal AST 27 LAB L501.4305 45-117 U/L Normal ALK P 83 LAB L501.4405 16-61 U/L Normal ALT 35 Result Comment: Please note revised ALT reference range effective 2017. LAB L501.4600 0.20-1.00 mg/dL Normal T BILI 0.20 LAB L501.5300 136-145 mmol/L Normal NA 141 LAB L501.5600 3.5-5.1 mmol/L Normal K 4.0 LAB L501.5900 98-107 mmol/L Normal CL 106 LAB L501.6100 21.0-32.0 mmol/L Normal CO2 30.0 LAB L501.6200 5-15 Normal GAP 5 Performed By: #### L500.4050, L501.9910 #### [facility] [address] [place], [address] PSA,TOTAL - ANNUAL Collected: 05/17/2017 Status: F Source: KEVIN SCREEN 10:07 AM [facility] REPOSITORY TYPE CODE TESTS RESULT OUT OF RANGE REFERENCE UNITS LAB L501.9910 0.00-4.00 ng/mL Normal PSA,TOT 1.71 SCREEN Result Comment: This test was performed using the TPSA assay method for the [employer] chemistry system. Values obtained with different assay methods cannot be used interchangably. When changing PSA assays in the course of monitoring a patient, additional sequential testing should be carried out to confirm baseline values. Performed By: #### L500.4050, L501.9910 #### [facility] [address] [place], [place], [address] VITAMIN D,25 HYDROXY Collected: 05/17/2017 Status: F Source: KEVIN 10:07 AM [facility] REPOSITORY TYPE CODE TESTS RESULT OUT OF RANGE REFERENCE UNITS LAB L506.1000 19.95-100.01 ng/mL Normal Vitamin D 51.3 25-OH Result Comment: Vitamin D 25(OH) Status Range Deficiency <20 ng/mL (50nmol/L) Insuffciency 20 - 30 ng/mL (50 - 75 nmol/L) Sufficiency 30 - 100 ng/mL (75 - 250 nmol/L) Toxicity >100 ng/mL (>250 nmol/L) Performed By: #### L506.1000 #### [facility] [address] [place], [place], [address] PHENYTOIN (DILANTIN) Collected: 05/17/2017 Status: F Source: MAYETTA LEVEL 10:07 AM [facility] REPOSITORY Order Comment: Time Medication is to be Given? 0000 TYPE CODE TESTS RESULT OUT OF REFERENCE UNITS RANGE LAB L501.7700 10.0-20.0 mL High alert PHENYTOIN 25.6 Result Comment: Critical Result(s) Called to Tamiko at [facility] Internal Medicine at: 11:57:19 05/17/2017 by: FAIZA PINZON AND XA AND @left message on [employer] to call back for result AND XA AND @at 11:17 Performed By: #### L501.7700 #### [facility] [address] [place], [place], [address] HEPATITIS C ANTIBODIES Collected: 05/17/2017 Status: F Source: MAYETTA 10:07 AM [facility] REPOSITORY TYPE CODE TESTS RESULT OUT OF RANGE REFERENCE UNITS LAB L3100.0650 0.0-0.9 s/co ratio Normal HEP C AB 0.1 Result Comment: Negative: < 0.8 Indeterminate: 0.8 - 0.9 Positive: > 0.9 The CDC recommends that a positive HCV antibody result be followed up with a HCV Nucleic Acid Amplification test (897205). Performed at: - [facility] [address] [id number] Cat Sitter: Leoncio Martinez PhD, Phone: [phone] Performed By: #### L3100.0625 #### [facility] (refer to report for specific site) refer to report for address and phone number NMR LIPOPROFILE Collected: 05/17/2017 Status: F Source: [place]ET[place] 10:07 AM [facility] REPOSITORY TYPE CODE TESTS RESULT OUT OF RANGE REFERENCE UNITS LAB L3500.0250 LIPIDS Normal . LAB L3500.0300 100-199 mg/dL CHOLESTEROL Normal TOT 174 LAB L3500.0350 0-99 mg/dL High LDL-C 109 Result Comment: Optimal < 100 Above optimal 100 - 129 Borderline 130 - 159 High 160 - 189 Very high > 189 LDL-C is inaccurate if patient is non-fasting. LAB L3500.0400 >39 mg/dL HDL-C Normal 51 LAB L3500.0450 0-149 mg/dL TRIGLYCERIDES Normal 69 LAB L3500.0560 <1000 nmol/L High LDL-P 1291 Result Comment: Low < 1000 Moderate 1000 - 1299 Borderline-High 1300 - 1599 High 1600 - 2000 Very High > 2000 LAB L3500.0575 Normal LD HD PARTICLES . LAB L3500.0580 >=30.5 umol/L Normal HDL-P TOTAL 32.9 LAB L3500.0585 <=527 nmol/L Normal SMALL LDL-P 423 LAB L3500.0590 >20.5 nm Normal LDL SIZE 21.3 Result Comment: INTERPRETATIVE INFORMATION PARTICLE CONCENTRATION AND SIZE <--Lower CVD Risk Higher CVD Risk--> LDL AND HDL PARTICLES Percentile in Reference Population HDL-P (total) High 75th 50th 25th Low >34.9 34.9 30.5 26.7 <26.7 Small LDL-P Low 25th 50th 75th High <117 117 527 839 >839 LDL Size <-Large (Pattern A)-> <-Small (Pattern B)-> 23.0 20.6 20.5 19.0 Small LDL-P and LDL Size are associated with CVD risk, but not after LDL-P is taken into account. These assays were developed and their performance characteristics determined by [employer]. These assays have not been cleared by the [place] Food and Drug Administration. The clinical utility of these laboratory values have not been fully established. LAB L3500.0595 Normal INS RES/DIAB RK . LAB L3500.0875 <=45 Normal LP-IR SCORE 44 Result Comment: INSULIN RESISTANCE MARKER <--Insulin Sensitive Insulin Resistant--> Percentile in Reference Population Insulin Resistance Score LP-IR Score Low 25th 50th 75th High <27 27 45 63 >63 LP-IR Score is inaccurate if patient is non-fasting. The LP-IR score is a laboratory developed index that has been associated with insulin resistance and diabetes risk and should be used as one component of a physician's clinical assessment. The LP-IR score listed above has not been cleared by the [place] Food and Drug Administration. Performed at: - [facility] [address] [id number] Cat Sitter: Deangelo Miller MD, Phone: [phone] Performed By: #### L3500.0000 #### [facility] (refer to report for specific site) refer to report for address and phone number ALLERGIES ALLERGIES DATE TYPE / CODE NAME / CODE REACTION SEVERITY SOURCE 05/21/2014 Drug No Known Unknown [place] [facility] Allergy/4160 Allergies/F00 Hospital [address](SNOMED [id number](RXNOR Repository CT) M) ENCOUNTERS ENCOUNTERS ADMIT/DISCHARGE ACCOUNT ADMITTING ENCOUNTER LOCATION SOURCE NUMBER CLASS 03/25/2018 [id number] Ambulatory [place] Kevin 5 [facility] ing:LAB Repository 03/02/2018 [id number] Ambulatory [place] 0 [facility] ing:MTRAD Repository 08/10/2017 [id number] Ambulatory Kevin [place] 3 [facility] ing:LAB Repository 07/12/2017/ [id number] Ambulatory [place] Kevin 8 8 [facility] ing:LAB Repository 05/17/2017 [id number] Ambulatory [place] Kevin 8 [facility] ing:LAB Repository PAYERS PAYERS ENCOUNTER GUARANTOR PAYER SUBSCRIBER SOURCE 03/25/2018 EMMETT NICHOLAS Primary EMMETT GIRALDO [facility] Insurance:MEDICAL SNYDERDOB: [facility] [id number] Hospital [address]Zjt: [phone]) Number: Repository [phone] () [id number] Date:0008-99-77IH [address] [place] [address]WP: 03/25/2018 Secondary NOT GIVENUNK [place] Insurance:SELF PAY [facility] Number: Effective Repository Date:2018-03-25 03/02/2018 Emmett R [id number] [place]:MEDICAL SnyderDOB: [facility] [id number] Hospital [address]Rkp: [phone] Number: Repository [phone] () [id number] Date:0142-71-87MS [address] [address]KC: 03/02/2018 Secondary NOT GIVENUNK [place] Insurance:SELF PAY [facility] Number: Effective Repository Date:2018-03-02 08/10/2017 Emmett R [id number] Primary [place] R [place]:MEDICAL SnyderDOB: [facility] [id number] [address]Tel: [phone]) Number: Repository [phone] () [id number] Date:[id number] [address] [address]IX: 08/10/2017 Secondary NOT GIVENUNK [place] Insurance:SELF PAY [facility] Number: Effective Repository Date:2017-08-10 07/12/2017 Emmett R [id number] Primary [place] R [place]:MEDICAL SnyderDOB: [facility] [id number] Hospital [address]Wkt: [phone]) Number: Repository [phone] () [id number] Date:1263-48-09NI [address] [address]TC: 07/12/2017 Secondary NOT GIVENUNK [place] Insurance:SELF PAY [facility] Number: Effective Repository Date:2017-07-12 05/17/2017 Emmett R [id number] Primary [place] R [place]:MEDICAL SnyderDOB: [facility] [id number] Hospital [address]Usc: [phone]) Number: Repository [phone] HP) [id number] Date:3171-16-78[address], [place] [address]CM: 05/17/2017 Secondary NOT GIVENUNK [place] Insurance:SELF PAY [facility] Number: Effective Repository Date:2017-05-17
--- OUTSIDE RECORDS SUMMARY | 2018-05-11 05:23 | XMS RPT_ITS | Continuity of Care Document ---
:1955 Author Organization [facility] Address [facility] [address] Phone Care Team Providers Name Role Phone [...] improvement off jose. add saw palmetto help some. up at [facility] 1-2 times Status: Active Bilateral hearing loss, unspecified hearing [...] exam with abnormal findings (Z00.01, V70.0) Comments: 02-07-18 [facility]am, colonoscopy 2014, PSA 2-18,PHQ-9=2 [...] Status: Active Hyperlipidemia, mild (E78.5, 272.4) Comments: reveiwed with patient recent tests stable will do BV screening Status: Active Hypoglycemia (E16.2, 251.2) Comments: talkabout [...] Active Obesity (BMI 30.0-34.9) (E66.9, 278.00) Comments: talk about exercise and diet needs to decrease portions. Status: Active Obstructive sleep apnea, adult (G47.33, 327.23) Status: Active Psoriasis (L40.9, 696.1) Comments: Dr. caballero. arms break out ? blanket. had. 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 ramires shoudl go away Status: Active Screening for prostate cancer (Z12.5, V76.44) Status: Active Sinusitis, chronic (J32.9, 473.9) Comments: [...] days Quantity: 360 {Capsule} Refills: 3 Ordered:02-Jul-2017 Beatrice PADILLA, Dede Ying MD Start : 02-Jul-2017 Active Dilantin Infatabs 50 MG Oral Tablet Chewable 1 (one) Tablet Chewable qd for 0 days Quantity: 90 {Tablet} Refills: 3 Ordered:23-Sep-2017 Dede Galan MD, MD, Dana M Start : 23-Sep-2017 Active Drisdol 24772 UNIT Oral Capsule 1 Capsule three times [...] days Quantity: 30 {Tablet} Refills: 0 Ordered:13-Aug-2015 Bebekarinafreddie KAPADIABeverley Start : 13-Aug-2015 Active Mysoline 250 MG [...] Quantity: 1 {Aerosol_Soln} Refills: 0 Ordered:22-Jun-2012 Long Tamiko SANDERS L Start : 22-Jun-2012 Active Singulair 10 MG Oral Tablet 1 Tablet QD for 0 days Quantity: 90 {Tablet} Refills: 3 Ordered:01-Feb-2018 Dede Galan MD, MD, Dana M Start : 01-Feb-2018 Active Comments:ok for generic ANTIVERT, 12.5MG (Oral Tablet) 1 Tablet q6hrs prn for dizziness for 0 days Quantity: 30 {Tablet} Refills: 0 Ordered:25-May-2011 VIKAS aMrtin Start : 04-Feb-2011 End : 25-May-2011 Inactive Augmentin 875-125 MG Oral Tablet 1 Tablet Tablet bid for 0 days Quantity: 20 {Tablet} Refills: 0 Ordered:13-Dec-2015 VIKAS Martin Start : 24-Apr-2014 End : 13-Dec-2015 Inactive BIAXIN, 500MG (Oral Tablet) 1 Tablet bid for 10 days Quantity: 20 {Tablet} Refills: 0 Ordered:22-Jun-2012 Anushka KAPADIA Beverley Jones Start : 22-Jun-2012 End : 02-Jul-2012 Inactive [...] Quantity: 7 {Tablet} Refills: 0 Ordered:13-Aug-2015 Anushka KAPADIABeverley Start : 13-Aug-2015 End : 20-Aug-2015 Inactive [...] days Quantity: 90 {Tablet} Refills: 3 Ordered:27-Jun-2010 uSrjit SANDERS Kennedi Start : 27-Jun-2010 End : 04-Feb-2011 Discontinued [...] days Quantity: 12 {Tablet} Refills: 0 Ordered:27-Dec-2013 Surjit SANDERS Kennedi Start : 11-Jul-2012 End : 27-Dec-2013 Discontinued [...] for Tdap vaccination (Renamed from Need for tfeuhoxiaj-jvchaee-rhriyfxig (Tdap) vaccine, adult/adolescent) (Z23, V06.1) Status: Inactive as of 02-Jun-2016 Need for zoster vaccination (Z23, V04.89) Status: Inactive as of 13-Dec-2015 Nervous (R45.0, 799.21) Comments: okay better on lower caffiene. lower amount working Status: Resolved as of 15-Sep-2016 Poison louisa (L23.7, 692.6) Status: Inactive as of 07-Jan-2010 Prediabetes (R73.03, 790.29) Comments: 10 5.6% Status: Resolved as of 15-Mar-2017 Stomach cramps, [...] Operative Report Result: Comments: See Note; NOTES: [facility] Medical Records Department [address] [place] [address] Operative Report MR#: [id number] Acct: [id number] Name: JOSE MANUEL STEVENS Rep #: [id number] : 1955 58 From: Leoncio Quispe MD PCP: Dede Galan MD Status: REG CLI DATE OF SERVICE: PROCEDURE PERFORMED: Colonoscopy to the cecum. PREOPERATIVE DIAGNOSIS: The [facility] ent for screening colonoscopy. POSTOPERATIVE DIAGNOSES: Normal-looking [...] C: Dede Galan MD T: NTS JOB: [id number] 05/30/14 1244 <Electronically signed by Leoncio Quispe MD> Date Leoncio durán MD CC: Dede Galan MD; Leoncio Quispe Date Dictated: 05/24/14832 Date Transcribed: 05/24/14832 City Planner: Signed 19-Apr-2014 Thyroid Result: Comments: See Note; NOTES: [facility] Imaging Services [address] [place] [address] Ultrasound Report MR#: [id number] Acct: [id number] Name: JOSE MANUEL STEVENS Rep #: [id number] : 1955 58 From: Carlos Enrique Collado PCP: Dede Galan MD Status: REG CLI Study: Thyroid Date of Exam: 04/19/14 Exam# [id number] Ordering Dr: Dede Galan MD STUDY: THYROID [...] MD at 6:30 EST , Service support [phone], CC: Dede Galan MD City Planner: Signed 19-Apr-2014 Thyroid Result: Comments: See Note; NOTES: [facility] Imaging Services [address] [place] [address] Ultrasound Report MR#: [id number] Acct: [id number] Name: JOSE MANUEL STEVENS Rep #: [id number] : 1955 58 From: Carlos Enrique Collado PCP: Dede Galan MD Status: REG CLI Study: Thyroid Date of Exam: 04/19/14 Exam# [id number] Ordering Dr: Dede Galan MD STUDY: THYROID [...] MD at 6:30 EST , Service support [phone], CC: Dede Galan MD City Planner: Signed Family History Unknown Family Member [...] Work/Study Status: Retired. Comments: still working [employer] [facility] Status: Active Exercise History Comments: none Status: Active Living Situation Comments: Lives with spouse, anabaptism and important Status: Active No Drug Use Status: Active Non Drinker/No Alcohol Use Status: Active Non Smoker/No Tobacco Use Status: Active Tobacco use: Never smoker. Status: Active Smoking Status Name Dates Details Never smoker Vital Signs Date Test Result Details 70-Eur-936423:30 Temperature 97.9 f Comments: Method: Temporal Pulse 84 /min Comments: Pattern: Regular Respiration Rate 20 /min Comments: Pattern: Unlabored O2 SAT 97 % Comments: Room air BP Systolic 144 mm[Hg] Comments: Patient Position: Sitting; Cuff Location: Left Arm; Cuff Size: Standard BP Diastolic 86 mm[Hg] Comments: Patient Position: Sitting; Cuff Location: Left Arm; Cuff Size: Standard Weight 213 lb Height 64 in Body Mass Index Calculated 36.56 kg/m2 Body Surface Area Calculated 2.01 m2 :46 Temperature 97.9 f Comments: Method: Temporal Pulse [...] Results Date Description Value Details :30 URINALYSIS (87437) Comments: PATIENT NOT FASTINGPERFORMED BY: [facility]6370 [facility] [id number] Microscopic Examination MICNIP (Normal) Comments: Microscopic not indicated and not performed. Nitrite, Urine Negative (Normal) Urobilinogen,Semi-Qn 0.2 mg/dL (Normal) Range: 0.2-1.0 Bilirubin Negative (Normal) Occult Blood Negative (Normal) Ketones Negative (Normal) Glucose Negative (Normal) Protein Negative (Normal) WBC Esterase Negative (Normal) Appearance Clear (Normal) Urine-Color Yellow (Normal) pH 7.0 (Normal) Range: 5.0-7.5 Specific Sunman 1.014 (Normal) Range: 1.005-1.030 49-Bqb-358136:30 METABOLIC PANEL, COMPREHENSIVE Comments: PATIENT NOT FASTINGPERFORMED BY: [facility] Hfqjmg3140 [facility] [id number] (62632) ALT (SGPT) 20 [iU]/L (Normal) Range: 0-44 [...] 8-27 Glucose 98 mg/dL (Normal) Range: 65-99 47-Biu-409197:30 DRUG ASSAY-TOT PHENYTOIN Comments: PATIENT NOT FASTINGPERFORMED BY: [facility]6370 [facility] [id number] (80206) Phenytoin (Dilantin), Serum 14.7 ug/mL (Normal) Range: 10.0-20.0 Comments: Detection Limit = 0.8 <0.8 Indicates None Detected 05-Lea-875063:30 CBC W/AUTO DIFF WBC (78814) Comments: PATIENT NOT FASTINGPERFORMED BY: [facility]70 [facility] [id number] Immature Grans (Abs) 0.0 {x10E3/uL} (Normal) Range: [...] 4.14-5.80 WBC 5.2 {x10E3/uL} (Normal) Range: 3.4-10.8 8-Jhy-250455:15 Phenytoin (Dilantin) Level Comments: Time Medication is to be Given? 1230[facility] [address] [place], [place], [id number] PHENYTOIN 18.3 mL (Normal) Range: 10.0-20.0 0-Mod-366721:07 Comprehensive Metabolic Profil Comments: [facility] [address] [place], [place], [address] GAP 5 (Normal) Range: 5-15 CO2 30.0 mmol/L (Normal) Range: 21.0-32.0 CL 106 mmol/L (Normal) Range: 98-107 K 4.0 mmol/L (Normal) Range: 3.5-5.1 NA 141 mmol/L (Normal) Range: 136-145 T BILI 0.20 mg/dL (Normal) Range: 0.20-1.00 ALT 35 U/L (Normal) Range: 16-61 Comments: Please note revised ALT reference range ponniichf98/28/2018. ALK P 83 U/L (Normal) Range: 45-117 [...] 7-18 GLU 90 mg/dL (Normal) Range: 74-106 9-Izi-096142:07 Hepatitis C Antibodies Comments: [facility] (refer to report for specific site)refer to report for address and phone number HEP C AB 0.1 {s/co_ratio} (Normal) Range: 0.0-0.9 Comments: Negative: < 0.8 Indeterminate: 0.8 - 0.9 Positive: > 0.9 The CDC recommends that a positive HCV antibody result be followed up with a HCV Nucleic Acid Amplification test (156953).Performed at: [facility] [id number] Director: Leoncio Martinez PhD, Phone: [phone] 5-Jsv-680672:07 NMR Lipoprofile Comments: [facility] (refer to report for specific site)refer to [...] the [place] Food and Drug Administration.Performed at: [facility] Recorded [address] [id number] Director: Deangelo Miller MD, Phone: [phone] INS RES/DIAB RK . (Normal) LDL SIZE [...] mg/dL (Normal) Range: 100-199 LIPIDS . (Normal) 2-Vtz-747855:07 Phenytoin (Dilantin) Level Comments: Time Medication is to be Given? [facility] [address] [place], [address] PHENYTOIN 25.6 mL (Abnormal) Range: 10.0-20.0 Comments: Critical Result(s) Called to Tamiko at [facility] at: 11:57:19 05/17/2017 by: MISSAEL AND @left message on voicemail to call back Wero AND @at 11:17 3-Fui-380416:07 PSA,Total - Annual Screen Comments: [facility] [address] [place], [id number] PSA,TOT SCREEN 1.71 ng/mL (Normal) Range: 0.00-4.00 Comments: This test was performed using the TPSA assay method for [employer] chemistry system. Values obtained with differentassay methods cannot be used interchangably.When changing PSA assays in the course of monitoring apatient, additional sequential testing should be carriedout to confirm baseline values. 1-Jfn-699728:07 Vitamin D,25 Hydroxy Comments: [facility] [address] [place], [id number] Vitamin D 25-OH 51.3 ng/mL (Normal) Range: 19.95-100.01 Comments: Vitamin D 25(OH) Status Range Deficiency <20 ng/mL (50nmol/L) Insuffciency 20 - 30 ng/mL (50 - 75 nmol/L) Sufficiency 30 - 100 ng/mL (75 - 250 nmol/L) Toxicity >100 ng/mL (>250 nmol/L) 2-Otc-218399:34 CBC With Differential/Platelet Comments: PATIENT NOT FASTINGPERFORMED BY: [facility] Rxmlvd6008 [facility] [id number] BY: BN [facility] [address] [id number] Information: client draw Immature Grans (Abs) 0.0 [...] 4.14-5.80 WBC 4.9 {x10E3/uL} (Normal) Range: 3.4-10.8 8-Wup-272030:34 Comp. Metabolic Panel Comments: PATIENT NOT FASTINGPERFORMED BY: [facility] Bzbapa3084 [facility] [id number] BY: BN [facility] [address] [id number] (14) ALT (SGPT) 18 [iU]/L (Normal) Range: [...] Microscopic Examination Comments: PATIENT NOT FASTINGPERFORMED BY: [employer] [facility] [id number] BY: [facility] [id number] Bacteria None seen (Normal) Mucus Threads Present (Normal) Epithelial Cells (non None seen {/hpf} Range: 0 - 10 renal) (Normal) RBC 0-2 {/hpf} (Normal) Range: 0 - 2 WBC 0-5 {/hpf} (Normal) Range: 0 - 5 Phenobarbital, Serum 29 ug/mL (Normal) Comments: PATIENT NOT FASTINGPERFORMED BY: [employer] Fgkpgb3506 [facility] [id number] BY: Recorded [employer] [id number] :34 Range: 15-40 Comments: Detection Limit = 3 Phenytoin (Dilantin), 21.1 ug/mL Comments: PATIENT NOT FASTINGPERFORMED BY: [employer] [id number] Information: client draw :34 Serum (Abnormal) Range: 10.0-20.0 Comments: Detection Limit = 0.8 <0.8 Indicates None DetectedPatient drug level exceeds published reference range. Evaluateclinically for signs of potential toxicity. Phenytoin, Free, Serum 1.4 ug/mL (Normal) Comments: PATIENT NOT FASTINGPERFORMED BY: [place] [id number] [facility] [id number] BY: [address] [id number] :34 Range: 1.0-2.0 Comments: Detection Limit = 0.5 :34 Urinalysis, Complete Comments: PATIENT NOT FASTINGPERFORMED BY: [place] 9796270 [facility] [id number] BY: [address] [id number] Microscopic Examination See below: Comments: Microscopic was indicated and was performed. (Normal) Microscopic Examination MICRON (Normal) Comments: Microscopic follows if indicated. Nitrite, Urine Negative (Normal) Urobilinogen,Semi-Qn 0.2 mg/dL (Normal) Range: 0.2-1.0 Bilirubin Negative (Normal) Occult Blood Negative (Normal) Ketones Negative (Normal) Glucose Negative (Normal) Protein Negative (Normal) WBC Esterase Negative (Normal) Appearance Clear (Normal) Urine-Color Yellow (Normal) pH 7.0 (Normal) Range: 5.0-7.5 Specific Sunman 1.013 (Normal) Range: 1.005-1.030 Written Authorization WAR (Normal) Comments: PATIENT NOT FASTINGPERFORMED BY: [facility]6370 [facility] [id number] :34 Comments: Written Authorization Received.Authorization received from VIKAS MARTIN 25-03-9203Hmbypr by Cinthya Armenta :50 Blood Glucose , Office (72866) Blood Glucose , Office 106 (Normal) :40 HgA1C , Office (01026) HgA1C , Office 5.3 % (Normal) Range: 4.6 - 7.1 56-Lwc-491538:45 Amylase Comments: [facility] [address] [place], [place], [address] KIMBERLY 98 U/L (Normal) Range: 25-115 97-Bzn-646805:45 CBC-Complete Blood Cnt No Diff Comments: [facility] Nklhgkjxzj5654 [facility] [address] [place], [place], [address] MPV 8.7 fL (Normal) Range: 6.2-12.0 PLT [...] 4.6-6.2 WBC 7.1 K/mm3 (Normal) Range: 4.4-11.0 96-Oik-770165:45 Comprehensive Metabolic Profil Comments: [facility] Uyuswsjumu1517 [facility] [address] [place], [place], [address] GAP 6 (Normal) Range: 5-15 CO2 31.0 [...] 7-18 GLU 62 mg/dL (Abnormal) Range: 70-110 27-Xgr-449682:45 EBV Acute Prof IgG / IgM Comments: [facility] (refer to report for specific site)refer to report for address and phone number INTERPRETATION Comment (Normal) Comments: EBV Interpretation ChartInterpretation EBV-IgM EA(D)-IgG VCA-IgG EBNA-IgGEBV Seronegative - - - -Early Phase + - - -Acute Primary + +or- + -InfectionConvalescence/Past - +or- + +InfectionReactivated +or- + + +Infection + Antibody Present - Antibody Ab sentPerformed at: [facility] [id number] Director: Leoncio Martinez PhD, Phone: [phone] EB-NAg [id number] 283.0 U/mL (Abnormal) Range: 0.0-17.9 Comments: Negative <18.0 Equivocal 18.0 - 21.9 Positive >21.9 EB-VCA [id number] 188.0 U/mL (Abnormal) Range: 0.0-17.9 Comments: Negative <18.0 Equivocal 18.0 - 21.9 Positive >21.9 EB-EA IgG 00819 84.5 U/mL (Abnormal) Range: 0.0-8.9 Comments: Hepatitis A, Hepatitis C and HIV antibodies may cross-reactwith this assay. Negative < 9.0 Equivocal 9.0 - 10.9 Positive >10.9 EB-VCA [id number] < 36.0 U/mL (Normal) Range: 0.0-35.9 Comments: Negative <36.0 Equivocal 36.0 - 43.9 Positive >43.9 20-Wis-871505:45 Phenytoin (Dilantin) Level Comments: Time Medication is to be Given? [address] [place] [address] [address] [place], [address] PHENYTOIN 20.1 mL (Abnormal) Range: 10.0-20.0 Comments: Critical Result(s) Called at: 19:27:37 08/03/2016 by:Ana CULP 64-Toe-563492:45 T4 Free Direct Comments: [facility] [address] [place], [place], [address] T4 FREE DIRECT 0.75 ng/dL (Abnormal) Range: 0.76-1.46 33-Zit-918542:45 Thyroid Stim Hormone (TSH) Comments: [facility] [address] [place], [address] TSH 1.86 {uIU/mL} (Normal) Range: 0.358-3.74 89-Qga-693388:10 Urinalysis, Office (22700) UA - LEUKOCYTE ESTERASE Negative (Normal) UA - NITRITE Negative (Normal) URINE UROBILINGN LANE TIMED Normal mg/dL (Normal) UA - PROTEIN Negative mg/dL (Normal) UA - PH 7 (Normal) UA - BLOOD Negative (Normal) UA - SPECIFIC GRAVITY 1.010 (Normal) UA - KETONES Negative mg/dL (Normal) UA - BILIRUBIN Negative (Normal) UA - GLUCOSE Negative (Normal) 69-Idb-618271:22 Phenobarbital Comments: Time Medication is to be Given? [address] [place] [address] [place], [place], [address] PHENOBARB 26.8 ug/mL (Normal) Range: 10.0-40.0 53-Yjx-994368:22 Phenytoin (Dilantin) Level Comments: Time Medication is to be Given? [address] [place] [address] [place], [place], [address] ; fu 3-31 PHENYTOIN 16.0 mL (Normal) Range: 10.0-20.0 69-Gov-396880:23 Free T3 Comments: [facility] [address] [place], [address] FREE T3 2.7 pg/mL (Normal) Range: 2.18-3.98 :23 Methylmalonic Acid Bld Comments: [facility] (refer to report for specific site)refer to report for address and phone number METHYLM [phone] nmol/L (Normal) Range: 0-378 Comments: Performed at: [address] [id number] Director: Deangelo Miller MD, Phone: [phone] :23 NMR Lipoprofile Comments: [facility] (refer to report [...] mg/dL (Normal) Range: 100-199 LIPIDS . (Normal) 30-Csm-654146:23 Phenobarbital Comments: Time Medication is to be Given? 0000[facility] Nexykovmes2847 [facility] [address] [place], [place], [address] PHENOBARB 26.6 ug/mL (Normal) Range: 10.0-40.0 18-Xjt-078493:23 Phenytoin (Dilantin) Level Comments: Time Medication is to be Given? 0000[facility] Kyrjprzrba5084 [facility] [address] [place], [place], [address] PHENYTOIN 18.9 mL (Normal) Range: 10.0-20.0 46-Ezj-710497:23 T4 Free Direct Comments: [facility] [address] [place], [place], [address] T4 FREE DIRECT 0.71 ng/dL (Abnormal) Range: 0.76-1.46 38-Czs-226077:23 Thyroid Stim Hormone (TSH) Comments: [facility] [address] [place], [place], [address] TSH 2.15 {uIU/mL} (Normal) Range: 0.358-3.74 48-Pfz-441299:23 Vitamin B12 761 pg/mL (Normal) Comments: [facility] [address] [place], [address] Range: 211-911 88-Vqk-824992:23 Vitamin D,25 Hydroxy Comments: [facility] [address] [place], [address] Vitamin D 25-OH 82.1 ng/mL (Normal) Comments: Vitamin D 25(OH) Status Range Deficiency <20 ng/mL (50nmol/L) Insuffciency 20 - 30 ng/mL (50 - 75 nmol/L) Sufficiency 30 - 100 ng/mL (75 - 250 nmol/L) Toxicity >100 ng/mL (>250 nmol/L) :27 Free T3 Comments: [facility] [address] [place] [place], [address] FREE T3 2.5 pg/mL (Normal) Range: 2.18-3.98 [...] genetic factors on Lp(a) across ethnicities.Performed at: [facility] [id number] Director: Leoncio Martinez PhD, Phone: [phone] 23-Pjx-590223:27 Methylmalonic Acid Bld Comments: [facility] (refer to report for specific site)refer to report for address and phone number METHYLM [phone] nmol/L (Normal) Range: 0-378 Comments: Performed at: - [facility] [id number] Director: Deangelo Miller MD, Phone: [phone] 62-Idq-498164:27 Phenobarbital Comments: Time Medication is to be Given? [address] [place] [address] [address] [place], [address] PHENOBARB 26.8 ug/mL (Normal) Range: 10.0-40.0 33-Yng-762178:27 Phenytoin (Dilantin) Level Comments: Time Medication is to be Given? [address] [place] [address] [address] [place], [address] PHENYTOIN 20.5 mL (Abnormal) Range: 10.0-20.0 Comments: Critical Result(s) Called at: 14:39:56 01/07/2016 by:Yola Birmingham at [facility] 70-Kuf-930881:27 T4 Free Direct Comments: [place] [address] [place], [id number] T4 FREE DIRECT 0.68 ng/dL (Abnormal) Range: 0.76-1.46 33-Aoi-961294:27 Vitamin B12 689 pg/mL (Normal) Comments: [place] [address] [place], [address] ; f/u on 01/12 Range: 211-911 85-Cxj-602296:27 Vitamin D,25 Hydroxy Comments: [place] [address]4761 [place], [address] Vitamin D 25-OH 135.4 [...] falsely elevatedvalues when tested with the [employer]ia Gnammoaur Vitamin D assay.With fluorescein interference, observed Vitamin D values canbe as high as >150 ng/mL (>375 nmol/L). Samples should beresubmitted post fluorescein clearance to ensure there is nointerference with Vitamin D test results. Phenytoin, Free, 1.9 ug/mL (Normal) Comments: PERFORMED BY: [facility] Kpjwbf6993 [facility] [id number] BY: [address] [id number] :12 Serum Range: 1.0-2.0 Comments: Detection Limit = 0.5 :12 PSA (Prostate Specific Comments: PERFORMED BY: [facility] [employer] Fwgvzk5167 [facility] [id number] BY: [address] [id number] Antigen), Screening (38467) Prostate Specific Ag, 1.7 ng/mL (Normal) Range: 0.0-4.0 Serum Comments: [email or web address] ECLIA methodology. .According to the [employer], Serum PSA shoulddecrease and remain at undetectable levels after radicalprostatectomy. The AUA defines biochemical recurrence as an initialPSA value 0.2 ng/mL or greater followed by a subsequent confirmatoryPSA value 0.2 ng/mL or greater.Values obtained with d ifferent assay methods or kits cannot be usedinterchangeably. Results cannot be interpreted as absolute evidenceof the presence or absence of malignant disease. 49-Goc-764656:00 Miscellaneous Lab Procedure Comments: NO VRO CHARGE REDRAWComments: [id number] PHENYTION FREE,RED,RTTest(s) Ordered: [id number] PHENYTION FREE,RED,RTWSal[facility] [address]orb[address], [place], [id number] [facility] Comments: TEST RESULT UNITS REFERENCE INTERVALPhenytoin, Free, Serum 1.9 ug/mL 1.0 - 2.0 Detection Limit = 0.5 LAB (Normal) TESTING PERFORMED AT [facility]. ORIGINAL REPORT ON FILE IN LAB CONTAINS ADDITIONAL TEST SITE INFORMATION. TEST 03-Ifq-613330:58 Lipid Profile Comments: [facility] [address] [place], [id number] VLDL 13 mg/dL (Normal) Range: 5-40 LDL [...] 200-240 mg/dL Borderline >240 mg/dL High Risk 04-Qiv-092030:58 Vitamin D,25 Hydroxy Comments: [facility] [address] [place], [address] Vitamin D 25-OH 40.4 ng/mL (Normal) Comments: Vitamin D 25(OH) Status Range Deficiency <20 ng/mL (50nmol/L) Insuffciency 20 - 30 ng/mL (50 - 75 nmol/L) Sufficiency 30 - 100 ng/mL (75 - 250 nmol/L) Toxicity >100 ng/mL (>250 nmol/L) 39-Hhf-102841:33 Lipid Panel With LDL/HDL Comments: PATIENT WAS FASTINGPERFORMED BY: CB [facility] Wfsrjf2900 [facility] [id number] BY: [facility] Jhlypwkerb7512 [facility] [id number] Ratio LDL/HDL Ratio 2.2 {ratio_units} Range: 0.0-3.6 [...] ug/mL (Normal) Comments: PATIENT WAS FASTINGPERFORMED BY: [facility]70 [facility] [id number] BY: [employer] [id number] 616:33 Range: 1.0-2.0 Comments: Detection Limit = 0.5 Vitamin D, 25-Hydroxy 62.9 ng/mL (Normal) Comments: PATIENT WAS FASTINGPERFORMED BY: [employer]6370 [facility] [id number] BY: [facility] [employer] [address] [id number] 616:33 Range: 30.0-100.0 Comments: Vitamin D deficiency has been defined by the [place] of[facility] and an Endocrine Society practice guideline as alevel of serum 25-OH vitamin D less than 20 ng/mL (1,2).The Endocrine Society went on to further define vitamin Dinsufficiency as a level between 21 and 29 ng/mL (2).1. IOM ([place] of Medicine). 2010. Dietary reference intakes for calcium and D. [place]: The National Academies Press.2. Belinda MF, Courtney NC, Jamar KAY, et al. Evaluation, treatment, and prevention of vitamin D deficiency: an Endocrine Society clinical practice guideline. JCEM. 2010; 96(7):1911-30. 82-Amv-065579:08 CBC W/Diff, Automated Comments: [facility] [address] [place], [address] ; [address] Absolute Lymph 1.50 {X10_3/ul} [...] 4.6-6.2 WBC 5.2 K/mm3 (Normal) Range: 4.4-11.0 33-Npx-461104:08 Comprehensive Metabolic Profil Comments: [facility] Bmwp[address]ts[address] [facility] [address]. [place], [place], [id number] GAP 7 (Normal) Range: 5-15 CO2 29.0 [...] 7-18 GLU 96 mg/dL (Normal) Range: 70-110 75-Sfi-773461:08 Dilantin, Free 1.2 ug/mL (Normal) Comments: [facility] (refer to report for specific site)refer to report for address and phone number Range: 1.0-2.0 Comments: Detection Limit = 0.5Performed at: [facility] [id number] Director: Deangelo Miller MD, Phone: [phone] 33-Kvr-490928:08 Phenobarbital Comments: [facility] [address] [place], [address] PHENOBARB 28.8 ug/mL (Normal) Range: 10.0-40.0 99-Kwf-821499:08 PSA,Total - Annual Screen Comments: [facility] [address] [place], [address] PSA,TOT SCREEN 1.71 ng/mL (Normal) Range: 0.00-4.00 Comments: This test was performed using the TPSA assay method for [employer] chemistry system. Values obtained with differentassay methods cannot be used interchangably.When changing PSA assays in the course of monitoring apatient, additional sequential testing should be carriedout to confirm baseline values. 61-Agw-606755:08 Thyroid Stim Hormone (TSH) Comments: [facility] [address] [place], [id number] TSH 3.48 {uIU/mL} (Normal) Range: 0.358-3.74 78-Wvx-580521:08 Vitamin D,25 Hydroxy Comments: [facility] [address] [place], [address] Vitamin D 25-OH > 150.0 ng/mL [...] is nointerference with Vitamin D test results. 86-Jzt-455904:16 CBC W/Diff, Automated Comments: Test performed at:[facility] [address] [place] [id number] ; has fu 10-23-14 will review then [...] 4.6-6.2 WBC 4.8 K/mm3 (Normal) Range: 4.4-11.0 86-Tly-457083:16 Comprehensive Metabolic Profil Comments: Test performed at:[facility] [address] [place] [address] GAP 8 (Normal) Range: 5-15 CO2 28.0 [...] Medication is to be Given? 0000Test performed at:[facility] [address]leg[address] [facility] [address] [place], [place] [id number] PHENOBARB 26.9 ug/mL (Normal) Range: 10.0-40.0 :16 Phenytoin (Dilantin) Level Comments: Time Medication is to be Given? 0000Test performed at:[facility] [address] [facility] [place] [address] PHENYTOIN 16.0 ug/mL (Normal) Range: 10.0-20.0 44-Gio-424059:16 Vitamin D,25 Hydroxy Comments: Test performed at:[facility] [address] [place] [address] Vitamin D 25-OH 19.2 ng/mL (Normal) Comments: Vitamin D 25(OH) Status Range Deficiency <20 ng/mL (50nmol/L) Insuffciency 20 - 30 ng/mL (50 - 75 nmol/L) Sufficiency 30 - 100 ng/mL (75 - 250 nmol/L) Toxicity >100 ng/mL (>250 nmol/L) :48 CBC W/Diff, Automated Comments: Test performed at:[facility] Em[address]bzjs[address]56 [facility] [place] [address] Absolute Lymph 1.50 {X10_3/ul} (Normal) Range: [...] 4.6-6.2 WBC 4.8 K/mm3 (Normal) Range: 4.4-11.0 00-Ffl-557928:48 Comprehensive Metabolic Profil Comments: Test performed at:[facility] [address] [place] [address] GAP 6 (Normal) Range: 5-15 CO2 30.0 [...] 7-18 GLU 97 mg/dL (Normal) Range: 70-110 67-Wwv-062420:48 Phenobarbital Comments: Time Medication is to be Given? 1200Test performed at:[facility] [address] [place] [address] PHENOBARB 25.3 ug/mL (Normal) Range: 10.0-40.0 :48 Phenytoin (Dilantin) Level Comments: Time Medication is to be Given? 1200Test performed at:[facility] [address] [place] [address] PHENYTOIN 19.6 ug/mL (Normal) Range: 10.0-20.0 08-Wkt-842321:48 Vitamin D,25 Hydroxy Comments: Test performed at:[facility] [address] [place] [address] Vitamin D 25-OH 44.8 ng/mL (Normal) Comments: Vitamin D 25(OH) Status Range Deficiency <20 ng/mL (50nmol/L) Insuffciency 20 - 30 ng/mL (50 - 75 nmol/L) Sufficiency 30 - 100 ng/mL (75 - 250 nmol/L) Toxicity >100 ng/mL (>250 nmol/L) 7-Hha-630859:23 Phenobarbital Comments: Time Medication is to be Given? 0000Test performed at:[facility] [address] [place] [address] PHENOBARB 28.8 ug/mL (Normal) Range: 10.0-40.0 7-Fcy-496068:23 Phenytoin (Dilantin) Level Comments: Time Medication is to be Given? 0000Test performed at:[facility] [address] [facility] [place] [address] PHENYTOIN 19.4 ug/mL (Normal) Range: 10.0-20.0 33-Ehs-261798:54 CBC W/Diff, Automated Comments: Test performed at:[facility] [address] [facility] [place] [address] Absolute Lymph 1.20 {X10_3/ul} (Normal) [...] 4.6-6.2 WBC 5.2 K/mm3 (Normal) Range: 4.4-11.0 79-Ngk-872835:54 Comprehensive Metabolic Profil Comments: Test performed at:[facility] [address] [place] [address] GAP 4 (Abnormal) Range: 5-15 [...] 7-18 GLU 90 mg/dL (Normal) Range: 70-110 03-Ojg-942067:54 Lipid Profile Comments: Test performed at:[facility] [address] [place], [place] [address] VLDL 14 mg/dL (Normal) Range: 5-40 LDL [...] 200-240 mg/dL Borderline >240 mg/dL High Risk 51-Sfn-674086:54 Phenobarbital Comments: Time Medication is to be Given? 0600Test performed at:[facility] [address] [address] PHENOBARB 27.6 ug/mL (Normal) Range: 10.0-40.0 :54 Phenytoin (Dilantin) Level Comments: Time Medication is to be Given? 0600Test performed at:[facility] [address] [place] [address] PHENYTOIN 22.2 ug/mL (Abnormal) Range: 10.0-20.0 Comments: RESULTS CALLED TO VIKAS MARTIN 04/10/14 1336 CCrytzer.REPORT READ BACK BY SAME. 93-Dcp-986627:54 PSA,Total - Annual Screen Comments: Test performed at:[facility] [address] [place] [address] PSA,TOT SCREEN 1.91 ng/mL (Normal) Range: 0.00-4.00 Comments: This test was performed using the TPSA assay method for the[facility] chemistry system. Values obtained with differentassay methods cannot be used interchangably.When changing PSA assays in the course of monitoring apatient, additional sequential testing should be carriedout to confirm baseline values. 35-Rei-312569:54 Vitamin D,25 Hydroxy Comments: Test performed at:[facility] [address] [place] [address] Vitamin D 25-OH [...] - 250 nmol/L)Toxicity >100 ng/mL (>250 nmol/L) 0-Qwn-504017:21 CBCD ANC 3.1 {X10_3/uL} (Normal) Range: 2.0-7.7 [...] 4.6-6.2 WBC 5.1 K/mm3 (Normal) Range: 4.4-11.0 6-Lvp-978033:21 CMP GAP 7 (Normal) Range: 5-15 CO2 [...] 7-18 GLU 98 mg/dL (Normal) Range: 70-110 5-Ucd-883713:21 DIL 19.5 ug/mL (Normal) Comments: Time Medication is to be Given? 1100 Range: 10.0-20.0 1-Mju-127376:21 LIPID VLDL 19 mg/dL (Normal) Range: 5-40 [...] CHOL 179 mg/dL (Normal) Comments: <200 mg/dL Fczenywsr492-795 mg/dL Borderline>240 mg/dL High Risk :21 PHEN 28.9 ug/mL (Normal) Comments: Time Medication is to be Given? 1100 Range: 10.0-40.0 5-Eet-712320:21 VITD 22.5 mg/mL (Normal) Comments: Vitamin D [...] Respiratory Culture Comments: PATIENT NOT FASTINGPERFORMED BY: [facility] CenterGuzrxj8462 [facility] [id number] Result 1 RRF (Normal) Comments: Routine respiratory grazyna Lower Respiratory Final report Culture (Normal) Request Problem Final report Comments: PATIENT NOT FASTINGPERFORMED BY: [facility]Co[facility] CenterOborjp9[address] [place] [address] [id number] :38 (Normal) Comments: A specimen was received for microbiology/virology testing with eitheran incorrect test number or without a written test number. Thespecimen has been processed according to the default policy listed int e Microbiology Appendix of the Directory of Services. Please use thecorrect test numbers to assure optimum processing of the specimens. 32-Vwl-270072:02 CBCMD RBCM NORM C+C {NORMAL} (Normal) EOS [...] : DIL 13.2 ug/mL (Normal) Range: 10.0-20.0 41-Tyd-999557:02 LIPID HDL 50 mg/dL (Normal) Comments: Reference [...] Very High > or = 500 mg/dL 02-Pua-013207:02 MISC (Normal) Comments: PRIMIDONE (MYSOLINE (R)), SERUM PRIMODONE, SERUM RESULT: 9.0 ug/mL LIMITS: 5.0-12.0 DETECTION LIMIT = 0.3 <0.3 INDICATES NONE DETECTED. TESTING PERFORMED AT [facility]. ORIGINAL REPORT ON FILE IN LAB CONTAINS ADDITIONAL TEST SITE INFORMATION. 21-Kif-075997:02 VITD 28.4 ng/mL (Abnormal) Range: 30.0-100.0 Comments: Vitamin D deficiency has been defined by the [place] ofMedicine and an Endocrine Society practice guideline as alevel of serum 25-OH vitamin D less than 20 ng/mL (1,2).The Endocrine Society went on to further define vitamin Dinsufficiency as a level between 21 and 29 ng/mL (2).1. IOM ([place] of Medicine). 2010. Dietary reference intakes for calcium and D. [place]: The National Academies Press.2. Belinda MF, Courtney NC, Jamar KAY, et al. Evaluation, treatment, and prevention of vitamin D deficiency: an Endocrine Society clinical practice guideline. JCEM. 2010; 96(7): 1911-89.Performed at: - [address] [id number] Director: Sean Hansen PhD, Phone: [phone] 53-Jcp-395944:18 CBCMD Comments: ORDERED DILANTIN CBCMD PSA PHENOBARB [...] 4.6-6.2 WBC 5.1 K/mm3 (Normal) Range: 4.4-11.0 22-Hhl-227689:18 DIL 11.0 ug/mL (Normal) Comments: ORDERED DILANTIN CBCMD PSA PHENOBARB LIPID CMPVITD ORDERED MYSOLINE DILANTIN Range: 10.0-20.0 37-Dqj-278404:18 MISC . (Normal) Comments: ORDERED DILANTIN CBCMD PSA PHENOBARB LIPID CMPVITD ORDERED MYSOLINE DILANTIN Comments: TEST RESULT LIMITSPrimidone (Mysoline(R)), Serum Primidone, Serum 8.9 ug/mL 5.0 - 12.0 Detection Limit = 0.3 < 0.3 indicates None Detected Phenobarbital, Serum 22 ug/mL 15 - 40 Detection Limit = 2 < 2 indicates None Detected TESTING PERFORMED AT [facility]. ORIGINAL REPORT ON FILE IN LAB CONTAINS ADDITIONAL TEST SITE INFORMATION. 14-Ltn-325238:18 PSA 1.11 ng/mL (Normal) Comments: ORDERED DILANTIN CBCMD PSA PHENOBARB LIPID CMPVITD ORDERED MYSOLINE DILANTIN Range: 0.00-4.00 Comments: NEW TEST ASSAY METHOD AUGUST 31, 2011This test was performed using the TPSA assay method for [employer] chemistry system. Values obtained with differentassay methods cannot be used interchangably.When ch anging PSA assays in the course of monitoring apatient, additional sequential testing should be carriedout to confirm baseline values. 62-Fgo-291645:18 CMP Comments: ORDERED DILANTIN CBCMD PSA PHENOBARB [...] 7-18 GLU 94 mg/dL (Normal) Range: 70-110 54-Bic-102660:18 LIPID Comments: ORDERED DILANTIN CBCMD PSA PHENOBARB [...] 200-240 mg/dL Borderline >240 mg/dL High Risk 08-Bct-581111:32 VIT D,25 13494 26.6 ng/mL (Abnormal) Range: 30.0-100.0 Comments: Vitamin D deficiency has been defined by the [place] ofMedicine and an Endocrine Society practice guideline as alevel of serum 25-OH vitamin D less than 20 ng/mL (1,2).The Endocrine Society went on to further define vitamin Dinsufficiency as a level between 21 and 29 ng/mL (2).1. IOM ([place] of Medicine). 2010. Dietary reference intakes for calcium and D. [place]: The National Academies Press.2. Belinda MF, Courtney ROSS, Jamar KAY, et al. Evaluation, treatment, and prevention of vitamin D deficiency: an Endocrine Society clinical practice guideline. JCEM. 2010; 96(7): 1911-30.Performed at: CB - [facility] [id number] Director: Zeny Contreras MD, Phone: [phone] 18-Gxa-092985:32 PSA, SCREEN 1.3 ng/mL (Normal) Range: 0.0-4.0 :18 VITD 53.5 ng/mL (Normal) Comments: preventative; ORDERED DILANTIN CBCMD PSA PHENOBARB LIPID CMPVITD ORDERED MYSOLINE DILANTIN Range: 30.0-100.0 Comments: Vitamin D deficiency has been defined by the [place] ofMedicine and an Endocrine Society practice guideline as alevel of serum 25-OH vitamin D less than 20 ng/mL (1,2).The Endocrine Society went on to further define vitamin Dinsufficiency as a level between 21 and 29 ng/mL (2).1. IOM ([place] of Medicine). 2010. Dietary reference intakes for calcium and D. [place]: The National Academies Press.2. Belinda MF, Courtney NC, Jamar KAY, et al. Evaluation, treatment, and prevention of vitamin D deficiency: an Endocrine Society clinical practice guideline. JCEM. 2010; 96(7): 1911-30.Performed at: [facility] [address] [id number] Director: Zeny Contreras MD, Phone: [phone] 14-Fvx-421179:32 COMP METABOLIC Comments: preventative GAP 7 (Normal) [...] 7-18 GLU 98 mg/dL (Normal) Range: 70-110 55-Ryz-988558:32 LIPID Comments: preventative VLDL 17 mg/dL (Normal) [...] 200-240 mg/dL Borderline >240 mg/dL High Risk 60-Yqq-480873:32 CBCD,SMEAR DIFF Comments: preventative RED CELL MORPH [...] ug/mL (Normal) Comments: PATIENT NOT FASTINGPERFORMED BY: [employer] [employer] [place] [id number] :27 Range: 15-40 Comments: Detection Limit = 2 <2 indicates None Detected :27 Phenytoin (Dilantin) (45341) Comments: PATIENT NOT FASTINGPERFORMED BY: [facility] Mcrqcl[address]47 [address] [employer]antage[address]in [place] [id number] Phenytoin (Dilantin), Serum 12.6 ug/mL (Normal) Range: 10.0-20.0 Comments: : Therapeutic 6.0 - 14.0 . Detectio n Limit = 0.6 <0.6 Indicates None Detected :27 CALCIFIDIOL (11253) VIT D 25 Comments: PATIENT NOT FASTINGPERFORMED BY: [facility] Ywxprt8487 [address] [facility]antagePsych[facility] Hospitalin [place] [id number] Vitamin D, 25-Hydroxy 25.6 ng/mL (Abnormal) Range: [...] 4.6-6.2 WBC 6.1 K/mm3 (Normal) Range: 4.4-11.0 18-Ngh-952743:58 CBCD ABSOLUTE NEUT 2.6 3/uL (Normal) Range: [...] 4.6-6.2 WBC 4.4 K/mm3 (Normal) Range: 4.4-11.0 09-Pra-726945:58 COMP METABOLIC GAP 9 (Normal) Range: 5-15 [...] 7-18 GLU 87 mg/dL (Normal) Range: 70-110 22-Lrd-796096:58 LIPID VLDL 16 mg/dL (Normal) Range: 5-40 [...] PSA, SCREEN 1.2 ng/mL (Normal) Range: 0.0-4.0 88-Qps-642073:58 VIT D,25 69202 40.2 ng/mL (Normal) Range: 32.0-100.0 Comments: Recent studies consider the lower limit of 32.0 ng/mL to dave threshold for optimal health.William ROJAS. J Nutr. 2004;135(2):317-22.Performed at: - [place]Co[place] [id number]Lab Director: Zeny Contreras MD, Phone: [phone] 31-Gvt-119395:48 CBCD ABSOLUTE NEUT 3.3 3/uL (Normal) Range: [...] 11.6-14.6 WBC 5.3 K/mm3 (Normal) Range: 4.4-11.0 84-Xxe-371408:48 COMP METABOLIC ALK P 75 U/L (Normal) [...] CHOL 164 mg/dL (Normal) Comments: <200 mg/dL Kjrztazmd606-515 mg/dL Borderline>240 mg/dL High Risk TRIG 71 mg/dL (Normal) Comments: Serum Triglycerides Reference IntervalNormal <150 mg/dLBorderline high 150 - 199 mg/dLHigh 200 - 499 mg/ dLVery High > or = 500 mg/dL :48 PHENOBARB 20.8 ug/mL (Normal) Range: 10.0-40.0 :48 PHENYTOIN 15.0 ug/mL (Normal) Range: 10.0-20.0 :48 PSA, SCREEN 1.2 ng/mL (Normal) Range: 0.0-4.0 :48 VIT D,25 39873 27.8 ng/mL (Abnormal) Range: 32.0-100.0 Comments: Recent studies consider the lower limit of 32.0 ng/mL to dave threshold for optimal health.William ROJAS. J Nutr. 2004;135(2):317-22.Performed at: - [facility] [id number] Director: Zeny Contreras MD :00 CBCD BASO% [...] :00 PHENOBARB 21.9 ug/mL (Normal) Range: 10.0-40.0 :00 PHENYTOIN 19.2 ug/mL (Normal) Range: 10.0-20.0 :00 TSH 2.12 {uIU/mL} (Normal) Range: 0.358-3.74 :00 VIT D,25 96470 56.4 ng/mL (Normal) Range: 32.0-100.0 Comments: Recent studies consider the lower limit of 32.0 ng/mL to dave threshold for optimal health.William ROJAS. J Nutr. 2004;135(2):317-22.Performed At: [address] [id number] :03 CA 8.6 mg/dL (Normal) Range: 8.5-10.1 :03 PHOS 3.1 mg/dL (Normal) Range: 2.5-4.9 :03 PTH,PPSTGK49071 PTH,Intact 33 pg/mL (Normal) Range: 15-65 Comments: Performed At: [address] [id number] :03 PTH,[id number] PTH,Intact 33 pg/mL (Normal) Range: 15-65 Comments: Performed At: [address] [id number] :03 PTH,[id number] PTH,Intact 33 pg/mL (Normal) Range: 15-65 Comments: Performed At: [address] [id number] :03 VIT D,25 22549 24.0 ng/mL (Abnormal) Range: 32.0-100.0 Comments: Recent [...] for patient's is the eGFRmultiplied by 1.212. [facility] Laboratory uses the abbreviated Modification of [...] Disease W/O Kidney Disease>/= 90 Stage One Cnonrk76 - 89 Stage Two Suspect Decreased GFR30 [...] 3.5-7.2 VLDL 11 mg/dL (Normal) Range: 5-40 45-Imq-763592:00 EMP URINALYSIS BILIRUBIN URINE SeeNote (Normal) Comments: [...] 0.2 EU/dl (Normal) Range: 0.2 - 1.0 52-Fnk-666937:31 CBCD BASO% 0.6 % (Normal) Range: 0-1 [...] was performed using the TPSA method for the[employer] chemistry system.Values obtained with different assay methods [...] 3.5-7.2 VLDL 21 mg/dL (Normal) Range: 5-40 :58 EMP URINALYSIS BILIRUBIN URINE SeeNote (Normal) Comments: [...] REPEATED AND VERIFIED. CALLED TO VIKAS 05/31/07 DANIEL NELSON.RESULTS READ BACK BY Santos MARTIN . :53 DEXA BONE DENSITY STUDY (HP) Radiology Report See Note (Normal) Comments: Exam Number: [id number] BONE DENSITOMETRY HISTORYHypocalcemia. Bone densitometry of the [...] normal range. Reported By: FLETCHER ESCALONA M.D. 41-Ecg-655318:20 CBCD BASO% 0.7 % (Normal) Range: 0-1 [...] was performed using the TPSA method for theUniversity of [place] chemistry system.Values obtained with different assay methods [...] Indication: Acute sinusitis, unspecified Planned Observations CALCIFIDIOL (22788) VIT D 25Indication: Depression On: 09-May-2018 Request CBC W/AUTO DIFF WBC (82340)Indication: Epilepsy, unspecified, not intractable, without status epilepticus On: 09-May-2018 Request DRUG ASSAY-PHENOBARBITOL (75618)Indication: Epilepsy, unspecified, not intractable, without status epilepticus On: 09-May-2018 Request PSA (PROSTATE SPECIFIC ANTIGEN) (V76.44)Indication: Screening for prostate cancer On: 09-Kqx-412855:35 Request METABOLIC PANEL, COMPREHENSIVE (32016)Indication: Epilepsy, unspecified, not intractable, without status epilepticus On: 87-Cgg-943646:33 Request DRUG ASSAY-PHENOBARBITOL (19191)Indication: Epilepsy, unspecified, not intractable, without status epilepticus On: :32 Request DRUG ASSAY-TOT PHENYTOIN (17665)Indication: Epilepsy, unspecified, not intractable, without status epilepticus On: 70-Omu-326386:32 Request CALCIFIDIOL (39608) VIT D 25Indication: Depression On: 1-Jea-914403:11 Request DRUG ASSAY-TOT PHENYTOIN (82650)Indication: Epilepsy, unspecified, not intractable, without status epilepticus On: 57-Dna-824448:05 Request Comments: in 3 weeks and standing order prn DRUG ASSAY-FREE PHENYTOIN (32676)Indication: Epilepsy, unspecified, not intractable, without status epilepticus On: 3-Mhg-899048:16 Request LIPOPROTEIN, BLD, BY NMR (20605)Indication: Hyperlipidemia, mild On: :55 Request Comments: 4months along withphenytoin level METABOLIC PANEL, COMPREHENSIVE (03346)Indication: Hyperlipidemia, mild On: :55 Request PSA (Prostate Specific Antigen), Screening (72169)Indication: Screening for prostate cancer On: :51 Request Comments: check in 6 weeks CALCIFIDIOL (32783) VIT D 25Indication: Vitamin D deficiency, unspecified On: :51 Request Comments: check in 6 weeks HEPATITIS C ANTIBODY (31483)Indication: Encounter for hepatitis C virus screening test for high risk patient On: :50 Request Comments: check 6 weeks Phenytoin (Dilantin) (91157)Indication: Epilepsy, unspecified, not intractable, without status epilepticus On: :25 Request Comments: standing order DRUG ASSAY-TOT PHENYTOIN (35651)Indication: Epilepsy, unspecified, not intractable, without status epilepticus On: 7-Acr-882181:03 Request DRUG ASSAY-FREE PHENYTOIN (73507)Indication: Vertigo On: :15 Request DRUG ASSAY-PHENOBARBITOL (66971)Indication: Vertigo On: :14 Request URINALYSIS, W/ MICRO (58551)Indication: Epilepsy, unspecified, not intractable, without status epilepticus On: :14 Request LIPOPROTEIN, BLD, BY NMR (29559)Indication: Prediabetes On: :14 Request CBC with auto diff (03141)Indication: Epilepsy, unspecified, not intractable, without status epilepticus On: :14 Request METABOLIC PANEL, COMPREHENSIVE (60782)Indication: Epilepsy, unspecified, not intractable, without status epilepticus On: :14 Request Phenytoin (Dilantin) (40100)Indication: Epilepsy, unspecified, not intractable, without status epilepticus On: 80-Mmh-440905:01 Request Comments: last dose 3 hours Metabolic Panel, Comprehensive (40392)Indication: Stomach cramps, generalized On: 70-Rmd-900643:01 Request CBC (Auto) (38713)Indication: Stomach cramps, generalized On: 08-Pks-555534:57 Request Amylase (02206)Indication: Stomach cramps, generalized On: 80-Amj-095461:56 Request EBV Panel (29866)Indication: Fatigue, unspecified type On: 79-Bvx-772286:56 Request T4, FREE (THYROXINE) (07833)Indication: Abnormal TSH On: 78-Vmh-831068:55 Request TSH (36717)Indication: Abnormal TSH On: 54-Jpu-287458:55 Request CALCIFIDIOL (87261) VIT D 25Indication: Vitamin D deficiency, unspecified On: 91-Lmw-006311:09 Request T4, FREE (THYROXINE) (98917)Indication: Abnormal thyroid blood test On: :08 Request TSH (22220)Indication: Abnormal thyroid blood test On: 72-Gud-121740:08 Request DRUG ASSAY-PHENOBARBITOL (31678)Indication: Epilepsy, unspecified, not intractable, without status epilepticus On: 16-Ikg-595121:03 Request Phenytoin (Dilantin) (20689)Indication: Epilepsy, unspecified, not intractable, without status epilepticus On: 37-Eqg-518299:03 Request TSH (69131)Indication: Nontoxic goiter, unspecified On: 16-Fbi-758787:58 Request Comments: add to labs already drawn Anti-TPO Antibody (91623)Indication: Abnormal thyroid blood test On: :32 Request TSH (33913)Indication: Abnormal thyroid blood test On: : Request T4, FREE (THYROXINE) (41863)Indication: Abnormal thyroid blood test On: : Request T3, FREE (TRIDOTHYRONINE) (55326)Indication: Abnormal thyroid blood test On: : Request DRUG ASSAY-PHENOBARBITOL (42581)Indication: Epilepsy, unspecified, not intractable, without status epilepticus On: : Request Phenytoin (Dilantin) (73011)Indication: Epilepsy, unspecified, not intractable, without status epilepticus On: :23 Request Comments: not free regular dilantin CALCIFIDIOL (39683) VIT D 25Indication: Vitamin D deficiency, unspecified On: : Request T3, FREE (TRIDOTHYRONINE) (36218)Indication: Abnormal TSH On: :38 Request T4, FREE (THYROXINE) (03564)Indication: Abnormal TSH On: :38 Request Methymalonic Acid, Serum (98897)Indication: Forgetfulness On: :37 Request Vitamin B-12 (cyanocobalamin) ([id number])Indication: Forgetfulness On: :37 Request LIPOPROTEIN, BLD, BY NMR ([id number])Indication: Prediabetes On: :34 Request CALCIFIDIOL ([id number]) VIT D 25Indication: Vitamin D deficiency, unspecified On: :34 Request DRUG ASSAY-PHENOBARBITOL ([id number])Indication: Epilepsy, unspecified, not intractable, without status epilepticus On: :02 Request Comments: standing order prn Phenytoin (Dilantin) ([id number])Indication: Epilepsy, unspecified, not intractable, without status epilepticus On: 1-Ebj-198456:01 Request Comments: standing order prn DRUG ASSAY-FREE PHENYTOIN ([id number])Indication: Epilepsy, unspecified, not intractable, without status epilepticus On: 23-Huc-277436:02 Request LIPID PANEL ([id number])Indication: Cardiomegaly (Renamed from Cardiac enlargement) On: 82-Cmk-103499:00 Request Comments: in 4 weeks CALCIFIDIOL ([id number]) VIT D 25Indication: Vitamin D deficiency, unspecified On: 36-Dlg-788738:58 Request Comments: 4 weeks DRUG ASSAY-FREE PHENYTOIN ([id number])Indication: Epilepsy, unspecified, not intractable, without status epilepticus On: 29-Zmc-779013:56 Request Comments: recheck in 4 weeks before am dose PSA (PROSTATE SPECIFIC ANTIGEN) (V76.44)Indication: Encounter for routine history and physical exam for male On: :44 Request METABOLIC PANEL, COMPREHENSIVE ([id number])Indication: Epilepsy, unspecified, not intractable, without status epilepticus On: :37 Request CBC with auto diff ([id number])Indication: Epilepsy, unspecified, not intractable, without status epilepticus On: :37 Request TSH ([id number])Indication: Nontoxic goiter, unspecified On: :37 Request CALCIFIDIOL ([id number]) VIT D 25Indication: Vitamin D deficiency, unspecified On: :37 Request DRUG ASSAY-FREE PHENYTOIN ([id number])Indication: Epilepsy, unspecified, not intractable, without status epilepticus On: :36 Request DRUG ASSAY-PHENOBARBITOL ([id number])Indication: Epilepsy, unspecified, not intractable, without status epilepticus On: :36 Request METABOLIC PANEL, COMPREHENSIVE ([id number])Indication: Epilepsy, unspecified, not intractable, without status epilepticus On: :34 Request CBC W/AUTO DIFF WBC ([id number])Indication: Epilepsy, unspecified, not intractable, without status epilepticus On: :34 Request CALCIFIDIOL ([id number]) VIT D 25Indication: Vitamin D deficiency, unspecified On: :34 Request DRUG ASSAY-PHENOBARBITOL ([id number])Indication: Epilepsy, unspecified, not intractable, without status epilepticus On: :31 Request Comments: stqanding order prn Phenytoin (Dilantin) ([id number])Indication: Epilepsy, unspecified, not intractable, without status epilepticus On: :29 Request Comments: standing order prn PSA (PROSTATE SPECIFIC ANTIGEN) (V76.44)Indication: Encounter for routine history and physical exam for male On: :11 Request METABOLIC PANEL, COMPREHENSIVE ([id number])Indication: Epilepsy, unspecified, not intractable, without status epilepticus On: :10 Request LIPID PANEL ([id number])Indication: Epilepsy, unspecified, not intractable, without status epilepticus On: : Request CBC WITH MANUAL DIFF ([id number])Indication: Epilepsy, unspecified, not intractable, without status epilepticus On: :10 Request CALCIFIDIOL ([id number]) VIT D 25Indication: Vitamin D deficiency, unspecified On: :10 Request DRUG ASSAY-PHENOBARBITOL ([id number])Indication: Epilepsy, unspecified, not intractable, without status epilepticus On: : Request DRUG ASSAY-FREE PHENYTOIN ([id number])Indication: Epilepsy, unspecified, not intractable, without status epilepticus On: :10 Request METABOLIC PANEL, COMPREHENSIVE ([id number])Indication: Epilepsy, unspecified, not intractable, without status epilepticus On: :24 Request CBC WITH MANUAL DIFF ([id number])Indication: Epilepsy, unspecified, not intractable, without status epilepticus On: :24 Request CALCIFEDIOL ([id number])Indication: Vitamin D deficiency, unspecified On: :23 Request DRUG ASSAY-PHENOBARBITOL ([id number])Indication: Epilepsy, unspecified, not intractable, without status epilepticus On: :22 Request Comments: prn standing order Phenytoin (Dilantin) ([id number])Indication: Epilepsy, unspecified, not intractable, without status epilepticus On: 72-Pup-071379:22 Request Comments: prn standing order. DRUG ASSAY-PHENOBARBITOL ([id number])Indication: Epilepsy, unspecified, not intractable, without status epilepticus On: :32 Request Phenytoin (Dilantin) ([id number])Indication: Epilepsy, unspecified, not intractable, without status epilepticus On: :31 Request LIPID PANEL ([id number])Indication: Cardiomegaly (Renamed from Cardiac enlargement) On: :27 Request METABOLIC PANEL, COMPREHENSIVE ([id number])Indication: Epilepsy, unspecified, not intractable, without status epilepticus On: :27 Request CBC WITH MANUAL DIFF ([id number])Indication: Epilepsy, unspecified, not intractable, without status epilepticus On: : Request CALCIFIDIOL ([id number]) VIT D 25Indication: Vitamin D deficiency, unspecified On: :26 Request CBC with manual diff ([id number])Indication: Epilepsy, unspecified, not intractable, without status epilepticus On: 71-Ana-705544:25 Request Phenytoin (Dilantin) ([id number])Indication: Epilepsy, unspecified, not intractable, without status epilepticus On: 19-Cbr-619550:25 Request Sputum Culture ([id number])Indication: Bronchitis On: 6-Mjl-933786:06 Request Phenytoin (Dilantin) ([id number])Indication: Epilepsy, unspecified, not intractable, without status epilepticus On: :14 Request Comments: Dr. 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 On: :12 Request LIPID PANEL ([id number])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 On: 58-Zex-621112:12 Request DRUG ASSAY-PHENOBARBITOL ([id number])Indication: Epilepsy, unspecified, not intractable, without status epilepticus On: :08 Request CBC WITH MANUAL DIFF ([id number])Indication: Epilepsy, unspecified, not intractable, without status epilepticus On: 6-Scp-792452:29 Request CALCIFIDIOL ([id number]) VIT D 25Indication: Vitamin D deficiency, unspecified On: : Request Phenytoin (Dilantin) ([id number])Indication: Epilepsy, unspecified, not intractable, without status epilepticus On: : Request DRUG ASSAY-PHENOBARBITOL ([id number])Indication: Epilepsy, unspecified, not intractable, without status epilepticus On: :07 Request Lipid Panel ([id number])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 On: :02 Request TSH ([id number])Indication: Nontoxic goiter, unspecified On: :02 Request CBC (Auto) ([id number])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 On: :02 Request Metabolic Panel, Comprehensive ([id number])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 On: 41-Wwl-139209:02 Request DRUG ASSAY-PHENOBARBITOL ([id number])Indication: Epilepsy, unspecified, not intractable, without status epilepticus On: :27 Request PSA (PROSTATE SPECIFIC ANTIGEN) (V76.44)Indication: Encounter for routine history and physical exam for male On: :22 Request CBC, Platelets & Auto Diff ([id number])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 On: 76-Sot-040100:21 Request Lipid Panel ([id number])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 On: : Request Metabolic Panel, Comprehensive ([id number])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 On: 73-Iqa-956096:21 Request CALCIFIDIOL (69032) VIT D 25Indication: Vitamin D deficiency, unspecified On: 00-Gne-322389:20 Request Phenytoin (Dilantin) ([id number])Indication: Epilepsy, unspecified, not intractable, without status epilepticus On: 69-Nsx-045773:20 Request LIPID PANEL ([id number])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 On: 80-Skp-589232:48 Request DRUG ASSAY-PHENOBARBITOL ([id number])Indication: Epilepsy, unspecified, not intractable, without status epilepticus On: :43 Request Phenytoin (Dilantin) ([id number])Indication: Epilepsy, unspecified, not intractable, without status epilepticus On: :43 Request CBC (Auto) ([id number])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 On: :42 Request Metabolic Panel, Comprehensive ([id number])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 On: :42 Request TSH ([id number])Indication: Nontoxic goiter, unspecified On: :42 Request CALCIFIDIOL (54314) VIT D 25Indication: Vitamin D deficiency, unspecified On: :42 Request VITAMIN D, 1, 25-DIHYDROXY (11042)Indication: Vitamin D deficiency, unspecified On: 14-Rvz-232168:53 Request DRUG ASSAY-PHENOBARBITOL ([id number])Indication: Epilepsy, unspecified, not intractable, without status epilepticus On: :27 Request Phenytoin (Dilantin) ([id number])Indication: Epilepsy, unspecified, not intractable, without status epilepticus On: :27 Request CBC (Auto) ([id number])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 On: :26 Request Metabolic Panel, Comprehensive ([id number])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 On: :26 Request Comments: in six months (approximately) Lipid Panel ([id number])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 On: :26 Request PARATHORMONE ([id number])Indication: DISORDERS OF CALCIUM METABOLISM, HYPOCALCEMIA On: :21 Request Phosphorus ([id number])Indication: DISORDERS OF CALCIUM METABOLISM, HYPOCALCEMIA On: :21 Request CALCIFIDIOL ([id number]) VIT D 25Indication: DISORDERS OF CALCIUM METABOLISM, HYPOCALCEMIA On: :21 Request Calcium Serum (36584)Indication: DISORDERS OF CALCIUM METABOLISM, HYPOCALCEMIA On: :21 Request Comments: in three months (approximately) TSH (30215) On: :43 Request PSA (PROSTATE SPECIFIC ANTIGEN) (V76.44)Indication: Encounter for routine adult medical exam with abnormal findings On: :43 Request PTT (Activated Partial Thromboplastin Time) ([id number])Indication: Epilepsy, unspecified, not intractable, without status epilepticus On: :38 Request PT (Prothrobim Time) ([id number])Indication: Epilepsy, unspecified, not intractable, without status epilepticus On: :38 Request CBC (Auto) ([id number])Indication: Epilepsy, unspecified, not intractable, without status epilepticus On: :38 Request Metabolic Panel, Comprehensive ([id number])Indication: Epilepsy, unspecified, not intractable, without status epilepticus On: :38 Request DRUG ASSAY-PHENOBARBITOL ([id number])Indication: Epilepsy, unspecified, not intractable, without status epilepticus On: :37 Request Comments: level Phenytoin (Dilantin) ([id number])Indication: Epilepsy, unspecified, not intractable, without status epilepticus On: :37 Request Lipid Panel ([id number])Indication: Encounter for routine adult medical exam with abnormal findings On: :48 Request CBC (Auto) ([id number])Indication: Epilepsy, unspecified, not intractable, without status epilepticus On: :47 Request Metabolic Panel, Comprehensive ([id number])Indication: Epilepsy, unspecified, not intractable, without status epilepticus On: :47 Request DRUG ASSAY-PHENOBARBITOL ([id number])Indication: Epilepsy, unspecified, not intractable, without status epilepticus On: :47 Request Phenytoin (Dilantin) ([id number])Indication: Epilepsy, unspecified, not intractable, without status epilepticus On: :46 Request PSA (PROSTATE SPECIFIC ANTIGEN) ([id number])Indication: Encounter for routine history and physical exam for male On: :54 Request DRUG ASSAY-PHENOBARBITOL ([id number])Indication: Epilepsy, unspecified, not intractable, without status epilepticus On: :54 Request Phenytoin (Dilantin) ([id number])Indication: Dermatitis On: :53 Request CBC, Platelets & Auto Diff (56156)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 On: :53 Request Metabolic Panel, Comprehensive ([id number])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 On: :52 Request Lipid Panel ([id number])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 On: :52 Request Planned Encounters Medical; ACRELIA 4 Month Fu - On: 10-Jun-2018 13:00 [facility] Dede Galan MD, MD, Dana M Planned Procedures Flu Vaccine (Quadrivalent) On: 07-Jan-2018 Intent 93368Cv: VIKAS Martin Comments: Lot #:[id number] date: 7-57-28Tceqvn given:0.5mlRoute: IMSite given:L DltdGiven by: ElBo and ISAIAS signed [employer] Flu Vaccine (Quadrivalent) On: 25-Jan-2017 Intent [id number]: Dede Galan MD Comments: Lot #:[id number] date:09/27/2017Amount given:0.5mlRoute: IMSite given:L DltdGiven by: Sherri and ABN signed [employer] Dede Galan MD ELECTROCARDIOGRAM, COMPLETE On: 03-Aug-2016 Intent (ECG) (44266)By: Beatrice PADILLA, Comments: see scanned document of test done to see results reviewed today with patient Dede Crouch MD Flu Vaccine (Quadrivalent) On: 04-Feb-2016 Intent [id number]: Dede Galan MD Comments: Lot:[id number]:10/09/16Dose:0.5mLRoute:IMSite:L DltdGiven By:asVIS signed Dede Galan MD Radiology - Foot - LeftBy: On: 13-Jan-2016 Intent Dede Galan MD, MD, Comments: if does not continue to get better. Dede Rothman TDAP VACCINE >7 IM ([id number])By: On: 13-Dec-2015 Intent Dede Galan MD, MD, Comments: Lot:[id number]:05/03/18Dose:0.5mlRoute:imSite:l armGiven By:Magdalena [place] ([id number])By: On: 23-Apr-2015 Intent Vinny Wu Comments: shingleslot:[id number]:02/16/16ite:lt subqroute:TAMIKO [place] ([address]15)By: On: 23-Apr-2015 Intent Dede Galan MD, MD, Dana M Flu Vaccine (Quadrivalent) On: 22-Jan-2015 Intent [id number]: Dede Galan MD Comments: Lot:[id number]:10/10/15Dose:0.5mLRoute:IMSite:L DltdGiven By:LUZ MARINA signed Dede Galan MD IMMUNIZ ADMNIN, 1 VAC, On: 29-Jan-2014 Intent SNGL/COMBO (88769)By: Visit, Nurse FLU VAC, SPLIT, >3 YEARS, On: 29-Jan-2014 Intent INTRAMUSC (57339)By: Beatrice PADILLA, Comments: Lot:[id number]:10/09/14Dose:0.5mLRoute:IMSite:L DltdGiven By:LUZ MARINA signed Dede Crouch MD Ultrasound - ThyroidBy: Beatrice On: 25-Apr-2013 Intent Dede PADILLA MD, Dana M Eprescribed prescriptions On: 25-Apr-2013 Intent (G8553)By: Tamiko Shaffer LPN Eprescribed prescriptions On: 28-Mar-2013 Intent (G8553)By: Valencia Pérez Eprescribed prescriptions On: 01-Nov-2012 Intent (G8553)By: Tamiko Shaffer LPN Aerosol Treatment (74657)By: On: 11-Jul-2012 Intent Beverley Reveles CNP Aerosol Treatment (42553)By: On: 22-Jun-2012 Intent Beverley Reveles CNP Pulse Oximetry (50463)By: On: 07-Apr-2012 Intent VIKAS Martin FLU VAC, SPLIT, >3 YEARS, On: 05-Feb-2012 Intent INTRAMUSC (37953)By: Moisés, Comments: Lot:[id number]:6.30.13Dose:prefilledRoute:IMSite:L DltdGiven By:LUZ MARINA signed Codie IMMUNIZ ADMNIN, 1 VAC, On: 05-Feb-2012 Intent SNGL/COMBO (46530)By: Codie Curiel Bio Z (73422)By: Beatrice PADILLA, On: 24-Nov-2010 Intent Dede Crouch MD EKG (47998)By: Dede Galan MD On: 24-Nov-2010 Intent Dede Lyn MD Solu -Medrol Injection, 125 mg On: 27-Sep-2009 Intent (J2930)By: Mihaela Prabhakar DO Comments: Lot #[id number]-0/1/12Site-right hipDose- 125 mggiven by:[facility] EKG (55784)By: Dede Galan MD On: 09-Jul-2009 Intent Dede Lyn MD DXA, BONE DENSITY, AXIAL On: 09-Jul-2009 Intent SKELETON (47895)By: Dede Galan MD, MD, Dana M EKG (70614)By: Kimberly Beebe On: 07-Feb-2008 Intent Comments: done-aw Bio Z (68320)By: Kimberly Beebe On: 07-Feb-2008 Intent Comments: done-aw ELECTROCARDIOGRAM, COMPLETE On: 20-Jul-2006 Intent (ECG) (69707)By: Dede Galan MD, MD, Dana M Bio Z (13647)By: Beatrice PADILLA, On: 20-Jul-2006 Intent Dede Crouch MD Bone Density StudyBy: Beatrice On: 20-Jul-2006 Intent Dede PADILLA MD, Dana M Instructions Name Dates Details Encounter for routine adult medical exam with [...] routine adult medical exam with abnormal findings BMI 35.0-35.9,adult : How to access health [...] Instructions Indication: Depression Encounters Office Visit On: 07-Feb-2018 13:30 Encounter Reason: Physical male exam - Last seen between 6-12 months ago. General health: feels well with minor complaints, has good energy level and is sleeping well. The patient's appetite is normal. Nutrition: normal/ End: 08-Feb-2018 15:13 adequate. Exercises 3 days per week. Sleeps on average 9 hours per night. Normal bowel and bladder habits. Safety measures include appropriate use of safety belts and home smoke detectors. Current emoti onal problems include anxiety and depression. The patient's libido is absent. Preventative measures done by patient are screening, colonoscopy (2014), PSA (05-30) and rectal exam ().Encounter Diagnosis: BMI 36.0-36.9,adult, Current nonsmoker (Renamed from Current non-smoker), Encounter for routine adult medical exam with abnormal findings, Bilateral hearing loss, unspecified hearing loss type, Raised intraocular pressure, bilateral, Vitamin D deficiency, unspecified, Depression, Nontoxic goiter, unspecified, Psoriasis, GERD (gastroesophageal reflux disease), Hypoglycemia, Sinusitis, chronic, Benign prostatic hyperplasia with urinary hesitancy, Irritable bowel syndrome (Renamed from Functional bowel disease), Abnormal thyroid blood test, Epilepsy, unspecified, not intractable, without status epilepticus, Allergic rhinitis, Obstructive sleep apnea, adult, Retinal cyst of right eye, Hyperlipidemia, mild, Cardiomegaly (Renamed from Cardiac enlargement), Obesity (BMI 30.0-34.9), Screening for prostate cancer [facility] Office Visit On: 07-Jan-2018 14:09 Encounter Diagnosis: [...] for Tdap vaccination (Renamed from Need for ofdbycixwu-pbaxktc-yugkfrrrp (Tdap) vaccine, adult/adolescent), Retinal cyst of right [...] supplemental vitamins. The medical issues the pa tient is following up for include cardiac issues, [...] 14:22 [facility] End: 19-May-2006 14:24 [facility]; freddie guarantor
== END ==
PROVIDERS: Family Provider Internal Medicine; PCP Internal Medicine; Referring Provider Internal Medicine; Visit Provider Internal Medicine
DX: G40.909 Epilepsy, unspecified, not intractable, without status epilepticus (principal)
CPT/HCPCS: 36415; 80185

== ENCOUNTER → 2018-06-14 12:15 | Outpatient (CLI) | payer OTHER, SELFPAY ==
[2018-06-14 14:10] LABS: ALB/GLOB Ratio 0.9 RATIO (0.9-2.4); AST(SGOT) 28 U/L (15-37); Alanine Aminotransfer ALT/SGPT 30 U/L (16-61); Albumin, Serum 3.6 g/dL (3.2-5.0); Alkaline Phosphatase 80 U/L (45-117); Anion Gap 8 (5-15); BUN 11 mg/dL (7-18); BUN/Creat Ratio 12.3 RATIO (10-20); Calcium,Total 8.2 mg/dL (8.5-10.1); Chloride 103 mmol/L (98-107); EST Glomerular Filtration Rate 91 mL/min (>60); Est Glom Filt Rate - Afr Amer 110 mL/min (>60); Globulin 3.8 g/dL (2.2-4.2); Glucose 89 mg/dL (74-106); PSA,Total - Annual Screen 1.68 ng/mL (0.00-4.00); Potassium 4.1 mmol/L (3.5-5.1); Protein, Total 7.4 g/dL (6.4-8.2); Sodium Level 139 mmol/L (136-145)
[2018-06-14 14:24] LABS: Phenytoin (Dilantin) Level 17.1 mL (10.0-20.0)
== END ==
PROVIDERS: Family Provider Internal Medicine; PCP Internal Medicine; Referring Provider Internal Medicine; Visit Provider Internal Medicine
DX: G40.909 Epilepsy, unspecified, not intractable, without status epilepticus (principal); Z12.5 Encounter for screening for malignant neoplasm of prostate
CPT/HCPCS: 36415; 80053; 80184; 80185; 84153; G0103

== ENCOUNTER → 2019-01-20 13:29 | Outpatient (CLI) | payer OTHER, SELFPAY ==
[2019-01-20 14:31] LABS: Color, Urine Yellow (Yellow); Glucose, Dipstick Normal (Normal); Ketone-Dipstick Negative (Negative); Leukocyte Esterase-Dipstick Negative /ul (Negative); Nitrite-Dipstick Negative (Negative); Occult Blood-Urine Negative /ul (Negative); Protein-Dipstick Negative (Negative); Specific Gravity, Urine 1.005 (1.002-1.030); Urine Bilirubin Dipstick Negative (Negative); Urine Clarity Clear (Clear); Urine Urobilinogen Normal (Normal)
[2019-01-20 14:42] LABS: Phenytoin (Dilantin) Level 14.2 mL (10.0-20.0)
[2019-01-20 14:45] LABS: ALB/GLOB Ratio 1.1 RATIO (0.9-2.4); AST(SGOT) 28 U/L (15-37); Alanine Aminotransfer ALT/SGPT 30 U/L (16-61); Albumin, Serum 3.5 g/dL (3.2-5.0); Alkaline Phosphatase 73 U/L (45-117); Anion Gap 7 (5-15); BUN 16 mg/dL (7-18); BUN/Creat Ratio 16.7 RATIO (10-20); Calcium,Total 8.2 mg/dL (8.5-10.1); Chloride 108 mmol/L (98-107); Creatinine, Serum 0.96 mg/dL (0.70-1.30); EST Glomerular Filtration Rate 84 mL/min (>60); Est Glom Filt Rate - Afr Amer 102 mL/min (>60); Globulin 3.2 g/dL (2.2-4.2); Glucose 82 mg/dL (74-106); PSA,Total- Diagnostic 2.13 ng/mL (0.0-4.0); Potassium 4.4 mmol/L (3.5-5.1); Protein, Total 6.7 g/dL (6.4-8.2); Sodium Level 144 mmol/L (136-145)
[2019-01-20 14:47] LABS: Absolute Lymphocyte Count 1.87 X10^3/uL (0.83-4.51); Absolute Neutrophil Count 2.1 X10^3/uL (2.0-7.7); Basophil# 0.06 X10^3/uL; Basophil% 1.2 % (0-1); Eosinophil# 0.45 X10^3/uL; Eosinophils% 8.9 % (0-5); Hematocrit 43.3 % (40-54); Hemoglobin 14.2 g/dL (13.0-16.5); Lymphocyte # 1.87 X10^3/ul (4.0); Lymphocyte % 36.9 % (19-41); Mean Corp Hgb Conc 32.8 g/dL (32-36); Mean Corpuscular Volume 100.7 fL (80-94); Mean Platelet Vol. 8.6 fl (6.2-12.0); Monocyte# 0.61 X10^3/uL; NRBC Flagged by Analyzer 0 % (0-5); Neutrophil # 2.07 X10^3/uL (2.7-7.7); Neutrophil % 40.8 % (47-70); Platelet Count 282 K/mm3 (150-450); RBC Distribution Width CV 12.4 % (11.6-14.6); RBC Distribution Width SD 45.8 fl (35.1-43.9); White Blood Count 5.1 K/mm3 (4.4-11.0)
== END ==
PROVIDERS: Family Provider Internal Medicine; PCP Internal Medicine; Referring Provider Internal Medicine; Visit Provider Internal Medicine
DX: N40.1 Benign prostatic hyperplasia with lower urinary tract symptoms (principal); Z12.5 Encounter for screening for malignant neoplasm of prostate; G40.909 Epilepsy, unspecified, not intractable, without status epilepticus
CPT/HCPCS: 80053; 80185; 81002; 84153; 85025

== ENCOUNTER → 2019-05-09 14:50 | Outpatient (CLI) | payer OTHER, SELFPAY ==
--- NOTE | 2019-05-09 14:53 | US_ITS ---
STUDY: THYROID ULTRASOUND REASON FOR EXAM: Male, 63 years old. GOITER TECHNIQUE: Ultrasound evaluation of the thyroid was performed with real-time and static pickering-scale imaging. COMPARISON: None. FINDINGS: RIGHT LOBE: The right lobe of the thyroid gland measures 5.3 x 1.9 x 2.0 cm. There is a homogeneous echotexture. There are no demonstrated solid, cystic or complex lesions. LEFT LOBE: The left lobe of the thyroid gland measures 5.4 x 2.0 x 1.5 cm. There is a homogeneous echotexture. There are no demonstrated solid, cystic or complex lesions. ISTHMUS: The isthmus measures 2 mm . The regional lymph nodes are normal. US/Thyroid IMPRESSION: Normal ultrasound examination of the thyroid. Electronically Signed: Bryan Lin DO at 21:19 EST Tel [phone], Service support ,
== END ==
PROVIDERS: PCP Internal Medicine; Referring Provider Internal Medicine; Visit Provider Internal Medicine
DX: E04.9 Nontoxic goiter, unspecified (principal)
CPT/HCPCS: 76536

== ENCOUNTER → 2019-11-13 13:28 | Outpatient (CLI) | payer MEDICARE, SELFPAY ==
[2019-11-13 14:24] LABS: Phenytoin (Dilantin) Level 19.7 mL (10.0-20.0)
== END ==
PROVIDERS: PCP Internal Medicine; Referring Provider Internal Medicine; Visit Provider Internal Medicine
DX: G40.909 Epilepsy, unspecified, not intractable, without status epilepticus (principal)
CPT/HCPCS: 36415; 80185

== ENCOUNTER → 2020-04-25 10:25 | Outpatient (CLI) | payer MEDICARE, SELFPAY ==
[2020-04-25 09:24] VITALS: BMI 36.0
[2020-04-25 10:57] LABS: Hematocrit 43.7 % (40-54); Hemoglobin 14.6 g/dL (13.0-16.5); Mean Corp Hgb Conc 33.4 g/dL (32-36); Mean Corpuscular Hgb 32.4 pg (27.0-32.0); Mean Corpuscular Volume 97.1 fL (80-94); Platelet Count 288 K/mm3 (150-450); RBC Distribution Width CV 12.1 % (11.6-14.6); RBC Distribution Width SD 43.8 fl (35.1-43.9); White Blood Count 4.9 K/mm3 (4.4-11.0)
[2020-04-25 11:41] LABS: Vitamin B12 851 pg/mL (211-911)
[2020-04-25 12:43] LABS: AST(SGOT) 35 U/L (15-37); Alanine Aminotransfer ALT/SGPT 39 U/L (16-61); Albumin, Serum 3.8 g/dL (3.2-5.0); Alkaline Phosphatase 85 U/L (45-117); Anion Gap 5 (5-15); BUN 15 mg/dL (7-18); Calcium,Total 8.6 mg/dL (8.5-10.1); Chloride 107 mmol/L (98-107); Creatinine, Serum 0.94 mg/dL (0.70-1.30); EST Glomerular Filtration Rate 86 mL/min (>60); Est Glom Filt Rate - Afr Amer 104 mL/min (>60); Globulin 3.8 g/dL (2.2-4.2); Glucose 98 mg/dL (74-106); Potassium 3.9 mmol/L (3.5-5.1); Protein, Total 7.6 g/dL (6.4-8.2); Sodium Level 140 mmol/L (136-145); T4 Free Direct 0.71 ng/dL (0.76-1.46); Thyroid Stim Hormone (TSH) 4.65 uIU/mL (0.358-3.74)
[2020-04-27 12:07] LABS: Free Kappa Light Chains 24.2 mg/L (3.3-19.4); Free Lambda Light Chains 15.4 mg/L (5.7-26.3)
[2020-04-28 07:25] LABS: Phenobarbital,Serum 27 ug/mL (15-40); Primidone, Serum 9.7 ug/mL (5.0-12.0)
== END ==
PROVIDERS: Psychiatry & Neurology Neurology; PCP Internal Medicine; Referring Provider Internal Medicine; Visit Provider Internal Medicine
DX: G40.909 Epilepsy, unspecified, not intractable, without status epilepticus (principal); G62.9 Polyneuropathy, unspecified; R26.9 Unspecified abnormalities of gait and mobility; K59.00 Constipation, unspecified
CPT/HCPCS: 36415; 80053; 80184; 80185; 80188; 82607; 82746; 83883; 84439; 84443; 85027

== ENCOUNTER → 2020-05-02 13:18 | Outpatient (CLI) | payer MEDICARE, SELFPAY ==
[2020-04-25 09:24] VITALS: BMI 36.0
--- NOTE | 2020-05-02 13:19 | MRI_ITS ---
STUDY: MRI BRAIN WITH AND WITHOUT CONTRAST REASON FOR EXAM: Male, 64 years old. EPILEPSY, GAIT DISORDER TECHNIQUE: Standardized multiplanar fat and water weighted pulse sequences were obtained. IV Dotarem 19ml was administered for the contrast portion of the examination. COMPARISON: None. FINDINGS: Normal size of the ventricles and extra-axial spaces for the patient''s age. Normal white matter tracts of the supratentorial brain. There is no evidence for recent intracranial ischemia or other cause of cytotoxic edema on diffusion weighted imaging (DWI). Normal T2* images of the brain without demonstrated susceptibility artifact. There is no demonstrated hemosiderin stain. Thin section coronal T2-weighted images through the temporal lobes demonstrate no evidence of hippocampal atrophy or hyperintensity to suggest mesial temporal sclerosis. Normal bilateral basal ganglia. Normal thalami. There is no extra-axial fluid accumulation. Normal flow voids within the major intracranial circulation suggesting patency by spin echo criteria. Normal venous enhancement. There is no enhancing intra-axial or extra-axial abnormality. Normal sella turcica, pituitary gland, infundibular stalk, optic chiasm and hypothalamus. Normal tectal plate and pineal gland. Normal midbrain, chilango and medulla. Normal cerebellum. Normal basal cisterns. Normal bilateral temporal bones. Normal bilateral internal auditory canals. No demonstrated orbital abnormality, within the constraints of a routine brain study. There is mucoperiosteal inflammatory disease of the paranasal sinuses consistent with mild chronic sinusitis. Normal calvarium and skull base. Normal visualized soft tissue structures. Normal visualized upper cervical spine. MRI/Brain W/WO Contrast IMPRESSION: Normal unenhanced and enhanced MRI of the brain. Electronically Signed: John Montejo MD at 15:11 EST Tel , Service support ,
== END ==
PROVIDERS: PCP Internal Medicine; Referring Provider Psychiatry & Neurology Neurology; Visit Provider Psychiatry & Neurology Neurology
DX: G40.909 Epilepsy, unspecified, not intractable, without status epilepticus (principal); R26.9 Unspecified abnormalities of gait and mobility
CPT/HCPCS: 70553; A9575

== ENCOUNTER → 2020-06-05 12:20 | Outpatient (CLI) | payer MEDICARE, SELFPAY ==
[2020-04-25 09:24] VITALS: BMI 36.0
--- NOTE | 2020-06-05 14:35 | NEURO ---
NCS and/or EMG Patient Report Ordering Doctor: Mary Shi NP DATE OF SERVICE: 06/05/20 Jeronimo Singer presents for electrodiagnostic testing of the lower limbs. He has numbness in both feet and experiences weakness in the legs. He reports unsteady gait. Electrodiagnostic findings: Right peroneal motor nerve demonstrates prolonged distal latency with reduced amplitude and conduction velocity. Left peroneal motor nerve demonstrates prolonged distal latency with reduced amplitude and conduction velocity. Tibial motor nerves demonstrate prolonged distal latency with reduced amplitude and conduction velocity bilaterally. Prolonged tibial and peroneal F waves. Prolonged H reflex bilaterally. All sensory responses are absent. Needle EMG, motor units of increased amplitude and duration noted bilaterally in the anterior tibialis, peroneus longus and gastrocnemius. Electrodiagnostic impression: This is an abnormal study in the lower limbs. 1. Electrodiagnostic findings demonstrate advanced peripheral polyneuropathy, with motor and sensory involvement. There is evidence of axonal loss. If there are any further questions, please do not hesitate to contact me.
== END ==
PROVIDERS: PCP Internal Medicine; Referring Provider Nurse Practitioner Family; Visit Provider Nurse Practitioner Family
DX: G62.9 Polyneuropathy, unspecified (principal); R20.0 Anesthesia of skin; R53.1 Weakness
CPT/HCPCS: 95886; 95911

== ENCOUNTER → 2020-06-06 17:07 | Outpatient (CLI) | payer MEDICARE, SELFPAY ==
[2020-04-25 09:24] VITALS: BMI 36.0
[2020-06-11 16:09] LABS: Albumin 4.1 g/dL (2.9-4.4); Alpha-1-Globulins 0.2 g/dL (0.0-0.4); Alpha-2-Globulins 0.6 g/dL (0.4-1.0); Gamma Globulin 1.2 g/dL (0.4-1.8); Immunoglobulin A 108 mg/dL (61-437); Immunoglobulin G 1361 mg/dL (603-1613); Immunoglobulin M 66 mg/dL (20-172)
== END ==
PROVIDERS: PCP Internal Medicine; Referring Provider Psychiatry & Neurology Neurology; Visit Provider Psychiatry & Neurology Neurology
DX: G62.9 Polyneuropathy, unspecified (principal)
CPT/HCPCS: 36415; 82784; 84165; 86334; 86335

== ENCOUNTER 2021-06-11 22:09 | Emergency (ER) | payer MEDICARE, SELFPAY ==
[2021-06-11 22:10] VITALS: BP 154/90; PULSE 86; PULSE 87; RESP 22; RESP 24; TEMP 36.8; O2SAT 96; BMI 36.1
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
== END 2021-06-12 00:19 | disposition home or self-care (01) ==
PROVIDERS: Emergency Provider Emergency Medicine; PCP Internal Medicine; Visit Provider Emergency Medicine
DX: S09.90XA Unspecified injury of head, initial encounter (principal); G40.909 Epilepsy, unspecified, not intractable, without status epilepticus; E78.5 Hyperlipidemia, unspecified; V43.62XA Car passenger injured in collision with other type car in traffic accident, initial encounter; E03.9 Hypothyroidism, unspecified; N40.0 Benign prostatic hyperplasia without lower urinary tract symptoms; K21.9 Gastro-esophageal reflux disease without esophagitis; G47.33 Obstructive sleep apnea (adult) (pediatric); Z79.890 Hormone replacement therapy; Z79.899 Other long term (current) drug therapy
CPT/HCPCS: 70450; 72125; 99284

== ENCOUNTER 2021-11-21 20:38 | Emergency (ER) | payer MEDICARE, SELFPAY ==
[2021-11-21 20:39] VITALS: BP 139/87; PULSE 86; RESP 15; TEMP 36.6; O2SAT 99; BMI 34.3
--- NOTE | 2021-11-21 20:58 | EX.ED.UPPERE ---
HPI History of Present Illness Chief Complaint: Laceration Detail of Chief Complaint: Laceration radial side right index finger over the proximal phalanx Informant: patient Occured/Mechanism Mechanism/Context: Yes blunt trauma Comment: Using a drill bit to tighten a Lentz head screw. He states the bit came off the head of the screw and got his finger. He is left-hand dominant. Onset/Context/Timing Context: Sudden Onset Timing: Continuous Quality of Pain: - (No pain) Location: Right index finger Current Severity: Gone Maximum Severity: Moderate Worsened by: Injury Relieved by: Not applicable Associated Symptoms Associated Symptoms: Negative for Parasthesia, Weakness or Loss of Funtion Narrative Narrative: Patient is a 65-year-old [id number] male presents with injury to his right index finger. This occurred at home. Patient denies paresthesia, anesthesia medics. Tetanus is unknown. He is not on an anticoagulant. Tetanus Immunization: Unknown Prior similar symptoms: No Recent Illness/Hospitalization: No PFSH PFSH Medical History Age-related cognitive decline Bilateral hearing loss BPH (benign prostatic hyperplasia) Cardiomegaly Chronic constipation Chronic sinusitis Depression Epilepsy GERD (gastroesophageal reflux disease) History of fracture of leg Hyperlipidemia Hypothyroid IBS (irritable bowel syndrome) Mild cognitive impairment Nontoxic goiter Obstructive sleep apnea Psoriasis Raised intraocular pressure of both eyes Retinal cyst of right eye Tremor Vitamin D deficiency Home Medications ascorbic acid (vitamin C) 500 mg tablet 1,000 mg PO DAILY@0800 05/21/14 [History Last Taken Unknown] ergocalciferol (vitamin D2) 1,250 mcg (50,000 unit) capsule 50,000 unit PO Q7D 05/21/14 [History Last Taken Unknown] fluocinolone 0.025 % topical cream 1 applic TP DAILY 05/21/14 [History Last Taken Unknown] fluticasone propionate 50 mcg/actuation nasal spray,suspension 2 spray NS DAILY 05/21/14 [History Last Taken Unknown] multivitamin 1 tab PO DAILY 05/21/14 [History Last Taken Unknown] calcium carbonate 600 mg calcium (1,500 mg) tablet 600 mg PO DAILY 04/24/20 [History Last Taken Unknown] montelukast 10 mg tablet 10 mg PO DAILY 04/24/20 [History Last Taken Unknown] levothyroxine 50 mcg tablet 50 mcg PO DAILY 10/03/20 [History Last Taken Unknown] omeprazole 40 mg capsule,delayed release 40 mg PO DAILY 03/03/21 [History Last Taken Unknown] paroxetine HCl 20 mg tablet 30 mg PO DAILY 08/25/21 [History Last Taken Unknown] phenytoin 50 mg chewable tablet 50 mg PO DAILY #90 tabs 08/25/21 [Rx Last Taken Unknown] phenytoin sodium extended 100 mg capsule 100 mg PO TID #270 caps 08/25/21 [Rx Last Taken Unknown] primidone 250 mg tablet 250 mg PO 4X/DAY #360 tabs 08/25/21 [Rx Last Taken Unknown] Allergy/AdvReac Type Severity Reaction Status Date / Time No Known Allergies Allergy Verified 11/21/21 21:47 Family History Father Cancer Liver cancer, liver cirrhosis, alcoholic Brother Parkinson's disease Cancer Nonmelanoma skin cancer Sister Cancer Nonmelanoma skin cancer Surgical History History of tonsillectomy Social History (Updated 11/21/21 @ 21:[address] Jewel Garcia MD) household members: spouse Smoking Status: Never smoker alcohol intake: never substance use type: does not use ROS ROS ED Constitutional Constitutional ED: Denies chills, fever(s), subjective or sweats Integumentary Reports other Details: Curvilinear laceration 2.6 cm radial side left index finger ; Denies Abrasions or rash Neurologic Neurologic: Denies paresthesias or weakness Hematologic/Lymphatic Hematologic/Lymphatic: Denies easy bleeding or easy bruising EXAM Physical Exam Const Vital Signs: 11/21/21 20:39 Temperature 97.9 F Temperature Source Temporal Pulse Rate 86 Respiratory Rate 15 Blood Pressure 139/87 H Blood Pressure Mean 104 Pulse Ox 99 Oxygen Delivery Method Room Air Positive well nourished, well developed and obese General Appearance ED: well developed and NAD Nutritional Appearance: obese HEENT Reports moist mucous membranes normocephalic and atraumatic Eyes PERRL and EOMs intact bilaterally Neck full ROM and supple Resp normal respiratory effort Cardio regular rate and regular rhythm Extremity full ROM; Negative for normal to inspection Extremity Narrative: There was 2.6 cm curvilinear laceration over the proximal phalanx radial side right index finger. The extensor Insite tendon is intact. The flexor digitorum superficialis and flexor digitorum profundus are intact. Capillary fill is normal. There is no subungual hematoma noted. Two-point discrimination is normal. Neuro oriented x3 and CN's II-XII intact bilaterally Neuro Narrative: Median, radial and ulnar function intact. Sensorium / Orientation: alert, oriented to person, oriented to place and oriented to time Skin General Skin Exam: Negative for petechiae Rashes: no rashes Trauma: laceration MDM MDM MDM Narrative Medical decision making narrative: Patient has a laceration which will require repair. Tetanus was updated. Please see procedure note. Procedures Other Procedures Procedure(s): The wound was prepped draped sterile manner. Wound was irrigated with 100 cc of normal saline. Using 5-0 Ethilon 7 simple interrupted sutures were placed with good cosmesis hemostasis. Patient tolerated procedure well. Discharge Plan Triage Chief Complaint: Laceration ED Provider: Jewel Garcia Dx/Rx/DC Orders Clinical Impression: Laceration of right index finger Instructions: ED Laceration, Hand: All Closures Prescriptions: No Action montelukast 10 mg tablet 10 mg PO DAILY calcium carbonate 600 mg calcium (1,500 mg) tablet 600 mg PO DAILY levothyroxine 50 mcg tablet 50 mcg PO DAILY omeprazole 40 mg capsule,delayed release(DR/EC) 40 mg PO DAILY phenytoin 50 mg tablet,chewable 50 mg PO DAILY Qty: 90 1RF phenytoin sodium extended 100 mg capsule 100 mg PO TID Qty: 270 1RF primidone 250 mg tablet 250 mg PO 4X/DAY Qty: 360 1RF multivitamin 1 TABLET tablet 1 tab PO DAILY ascorbic acid (vitamin C) 500 MG tablet 1,000 mg PO DAILY@0800 ergocalciferol (vitamin D2) 50,000 UNIT capsule 50,000 unit PO Q7D fluticasone propionate 16 GM spray,suspension 2 spray NS DAILY fluocinolone 120 GM cream 1 applic TP DAILY paroxetine HCl 20 mg tablet 30 mg PO DAILY Primary Care Provider: Dede Galan Referrals: Dede Galan MD [Primary Care Provider] - 10-14 Days suture removal Disposition Disposition: Home, Self Care
[2021-11-21] MEDS: Diphth,Pertuss(Acell),Tet Vac 0.5 ML Vial IM (21:26)
[2021-11-21] MEDS: Lidocaine 1% (20 ml mdv) 20 ML Vial INFILT (22:36)
[2021-11-21 22:37] VITALS: PULSE 84; RESP 16
== END 2021-11-21 22:39 | disposition home or self-care (01) ==
PROVIDERS: Emergency Provider Emergency Medicine; PCP Internal Medicine; Visit Provider Emergency Medicine
DX: S61.210A Laceration without foreign body of right index finger without damage to nail, initial encounter (principal); G40.909 Epilepsy, unspecified, not intractable, without status epilepticus; Z23 Encounter for immunization; W29.8XXA Contact with other powered hand tools and household machinery, initial encounter; Y92.009 Unspecified place in unspecified non-institutional (private) residence as the place of occurrence of the external cause; E78.5 Hyperlipidemia, unspecified; E03.9 Hypothyroidism, unspecified; G47.33 Obstructive sleep apnea (adult) (pediatric); K21.9 Gastro-esophageal reflux disease without esophagitis; Z79.890 Hormone replacement therapy; Z79.899 Other long term (current) drug therapy
CPT/HCPCS: 12002; 90471; 90715; 99283

== ENCOUNTER → 2023-11-26 | Outpatient (CLI) | payer MEDICARE, SELFPAY ==
--- NOTE | 2023-11-26 13:10 | RAD_ITS ---
STUDY: X-RAY - RIGHT WRIST REASON FOR EXAM: Male, 67 years old. RIGHT WRIST PAIN TECHNIQUE: 3 view(s) of the wrist were obtained. COMPARISON: None. FINDINGS: There is a nondisplaced transverse fracture of the distal radial metaphysis. Normal radiocarpal articulation. Normal distal radioulnar articulation. Normal carpal bones. Normal carpal articulations. Normal carpometacarpal articulation of the thumb. Normal second through fifth carpometacarpal articulations. Normal visualized metacarpal bones. Soft tissue swelling. RAD/Wrist min 3 Views IMPRESSION: Nondisplaced transverse fracture of the distal radial metaphysis. Electronically Signed: Mike Herndon MD at 14:36 EDT ,
== END | disposition home or self-care (01) ==
LOC: RAD 12:56
PROVIDERS: PCP Internal Medicine; Referring Provider Internal Medicine; Visit Provider Internal Medicine
DX: M25.531 Pain in right wrist (principal)
CPT/HCPCS: 73110

== ENCOUNTER → 2024-02-01 | Outpatient (CLI) | payer MEDICARE, SELFPAY ==
--- NOTE | 2024-02-01 17:05 | RAD_ITS ---
INDICATION: XR LUMBAR SPINE, 2 VIEWS -- Low back pain EXAMINATION/TECHNIQUE: X-RAY - XR Spine Lumbar 2 or 3 Views COMPARISON: No relevant prior comparison study available FINDINGS: VERTEBRAE: Preserved vertebral body height. No fracture. No spondylolisthesis. Preservation of the normal lumbar lordosis. Levoscoliosis of the lower thoracic and upper lumbar spine. DISCS: Mild disc space narrowing at multiple levels. Endplate spondylosis. Facet arthropathy of the lower lumbar spine. INCLUDED ABDOMEN: Included bowel gas pattern is non-obstructive. RAD/Lumbar Spine 2 or 3 Views IMPRESSION: Degenerative changes as described above. Electronically Signed: Anupam Wagner MD at 15:22 EDT ,
--- NOTE | 2024-02-01 17:05 | RAD_ITS ---
STUDY: X-RAY - PELVIS AND LEFT HIP REASON FOR EXAM: Male, 68 years old. 3 VIEWS -- Left hip pain TECHNIQUE: 3 views of the pelvis and left hip. COMPARISON: None. FINDINGS: There is a non-specific bowel gas pattern. Normal visualized soft tissue structures. Normal bilateral iliac wings, sacroiliac joints and visualized sacrum. Normal bilateral superior and inferior pubic rami. Normal pubic symphysis. Normal bilateral ischial tuberosities. Intact visualized femoral head. There is mild osteoarthritic spur formation of the acetabular rims bilaterally. Intact hip joint. There is no demonstrated acute fracture. RAD/HIP, UNI W/ Pelvis 2-3 Views IMPRESSION: Mild degenerative arthrosis of the hip joints bilaterally. No demonstrated acute fracture. Electronically Signed: Josue Grace MD at 16:00 EDT ,
== END | disposition home or self-care (01) ==
LOC: RAD 16:42
PROVIDERS: PCP Internal Medicine; Referring Provider Internal Medicine; Visit Provider Internal Medicine
DX: M54.50 Low back pain, unspecified (principal); M25.552 Pain in left hip
CPT/HCPCS: 72100; 73502

== ENCOUNTER 2024-06-07 09:48 | Inpatient (IN) | payer MEDICARE, SELFPAY ==
[2024-06-07] VITALS (9 sets, daily range): BP systolic 106–144; BP diastolic 71–89; PULSE 79–108; RESP 16–18; TEMP 36.5–37.2; O2SAT 95–99; BMI 36.0; BMI 35.5
--- NOTE | 2024-06-07 10:24 | EDS_ITS ---
HPI HPI - GI History of Present Illness Chief Complaint: Abd Pain Narrative Narrative: 68-year-old male presents with right upper quadrant abdominal pain that he has had since Wednesday. He states his abdominal pain started out diffuse then the following day, Wednesday it developed into an pain in the right upper quadrant of his abdomen. He has nausea but no vomiting. He started taking MiraLAX because he was constipated and now has diarrhea. No exacerbating or alleviating factors to his right upper quadrant abdominal pain. He states it is more localized to the right side now. Today he reports a fever of 100 ?F. PFSH [facility] Medical History Hypothyroid Nontoxic goiter Vitamin D deficiency Hyperlipidemia Depression Mild cognitive impairment Epilepsy Obstructive sleep apnea Retinal cyst of right eye Raised intraocular pressure of both eyes Bilateral hearing loss Cardiomegaly Chronic sinusitis GERD (gastroesophageal reflux disease) IBS (irritable bowel syndrome) Chronic constipation Psoriasis BPH (benign prostatic hyperplasia) Tremor Age-related cognitive decline History of fracture of leg Home Medications ?Medication ?Instructions ?Recorded ?Last Taken ?Type ascorbic acid (vitamin C) 500 mg 1,000 mg PO DAILY@080 0 05/21/14 Unknown History tablet ergocalciferol (vitamin D2) 1,250 50,000 unit PO Q7D 0 05/21/14 Unknown History mcg (50,000 unit) capsule fluocinolone 0.025 % topical cream 1 applic TP DAILY 0 05/21/14 Unknown History fluticasone propionate 50 2 spray NS DAILY 05/21/14 Un known History mcg/actuation nasal spray,suspension multivitamin 1 tab PO DAILY 05/21/14 Unkn own History calcium carbonate 600 mg PO DAILY 04/24/20 Unk nown History montelukast 10 mg tablet 10 mg PO DAILY 04/24/20 Unkn own History levothyroxine 50 mcg tablet 50 mcg PO DAILY 10/03/20 U nknown History omeprazole 40 mg capsule,delayed 40 mg PO DAILY Unknown History release paroxetine HCl 20 mg tablet 30 mg PO DAILY 08/25/21 Un known History phenytoin 50 mg chewable tablet 75 mg (1.5 x 50 mg) PO DAILY #135 05/23/24 Unknown Rx tabs phenytoin sodium extended 100 mg 100 mg PO TID #270 ca ps 05/23/24 Unknown Rx capsule primidone 250 mg tablet 250 mg PO 4X/DAY #360 tabs 0 05/23/24 Unknown Rx Allergy/AdvReac Type Severity Reaction Status Date / Time No Known Allergies Allergy Verified 06/07/24 09:49 Family History Father Cancer Liver cancer, liver cirrhosis, alcoholic Brother Parkinson's disease Cancer Nonmelanoma skin cancer Sister Cancer Nonmelanoma skin cancer Surgical History History of tonsillectomy Social History
--- NOTE | 2024-06-07 10:24 | US_ITS ---
PROCEDURE: ULTRASOUND ABDOMEN LIMITED REASON FOR EXAM: RIGHT UPPER QUADRANT PAIN COMPARISON: ABDOMEN SERIES DATED 03/02/2018 FINDINGS: Liver: Grossly normal size and echotexture. Gallbladder: No stones, sludge, wall thickening or tenderness. Common bile duct: Normal measuring . Pancreas: Visualized portions are sonographically unremarkable. Visualized portions of the right kidney are unremarkable. No right upper quadrant ascites. US/Abdomen Limited IMPRESSION: NORMAL RIGHT UPPER QUADRANT ULTRASOUND. Reading Location: [facility]
--- NOTE | 2024-06-07 10:24 | ED.VIS.GI ---
HPI HPI - GI History of Present Illness Chief Complaint: Abd Pain Narrative Narrative: 68-year-old male presents with right upper quadrant abdominal pain that he has had since Wednesday. He states his abdominal pain started out diffuse then the following day, Wednesday it developed into an pain in the right upper quadrant of his abdomen. He has nausea but no vomiting. He started taking MiraLAX because he was constipated and now has diarrhea. No exacerbating or alleviating factors to his right upper quadrant abdominal pain. He states it is more localized to the right side now. Today he reports a fever of 100 ?F. [facility] Medical History Hypothyroid Nontoxic goiter Vitamin D deficiency Hyperlipidemia Depression Mild cognitive impairment Epilepsy Obstructive sleep apnea Retinal cyst of right eye Raised intraocular pressure of both eyes Bilateral hearing loss Cardiomegaly Chronic sinusitis GERD (gastroesophageal reflux disease) IBS (irritable bowel syndrome) Chronic constipation Psoriasis BPH (benign prostatic hyperplasia) Tremor Age-related cognitive decline History of fracture of leg Home Medications ?Medication ?Instructions ?Recorded ?Last Taken ?Type ascorbic acid (vitamin C) 500 mg 1,000 mg PO DAILY@0800 05/21/14 Unknown History tablet ergocalciferol (vitamin D2) 1,250 50,000 unit PO Q7D 05/21/14 Unknown History mcg (50,000 unit) capsule fluocinolone 0.025 % topical cream 1 applic TP DAILY 05/21/14 Unknown History fluticasone propionate 50 2 spray NS DAILY 05/21/14 Unknown History mcg/actuation nasal spray,suspension multivitamin 1 tab PO DAILY 05/21/14 Unknown History calcium carbonate 600 mg PO DAILY 04/24/20 Unknown History montelukast 10 mg tablet 10 mg PO DAILY 04/24/20 Unknown History levothyroxine 50 mcg tablet 50 mcg PO DAILY 10/03/20 Unknown History omeprazole 40 mg capsule,delayed 40 mg PO DAILY 03/03/21 Unknown History release paroxetine HCl 20 mg tablet 30 mg PO DAILY 08/25/21 Unknown History phenytoin 50 mg chewable tablet 75 mg (1.5 x 50 mg) PO DAILY #135 05/23/24 Unknown Rx tabs phenytoin sodium extended 100 mg 100 mg PO TID #270 caps 05/23/24 Unknown Rx capsule primidone 250 mg tablet 250 mg PO 4X/DAY #360 tabs 05/23/24 Unknown Rx Allergy/AdvReac Type Severity Reaction Status Date / Time No Known Allergies Allergy Verified 06/07/24 09:49 Family History Father Cancer Liver cancer, liver cirrhosis, alcoholic Brother Parkinson's disease Cancer Nonmelanoma skin cancer Sister Cancer Nonmelanoma skin cancer Surgical History History of tonsillectomy Social History household members: spouse Smoking Status: Never smoker second hand exposure: No alcohol intake: never substance use type: does not use what type of physical activity do you participate in: none lenard/tenriism: Sabianism seatbelt use: always ROS ROS ED ROS Narrative Review of systems positive for fever, right upper quadrant abdominal pain, nausea but no vomiting. Positive diarrhea versus constipation. Denies urinary problems such as dysuria or hematuria. EXAM Physical Exam Narrative Exam Narrative: Afebrile. Vital signs noted. Nontoxic-appearing. Cardiovascular examination reveals mild tachycardia. Lungs are clear to auscultation bilaterally. The abdomen is soft with right upper quadrant abdominal pain and positive Pool sign. Positive bowel sounds. No pain in right lower quadrant of abdomen. Neurological examination nonfocal and nonlateralizing. Skin without jaundice. Const Vital Signs: 06/07/24 09:49 06/07/24 11:48 06/07/24 13:00 Temperature 98.9 F 98.5 F Temperature Source Oral Oral Pulse Rate 108 H 89 84 Respiratory Rate 18 Blood Pressure 144/74 H 138/89 H 112/75 Blood Pressure Mean 97 105 87 Pulse Ox 96 Oxygen Delivery Method Room Air 06/07/24 15:00 Temperature Temperature Source Pulse Rate 83 Respiratory Rate 16 Blood Pressure 106/83 H Blood Pressure Mean 90 Pulse Ox 99 Oxygen Delivery Method MDM MDM MDM Narrative Medical decision making narrative: Differential diagnosis includes but not limited to acute cholecystitis versus gallstone pancreatitis versus diverticulitis versus colitis. His pain is localized to the right upper quadrant so I favor cholecystitis. He was administered morphine and ondansetron. I reviewed his laboratory work and he has slight elevation of his white count of 11.3, hemoglobin 13.1 with hematocrit 38.1. Platelet count normal at 259. Sodium slightly low 132 with chloride 98. Glucose elevated at 122. BUN normal at 9 with creatinine 0.8. Lipase normal at 24 so I doubt pancreatitis. Urinalysis is negative for infection. I reviewed the initial radiology report of the ultrasound of the gallbladder which states that it was a negative examination. However, given his tenderness and repeat examination, I obtained a CT of the abdomen pelvis with IV contrast. On the radiology report, there are findings consistent with acute cholecystitis. I then discussed the patient with the radiologist on the initial report of the gallbladder, and there may have been a computer error as there are no parameters of the gallbladder wall, and no comments so it was immediately read. As there is high suspicion for acute cholecystitis patient will be started on Zosyn and discussed with Dr. Smith with general surgery for admission. His is concerned that he needs his Dilantin orally that he takes [address] Smith requested that I speak with Dr. Bautista regarding medical management. Patient will be admitted to Dr. Smith primarily with medical management by the hospitalist group. Disposition is admitted in stable condition. History & Record Review Discussion w/independent historian: Patient and Family Lab Data Attestation: I reviewed the patient's lab results. Labs: Laboratory Results - last 24 hr 06/07/24 06/07/24 10:39 11:50 WBC 11.3 H RBC 3.97 L Hgb 13.1 Hct 38.1 L MCV 96.0 H MCH 33.0 H MCHC 34.4 RDW Std Deviation 46.2 H RDW Coeff of Aramis 13.0 Plt Count 259 MPV 8.1 Immature Gran % (Auto) 0.400 Neut % (Auto) 77.0 H Lymph % (Auto) 9.1 L [place] % (Auto) 12.8 H Eos % (Auto) 0.3 Baso % (Auto) 0.4 Absolute Neuts (auto) 8.7 H Absolute Lymphs (auto) 1.03 Nucleated RBC % 0 Sodium 132 L Potassium 4.1 Chloride Direct 98 Carbon Dioxide 23.1 Anion Gap 10 BUN 9 Creatinine 0.8 Estim Creat Clear Calc 90.75 Est GFR (MDRD) Non-Af 98 BUN/Creatinine Ratio 12.6 Glucose 122 H Calcium 8.4 Total Bilirubin 0.45 AST 29 ALT 18 Alkaline Phosphatase 79 Total Protein 6.5 Albumin 3.7 Globulin 2.8 Albumin/Globulin Ratio 1.3 Lipase 24 Urine Color Yellow Urine Clarity Clear Urine pH 7.0 Ur Specific [place] 1.005 Urine Protein 15 H Urine Glucose (UA) Normal Urine Ketones Negative Urine Occult Blood Negative Urine Nitrite Negative Urine Bilirubin Negative Urine Urobilinogen Normal Ur Leukocyte Esterase Negative Urine RBC 0 SEEN Urine WBC 0 SEEN Ur Squamous Epith Cells 0 SEEN Urine Bacteria 0 SEEN Urine Mucus 0 SEEN Radiography Diagnostic Testing: Clinical Impression(s) from Imaging Studies Abdomen Ultrasound 06/07/24 10:24 IMPRESSION: NORMAL RIGHT UPPER QUADRANT ULTRASOUND. Reading Location: [facility] Abdomen/Pelvis CT 06/07/24 12:40 IMPRESSION: Findings in keeping with acute cholecystitis. Questionable polypoid mass at the base of the bladder. Urinary bladder distention. Prostatic enlargement. One or more dose reduction techniques were used (e.g., Automated exposure control, adjustment of the mA and/or kV according to patient size, use of iterative reconstruction technique). Reading Location: [id number] Management Discussion w/another healthcare provider: Hospitalist (Dr. Bautista) and Registration Rep (Dr. Smith) Discharge Plan Dx/Rx/DC Orders Clinical Impression: Acute cholecystitis, Epilepsy, Hyponatremia Disposition Disposition: Acute Care [facility]
[2024-06-07] MEDS: Morphine 4 MG/ML Syringe IV ×2 (10:42→16:12)
[2024-06-07] MEDS: 0.9% Normal Saline (1000mL) 1,000 ML 999 ML IV (10:42)
[2024-06-07] MEDS: Ondansetron 4 MG/2 ML Vial IV ×2 (10:42→16:12)
[2024-06-07 10:59] LABS: Absolute Lymphocyte Count 1.03 X10^3/uL (0.83-4.51); Absolute Neutrophil Count 8.7 X10^3/uL (2.0-7.7); Basophil# 0.05 X10^3/uL; Basophil% 0.4 % (0-1); Eosinophil# 0.03 X10^3/uL; Eosinophils% 0.3 % (0-5); Hematocrit 38.1 % (40-54); Hemoglobin 13.1 g/dL (13.0-16.5); Lymphocyte # 1.03 X10^3/ul (0.83-4.51); Lymphocyte % 9.1 % (19-41); Mean Corp Hgb Conc 34.4 g/dL (32-36); Mean Platelet Vol. 8.1 fl (6.2-12.0); Monocyte# 1.45 X10^3/uL; Monocyte% 12.8 % (0-10); NRBC Flagged by Analyzer 0 % (0-5); Neutrophil # 8.71 X10^3/uL (2.7-7.7); Platelet Count 259 K/mm3 (150-450); RBC Distribution Width SD 46.2 fl (35.1-43.9); Red Blood Count 3.97 M/mm3 (4.6-6.2); White Blood Count 11.3 K/mm3 (4.4-11.0)
[2024-06-07 11:50] LABS: ALB/GLOB Ratio 1.3 RATIO (0.9-2.4); AST(SGOT) 29 U/L (<=37); Alanine Aminotransfer ALT/SGPT 18 U/L (<=46); Albumin, Serum 3.7 g/dL (3.4-4.8); Alkaline Phosphatase 79 U/L (40-129); Anion Gap 10 (5-15); BUN 9 mg/dL (4-19); BUN/Creat Ratio 12.6 RATIO (10-20); Calcium 8.4 mg/dL (7.6-11.0); Carbon Dioxide 23.1 mmol/L (22.0-29.0); Chloride 98 mmol/L (96-108); Creatinine, Serum 0.8 mg/dL (0.8-1.3); EST Glomerular Filtration Rate 98 (>60); Estimated Creatinine Clearance 90.75 ml/min; Globulin 2.8 g/dL (2.2-4.2); Glucose 122 mg/dL (70-99); Lipase 24 U/L (13-75); Potassium 4.1 mmol/L (3.3-5.1); Protein, Total 6.5 g/dL (5.9-8.4); Sodium Level 132 mmol/L (133-145); Total Bilirubin 0.45 mg/dL (0.00-1.30)
[2024-06-07 12:01] LABS: Bacteria 0 SEEN /hpf (None Seen); Mucous, Urine 0 SEEN /hpf (<or=2+); Squamous Epithelial Cells - UA 0 SEEN /hpf (0-5); White Blood Cells 0 SEEN /hpf (0-5)
[2024-06-07 12:12] LABS: Color, Urine Yellow (Yellow); Glucose, Dipstick Normal (Normal); Ketone-Dipstick Negative (Negative); Leukocyte Esterase-Dipstick Negative /ul (Negative); Nitrite-Dipstick Negative (Negative); Occult Blood-Urine Negative /ul (Negative); Protein-Dipstick 15 mg/dl (Negative); Specific Gravity, Urine 1.005 (1.002-1.030); Urine Bilirubin Dipstick Negative (Negative); Urine Clarity Clear (Clear); Urine Urobilinogen Normal (Normal)
[2024-06-07 12:22] LABS: Red Blood Cells-Urine 0 SEEN /hpf (0-5)
--- NOTE | 2024-06-07 12:40 | CT_ITS ---
PROCEDURE: ABDOMEN/PELVIS W IV CONT ONLY TECHNIQUE: Abdomen and pelvis CT with intravenous contrast. No oral contrast. IV CONTRAST: 100 cc of Isovue-300. COMPARISON: None. FINDINGS: Lung bases: Calcified right hilar lymph nodes. Calcified granulomas at the lung bases. Liver: Fatty infiltration of the liver. Tiny cyst in the lower portion of the right lobe of the liver. Gallbladder: Mild distention of the gallbladder with thickening of the gallbladder wall with inflammatory changes in the gallbladder fossa. Findings suggestive of acute cholecystitis. Spleen: Unremarkable. Pancreas: Unremarkable. Adrenals: Unremarkable. Kidneys: Unremarkable. Bladder: Distended urinary bladder. Findings suggestive of a 2 cm polypoid mass at the base of the bladder. Prosthetic enlargement with indentation of the bladder base. Reproductive Organs: Unremarkable. Bowel: Unremarkable. Appendix: Normal. Lymph nodes: No suspicious lymph node enlargement. Vasculature: Major vascular structures are unremarkable. Peritoneum / Retroperitoneum: No ascites. No free air. Small umbilical hernia containing fat. Bones: Unremarkable. CT/Abdomen/Pelvis W IV Cont ONLY IMPRESSION: Findings in keeping with acute cholecystitis. Questionable polypoid mass at the base of the bladder. Urinary bladder distent ion. Prostatic enlargement. One or more dose reduction techniques were used (e.g., Automated exposure contr ol, adjustment of the mA and/or kV according to patient size, use of iterative reconstruction technique). Reading Location: [id number]
[2024-06-07] MEDS: Phenytoin Na 100 MG Capsule PO ×2 (15:29→18:09)
[2024-06-07] MEDS: Piperacil/Tazobactam 3.375 GM in 0.9% Normal Saline (50mL MB+) 50 ML IV ×2 (15:29→21:21)
--- NOTE | 2024-06-07 15:34 | PCM.HP.STD ---
HPI - General General Date of Admission: 06/07/24 Chief Complaint: Right upper quadrant abdominal pain HPI Narrative JAIMIE STEVENS, is a 68 M who presents to [facility] with his for further evaluation of acute onset abdominal pain that has become localized to the right upper quadrant. He states that this pain began on 06/05/2024 at approximately 11 PM after eating dinner at approximately 7 PM. He shares he initially thought this was a flu due to its diffuse affect but it became gradually more concentrated in the right upper part of his abdomen. He notes some associated nausea and vomiting with this pain but reports that he has not had bowel movements despite regular use of MiraLAX. He denies any previous experience of this discomfort. Patient's emergency room evaluation is notable for laboratories as showing mild leukocytosis and ultrasound imaging was obtained concerning for cholecystitis given the presence of gallbladder wall thickening and some pericholecystic fluid. With incidental finding of a subcentimeter gallbladder polyp is also noted. Due to a mixup in radiology patient underwent CT imaging of the abdomen pelvis as well and this, likewise, was read as concerning for acute cholecystitis. Patient has a history of a seizure disorder but declares that his last seizure activity was 20 to 30 years ago. His most notable surgical history included a tonsillectomy and he denies any history of abdominal surgeries. [facility] Medical History Hypothyroid Nontoxic goiter Vitamin D deficiency Hyperlipidemia Depression Mild cognitive impairment Epilepsy Obstructive sleep apnea Retinal cyst of right eye Raised intraocular pressure of both eyes Bilateral hearing loss Cardiomegaly Chronic sinusitis GERD (gastroesophageal reflux disease) IBS (irritable bowel syndrome) Chronic constipation Psoriasis BPH (benign prostatic hyperplasia) Tremor Age-related cognitive decline History of fracture of leg Home Medications ?Medication ?Instructions ?Recorded ?Last Taken ?Type ascorbic acid (vitamin C) 500 mg 1,000 mg PO DAILY@0800 05/21/14 Unknown History tablet ergocalciferol (vitamin D2) 1,250 50,000 unit PO Q7D 05/21/14 Unknown History mcg (50,000 unit) capsule fluocinolone 0.025 % topical cream 1 applic TP DAILY 05/21/14 Unknown History fluticasone propionate 50 2 spray NS DAILY 05/21/14 Unknown History mcg/actuation nasal spray,suspension multivitamin 1 tab PO DAILY 05/21/14 Unknown History calcium carbonate 600 mg PO DAILY 04/24/20 Unknown History montelukast 10 mg tablet 10 mg PO DAILY 04/24/20 Unknown History levothyroxine 50 mcg tablet 50 mcg PO DAILY 10/03/20 Unknown History omeprazole 40 mg capsule,delayed 40 mg PO DAILY 03/03/21 Unknown History release paroxetine HCl 20 mg tablet 30 mg PO DAILY 08/25/21 Unknown History phenytoin 50 mg chewable tablet 75 mg (1.5 x 50 mg) PO DAILY #135 05/23/24 Unknown Rx tabs phenytoin sodium extended 100 mg 100 mg PO TID #270 caps 05/23/24 Unknown Rx capsule primidone 250 mg tablet 250 mg PO 4X/DAY #360 tabs 05/23/24 Unknown Rx Allergy/AdvReac Type Severity Reaction Status Date / Time No Known Allergies Allergy Verified 06/07/24 09:49 Family History Father Cancer Liver cancer, liver cirrhosis, alcoholic Brother Parkinson's disease Cancer Nonmelanoma skin cancer Sister Cancer Nonmelanoma skin cancer Surgical History History of tonsillectomy Social History household members: spouse Smoking Status: Never smoker second hand exposure: No alcohol intake: never substance use type: does not use what type of physical activity do you participate in: none lenard/moravian: Synagogue seatbelt use: always Vital Signs Vital Signs Vital Signs: 06/07/24 09:49 06/07/24 11:48 06/07/24 13:00 Temperature 98.9 F 98.5 F Temperature Source Oral Oral Pulse Rate 108 H 89 84 Respiratory Rate 18 Blood Pressure 144/74 H 138/89 H 112/75 Blood Pressure Mean 97 105 87 Pulse Ox 96 Oxygen Delivery Method Room Air 06/07/24 15:00 Temperature Temperature Source Pulse Rate 83 Respiratory Rate 16 Blood Pressure 106/83 H Blood Pressure Mean 90 Pulse Ox 99 Oxygen Delivery Method Weight Weight: 210 lb Body Mass Index (BMI) 36.0 Physical Exam Const alert and oriented x3 GI GI Narrative: Obese, no scars, small umbilical hernia present. Hernia contains fatty tissue but is freely reducible and minimally tender. Patient has tenderness of the right upper quadrant with positive Pool sign. Results Lab / Micro Data 06/07/24 10:39 06/07/24 10:39 Labs: Laboratory Results - last 24 hr 06/07/24 10:39: WBC 11.3 H, RBC 3.97 L, Hgb 13.1, Hct 38.1 L, MCV 96.0 H, MCH 33.0 H, MCHC 34.4, RDW Std Deviation 46.2 H, RDW Coeff of Aramis 13.0, Plt Count 259, MPV 8.1, Immature Gran % (Auto) 0.400, Neut % (Auto) 77.0 H, Lymph % (Auto) 9.1 L, [place] % (Auto) 12.8 H, Eos % (Auto) 0.3, Baso % (Auto) 0.4, Absolute Neuts (auto) 8.7 H, Absolute Lymphs (auto) 1.03, Nucleated RBC % 0, Sodium 132 L, Potassium 4.1, Chloride Direct 98, Carbon Dioxide 23.1, Anion Gap 10, BUN 9, Creatinine 0.8, Estim Creat Clear Calc 90.75, Est GFR (MDRD) Non-Af 98, BUN/Creatinine Ratio 12.6, Glucose 122 H, Calcium 8.4, Total Bilirubin 0.45, AST 29, ALT 18, Alkaline Phosphatase 79, Total Protein 6.5, Albumin 3.7, Globulin 2.8, Albumin/Globulin Ratio 1.3, Lipase 24 06/07/24 11:50: Urine Color Yellow, Urine Clarity Clear, Urine pH 7.0, Ur Specific [place] 1.005, Urine Protein 15 H, Urine Glucose (UA) Normal, Urine Ketones Negative, Urine Occult Blood Negative, Urine Nitrite Negative, Urine Bilirubin Negative, Urine Urobilinogen Normal, Ur Leukocyte Esterase Negative, Urine RBC 0 SEEN, Urine WBC 0 SEEN, Ur Squamous Epith Cells 0 SEEN, Urine Bacteria 0 SEEN, Urine Mucus 0 SEEN Imaging Radiology Impression Abdomen Ultrasound 06/07/24 10:24 IMPRESSION: NORMAL RIGHT UPPER QUADRANT ULTRASOUND. Reading Location: [facility]1 Abdomen/Pelvis CT 06/07/24 12:40 IMPRESSION: Findings in keeping with acute cholecystitis. Questionable polypoid mass at the base of the bladder. Urinary bladder distention. Prostatic enlargement. One or more dose reduction techniques were used (e.g., Automated exposure control, adjustment of the mA and/or kV according to patient size, use of iterative reconstruction technique). Reading Location: [id number] Assessment & Plan Assessment/Plan (1) Acute cholecystitis: PLAN: Patient is a 68-year-old male who presents with 2-1/2 days of acute onset abdominal discomfort that has become localized to the right upper quadrant associated with nausea and vomiting. Workup, including biochemistries and imaging, has been consistent with a diagnosis of acute cholecystitis. On eliciting patient's history directly and then performing an exam I agree with this diagnosis. As such, have recommended proceeding for surgical cholecystectomy with intraoperative cholangiography. Procedure was described in detail but patient's also underwent this procedure was able to brief her on these details. Likely given this experience they have few questions but I did clarify that we will plan for admission today with probable operation tomorrow. In the meantime emergency medicine has dosed patient with antibiotics. Patient and his . Primarily concerned about the administration of antiepileptic medications and I have deferred to hospitalist service which I have asked to comanage this patient given history of seizures and his perioperative seizure risk. Appreciate their involvement. ? N.p.o. past midnight ? Continuous IV Zosyn ? Consent for laparoscopic cholecystectomy with intraoperative cholangiography Kike Smith MD General Surgery Endocrine Surgery Pager: [facility] [address] [place] [address], [facility], [address] [place] [id number] Office: [phone] Charges/Coding Visit Charges Inpatient E&M: 06958 Init Hosp L2
--- NOTE | 2024-06-07 15:43 | EKG12_ITS ---
Test Reason : PRE OP Blood Pressure : */* mmHG Vent. Rate : 82 BPM Atrial Rate : 82 BPM P-R Int : 194 ms QRS Dur : 100 ms QT Int : 384 ms P-R-T Axes : 21 46 27 degrees QTcB Int : 448 ms Normal sinus rhythm Normal ECG When compared with ECG of 07-Jun-2024 16:01, MANUAL COMPARISON REQUIRED DATA IS UNCONFIRMED Confirmed by Kike Mcclain ([id number]), clinical editor JUANI LEYVA ([id number]) on 06/08/2024 9:24:32 AM Referred By: PETER Confirmed By: Kike Mcclain
--- NOTE | 2024-06-07 16:01 | EKG12_ITS ---
Test Reason : Blood Pressure : */* mmHG Vent. Rate : 82 BPM Atrial Rate : 82 BPM P-R Int : 182 ms QRS Dur : 104 ms QT Int : 396 ms P-R-T Axes : 23 48 23 degrees QTcB Int : 462 ms Normal sinus rhythm Incomplete right bundle branch block Borderline ECG Confirmed by Kike Mcclain ([id number]), state editor MAURIZIO MATA ([id number]) on 06/08/2024 9:39:49 AM Referred By: DARION/MALLY Confirmed By: Kike Mcclain
--- NOTE | 2024-06-07 16:26 | CON.PCM.HO_ITS ---
Assessment & Plan Assessment/Plan (1) Acute cholecystitis: PLAN: Plan Acute cholecystitis: Seen by general surgery with plans take the patient to surgery on the . Patient with very good performance status and is medically optimized to proceed with surgery. Patient is medically cleared to proceed with surgery. Hyponatremia: Mild. This is not prohibitive by any means would continue to monitor however. Seizure disorder: Stable on phenytoin. Continue with phenytoin per his normal routine. Patient's last grand mal seizure was approximate 40 years ago and has had some focal seizures in that timeframe but has otherwise been stable. Hypothyroidism: On levothyroxine. Resume when okayed by general surgery. VTE prophylaxis with SCDs. Thank you for the consult. The hospital service will follow along during this patient's hospitalization. HPI Consult Data Date of Consult: 06/07/24 HPI Narrative Reason for Consultation: Consult requested by Dr. Smith for medical clearance HPI Narrative: JAIMIE STEVENS, is a 68 M who presents with right upper quad abdominal pain. Symptoms began last night and persisted to today. Never had this problem for so presented to the emergency room. Initial ultrasound was unremarkable but CAT scan did show acute cholecystitis. Patient was seen by Dr. Smith in the emergency room and tentative plan is for the patient have surgery on the . Patient is normally pretty active though less so during the wintertime. When he is active he does not experience chest pain or palpitations. Patient has a remote history of grand mal seizures approximately 40 years ago and is on Dilantin for that. He has had more recent focal seizures but otherwise has been stable on the Dilantin. [facility] Medical History Hypothyroid Nontoxic goiter Vitamin D deficiency Hyperlipidemia Depression Mild cognitive impairment Epilepsy Obstructive sleep apnea Retinal cyst of right eye Raised intraocular pressure of both eyes Bilateral hearing loss Cardiomegaly Chronic sinusitis GERD (gastroesophageal reflux disease) IBS (irritable bowel syndrome) Chronic constipation Psoriasis BPH (benign prostatic hyperplasia) Tremor Age-related cognitive decline History of fracture of leg Home Medications ?Medication ?Instructions ?Recorded ?Last Taken ?Type ascorbic acid (vitamin C) 500 mg 1,000 mg PO DAILY@080 0 05/21/14 Unknown History tablet ergocalciferol (vitamin D2) 1,250 50,000 unit PO Q7D 0 05/21/14 Unknown History mcg (50,000 unit) capsule fluocinolone 0.025 % topical cream 1 applic TP DAILY 0 05/21/14 Unknown History fluticasone propionate 50 2 spray NS DAILY 05/21/14 Un known History mcg/actuation nasal spray,suspension multivitamin 1 tab PO DAILY 05/21/14 Unkn own History calcium carbonate 600 mg PO DAILY 04/24/20 Unk nown History montelukast 10 mg tablet 10 mg PO DAILY 04/24/20 Unkn own History levothyroxine 50 mcg tablet 50 mcg PO DAILY 10/03/20 U nknown History omeprazole 40 mg capsule,delayed 40 mg PO DAILY Unknown History release paroxetine HCl 20 mg tablet 30 mg PO DAILY 08/25/21 Un known History phenytoin 50 mg chewable tablet 75 mg (1.5 x 50 mg) PO DAILY #135 05/23/24 Unknown Rx tabs phenytoin sodium extended 100 mg 100 mg PO TID #270 ca ps 05/23/24 Unknown Rx capsule primidone 250 mg tablet 250 mg PO 4X/DAY #360 tabs 0 05/23/24 Unknown Rx Allergy/AdvReac Type Severity Reaction Status Date / Time No Known Allergies Allergy Verified 06/07/24 09:49 Family History Father Cancer Liver cancer, liver cirrhosis, alcoholic Brother Parkinson's disease Cancer Nonmelanoma skin cancer Sister Cancer Nonmelanoma skin cancer Surgical History History of tonsillectomy Social History household members: spouse Smoking Status: Never smoker second hand exposure: No alcohol intake: never substance use type: does not use what type of physical activity do you participate in: none lenard/mandaeism: Scientologist seatbelt use: always ROS ROS Narrative Low-grade temperature about 100 ?F today. Some nausea no vomiting. All review of systems were negative except as mentioned above in the history of present illness and the other review of systems. Physical Exam Narrative - Physical Exam General: Alert, Oriented x3, Cooperative HEENT: Atraumatic, PERRLA, EOMI, Normocephalic Oral: Moist Mucosa, No Gingival or Mucosal Lesions/ Ulcerations Neck: Supple, No JVD, Negative Carotid Bruits Lungs: Clear to auscultation, Normal air movement Cardiovascular: Regular rate, Normal S1, Normal S2, No murmurs Abdomen: Bowel Sounds Present, Soft, tender in right quadrant with rebound. Non-Distended, No Hepato-splenomegaly Extremities: No clubbing, No cyanosis, No edema Musculoskeletal: No Tenderness to Palpation of Joints or Extremities Neurological: Neuro grossly intact Psych/Mental Status: Normal Affect, Appropriate Lab / Micro Data Attestation: I reviewed the patient's lab results. 06/07/24 10:39 06/07/24 10:39 Labs: Laboratory Results - last 24 hr 06/07/24 10:39: WBC 11.3 H, RBC 3.97 L, Hgb 13.1, Hct 38.1 L, MCV 96.0 H, MCH 33.0 H, MCHC 34.4, RDW Std Deviation 46.2 H, RDW Coeff of Aramis 13.0, Plt Count 259, MPV 8.1, Immature Gran % (Auto) 0.400, Neut % (Auto) 77.0 H, Lymph % (Auto) 9.1 L, Wilkes % (Auto) 12.8 H, Eos % (Auto) 0.3, Baso % (Auto) 0.4, Absolute Neuts (auto) 8.7 H, Absolute Lymphs (auto) 1.03, Nucleated RBC % 0, Sodium 132 L, Potassium 4.1, Chloride Direct 98, Carbon Dioxide 23.1, Anion Gap 10, BUN 9, Creatinine 0.8, Estim Creat Clear Calc 90.75, Est GFR (MDRD) Non-Af 98, BUN/Creatinine Ratio 12.6, Glucose 122 H, Calcium 8.4, Total Bilirubin 0.45, AST 29, ALT 18, Alkaline Phosphatase 79, Total Protein 6.5, Albumin 3.7, Globulin 2.8, Albumin/Globulin Ratio 1.3, Lipase 24 06/07/24 11:50: Urine Color Yellow, Urine Clarity Clear, Urine pH 7.0, Ur Specific [place] 1.005, Urine Protein 15 H, Urine Glucose (UA) Normal, Urine Ketones Negative, Urine Occult Blood Negative, Urine Nitrite Negative, Urine Bilirubin Negative, Urine Urobilinogen Normal, Ur Leukocyte Esterase Negative, Urine RBC 0 SEEN, Urine WBC 0 SEEN, Ur Squamous Epith Cells 0 SEEN, Urine Bacteria 0 SEEN, Urine Mucus 0 SEEN Imaging Radiology Impression Abdomen Ultrasound 06/07/24 10:24 IMPRESSION: NORMAL RIGHT UPPER QUADRANT ULTRASOUND. Reading Location: [facility] Abdomen/Pelvis CT 06/07/24 12:40 IMPRESSION: Findings in keeping with acute cholecystitis. Questionable polypoid mass at the base of the bladder. Urinary bladder distention. Prostatic enlargement. One or more dose reduction techniques were used (e.g., Automated exposure control, adjustment of the mA and/or kV according to patient size, use of iterative reconstruction technique). Reading Location: [facility] Charges/Coding Visit Charges Inpatient E&M: 97137 Init Hosp L2
[2024-06-07] MEDS: 0.9% Normal Saline (1000mL) 1,000 ML 100 ML IV (18:11)
[2024-06-07] MEDS: Acetaminophen 325 MG Tablet 650 MG PO (21:18)
[2024-06-07] MEDS: 0.9% Normal Saline (100mL Bag) 100 ML 15 ML IV (21:19)
--- NOTE | 2024-06-07 21:59 | CPS ---
set up pt own cpap machine
[2024-06-08] VITALS (29 sets, daily range): BP systolic 103–164; BP diastolic 60–95; PULSE 75–136; RESP 14–23; TEMP 36.6–40.1; O2SAT 82–99
[2024-06-08] MEDS: 0.9% Normal Saline (1000mL) 1,000 ML 100 ML IV ×2 (04:22→13:41)
[2024-06-08] MEDS: Acetaminophen 325 MG Tablet 650 MG PO ×2 (04:22→13:49)
[2024-06-08] MEDS: Piperacil/Tazobactam 3.375 GM in 0.9% Normal Saline (50mL MB+) 50 ML IV ×3 (05:38→21:53)
[2024-06-08 05:52] LABS: Absolute Lymphocyte Count 1.45 X10^3/uL (0.83-4.51); Absolute Neutrophil Count 4.8 X10^3/uL (2.0-7.7); Basophil# 0.03 X10^3/uL; Basophil% 0.4 % (0-1); Eosinophil# 0.21 X10^3/uL; Eosinophils% 2.8 % (0-5); Hematocrit 34.3 % (40-54); Hemoglobin 11.4 g/dL (13.0-16.5); Lymphocyte # 1.45 X10^3/ul (0.83-4.51); Lymphocyte % 19.6 % (19-41); Mean Corp Hgb Conc 33.2 g/dL (32-36); Mean Corpuscular Hgb 32.9 pg (27.0-32.0); Mean Corpuscular Volume 98.8 fL (80-94); Mean Platelet Vol. 8.1 fl (6.2-12.0); Monocyte# 0.92 X10^3/uL; Monocyte% 12.4 % (0-10); NRBC Flagged by Analyzer 0 % (0-5); Neutrophil # 4.77 X10^3/uL (2.7-7.7); Neutrophil % 64.5 % (47-70); Platelet Count 212 K/mm3 (150-450); RBC Distribution Width CV 13.2 % (11.6-14.6); RBC Distribution Width SD 47.8 fl (35.1-43.9); Red Blood Count 3.47 M/mm3 (4.6-6.2); White Blood Count 7.4 K/mm3 (4.4-11.0)
[2024-06-08 06:53] LABS: ALB/GLOB Ratio 1.4 RATIO (0.9-2.4); AST(SGOT) 19 U/L (<=37); Alanine Aminotransfer ALT/SGPT 14 U/L (<=46); Albumin, Serum 3.2 g/dL (3.4-4.8); Alkaline Phosphatase 64 U/L (40-129); Anion Gap 9 (5-15); BUN 8 mg/dL (4-19); BUN/Creat Ratio 10.4 RATIO (10-20); Calcium 7.9 mg/dL (7.6-11.0); Carbon Dioxide 22.6 mmol/L (22.0-29.0); Chloride 106 mmol/L (96-108); Creatinine, Serum 0.7 mg/dL (0.8-1.3); EST Glomerular Filtration Rate 99 (>60); Estimated Creatinine Clearance 90.13 ml/min; Globulin 2.4 g/dL (2.2-4.2); Glucose 101 mg/dL (70-99); Potassium 3.9 mmol/L (3.3-5.1); Protein, Total 5.6 g/dL (5.9-8.4); Sodium Level 138 mmol/L (133-145); Total Bilirubin 0.39 mg/dL (0.00-1.30)
--- NOTE | 2024-06-08 09:19 | PCM.PN.BLA ---
Progress Note Patient seen briefly this morning ahead of his scheduled operation. He states that he feels somewhat better but will be glad to be over with his operation because he has ongoing discomfort in his right upper quadrant. He denies any questions related to the procedure. A brief overview was again provided. I shared with him that his labs demonstrated some improvement since their first checked yesterday. Will still plan to proceed with laparoscopic cholecystectomy and intraoperative cholangiogram. Consents were confirmed. Physical Exam Const alert, oriented x3 and no apparent distress Resp normal respiratory effort GI GI Narrative: Nondistended, soft, tender to palpation of the right upper quadrant
--- NOTE | 2024-06-08 09:25 | PCM.PRE.AN2 ---
ASA Classification* ASA Classification ASA Classification: 2 Assessment & Plan Anesthesia* Anesthesia Assessment Anesthesia Assessment: Discussed sedation and/or anesthesia options, risks, benefits, and alternatives with patient/parents/legal guardian/POA. Questions invited. The patient/parents/legal guardian/POA seems to understand and agrees to proceed with anesthesia plan. Reviewed the physical assessment, medical history, allergy history and patient home medications list prior to surgery/procedure/anesthetic and documented any changes. Performed airway and anesthesia risk assessments. Anesthesia Type Anesthesia Type: General History Source History Obtained from:: Patient and Chart Anesthesia Focused Assessment* Temperature: 98.8 F Pulse Rate: 84 Blood Pressure: 129/72 Respiratory Rate: 16 Pulse Ox: 94 Oxygen Delivery Method: Room Air Airway Assessment Mouth opens: >3 cm Mallampati Score: I Teeth Condition: Intact Neck Range of motion (ROM): Limited ROM (Somewhat decreased extension) Focused Labs Anesthesia Preop lab: CBC WBC 7.4 K/mm3 (4.4-11.0) 06/08/24 05:32 06/08/24 RBC 3.47 M/mm3 (4.6-6.2) L 06/08/24 05:32 06/08/24 Hgb 11.4 g/dL (13.0-16.5) L 06/08/24 05:32 06/08/24 Hct 34.3 % (40-54) L 06/08/24 05:32 06/08/24 Plt Count 212 K/mm3 (150-450) 06/08/24 05:32 06/08/24 CHEMISTRY Potassium 3.9 mmol/L (3.3-5.1) 06/08/24 05:32 06/08/24 Sodium 138 mmol/L (133-145) 06/08/24 05:32 06/08/24 BUN 8 mg/dL (4-19) 06/08/24 05:32 06/08/24 Creatinine 0.7 mg/dL (0.8-1.3) L 06/08/24 05:32 06/08/24 Glucose 101 mg/dL (70-99) H 06/08/24 05:32 06/08/24 TSH 2.110 uIU/mL (0.300-4.200) 06/08/24 05:32 06/08/24 COAG Pre-Assessment Diagnosis/Proposed Procedure Planned Operative Procedure(s): Laparoscopic cholecystectomy. 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 When Was Last Pacemaker Check QUESTION #4 FULL TEXT: You/Your Family Experience fever (hyperthermia) with Anesthesia Last Oral Intake Last Oral intake: Last Oral Intake NPO since 00:00 06/07/24 21:02 Meds taken in AM with sips of water? Meds patient instructed to take am of surgery PONV PONV - electronics technology instructor: PONV - electronics technology instructor Female HX of Motion Sickness HX of N/V After Surgery Non-Smoker Duration of Surgery greater than 60 minutes Number of Risk Factors PONV Score Height & Weight Height & Weight: Anesthesia: Height & Weight Height 5 ft 4 in 06/07/24 21:02 Weight: 94 kg 06/07/24 21:02 Body Mass Index (BMI) 35.5 06/07/24 21:02 Respiratory Assessment Respiratory Assessment - electronics technology instructor: Respiratory Tract Infection Hx - electronics technology instructor Hx Respiratory Tract Infection No 06/07/24 21:23 STOP Sleep Apnea STOP Sleep Apnea - electronics technology instructor: STOP Sleep Apnea - electronics technology instructor Hx Hypertension No 06/07/24 16:43 Hx Sleep Apnea Yes 06/07/24 16:43 CPAP Yes 06/07/24 16:43 BIPAP No 06/07/24 16:43 Do you snore loudly (louder than talking or can be heard Do you often feel tired/ fatigued/ sleepy during daytime? Has anyone observed you stop breathing during sleep? STOP Results Positive 06/07/24 16:43 QUESTION #5 FULL TEXT : Do you snore loudly (louder than talking or can be heard through closed doors)? Tobacco Use History Tobacco Use History - electronics technology instructor: Tobacco Use History - electronics technology instructor Tobacco Use Smoking Status Never smoker 06/07/24 16:43 Hx Tobacco Use No 06/07/24 16:43 Years Smoking Packs Smoked per Day Smoking Cessation Date was within the last 15 years Hx Smoking Cessation Date Hx Smoking Cessation Counseling Hematologic Medial History Hematologic Hx - electronics technology instructor: Hematologic Medical Hx - documentation manager Hx of Blood Transfusion No 06/07/24 16:43 Hx of Transfusion in last 3 No 06/07/24 16:43 Months Date of Last Transfusion (if within last 3 months) Ever experience any problems No 06/07/24 16:43 with transfusion(s)? Specify any problems Hx of Preganancy in last 3 N/A 06/07/24 16:43 Months Nurse Filling Out Transfusion SWILEY 06/07/24 16:43 & Questions: Date: 06/07/24 06/07/24 16:43 Time: 16:47 06/07/24 16:43 Patient unable to answer at this time (ie. confused, unrespo /Reproduction History /Reproductive History - electronics technology instructor: /Reproductive Hx- electronics technology instructor Hx Now Gestational Age (in weeks): EDC: Hx Hx Para Hx Section SAB Active Medications Active Medications: Current Medications Generic Name Dose Route Start Last Admin Trade Name Freq PRN Reason Stop Dose Admin Acetaminophen 650 mg 06/07/24 16:39 06/08/24 04:22 Acetaminophen 325 Mg Tablet PO 650 mg Q6H PRN PRN Administration Pain 1-10 Or Fever >100.7 Hydromorphone HCl 0.5 - 1 mg 06/07/24 16:39 Hydromorphone 1 Mg/Ml Syringe IV Q3H PRN PRN Pain Score 6-10 Hydromorphone HCl 0.5 - 1 mg 06/07/24 16:48 Hydromorphone 0.5 Mg/0.5 Ml Syringe IV Q3H PRN PRN Pain Score 6-10 Sodium Chloride 1,000 mls @ 100 mls/hr 06/07/24 16:39 06/08/24 04:22 IV 06/08/24 22:38 100 mls/hr .Q10H LILIAN Administration Protocol Piperacillin Sod/Tazobactam 50 mls @ 12.5 mls/hr 06/07/24 22:00 06/08/24 05:38 Sod 3.375 gm/ Sodium Chloride IV 12.5 mls/hr Q8 LILIAN Administration Sodium Chloride 100 mls @ 15 mls/hr 06/07/24 16:51 06/07/24 21:23 IV 0 mls/hr .Q6H40M PRN Infusion Saline Flush Sodium Chloride 100 mls @ 15 mls/hr 06/07/24 16:51 IV .Q6H40M PRN Additional IVPB Infusion Ondansetron HCl 4 mg 06/07/24 16:39 Ondansetron 4 Mg/2 Ml Vial IV Q8H PRN PRN NAUSEA/VOMITING Oxycodone HCl 5 mg 06/07/24 16:39 Oxycodone 5 Mg Tablet PO Q4H PRN PRN Pain Score 4-10 Phenytoin Sodium 100 mg 06/07/24 17:00 06/07/24 18:09 Phenytoin Na 100 Mg Capsule PO 100 mg TIDCM LILIAN Administration Sodium Chloride 10 - 40 ml 06/07/24 16:51 0.9% Saline Lock 10 Ml Syringe IV UD PRN SALINE FLUSH PFSH Medical History CPAP (continuous positive airway pressure) dependence Sleep apnea Hypertension Seizures Hypothyroid Nontoxic goiter Vitamin D deficiency Hyperlipidemia Depression Mild cognitive impairment Epilepsy Obstructive sleep apnea Retinal cyst of right eye Raised intraocular pressure of both eyes Bilateral hearing loss Cardiomegaly Chronic sinusitis GERD (gastroesophageal reflux disease) IBS (irritable bowel syndrome) Chronic constipation Psoriasis BPH (benign prostatic hyperplasia) Tremor Age-related cognitive decline History of fracture of leg Home Medications ?Medication ?Instructions ?Recorded ?Last Taken ?Type ascorbic acid (vitamin C) 500 mg 1,000 mg PO DAILY@0800 multivit 05/21/14 06/07/24 History tablet ergocalciferol (vitamin D2) 1,250 50,000 unit PO Q7D vitamin 05/21/14 Unknown History mcg (50,000 unit) capsule fluocinolone 0.025 % topical cream 1 applic TP DAILY psoriasis 05/21/14 Unknown History fluticasone propionate 50 2 spray NS DAILY allergies 05/21/14 Unknown History mcg/actuation nasal spray,suspension multivitamin 1 tab PO DAILY multivit 05/21/14 Unknown History calcium carbonate 600 mg PO DAILY vit 04/24/20 06/07/24 History montelukast 10 mg tablet 10 mg PO DAILY allergies 04/24/20 Unknown History levothyroxine 50 mcg tablet 50 mcg PO DAILY thyroid 10/03/20 06/07/24 History omeprazole 40 mg capsule,delayed 40 mg PO DAILY reflux 03/03/21 Unknown History release paroxetine HCl 20 mg tablet 30 mg PO DAILY depression 08/25/21 Unknown History phenytoin 50 mg chewable tablet 75 mg (1.5 x 50 mg) PO DAILY 05/23/24 Unknown Rx seizures #135 tabs phenytoin sodium extended 100 mg 100 mg PO TID #270 caps 05/23/24 Unknown Rx capsule primidone 250 mg tablet 250 mg PO 4X/DAY epilepsy #360 tabs 05/23/24 Unknown Rx tamsulosin 0.4 mg capsule 0.4 mg PO QHS prostate 06/07/24 06/06/24 History Allergy/AdvReac Type Severity Reaction Status Date / Time No Known Allergies Allergy Verified 06/07/24 09:49 Family History Father Cancer Liver cancer, liver cirrhosis, alcoholic Brother Parkinson's disease Cancer Nonmelanoma skin cancer Sister Cancer Nonmelanoma skin cancer Surgical History (Updated 06/08/24 @ 09:[address] Antelmo Sargent MD) Fracture of left lower leg History of tonsillectomy Social History household members: spouse Smoking Status: Never smoker second hand exposure: No alcohol intake: never substance use type: does not use what type of physical activity do you participate in: none lenard/gnosticist: Gnosticism seatbelt use: always Review of Systems (Anesthesia) ROS Narrative System reviewed and no additional complaints, except as documented.
--- NOTE | 2024-06-08 09:55 | RAD_ITS ---
PROCEDURE: INTRAOPERATIVE CHOLANGIOGRAM IN THE OR REASON FOR EXAM: LAPAROSCOPIC CHOLECYSTECTOMY WITH INTRAOPERATIVE CHOLANGIOGRAM. TECHNIQUE: Contrast material was injected intraoperatively during a laparoscopic cholecystectomy performed by Dr. Kike Smith. 2 cine runs were performed intraoperatively. COMPARISON: CT abdomen and pelvis dated 06/07/2024. Ultrasound gallbladder dated 06/07/2024. FINDINGS: Contrast material opacifies the cystic duct remnant, common bile duct, and visualized hepatic ducts. No intraluminal filling defects or strictures. No abnormal dilatation. Contrast readily spills into the duodenum. No extraluminal extravasation of contrast. RAD/Cholangiogram/ O R,Initial IMPRESSION: Unremarkable intraoperative cholangiogram during laparoscopic cholecystectomy. Reading Location: [place] [id number]
[2024-06-08] MEDS: Bupiv/Epi 0.25% 30 ML Vial (09:56)
--- NOTE | 2024-06-08 10:45 | GALL_PTH ---
PATIENT: JAIMIE STEVENS LOC: [facility] U#:[id number] AGE/SX: 68/M ROOM: ICU03 RE06/09/[address]: Dr. Kike Smith MD : [id number] BED: 1 DIS: 06/09/2024 SPEC #: [id number] RECD: 06/08/24 13:40 STATUS: ISADORA REYNOSO #: [id number] LORA: 06/08/24 10:[address]: Kike Smith DEPT: SURGICAL PATHOLOGY RECD BY: Kalpesh Gupta ENTERED: 06/08/24 14:06 SP TYPE: COLLIN SMALL DR: MD Dr. Ervin Ramey MD Tissues: Gallbladder, NOS Procedures: Surgery Specimen Level III HEADER OPERATION: Laparoscopic cholecystectomy with IOC PRE-OP DIAGNOSIS: Acute cholecystitis TISSUE SUBMITTED: Gallbladder MICROSCOPIC DIAGNOSIS Gallbladder, cholecystectomy: Acute and chronic ulcerated cholecystitis. See comment. DESIREE. 06/09/2024 COMMENT No stones are identified in the container or in the gallbladder. MICROSCOPIC DESCRIPTION Slides are reviewed. GROSS DESCRIPTION Received is one container labeled with the patient's name and designated gallbladder. The specimen consists of a gallbladder measuring 8 cm in length and up to 4.5 cm in diameter. The external surface is pink-del angel, smooth and glistening for the most part. Focally it is granular, hemorrhagic and contains cautery artifact. The gallbladder contains light pink mucoid and hemorrhagic bile. No stones are identified in the container or in the gallbladder. The mucosa is bile-stained and without any mass lesions. The gallbladder wall measures up to 0.5 cm in thickness. Tank Car Inspector sections from the gallbladder and the cystic duct are submitted in one cassette. / SJ: 06/08/2024 TC:2 CPT: 15057
--- NOTE | 2024-06-08 11:25 | PCM.OPRPT ---
Procedures Digestive 40xxx-49xxx: 47610 Laparo cholecystectomy/graph Operative Report (Standard) Operative Information Date of Procedure: 06/08/24 Pre-Operative Diagnosis: Acute cholecystitis Post-Operative Diagnosis: Same Surgery/Procedure Performed: Laparoscopic cholecystectomy with intraoperative cholangiography heading up machine operator: Yes Nail Setter: Kat Rojo Tasks completed by education administrative assistant: Opening and Other (Laparoscopic camera operation) Type of Anesthesia: General/Supplemental RN Documented Start/Stop Times: Operation Date: 06/08/24 10:45 Case Time Into Pre-Op 06/08/24 08:51 Anesthesia Start 06/08/24 09:36 Into Room 06/08/24 09:36 Out of Pre-Op 06/08/24 09:36 Procedure Start 06/08/24 09:56 Procedure End 06/08/24 11:28 Anesthesia End 06/08/24 11:32 Out of Room 06/08/24 11:32 Into Recovery 06/08/24 11:35 Procedure Start Time: 09:56 Procedure Stop Time: 11:28 Select all DRAINS/GRAFTS/IMPLANTS that apply: None Estimated Blood Loss: 50 Specimen collected: Yes Description of specimen(s) removed: Gallbladder Description of surgery: After proper identification in the preoperative holding area the patient was brought to the operating room where he was positioned supine on the operating room table. Preoperatively SCDs were placed and antibiotics were administered (being completed from the floor on a continuous order). General anesthesia was then induced. Patient's abdomen was prepped and draped in usual sterile fashion. A formal timeout was conducted to confirm both patient and the procedure. Procedure was begun with a supraumbilical incision which was extended deeply down to the level of the fascia. The fascia was elevated and incised, as well as the peritoneum. A finger sweep was performed to ensure there were no underlying adhesions and a 12 mm balloon trocar was inserted. Pneumoperitoneum was established at 15 mmHg. Three additional trocars (all 5 mm) were placed in the epigastrium and in the right upper quadrant. Inspection of the peritoneum revealed no inadvertent injury to the viscera below. The gallbladder was visualized with moderately severe inflammation. It was initially too distended to be grasped so a aspiration needle was placed on the laparoscopic suction performance improvement coordinator device and the gallbladder was aspirated. This opening was occluded with a grasper and the gallbladder fundus was elevated cephalad. Then, using careful dissection the peritoneum was opened and the structures of the hepatocystic triangle were delineated. During retraction a small inadvertent rent was made in the region of the gallbladder infundibulum resulting in spillage of purulent material that was promptly suctioned free of the peritoneal cavity and the opening was occluded with a laparoscopic grasper. Once the critical view of safety was obtained, the cystic duct was singly clipped and partially divided with a ductotomy. Because the duct and gallbladder parenchyma appeared friable I elected to place Hem-o-shauna clips to try to ensure occlusion. To do so the epigastric port site was upsized to a 12 mm size after extending our incision slightly. This port was placed under laparoscopic visualization. The proximal cystic duct was milked of any debris. Initially I looked to proceed with cholangiography via a cholangiocatheter placed into the abdomen via a 14-gauge angiocatheter. However despite repeated attempts the cholangiocatheter could not be fed into the proximal segment of the cystic duct. Thus this attempt was aborted and I transition to use of an Ambrosio Jason clamp and catheter. Using an Ambrosio Jason clamp, a cholangiocatheter was fed into the proximal segment of the cystic duct and clamped into place on the third attempt. Under fluoroscopy a cholangiogram was then obtained showing a standard length (but diminutive caliber) cystic duct flowing into a common bile duct with unobstructed antegrade flow of contrast into the duodenum. There was also retrograde flow through the common hepatic duct into the right and left hepatic ducts. Satisfied with this result, the cholangiocatheter was withdrawn and the proximal cystic duct was sealed with clips and the cystic duct was completely transected. The same process was used for the anterior cystic artery and a secondary posterior cystic artery. The gallbladder was then removed from the gallbladder fossa with the use of electrocautery. Selective electrocautery was used to obtain hemostasis in the gallbladder fossa. A small amount of fibrillar hemostatic agent was placed over the area of the divided cystic arteries as there had been some oozing but when this area was reexamined there is no evidence of ongoing hemorrhage. Still the hemostatic agent was left in place. The gallbladder was placed in an Endo Catch bag and removed from the peritoneum. Morison's pouch was irrigated and the effluent was suctioned free of the peritoneum. Hemostasis was again confirmed. Pneumoperitoneum was evacuated and the fascia of the 12 mm port sites was closed with #1Vicryl in a [id number] fashion. A total of 30 mL of anesthetic was injected at the port sites for postoperative pain control. The skin of each port site was then closed in subcuticular fashion using 4-0 Monocryl. Steri-Strips and bandages were applied as dressings. Patient tolerated the procedure well without any apparent complications. On emergence from their anesthetic the patient was taken to PACU for ongoing recovery. Surgical Findings: ? At least moderately severe cholecystitis ? Somewhat diminutive cystic duct but otherwise normal biliary anatomy on cholangiogram Complications Complications: No Admit VTE Documentation VTE Mechan Device Prophylaxis: SCD's
--- NOTE | 2024-06-08 11:33 | PCM.PN.HOSP ---
Subjective Subjective Doing well, no issues overnight. Belly pain is stable in the little bit improved Objective Data Objective Data Vital Signs: Vital Signs Temp Pulse Resp BP Pulse Ox O2 Del Method 98.8 F 84 16 129/72 H 94 Room Air 06/08/24 09:32 06/08/24 09:32 06/08/24 09:32 06/08/24 09:32 06/08/24 09:32 06/08/24 09:32 Oxygen Delivery Method Room Air Weight: 207 lb 3.752 oz Body Mass Index (BMI) 35.5 Intake & Output: Intake and Output for Last 24 Hours 06/07/24 06/08/24 06/09/24 03:59 03:59 03:59 Intake Total 1341 / 1341 1050 / 1050 Balance 1341 / 1341 1050 / 1050 Lab / Micro Data 06/08/24 05:32 06/08/24 05:32 Labs: Laboratory Results - last 24 hr 06/07/24 10:39: Sodium 132 L, Potassium 4.1, Chloride Direct 98, Carbon Dioxide 23.1, Anion Gap 10, BUN 9, Creatinine 0.8, Estim Creat Clear Calc 90.75, Est GFR (MDRD) Non-Af 98, BUN/Creatinine Ratio 12.6, Glucose 122 H, Calcium 8.4, Total Bilirubin 0.45, AST 29, ALT 18, Alkaline Phosphatase 79, Total Protein 6.5, Albumin 3.7, Globulin 2.8, Albumin/Globulin Ratio 1.3, Lipase 24 06/07/24 11:50: Urine Color Yellow, Urine Clarity Clear, Urine pH 7.0, Ur Specific [place] 1.005, Urine Protein 15 H, Urine Glucose (UA) Normal, Urine Ketones Negative, Urine Occult Blood Negative, Urine Nitrite Negative, Urine Bilirubin Negative, Urine Urobilinogen Normal, Ur Leukocyte Esterase Negative, Urine RBC 0 SEEN, Urine WBC 0 SEEN, Ur Squamous Epith Cells 0 SEEN, Urine Bacteria 0 SEEN, Urine Mucus 0 SEEN 06/08/24 05:32: WBC 7.4, RBC 3.47 L, Hgb 11.4 L, Hct 34.3 L, MCV 98.8 H, MCH 32.9 H, MCHC 33.2, RDW Std Deviation 47.8 H, RDW Coeff of Aramis 13.2, Plt Count 212, MPV 8.1, Immature Gran % (Auto) 0.300, Neut % (Auto) 64.5, Lymph % (Auto) 19.6, Collin % (Auto) 12.4 H, Eos % (Auto) 2.8, Baso % (Auto) 0.4, Absolute Neuts (auto) 4.8, Absolute Lymphs (auto) 1.45, Nucleated RBC % 0, Sodium 138, Potassium 3.9, Chloride Direct 106, Carbon Dioxide 22.6, Anion Gap 9, BUN 8, Creatinine 0.7 L, Estim Creat Clear Calc 90.13, Est GFR (MDRD) Non-Af 99, BUN/Creatinine Ratio 10.4, Glucose 101 H, Calcium 7.9, Total Bilirubin 0.39, AST 19, ALT 14, Alkaline Phosphatase 64, Total Protein 5.6 L, Albumin 3.2 L, Globulin 2.4, Albumin/Globulin Ratio 1.4, TSH 2.110 Radiography Diagnostic Testing: Radiology Impression Abdomen Ultrasound 06/07/24 10:24 IMPRESSION: NORMAL RIGHT UPPER QUADRANT ULTRASOUND. [facility]Pelvis CT 06/07/24 12:40 IMPRESSION: Findings in keeping with acute cholecystitis. Questionable polypoid mass at the base of the bladder. Urinary bladder distention. Prostatic enlargement. One or more dose reduction techniques were used (e.g., Automated exposure control, adjustment of the mA and/or kV according to patient size, use of iterative reconstruction technique). Reading Location: [id number] Cholangiogram 06/08/24 09:55 IMPRESSION: Unremarkable intraoperative cholangiogram during laparoscopic cholecystectomy. Reading [facility] Physical Exam Narrative General: Alert, Oriented x3, Cooperative, No apparent distress HEENT: Atraumatic, PERRLA, EOMI, Normocephalic Oral: Moist Mucosa Neck: Supple, No JVD Lungs: Clear to auscultation, Normal air movement, No rhonchi, No wheeze, No rales Cardiovascular: Regular rate, Regular Rhythm, Normal S1, Normal S2, No murmurs Abdomen: Soft, mild RUQ tenderness, Non-Distended, No Hepato-splenomegaly Extremities: No edema, Capillary Refill Less than 3 Seconds Skin: No rashes, No breakdown Musculoskeletal: No Tenderness to Palpation of Joints or Extremities Neurological: No focal neurological deficits, Motor Exam 5/5 strength throughout, Sensory exam intact to light touch and pain Psych/Mental Status: Normal Affect, Appropriate Assessment & Plan Assessment/Plan (1) Acute cholecystitis: PLAN: Plan 1. Acute cholecystitis ? Plan for OR today ? Continue with Zosyn ? Advance diet as tolerated per GEN surgery ? Hyponatremia has resolved 2. Hypothyroidism ? Stable ? Continue with Synthroid 3. Anxiety/depression ? Stable ? Continue with his home medications 4. GERD ? Stable ? Continue with PPI 5. Seizure disorder ? Stable ? Continue with his home medications DVT: SCDs Will sign off please call with questions Charges/Coding Visit Charges Office Visits / Consults: 52233 OV L3 Est 20min
--- NOTE | 2024-06-08 11:44 | PCM.POST.ANE ---
Anesthesia: Postop Eval I Current Vital Signs Temperature: 98.4 F Pulse Rate: 93 Blood Pressure: 148/85 Respiratory Rate: 18 Pulse Ox: 96 Oxygen Delivery Method: Room Air Assessment Airway patent: Yes Spontaneous unlabored respirations: Yes Mental status: Awake and Calm nausea: No Vomiting: No Anesthesia Complication: No Fluid Hydration Crystalloid volume administer (ml): 1,100 Total IV fluid infused: 1,100 Progress Note Anesthesia document: Postop Eval 1 completed: Yes
--- NOTE | 2024-06-08 12:13 | POSTOPAN2_ITS ---
Anesthesia Postop Eval I Sum Postop Eval Completion status Anesthesia document: Postop Eval 1 completed: Yes Anesthesia Postop Eval I Summary Anesthesia Postop Eval I Summary: Anesthesia Postop Eval I: Assessment Summary Airway patent Yes 06/08/24 11:45 GEOSCIENCE [email or web address] Spontaneous unlabored Yes 06/08/24 11:45 GEOSCIENCE [email or web address] respirations Mental status Awake,Calm 06/08/24 11:45 GEOSCIENCE [email or web address] nausea No 06/08/24 11:45 GEOSCIENCE [email or web address] Vomiting No 06/08/24 11:45 GEOSCIENCE [email or web address] Anesthesia Postop Eval I: Fluid Summary Crystalloid volume administer 1,100 06/08/24 11:45 GEOSCIENCE [email or web address] (ml) Colloids volume administered ( ml) Blood Product volume administered (ml) Total IV fluid infused 1,100 06/08/24 11:45 GEOSCIENCE [email or web address] Anesthesia Postop Eval I: Summary Notes Anesthesia Complication No 06/08/24 11:45 GEOSCIENCE [email or web address] Anesthesia Complication Comment: Post-operative progress note Anesthesia: Postop Eval II Evaluation Mental status: Awake and Calm Pain Level: 0 nausea: No Vomiting: No Complications Anesthesia Complication: No
--- NOTE | 2024-06-08 12:13 | PCM.POSTANE2 ---
Anesthesia Postop Eval I Sum Postop Eval Completion status Anesthesia document: Postop Eval 1 completed: Yes Anesthesia Postop Eval I Summary Anesthesia Postop Eval I Summary: Anesthesia Postop Eval I: Assessment Summary Airway patent Yes 06/08/24 11:45 [email or web address] Spontaneous unlabored Yes 06/08/24 11:45 [email or web address] [email or web address] respirations Mental status Awake,Calm 06/08/24 11:45 [email or web address] nausea No 06/08/24 11:45 DAIRY [email or web address] Vomiting No 06/08/24 11:45 [email or web address] Anesthesia Postop Eval I: Fluid Summary Crystalloid volume administer 1,100 06/08/24 11:45 [email or web address] (ml) Colloids volume administered ( ml) Blood Product volume administered (ml) Total IV fluid infused 1,100 06/08/24 11:45 [email or web address] Anesthesia Postop Eval I: Summary Notes Anesthesia Complication No 06/08/24 11:45 DAIRY [email or web address] Anesthesia Complication Comment: Post-operative progress note Anesthesia: Postop Eval II Evaluation Mental status: Awake and Calm Pain Level: 0 nausea: No Vomiting: No Complications Anesthesia Complication: No
[2024-06-08] MEDS: Phenytoin Na 100 MG Capsule PO ×2 (13:29→21:53)
--- NOTE | 2024-06-08 13:42 | PCM.DC.SUM ---
Providers Date of Admission: 06/09/24 Primary Care Physician: Dr. Dede Galan MD Consultations 06/07/24 16:39 Consult: Hospitalist Routine Consulting Provider: Arcadio Bautista Reason for Consult: Medical management EMERGENT Consult: No MD Notified: Yes Date Notified: 06/07/24 Time Notified: 15:44 Method of Notification: Verbal Reason For Visit: ACUTE CHOLECYSTITIS Diagnosis Discharge Diagnosis (1) Acute cholecystitis: Status: Acute Code(s): K81.0 - Acute cholecystitis Plan: Patient is a 68-year-old male who presents with 2-1/2 days of acute onset abdominal discomfort that has become localized to the right upper quadrant associated with nausea and vomiting. Workup, including biochemistries and imaging, has been consistent with a diagnosis of acute cholecystitis. On eliciting patient's history directly and then performing an exam I agree with this diagnosis. As such, have recommended proceeding for surgical cholecystectomy with intraoperative cholangiography. Procedure was described in detail but patient's also underwent this procedure was able to brief her on these details. Likely given this experience they have few questions but I did clarify that we will plan for admission today with probable operation tomorrow. In the meantime emergency medicine has dosed patient with antibiotics. Patient and his . Primarily concerned about the administration of antiepileptic medications and I have deferred to hospitalist service which I have asked to comanage this patient given history of seizures and his perioperative seizure risk. Appreciate their involvement. ? N.p.o. past midnight ? Continuous IV Zosyn ? Consent for laparoscopic cholecystectomy with intraoperative cholangiography Kike Smith MD General Surgery Endocrine Surgery Pager: [facility] [address] [place] [address], [address] [place] [address] Office: [phone] Medications at Discharge Home Medications ascorbic acid (vitamin C) 500 mg tablet 1,000 mg PO DAILY@0800 multivit 05/21/14 ergocalciferol (vitamin D2) 1,250 mcg (50,000 unit) capsule 50,000 unit PO Q7D vitamin 05/21/14 fluocinolone 0.025 % topical cream 1 applic TP DAILY psoriasis 05/21/14 fluticasone propionate 50 mcg/actuation nasal spray,suspension 2 spray NS DAILY allergies 05/21/14 multivitamin 1 tab PO DAILY multivit 05/21/14 calcium carbonate 600 mg PO DAILY vit 04/24/20 montelukast 10 mg tablet 10 mg PO DAILY allergies 04/24/20 levothyroxine 50 mcg tablet 50 mcg PO DAILY thyroid 10/03/20 omeprazole 40 mg capsule,delayed release 40 mg PO DAILY reflux 03/03/21 paroxetine HCl 20 mg tablet 30 mg PO DAILY depression 08/25/21 phenytoin 50 mg chewable tablet 75 mg (1.5 x 50 mg) PO DAILY seizures #135 tabs 05/23/24 phenytoin sodium extended 100 mg capsule 100 mg PO TID #270 caps 05/23/24 primidone 250 mg tablet 250 mg PO 4X/DAY epilepsy #360 tabs 05/23/24 tamsulosin 0.4 mg capsule 0.4 mg PO QHS prostate 06/07/24 oxycodone 5 mg tablet 5 mg PO Q4H PRN PRN Pain Score 4-10 3 days #14 tabs 06/08/24 amoxicillin 875 mg-potassium clavulanate 125 mg tablet 1 tab PO BID 2 days #4 tabs 06/09/24 Hospital Course Operations cholecystecomy Procedures None Summary of Care Provided Hospital Course: Patient is a 68-year-old male who presented to the emergency department on 06/07/2024 with concerns related to the acute onset abdominal pain that become localized to the right upper quadrant. Workup was consistent with a diagnosis of acute cholecystitis and patient was admitted to the hospital. He was immediately begun on IV antibiotics and then taken to the operating room 06/08/2024 for recommended laparoscopic cholecystectomy with intraoperative cholangiography. Procedure proceeded in an uncomplicated fashion, however, there was more severe inflammatory and infectious changes than initially suggested by workup so he was maintained on IV antibiotic therapy for a day following his procedure. Postoperative day 0 patient did have a rapid response called for some shaking and associated hypoxia, tachycardia, and fever. Workup was conducted following this clinical presentation which showed evidence of mild leukocytosis, mild LFT elevation, and mild troponin leak. In the abundance of caution we sought transfer to the ICU for closer monitoring given patient's seizure history. Patient's hypoxia persisted for several hours and so the decision was made to proceed with CTA of the chest. Results of this study showed mild atelectasis but no evidence of pulmonary embolus. Gradually patient's vitals improved and his oxygen requirement was weaned. During that time a diet was provided just had a clear liquid threshold but patient tolerated this well. By the morning of postoperative day 1 patient was significantly improved and reporting an appetite. He was fully weaned of his oxygen requirement. Therefore, I discussed transfer out of the ICU and probable discharge to home pending further clinical improvements. Patient's antibiotics were transitioned to an oral regimen during this time. Ultimately patient was discharged home from the ICU as he did not receive a transfer bed in time and his clinical progress outpaced that of bed availability. Expectation was set for outpatient follow-up and discharge instructions were reviewed with patient and nursing. Physical Exam Const alert, oriented x3 and no apparent distress Resp normal respiratory effort GI GI Narrative: Operative dressings intact with mild strikethrough. Minimally distended. Appropriately tender to palpation about incision sites. Weight / BMI Weight Weight: 215 lb 9.793 oz Body Mass Index (BMI) 37.0 ABG / Lab / Microbiology Data 06/09/24 06:40 06/09/24 06:40 Laboratory: Laboratory Results - last 24 hr 06/08/24 05:32: WBC 7.4, RBC 3.47 L, Hgb 11.4 L, Hct 34.3 L, MCV 98.8 H, MCH 32.9 H, MCHC 33.2, RDW Std Deviation 47.8 H, RDW Coeff of Aramis 13.2, Plt Count 212, MPV 8.1, Immature Gran % (Auto) 0.300, Neut % (Auto) 64.5, Lymph % (Auto) 19.6, [place] % (Auto) 12.4 H, Eos % (Auto) 2.8, Baso % (Auto) 0.4, Absolute Neuts (auto) 4.8, Absolute Lymphs (auto) 1.45, Nucleated RBC % 0, Sodium 138, Potassium 3.9, Chloride Direct 106, Carbon Dioxide 22.6, Anion Gap 9, BUN 8, Creatinine 0.7 L, Estim Creat Clear Calc 90.13, Est GFR (MDRD) Non-Af 99, BUN/Creatinine Ratio 10.4, Glucose 101 H, Calcium 7.9, Total Bilirubin 0.39, AST 19, ALT 14, Alkaline Phosphatase 64, Total Protein 5.6 L, Albumin 3.2 L, Globulin 2.4, Albumin/Globulin Ratio 1.4, TSH 2.110 Radiography Diagnostic Testing: Radiology Impression Abdomen Ultrasound 06/07/24 10:24 IMPRESSION: NORMAL RIGHT UPPER QUADRANT ULTRASOUND. [facility]Pelvis CT 06/07/24 12:40 IMPRESSION: Findings in keeping with acute cholecystitis. Questionable polypoid mass at the base of the bladder. Urinary bladder distention. Prostatic enlargement. One or more dose reduction techniques were used (e.g., Automated exposure control, adjustment of the mA and/or kV according to patient size, use of iterative reconstruction technique). Reading Location: [id number] Cholangiogram 06/08/24 09:55 IMPRESSION: Unremarkable intraoperative cholangiogram during laparoscopic cholecystectomy. Reading Location: [facility] D/C Instructions DC O2, CPAP, BIPAP Needs Home O2 Discharge instructions: No Meaningful Use Info Meaningful Use Meaningful Use Diagnoses (Choose all that apply): None applicable Ischemic Stroke Statin Dosing Therapy Reference: STATIN DOSE THERAPY REFERENCE: * Patients > 75 years receive moderate or high dose statin therapy. * Patients 75 years or YOUNGER should receive HIGH intensity statin dose unless contraindicated. You will be required to document reason for non-treatment if statin daily dose does not meet guidelines. HIGH DOSE STATIN THERAPY DAILY Atorvastatin > than or = to 40 mg Rosuvastatin > than or = to 20 mg Amlodipine + Atorvastatin > than or = to 2.5/40 mg Ezetimibe + Simvastatin 10/80 mg Simvastatin 80mg Discharge Plan Admission Admit Date/Time: 06/09/24 10:11 Primary Reason for Your Visit: Cholecystitis Attending Provider: Kike Smith Primary Care Provider: Dede Galan Consulting Providers: Ervin Velazquez Eric Discharge Orders/Prescriptions Prescriptions: New oxycodone 5 mg Tablet 5 mg PO Q4H PRN PRN (Reason: Pain Score 4-10) 3 Days Qty: 14 0RF amoxicillin-pot clavulanate 875-125 mg Tablet 1 tab PO BID 2 Days Qty: 4 0RF Continued montelukast 10 mg tablet 10 mg PO DAILY calcium carbonate 600 mg calcium (1,500 mg) tablet 600 mg PO DAILY levothyroxine 50 mcg tablet 50 mcg PO DAILY omeprazole 40 mg capsule,delayed release(DR/EC) 40 mg PO DAILY primidone 250 mg tablet 250 mg PO 4X/DAY Qty: 360 3RF phenytoin sodium extended 100 mg capsule 100 mg PO TID Qty: 270 3RF phenytoin 50 mg tablet,chewable 75 mg PO DAILY Qty: 135 3RF multivitamin 1 TABLET tablet 1 tab PO DAILY ascorbic acid (vitamin C) 500 MG tablet 1,000 mg PO DAILY@0800 ergocalciferol (vitamin D2) 50,000 UNIT capsule 50,000 unit PO Q7D fluticasone propionate 16 GM spray,suspension 2 spray NS DAILY fluocinolone 120 GM cream 1 applic TP DAILY paroxetine HCl 20 mg tablet 30 mg PO DAILY tamsulosin 0.4 mg capsule 0.4 mg PO QHS Referrals / Follow Up: Dede Galan MD [Primary Care Provider] - Disposition Disposition (needs filled in before D/C Order can be placed): Home, Self Care
[2024-06-08] MEDS: oxyCODONE 5 MG Tablet PO (13:49)
[2024-06-08] MEDS: 0.9% Normal Saline (1000mL) 1,000 ML 999 ML IV (15:44)
--- NOTE | 2024-06-08 15:48 | RAD_ITS ---
PROCEDURE: Chest radiograph REASON FOR EXAM: Hypoxia TECHNIQUE: Frontal view of the chest. COMPARISON: None FINDINGS: Cardiomediastinal silhouette is within normal limits. No focal consolidation, sizeable pleural effusion or pneumothorax. RAD/Chest 1 View (Portable) IMPRESSION: No acute airspace abnormality. Reading Location: [facility]
--- NOTE | 2024-06-08 15:49 | EKG12_ITS ---
Test Reason : CONSOLE ATTENDANT Blood Pressure : */* mmHG Vent. Rate : 136 BPM Atrial Rate : 136 BPM P-R Int : 154 ms QRS Dur : 88 ms QT Int : 276 ms P-R-T Axes : 44 86 38 degrees QTcB Int : 415 ms Sinus tachycardia Non-specific ST & T wave changes consider inferior ischemia Abnormal ECG When compared with ECG of 07-Jun-2024 16:41, Vent. rate has increased by 54 bpm Confirmed by Kike Mcclain ([id number]), video editor JUANI LEYVA ([id number]) on 06/09/2024 9:44:12 AM Referred By: Confirmed By: Kike Mcclain
[2024-06-08 16:20] LABS: Bedside Glucose 164 mg/dL (74-106)
--- NOTE | 2024-06-08 16:44 | CASEMGMT ---
Met with patient to complete YANG form. YANG form explained to patient who voiced understanding and signed form. Original form placed in pt?s chart and copy provided to patient. Tricia Hernandez, Discharge Planning Asst
[2024-06-08 16:48] LABS: Absolute Lymphocyte Count 0.27 X10^3/uL (0.83-4.51); Absolute Neutrophil Count 10.9 X10^3/uL (2.0-7.7); Basophil# 0.02 X10^3/uL; Basophil% 0.2 % (0-1); Hematocrit 37.4 % (40-54); Hemoglobin 12.4 g/dL (13.0-16.5); Lymphocyte # 0.27 X10^3/ul (0.83-4.51); Lymphocyte % 2.3 % (19-41); Mean Corp Hgb Conc 33.2 g/dL (32-36); Mean Corpuscular Hgb 32.8 pg (27.0-32.0); Mean Corpuscular Volume 98.9 fL (80-94); Monocyte% 5.9 % (0-10); NRBC Flagged by Analyzer 0 % (0-5); Neutrophil # 10.93 X10^3/uL (2.7-7.7); Neutrophil % 91.3 % (47-70); POSITIVE DIFFERENTIAL YES; Platelet Count 232 K/mm3 (150-450); RBC Distribution Width CV 13.2 % (11.6-14.6); RBC Distribution Width SD 48.5 fl (35.1-43.9); Red Blood Count 3.78 M/mm3 (4.6-6.2)
[2024-06-08 17:06] LABS: ALB/GLOB Ratio 1.1 RATIO (0.9-2.4); AST(SGOT) 134 U/L (<=37); Alanine Aminotransfer ALT/SGPT 64 U/L (<=46); Albumin, Serum 3.3 g/dL (3.4-4.8); Alkaline Phosphatase 129 U/L (40-129); Anion Gap 8 (5-15); BUN 8 mg/dL (4-19); BUN/Creat Ratio 9.6 RATIO (10-20); Carbon Dioxide 24.2 mmol/L (22.0-29.0); Chloride 105 mmol/L (96-108); Creatinine, Serum 0.9 mg/dL (0.8-1.3); EST Glomerular Filtration Rate 93 (>60); Estimated Creatinine Clearance 80.12 ml/min; Glucose 191 mg/dL (70-99); Potassium 4.5 mmol/L (3.3-5.1); Protein, Total 6.2 g/dL (5.9-8.4); Sodium Level 138 mmol/L (133-145); Total Bilirubin 0.54 mg/dL (0.00-1.30)
--- NOTE | 2024-06-08 17:41 | CT_ITS ---
PROCEDURE: CTA chest REASON FOR EXAM: Hypoxia TECHNIQUE: Multiple contiguous axial images through the chest were obtained after the administration of intravenous contrast. Two-dimensional and three-dimensional MIP coronal and sagittal reformatted images were reconstructed. Low-dose imaging technique was utilized. COMPARISON: None. FINDINGS: Heart size is within normal limits. Minimal LAD coronary artery calcifications. No significant pericardial effusion. Ectasia of the ascending thoracic aorta measuring 4.1 cm. No dissection. Aberrant right subclavian artery. Normal caliber pulmonary arteries without filling defects. No bulky adenopathy. Several foci of pneumoperitoneum in the right upper quadrant and along the ventral abdominal subcutaneous tissues. Moderate inflammatory changes along the gallbladder fossa. Central airways are patent. Trace right pleural effusion. Mild/moderate bibasilar atelectasis, greater on the right. No patchy infiltrates or pneumothorax. No pulmonary mass. No acute osseous abnormality. Mild thoracic dextroscoliosis. CT/CTA Chest W/WO Contrast IMPRESSION: 1. Negative for pulmonary embolism. 2. Trace right pleural effusion and mild/moderate bibasilar atelectasis, greate r on the right. 3. Inflammatory changes in the right upper quadrant at the gallbladder fossa wi th scattered areas of pneumoperitoneum which may relate to postsurgical change. Please correlate. One or more dose reduction techniques were used (e.g., Automated exposure contr ol, adjustment of the mA and/or kV according to patient size, use of iterative reconstruction technique). Reading Location: [facility]
--- NOTE | 2024-06-08 18:42 | PN_ITS ---
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 He just had a laparoscopic cholecystectomy that was very purulent. There is some concern now for postoperative sepsis and was given a 1 L fluid bolus as he was tachycardic as well as diaphoretic and clammy. Blood pressures have been stable and lab work was obtained. White count was only 12 and renal function is also normal at 0.9. He has been on broad-spectrum antibiotics since admission with Zosyn therefore I do not feel that blood cultures would be beneficial at this time. EKG was nonischemic with sinus tachycardia and troponin is only 33. proBNP is pending. Will transfer to the ICU for closer monitoring. CTA of the chest given his hypoxia and new oxygen requirement is negative for PE, there is a trace right pleural effusion with atelectasis.
[2024-06-08] MEDS: Primidone 250 MG Tablet PO ×2 (18:45→21:53)
[2024-06-08 18:56] LABS: Troponin T High Sensitivity 33 ng/L (<=22)
[2024-06-08 20:25] LABS: Pro- Brain NATRIURETIC PEPTIDE 543 pg/mL (<=900)
[2024-06-08] MEDS: Tamsulosin HCl 0.4 MG Capsule PO (21:53)
[2024-06-08] MEDS: 0.9% Normal Saline (100mL Bag) 100 ML 15 ML IV (22:08)
[2024-06-09] VITALS (12 sets, daily range): BP systolic 92–147; BP diastolic 71–82; PULSE 86–110; RESP 14–23; TEMP 36.6–37.2; O2SAT 92–99; BMI 37.0
[2024-06-09] MEDS: Acetaminophen 325 MG Tablet 650 MG PO ×2 (00:18→06:30)
[2024-06-09] MEDS: Piperacil/Tazobactam 3.375 GM in 0.9% Normal Saline (50mL MB+) 50 ML IV (06:29)
[2024-06-09] MEDS: Levothyroxine 50 MCG Tablet PO (06:30)
[2024-06-09 06:59] LABS: Absolute Lymphocyte Count 1.58 X10^3/uL (0.83-4.51); Absolute Neutrophil Count 12.9 X10^3/uL (2.0-7.7); Basophil# 0.03 X10^3/uL; Basophil% 0.2 % (0-1); Eosinophil# 0.02 X10^3/uL; Eosinophils% 0.1 % (0-5); Hematocrit 37.8 % (40-54); Hemoglobin 13.1 g/dL (13.0-16.5); Lymphocyte # 1.58 X10^3/ul (0.83-4.51); Lymphocyte % 9.8 % (19-41); Mean Corp Hgb Conc 34.7 g/dL (32-36); Mean Corpuscular Hgb 33.9 pg (27.0-32.0); Mean Corpuscular Volume 97.7 fL (80-94); Mean Platelet Vol. 8.5 fl (6.2-12.0); Monocyte# 1.48 X10^3/uL; Monocyte% 9.2 % (0-10); NRBC Flagged by Analyzer 0 % (0-5); Neutrophil # 12.89 X10^3/uL (2.7-7.7); Neutrophil % 80.2 % (47-70); POSITIVE COUNT YES; RBC Distribution Width CV 13.1 % (11.6-14.6); RBC Distribution Width SD 46.9 fl (35.1-43.9); Red Blood Count 3.87 M/mm3 (4.6-6.2); White Blood Count 16.1 K/mm3 (4.4-11.0)
[2024-06-09] MEDS: Phenytoin Na 100 MG Capsule PO ×2 (07:51→11:10)
[2024-06-09] MEDS: Pantoprazole Sodium 40 MG Tablet PO (07:51)
[2024-06-09] MEDS: Primidone 250 MG Tablet PO ×3 (07:51→17:35)
[2024-06-09 08:27] LABS: AST(SGOT) 72 U/L (<=37); Alanine Aminotransfer ALT/SGPT 52 U/L (<=46); Alkaline Phosphatase 109 U/L (40-129); Anion Gap 11 (5-15); BUN 6 mg/dL (4-19); BUN/Creat Ratio 8.7 RATIO (10-20); Calcium 7.8 mg/dL (7.6-11.0); Carbon Dioxide 19.8 mmol/L (22.0-29.0); Chloride 100 mmol/L (96-108); Creatinine, Serum 0.65 mg/dL (0.70-1.20); EST Glomerular Filtration Rate 102 (>60); Globulin 2.9 g/dL (2.2-4.2); Glucose 137 mg/dL (70-99); Potassium 3.7 mmol/L (3.3-5.1); Protein, Total 5.9 g/dL (5.9-8.4); Sodium Level 130 mmol/L (133-145); Total Bilirubin 0.64 mg/dL (0.00-1.30)
[2024-06-09 09:16] LABS: Differential Indicated SCAN CRITERIA MET
[2024-06-09 09:17] LABS: Platelet Estimate ADEQUATE (ADEQ)
--- NOTE | 2024-06-09 09:45 | PCM.PN.SRG ---
Subjective Subjective Patient seen and examined during AM rounds. He is found resting in bed. He states that he feels much better than yesterday. He seems to suggest that sitting upright has helped both his pain and his respiratory status. He expresses a strong appetite this morning and confirms that he is passing flatus. Objective Data Objective Data Vital Signs: Vital Signs Temp Pulse Resp BP Pulse Ox O2 Del Method O2 Flow Rate 98.3 F 90 18 123/73 H 94 Room Air 2 06/09/24 07:56 06/09/24 08:59 06/09/24 07:56 06/09/24 08:59 06/09/24 08:59 06/09/24 08:59 06/09/24 04:00 Oxygen Flow Rate (L/min) 2 Oxygen Delivery Method Room Air Weight: 215 lb 9.793 oz Body Mass Index (BMI) 37.0 Intake & Output: Intake and Output for Last 24 Hours 06/07/24 06/08/24 06/09/24 23:59 23:59 23:59 Intake Total 1291 / 1291 5511.17 / 5511.17 965 / 965 Output Total 700 / 900 415 / 415 Balance 1291 / 1291 4811.17 / 4611.17 550 / 550 Lab / Micro Data 06/09/24 06:40 06/09/24 06:40 Labs: Laboratory Results - last 24 hr 06/08/24 15:32: POC Glucose 164 H 06/08/24 16:42: WBC 12.0 H, RBC 3.78 L, Hgb 12.4 L, Hct 37.4 L, MCV 98.9 H, MCH 32.8 H, MCHC 33.2, RDW Std Deviation 48.5 H, RDW Coeff of Aramis 13.2, Plt Count 232, MPV 8.0, Immature Gran % (Auto) 0.300, Neut % (Auto) 91.3 H, Lymph % (Auto) 2.3 L, [place] % (Auto) 5.9, Eos % (Auto) 0.0, Baso % (Auto) 0.2, Absolute Neuts (auto) 10.9 H, Absolute Lymphs (auto) 0.27 L, Nucleated RBC % 0, Sodium 138, Potassium 4.5, Chloride Direct 105, Carbon Dioxide 24.2, Anion Gap 8, BUN 8, Creatinine 0.9, Estim Creat Clear Calc 80.12, Est GFR (MDRD) Non-Af 93, BUN/Creatinine Ratio 9.6 L, Glucose 191 H, Calcium 8.0, Total Bilirubin 0.54, AST 134 H, ALT 64 H, Alkaline Phosphatase 129, Troponin T High Sens 33 H, Total Protein 6.2, Albumin 3.3 L, Globulin 3.0, Albumin/Globulin Ratio 1.1 06/08/24 19:42: NT pro BNP II 543 06/09/24 06:40: WBC 16.1 H, RBC 3.87 L, Hgb 13.1, Hct 37.8 L, MCV 97.7 H, MCH 33.9 H, MCHC 34.7, RDW Std Deviation 46.9 H, RDW Coeff of Aramis 13.1, Plt Count TNP, MPV 8.5, Immature Gran % (Auto) 0.500, Neut % (Auto) 80.2 H, Lymph % (Auto) 9.8 L, [place] % (Auto) 9.2, Eos % (Auto) 0.1, Baso % (Auto) 0.2, Absolute Neuts (auto) 12.9 H, Absolute Lymphs (auto) 1.58, Nucleated RBC % 0, Platelet Estimate ADEQUATE, Sodium 130 L, Potassium 3.7, Chloride Direct 100, Carbon Dioxide 19.8 L, Anion Gap 11, BUN 6, Creatinine 0.65 L, Estim Creat Clear Calc 92.00, Est GFR (MDRD) Non-Af 102, BUN/Creatinine Ratio 8.7 L, Glucose 137 H, Calcium 7.8, Total Bilirubin 0.64, AST 72 H, ALT 52 H, Alkaline Phosphatase 109, Total Protein 5.9, Albumin 3.0 L, Globulin 2.9, Albumin/Globulin Ratio 1.0 Radiography Diagnostic Testing: Radiology Impression Cholangiogram 06/08/24 09:55 IMPRESSION: Unremarkable intraoperative cholangiogram during laparoscopic cholecystectomy. Reading Location: [facility] Chest X-Ray 06/08/24 15:48 IMPRESSION: No acute airspace abnormality. Reading Location: [facility] Chest CTA 06/08/24 17:41 IMPRESSION: 1. Negative for pulmonary embolism. 2. Trace right pleural effusion and mild/moderate bibasilar atelectasis, greater on the right. 3. Inflammatory changes in the right upper quadrant at the gallbladder fossa with scattered areas of pneumoperitoneum which may relate to postsurgical change. Please correlate. One or more dose reduction techniques were used (e.g., Automated exposure control, adjustment of the mA and/or kV according to patient size, use of iterative reconstruction technique). Reading Location: [facility] Physical Exam Const oriented x3 and no apparent distress Resp normal respiratory effort Resp Narrative: On room air, nonlabored, vital capacity per incentive spirometer is 1750 GI GI Narrative: Minimally distended, operative dressings in place with slight crusted blood around the supraumbilical and subxiphoid port sites. Abdomen is soft and appropriately tender to palpation about incisions. Assessment & Plan Assessment/Plan (1) Acute cholecystitis: PLAN: Patient is postoperative day 1 from laparoscopic cholecystectomy with intraoperative cholangiography. He initially did well following the operation, however, yesterday afternoon he became acutely tachycardic, febrile, and hypoxic. Efforts were immediately enacted to bring down his temperature and a workup followed that included stat laboratories, stat chest x-ray and eventually a CTA of the chest when his hypoxia persisted. Laboratories were reassuring and suggested immune response to surgery. Chest x-ray was unremarkable. CTA showed mild right-sided atelectasis and small effusion but fortunately no evidence of a pulmonary embolus. Gradually patient's vitals improved but he was still moved to the intensive care unit in the abundance of caution. By this morning he reports feeling much better and clinically appears better. His pain is controlled and his cardiopulmonary status are improved. Will plan to advance his diet and transition him to oral antibiotics. If he does okay with these transitions may consider discharge to home later today. He is okay to transition out of the intensive care unit today as well. Appreciate the assistance of the hospitalist service and case was reviewed with them prior to formulating care plan. Kike Smith MD General Surgery Endocrine Surgery Pager: [facility] [address] [place] [address], [facility], [address] [place] [address] Office: [phone] Charges/Coding Visit Charges Inpatient E&M: 19645 Subs Hosp L1
--- NOTE | 2024-06-09 10:04 | PN.HOSP_ITS ---
Subjective Subjective Seems to be improving today, mentally he is essentially back to where he was yesterday prior to surgery. Not requiring any oxygen this morning and tolerating a liquid diet Objective Data Objective Data Vital Signs: Vital Signs Temp Pulse Resp BP Pulse Ox O2 Del Method O2 Flow Rate 98.3 F 90 18 123/73 H 94 Room Air 2 06/09/24 07:56 06/09/24 08:59 06/09/24 07:56 06/09/24 08:59 06/09/24 08:59 06/09/24 08:59 06/09/24 04:00 Oxygen Flow Rate (L/min) 2 Oxygen Delivery Method Room Air Weight: 215 lb 9.793 oz Body Mass Index (BMI) 37.0 Intake & Output: Intake and Output for Last 24 Hours 06/08/24 06/09/24 06/10/24 03:59 03:59 03:59 Intake Total 1341 / 1341 6306.17 / 6306.17 120 / 120 Output Total 1115 / 1115 Balance 1341 / 1341 5191.17 / 5191.17 120 / 120 Lab / Micro Data 06/09/24 06:40 06/09/24 06:40 Labs: Laboratory Results - last 24 hr 06/08/24 15:32: POC Glucose 164 H 06/08/24 16:42: WBC 12.0 H, RBC 3.78 L, Hgb 12.4 L, Hct 37.4 L, MCV 98.9 H, MCH 32.8 H, MCHC 33.2, RDW Std Deviation 48.5 H, RDW Coeff of Aramis 13.2, Plt Count 232, MPV 8.0, Immature Gran % (Auto) 0.300, Neut % (Auto) 91.3 H, Lymph % (Auto) 2.3 L, [place] % (Auto) 5.9, Eos % (Auto) 0.0, Baso % (Auto) 0.2, Absolute Neuts (auto) 10.9 H, Absolute Lymphs (auto) 0.27 L, Nucleated RBC % 0, Sodium 138, Potassium 4.5, Chloride Direct 105, Carbon Dioxide 24.2, Anion Gap 8, BUN 8, Creatinine 0.9, Estim Creat Clear Calc 80.12, Est GFR (MDRD) Non-Af 93, B UN/Creatinine Ratio 9.6 L, Glucose 191 H, Calcium 8.0, Total Bilirubin 0.54, AST 134 H, ALT 64 H, Alkaline Phosphatase 129, Troponin T High Sens 33 H, Total Protein 6.2, Albumin 3.3 L, Globulin 3.0, Albumin/Globulin Ratio 1.1 06/08/24 19:42: NT pro BNP II 543 06/09/24 06:40: WBC 16.1 H, RBC 3.87 L, Hgb 13.1, Hct 37.8 L, MCV 97.7 H, MCH 33.9 H, MCHC 34.7, RDW Std Deviation 46.9 H, RDW Coeff of Aramis 13.1, Plt Count TNP, MPV 8.5, Immature Gran % (Auto) 0.500, Neut % (Auto) 80.2 H, Lymph % (Auto) 9.8 L, [place] % (Auto) 9.2, Eos % (Auto) 0.1, Baso % (Auto) 0.2, Absolute Neuts (auto) 12.9 H, Absolute Lymphs (auto) 1.58, Nucleated RBC % 0, Platelet Estimate ADEQUATE, Sodium 130 L, Potassium 3.7, Chloride Direct 100, Carbon Dioxide 19.8 L, Anion Gap 11, BUN 6, Creatinine 0.65 L, Estim Creat Clear Calc 92.00, Est GFR (MDRD) Non-Af 102, BUN/Creatinine Ratio 8.7 L, Glucose 137 H, Calcium 7.8, Total Bilirubin 0.64, AST 72 H, ALT 52 H, Alkaline Phosphatase 109, Total Protein 5.9, Albumin 3.0 L, Globulin 2.9, Albumin/Globulin Ratio 1.0 Radiography Diagnostic Testing: Radiology Impression Cholangiogram 06/08/24 09:55 IMPRESSION: Unremarkable intraoperative cholangiogram during laparoscopic cholecystectomy. Reading Location: [facility] Chest X-Ray 06/08/24 15:48 IMPRESSION: No acute airspace abnormality. Reading Location: [facility] Chest CTA 06/08/24 17:41 IMPRESSION: 1. Negative for pulmonary embolism. 2. Trace right pleural effusion and mild/moderate bibasilar atelectasis, greater on the right. 3. Inflammatory changes in the right upper quadrant at the gallbladder fossa with scattered areas of pneumoperitoneum which may relate to postsurgical change. Please correlate. One or more dose reduction techniques were used (e.g., Automated exposure control, adjustment of the mA and/or kV according to patient size, use of iterative reconstruction technique). Reading [facility] Exam Narrative General: Alert, Oriented x3, Cooperative, No apparent distress HEENT: Atraumatic, PERRLA, EOMI, Normocephalic Oral: Moist Mucosa Neck: Supple, No JVD Lungs: Diminished, Normal air movement, No rhonchi, No wheeze, No rales Cardiovascular: Regular rate, Regular Rhythm, Normal S1, Normal S2, No murmurs Abdomen: Soft, tender around incisions, Non-Distended, No Hepato-splenomegaly Extremities: No edema, Capillary Refill Less than 3 Seconds Skin: No rashes, No breakdown Musculoskeletal: No Tenderness to Palpation of Joints or Extremities Neurological: No focal neurological deficits, Motor Exam 5/5 strength throughout, Sensory exam intact to light touch and pain Psych/Mental Status: Normal Affect, Appropriate Assessment & Plan Assessment/Plan (1) Acute cholecystitis: PLAN: Plan 1. Acute cholecystitis status post cholecystectomy 06/08/2024 ? Continue with Zosyn, he did have an increase in his leukocytosis likely component of it is reactive ? Advance diet as tolerated per primary ? He was given IV fluids yesterday for his tachycardia and he had a SIRS like event which seems to be resolved at the moment however his sodium is down to 130 today and his bicarb is 19.8 2. Hypothyroidism ? Stable ? Continue with Synthroid 3. Anxiety/depression ? Stable ? Continue with his home medications 4. GERD ? Stable ? Continue with PPI 5. Seizure disorder ? Stable ? Continue with his home medications DVT: SCDs Charges/Coding Visit Charges Inpatient E&M: 75231 Subs Hosp L2
[2024-06-09] MEDS: Montelukast 10 MG Tablet PO (10:09)
[2024-06-09] MEDS: Polyethylene Glycol 3350 17 GM PACKET PO (10:09)
--- NOTE | 2024-06-09 14:30 | CASEMGMT ---
ELI AMBROCIO PURCHASING ANALYST CM?to room to meet with patient for initial transition planning/care coordination assessment. ELI AMBROCIO?introduced self and role at [facility]. Pt voices understanding and consents to assessment?at this time. Pt resting in bed in no distress at this time. Pt is A/O at this time and answers all questions appropriately. Care providers, pharmacy, and demographics verified/updated at this time. Strata:?1 PCP: Dr Galan Specialists: Dr Lopez-neurology, Dr Ortiz-dermatology Preferred Pharmacy: Pt would like to get any new medications from [facility] @ [place]. Made aware 2 scripts have already been sent to [facility]. He states will check to see if his step-dtr is able to pick them up from [facility]. Raul BENITEZ states will f/u on this and if she is unable to, she will reach out to Dr Smith to have them sent to [facility] [place]. (one of them is a controlled medication, so unable to have them transferred). Insurance: MMO MCR Prescription Benefit: yes Living Will/HPOA: Pt states he has both LW and HCPOA, who is his , Mary. Step-dtr, Niki, is 1st alternative. LNOK: , Mary. Step-dtr Niki Living Arrangements: Lives w/. Independent. Transportation:?Pt states drives self and states no transportation concerns at this time. also drives. Step-dtr will be taking him home @ [place], as his is not feeling well. DME: Pt has a CPAP and BP machine. Pt states no need for further DME at this time. HHC/SNF: No hx of either. Pt wishes to return home and states has no concerns with going home at time of discharge. PLAN: Home Shireen MADRIGAL RN, CM
--- NOTE | 2024-06-09 17:35 | DCINST_ITS ---
Discharge Instructions Diet Discharge Diet: No restrictions [place] O2, CPAP, BIPAP needs Home O2 Discharge instructions: No Dressing / Incision Discharge Activity: May Not Drive (No driving while using narcotic pain medication) and May Shower (Postoperative day 1) May shower in (days): 1 Ice area for (Minutes): 20 Lifting Restrictions: No lifting greater than 15 pounds for 2 weeks after surgery Dressing / Incision Call your doctor if your incision/area has: Continuous Slow Oozing, Increased Pain/ Swelling, Increased Redness, Foul Smelling Discharge and Swelling at the incision site Call your doctor if you observe: Fever of 101 or Higher Remove Dressing in: 1 day (Please leave Steri-Strips intact until they fall off spontaneously or are taken off at your follow-up visit) Cleanse incision/area with: Soap & Water Follow Up Care Please Follow Up With: Kike Smith MD When: 10-14 days postop Test Results: Test results from this visit will be discussed in further detail at your follow- up appointment, if applicable. Discharge Plan Admission Admit Date/Time: 06/09/24 10:11 Primary Reason for Your Visit: Cholecystitis Attending Provider: Kike Smith Primary Care Provider: Dede Galan Consulting Providers: Ervin Velazquez Eric Discharge Orders/Prescriptions Prescriptions: New oxycodone 5 mg Tablet 5 mg PO Q4H PRN PRN (Reason: Pain Score 4-10) 3 Days Qty: 14 0RF amoxicillin-pot clavulanate 875-125 mg Tablet 1 tab PO BID 2 Days Qty: 4 0RF Continued montelukast 10 mg tablet 10 mg PO DAILY calcium carbonate 600 mg calcium (1,500 mg) tablet 600 mg PO DAILY levothyroxine 50 mcg tablet 50 mcg PO DAILY omeprazole 40 mg capsule,delayed release(DR/EC) 40 mg PO DAILY primidone 250 mg tablet 250 mg PO 4X/DAY Qty: 360 3RF phenytoin sodium extended 100 mg capsule 100 mg PO TID Qty: 270 3RF phenytoin 50 mg tablet,chewable 75 mg PO DAILY Qty: 135 3RF multivitamin 1 TABLET tablet 1 tab PO DAILY ascorbic acid (vitamin C) 500 MG tablet 1,000 mg PO DAILY@0800 ergocalciferol (vitamin D2) 50,000 UNIT capsule 50,000 unit PO Q7D fluticasone propionate 16 GM spray,suspension 2 spray NS DAILY fluocinolone 120 GM cream 1 applic TP DAILY paroxetine HCl 20 mg tablet 30 mg PO DAILY tamsulosin 0.4 mg capsule 0.4 mg PO QHS Referrals / Follow Up: Dede Galan MD [Primary Care Provider] - Disposition Disposition (needs filled in before D/C Order can be placed): Home, Self Care
== END 2024-06-09 18:00 | disposition home or self-care (01) | DRG 418 ==
LOC: ED 15:33 → PCU 16:06 → ICU 06-08 19:20
PROVIDERS: Family Medicine; Internal Medicine; Physician Assistant; Admitting Provider Surgery; Emergency Provider Emergency Medicine; PCP Internal Medicine; Visit Provider Surgery
PROC: 0FT44ZZ Resection of Gallbladder, Percutaneous Endoscopic Approach (ICD-10-PCS; CPT 47610; principal; 2024-06-08 10:25)
DX: K81.0 Acute cholecystitis (principal); E87.1 Hypo-osmolality and hyponatremia; G40.909 Epilepsy, unspecified, not intractable, without status epilepticus; E03.9 Hypothyroidism, unspecified; F32.A Depression, unspecified; E78.5 Hyperlipidemia, unspecified; K21.9 Gastro-esophageal reflux disease without esophagitis; F41.9 Anxiety disorder, unspecified; R09.02 Hypoxemia; R00.0 Tachycardia, unspecified; N40.0 Benign prostatic hyperplasia without lower urinary tract symptoms; Z79.890 Hormone replacement therapy; Z79.899 Other long term (current) drug therapy
CPT/HCPCS: 36415; 71045; 71275; 74177; 74300; 76000; 76705; 80053; 81001; 82962; 83690; 83880; 84443; 84484; 85025; 88304; 93005; 94668; 94762; 99284; Q9967; A4216; J2405

== ENCOUNTER → 2024-10-05 | Outpatient (CLI) | payer MEDICARE, SELFPAY ==
[2024-10-05 16:50] LABS: PSA,Total - Annual Screen 0.71 ng/mL (0.02-4.00)
== END | disposition home or self-care (01) ==
LOC: LAB 15:06
PROVIDERS: PCP Internal Medicine; Referring Provider Nurse Practitioner; Visit Provider Nurse Practitioner
DX: Z12.5 Encounter for screening for malignant neoplasm of prostate (principal)
CPT/HCPCS: 36415; 84153; G0103

== ENCOUNTER 2024-11-01 13:34 | Observation (INO) | payer MEDICARE, SELFPAY ==
--- NOTE | 2024-10-30 11:16 | EKG12_ITS ---
Test Reason : PREOP Blood Pressure : */* mmHG Vent. Rate : 76 BPM Atrial Rate : 76 BPM P-R Int : 180 ms QRS Dur : 98 ms QT Int : 392 ms P-R-T Axes : 57 67 47 degrees QTcB Int : 441 ms Sinus rhythm with occasional Premature ventricular complexes Otherwise normal ECG Confirmed by Kike Mcclain ([id number]), online editor MAURIZIO MATA ([id number]) on 10/31/2024 5:46:39 AM Referred By: Delta Conti Confirmed By: Kike Mcclain
[2024-10-30 11:33] LABS: Hematocrit 42.3 % (40-54); Hemoglobin 14.2 g/dL (13.0-16.5); Mean Corp Hgb Conc 33.6 g/dL (32-36); Mean Corpuscular Volume 97.0 fL (80-94); Mean Platelet Vol. 8.0 fl (6.2-12.0); Platelet Count 301 K/mm3 (150-450); RBC Distribution Width CV 13.8 % (11.6-14.6); RBC Distribution Width SD 49.4 fl (35.1-43.9); Red Blood Count 4.36 M/mm3 (4.6-6.2); White Blood Count 5.7 K/mm3 (4.4-11.0)
[2024-10-30 11:43] LABS: Partial Thromboplast Time 28.0 Seconds (24.1-36.2)
--- NOTE | 2024-10-30 16:52 | PAT.ANE_ITS ---
Pre-Assessment Diagnosis/Proposed Procedure Planned Operative Procedure(s): Cysto,TUR,Prostate,Olympus Anesthesia History Anesthesia History - composing room supervisor: Anesthesia History - composing room supervisor Hx Hospitalization Yes: gallbladder, sepsis 10/23/24 12:43 Any Problems With Anesthesia No 10/23/24 12:43 Cholinesterase deficiency No 10/23/24 12:43 You/Your Family Experience No 10/23/24 12:43 fever (hyperthermia) with Relationship Recent Exposure to Contagious No 06/07/24 21:23 Disease Does patient have nerve No 10/23/24 12:43 stimulator Patient instructed to have device shut off --Does patient have Pacemaker or ICD? When Was Last Pacemaker Check QUESTION #4 FULL TEXT: You/Your Family Experience fever (hyperthermia) with Anesthesia Last Oral Intake Last Oral intake: Last Oral Intake NPO since Meds taken in AM with sips of water? Meds patient instructed to take am of surgery PONV PONV - composing room supervisor: PONV - composing room supervisor Female No 10/23/24 12:43 HX of Motion Sickness No 10/23/24 12:43 HX of N/V After Surgery No 10/23/24 12:43 Non-Smoker Yes 10/23/24 12:43 Duration of Surgery greater Yes 10/23/24 12:43 than 60 minutes Number of Risk Factors 2 10/23/24 12:43 PONV Score Moderate Risk 10/23/24 12:43 Height & Weight Height & Weight: Anesthesia: Height & Weight Height 5 ft 4 in 06/07/24 21:02 Respiratory Assessment Respiratory Assessment - composing room supervisor: Respiratory Tract Infection Hx - composing room supervisor Hx Respiratory Tract Infection No 10/23/24 12:43 STOP Sleep Apnea STOP Sleep Apnea - composing room supervisor: STOP Sleep Apnea - composing room supervisor Hx Hypertension No 10/23/24 12:43 Hx Sleep Apnea Yes 10/23/24 12:43 CPAP Yes 10/23/24 12:43 BIPAP No 10/23/24 12:43 Do you snore loudly (louder than talking or can be heard Do you often feel tired/ fatigued/ sleepy during daytime? Has anyone observed you stop breathing during sleep? STOP Results Positive 10/23/24 12:43 QUESTION #5 FULL TEXT : Do you snore loudly (louder than talking or can be heard through closed doors)? Tobacco Use History Tobacco Use History - composing room supervisor: Tobacco Use History - composing room supervisor Tobacco Use Smoking Status Never smoker 10/23/24 12:43 Hx Tobacco Use No 10/23/24 12:43 Years Smoking Packs Smoked per Day Smoking Cessation Date was within the last 15 years Hx Smoking Cessation Date Hx Smoking Cessation Counseling Hematologic Medial History Hematologic Hx - composing room supervisor: Hematologic Medical Hx - dry clipper tender Hx of Blood Transfusion No 10/23/24 12:43 Hx of Transfusion in last 3 No 10/23/24 12:43 Months Date of Last Transfusion (if within last 3 months) Ever experience any problems No 10/23/24 12:43 with transfusion(s)? Specify any problems Hx of Preganancy in last 3 N/A 10/23/24 12:43 Months Nurse Filling Out Transfusion JZOLLINGE 10/23/24 12:43 & Questions: Date: 10/23/24 10/23/24 12:43 Time: 12:46 10/23/24 12:43 Patient unable to answer at this time (ie. confused, unrespo /Reproduction History /Reproductive History - composing room supervisor: /Reproductive Hx- composing room supervisor Hx Now No 10/23/24 12:43 Gestational Age (in weeks): EDC: Hx Hx Para Hx Section SAB No 10/23/24 12:43 [facility] Medical History (Updated 10/23/24 @ 12:43 by Ernestina Bonner) Wears hearing aid Wears glasses Prostate disease Non-smoker CPAP (continuous positive airway pressure) dependence Sleep apnea Seizures Hypothyroid Nontoxic goiter Vitamin D deficiency Hyperlipidemia Depression Mild cognitive impairment Epilepsy Obstructive sleep apnea Retinal cyst of right eye Raised intraocular pressure of both eyes Bilateral hearing loss Cardiomegaly Chronic sinusitis GERD (gastroesophageal reflux disease) Chronic constipation Psoriasis BPH (benign prostatic hyperplasia) Tremor Age-related cognitive decline History of fracture of leg Home Medications ?Medication ?Instructions ?Recorded ?Last Taken ?Type ascorbic acid (vitamin C) 500 mg 1,000 mg PO DAILY@080 0 multivit 05/21/14 06/07/24 History tablet ergocalciferol (vitamin D2) 1,250 50,000 unit PO Q7D v itamin 05/21/14 Unknown History mcg (50,000 unit) capsule fluocinolone 0.025 % topical cream 1 applic TP DAILY p soriasis 05/21/14 Unknown History fluticasone propionate 50 2 spray NS DAILY allergies 0 05/21/14 Unknown History mcg/actuation nasal spray,suspension multivitamin 1 tab PO DAILY multivit 12/25 Unknown History calcium carbonate 600 mg PO DAILY vit 04/24/20 06/07/24 History montelukast 10 mg tablet 10 mg PO DAILY allergies Unknown History levothyroxine 50 mcg tablet 50 mcg PO DAILY thyroid 06/07/24 History omeprazole 40 mg capsule,delayed 40 mg PO DAILY reflux 03/03/21 Unknown History release paroxetine HCl 20 mg tablet 30 mg PO DAILY depression 08/25/21 Unknown History phenytoin sodium extended 100 mg 100 mg PO TID #270 ca ps 05/23/24 Unknown Rx capsule primidone 250 mg tablet 250 mg PO 4X/DAY epilepsy #3 60 tabs 05/23/24 Unknown Rx tamsulosin 0.4 mg capsule 0.4 mg PO QHS prostate 06/0706/06/24 History finasteride 5 mg tablet 5 mg PO DAILY 10/23/24 Unkno wn History phenytoin 50 mg chewable tablet 50 mg PO DAILY seizure s 10/23/24 Unknown History polyethylene glycol 3350 17 gram 17 g PO Q10M PRN 10/10 08/04 Unknown History oral powder packet (Miralax) Allergy/AdvReac Type Severity Reaction Status Date / Time No Known Allergies Allergy Verified 10/23/24 12:21 Family History Father Cancer Liver cancer, liver cirrhosis, alcoholic Brother Parkinson's disease Cancer Nonmelanoma skin cancer Sister Cancer Nonmelanoma skin cancer Surgical History (Updated 10/23/24 @ 12:43 by Ernestina Bonner) Hx of colonoscopy with polypectomy Fracture of left lower leg History of tonsillectomy Social History household members: spouse Smoking Status: Never smoker second hand exposure: No alcohol intake: never substance use type: does not use what type of physical activity do you participate in: none lenard/sabianism: Religion seatbelt use: always Audit: Pertinent Findings Pertinent Findings EKG Perinent findings: October 30, 2024. Sinus rhythm with occasional PVCs. Compared to EKG of June 08, 2024, PVCs are now present. Vent rate has decreased by 60 bpm. Recommendation Anesthesia Recommendation Anesthesia recommendation: OPTIMIZED for anesthesia
[2024-11-01] VITALS (12 sets, daily range): BP systolic 102–136; BP diastolic 68–86; PULSE 69–88; RESP 16–18; TEMP 36.2–36.7; O2SAT 94–97; BMI 33.7
--- NOTE | 2024-11-01 06:58 | HP.PCM_ITS ---
HPI - General General Date of Service: 11/01/24 Chief Complaint: BPH with obstruction HPI Narrative JAIMIE STEVENS, is a 68 M who presents for transurethral section of the prostate for obstruction [facility] Medical History (Updated 10/23/24 @ 12:43 by Ernestina Bonner) Wears hearing aid Wears glasses Prostate disease Non-smoker CPAP (continuous positive airway pressure) dependence Sleep apnea Seizures Hypothyroid Nontoxic goiter Vitamin D deficiency Hyperlipidemia Depression Mild cognitive impairment Epilepsy Obstructive sleep apnea Retinal cyst of right eye Raised intraocular pressure of both eyes Bilateral hearing loss Cardiomegaly Chronic sinusitis GERD (gastroesophageal reflux disease) Chronic constipation Psoriasis BPH (benign prostatic hyperplasia) Tremor Age-related cognitive decline History of fracture of leg Home Medications ?Medication ?Instructions ?Recorded ?Last Taken ?Type ascorbic acid (vitamin C) 500 mg 1,000 mg PO DAILY@080 0 multivit 05/21/14 06/07/24 History tablet ergocalciferol (vitamin D2) 1,250 50,000 unit PO Q7D v itamin 05/21/14 Unknown History mcg (50,000 unit) capsule fluocinolone 0.025 % topical cream 1 applic TP DAILY p soriasis 05/21/14 Unknown History fluticasone propionate 50 2 spray NS DAILY allergies 0 05/21/14 Unknown History mcg/actuation nasal spray,suspension multivitamin 1 tab PO DAILY multivit 12/25 Unknown History calcium carbonate 600 mg PO DAILY vit 04/24/20 06/07/24 History montelukast 10 mg tablet 10 mg PO DAILY allergies Unknown History levothyroxine 50 mcg tablet 50 mcg PO DAILY thyroid 06/07/24 History omeprazole 40 mg capsule,delayed 40 mg PO DAILY reflux 03/03/21 Unknown History release paroxetine HCl 20 mg tablet 30 mg PO DAILY depression 08/25/21 Unknown History phenytoin sodium extended 100 mg 100 mg PO TID #270 ca ps 05/23/24 Unknown Rx capsule primidone 250 mg tablet 250 mg PO 4X/DAY epilepsy #3 60 tabs 05/23/24 Unknown Rx tamsulosin 0.4 mg capsule 0.4 mg PO QHS prostate 06/0706/06/24 History finasteride 5 mg tablet 5 mg PO DAILY 10/23/24 Unkno wn History phenytoin 50 mg chewable tablet 50 mg PO DAILY seizure s 10/23/24 Unknown History polyethylene glycol 3350 17 gram 17 g PO Q10M PRN 10/10 08/04 Unknown History oral powder packet (Miralax) Allergy/AdvReac Type Severity Reaction Status Date / Time No Known Allergies Allergy Verified 10/23/24 12:21 Family History Father Cancer Liver cancer, liver cirrhosis, alcoholic Brother Parkinson's disease Cancer Nonmelanoma skin cancer Sister Cancer Nonmelanoma skin cancer Surgical History (Updated 10/23/24 @ 12:43 by Ernestina Bonner) Hx of colonoscopy with polypectomy Fracture of left lower leg History of tonsillectomy Social History household members: spouse Smoking Status: Never smoker second hand exposure: No alcohol intake: never substance use type: does not use what type of physical activity do you participate in: none lenard/samaritan: Yazidism seatbelt use: always Results Lab / Micro Data 10/30/24 11:07
[2024-11-01] MEDS: Lactated Ringers 1,000 ML 15 ML IV (09:28)
--- NOTE | 2024-11-01 10:12 | PCM.PRE.AN2 ---
ASA Classification* ASA Classification ASA Classification: 2 Assessment & Plan Anesthesia* Anesthesia Assessment Anesthesia Assessment: Discussed sedation and/or anesthesia options, risks, benefits, and alternatives with patient/parents/legal guardian/POA. Questions invited. The patient/parents/legal guardian/POA seems to understand and agrees to proceed with anesthesia plan. Reviewed the physical assessment, medical history, allergy history and patient home medications list prior to surgery/procedure/anesthetic and documented any changes. Performed airway and anesthesia risk assessments. Anesthesia Type Anesthesia Type: General History Source History Obtained from:: Patient and Chart Anesthesia Focused Assessment* Temperature: 97.1 F Pulse Rate: 77 Blood Pressure: 133/84 Respiratory Rate: 18 Pulse Ox: 97 Oxygen Delivery Method: Room Air Airway Assessment Mouth opens: >3 cm Mallampati Score: I Teeth Condition: Intact Neck Range of motion (ROM): Limited ROM (Slight Decrease) Labs Anesthesia Preop lab: CBC WBC 5.7 K/mm3 (4.4-11.0) 10/30/24 11:07 10/30/24 RBC 4.36 M/mm3 (4.6-6.2) L 10/30/24 11:07 10/30/24 Hgb 14.2 g/dL (13.0-16.5) 10/30/24 11:07 10/30/24 Hct 42.3 % (40-54) 10/30/24 11:07 10/30/24 Plt Count 301 K/mm3 (150-450) 10/30/24 11:07 10/30/24 CHEMISTRY Potassium 3.7 mmol/L (3.3-5.1) 06/09/24 06:40 06/09/24 Sodium 130 mmol/L (133-145) L 06/09/24 06:40 06/09/24 BUN 6 mg/dL (4-19) 06/09/24 06:40 06/09/24 Creatinine 0.65 mg/dL (0.70-1.20) L 06/09/24 06:40 06/09/24 Glucose 137 mg/dL (70-99) H 06/09/24 06:40 06/09/24 POC Glucose 164 mg/dL (74-106) H 06/08/24 15:32 06/08/24 TSH 2.370 uIU/mL (0.300-4.200) 10/30/24 11:07 10/30/24 COAG Pre-Assessment Diagnosis/Proposed Procedure Planned Operative Procedure(s): Cysto,TUR,Prostate,Olympus Anesthesia History 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 When Was Last Pacemaker Check QUESTION #4 FULL TEXT: You/Your Family Experience fever (hyperthermia) with Anesthesia Last Oral Intake Last Oral intake: Last Oral Intake NPO since 22:00 11/01/24 09:17 Meds taken in AM with sips of water? Meds patient instructed to take am of surgery PONV PONV - general foundry worker: PONV - general foundry worker Female No 10/23/24 12:43 HX of Motion Sickness No 10/23/24 12:43 HX of N/V After Surgery No 10/23/24 12:43 Non-Smoker Yes 10/23/24 12:43 Duration of Surgery greater Yes 10/23/24 12:43 than 60 minutes Number of Risk Factors 2 10/23/24 12:43 PONV Score Moderate Risk 10/23/24 12:43 Height & Weight Height & Weight: Anesthesia: Height & Weight Height 5 ft 4 in 11/01/24 09:17 Weight: 89 kg 11/01/24 09:17 Body Mass Index (BMI) 33.7 11/01/24 09:17 Respiratory Assessment Respiratory Assessment - general foundry worker: Respiratory Tract Infection Hx - general foundry worker Hx Respiratory Tract Infection No 10/23/24 12:43 STOP Sleep Apnea STOP Sleep Apnea - general foundry worker: STOP Sleep Apnea - general foundry worker Hx Hypertension No 10/23/24 12:43 Hx Sleep Apnea Yes 10/23/24 12:43 CPAP Yes 10/23/24 12:43 BIPAP No 10/23/24 12:43 Do you snore loudly (louder than talking or can be heard Do you often feel tired/ fatigued/ sleepy during daytime? Has anyone observed you stop breathing during sleep? STOP Results Positive 10/23/24 12:43 QUESTION #5 FULL TEXT : Do you snore loudly (louder than talking or can be heard through closed doors)? Tobacco Use History Tobacco Use History - general foundry worker: Tobacco Use History - general foundry worker Tobacco Use Smoking Status Never smoker 10/23/24 12:43 Hx Tobacco Use No 10/23/24 12:43 Years Smoking Packs Smoked per Day Smoking Cessation Date was within the last 15 years Hx Smoking Cessation Date Hx Smoking Cessation Counseling Hematologic Medial History Hematologic Hx - general foundry worker: Hematologic Medical Hx - documentation lead Hx of Blood Transfusion No 10/23/24 12:43 Hx of Transfusion in last 3 No 10/23/24 12:43 Months Date of Last Transfusion (if within last 3 months) Ever experience any problems No 10/23/24 12:43 with transfusion(s)? Specify any problems Hx of Preganancy in last 3 N/A 10/23/24 12:43 Months Nurse Filling Out Transfusion JZOLLINGE 10/23/24 12:43 & Questions: Date: 10/23/24 10/23/24 12:43 Time: 12:46 10/23/24 12:43 Patient unable to answer at this time (ie. confused, unrespo /Reproduction History /Reproductive History - general foundry worker: /Reproductive Hx- general foundry worker Hx Now No 10/23/24 12:43 Gestational Age (in weeks): EDC: Hx Hx Para Hx Section SAB No 10/23/24 12:43 Active Medications Active Medications: Current Medications Generic Name Dose Route Start Last Admin Trade Name Freq PRN Reason Stop Dose Admin Cefazolin Sodium 2 gm/ Sodium 110 mls @ 200 mls/hr 11/01/24 10:40 Chloride IV 11/01/24 11:12 INTRAOP ONE Lactated Ringer's 1,000 mls @ 15 mls/hr 11/01/24 09:00 11/01/24 09:28 IV 15 mls/hr .Q48H LILIAN Administration PFSH Medical History Wears hearing aid Wears glasses Prostate disease Non-smoker CPAP (continuous positive airway pressure) dependence Sleep apnea Seizures Hypothyroid Nontoxic goiter Vitamin D deficiency Hyperlipidemia Depression Mild cognitive impairment Epilepsy Obstructive sleep apnea Retinal cyst of right eye Raised intraocular pressure of both eyes Bilateral hearing loss Cardiomegaly Chronic sinusitis GERD (gastroesophageal reflux disease) Chronic constipation Psoriasis BPH (benign prostatic hyperplasia) Tremor Age-related cognitive decline History of fracture of leg Home Medications ?Medication ?Instructions ?Recorded ?Last Taken ?Type ascorbic acid (vitamin C) 500 mg 1,000 mg PO DAILY@0800 multivit 05/21/14 10/31/24 History tablet ergocalciferol (vitamin D2) 1,250 50,000 unit PO Q7D vitamin 05/21/14 10/25/24 History mcg (50,000 unit) capsule fluocinolone 0.025 % topical cream 1 applic TP DAILY psoriasis 05/21/14 Unknown History fluticasone propionate 50 2 spray NS DAILY allergies 05/21/14 10/31/24 History mcg/actuation nasal spray,suspension multivitamin 1 tab PO DAILY multivit 05/21/14 10/31/24 History calcium carbonate 600 mg PO DAILY vit 04/24/20 10/31/24 History montelukast 10 mg tablet 10 mg PO DAILY allergies 04/24/20 10/31/24 History levothyroxine 50 mcg tablet 50 mcg PO DAILY thyroid 10/03/20 10/30/24 History omeprazole 40 mg capsule,delayed 40 mg PO DAILY reflux 03/03/21 10/31/24 History release paroxetine HCl 20 mg tablet 30 mg PO DAILY depression 08/25/21 10/31/24 History phenytoin sodium extended 100 mg 100 mg PO TID #270 caps 05/23/24 11/01/24 Rx capsule primidone 250 mg tablet 250 mg PO 4X/DAY epilepsy #360 tabs 05/23/24 11/01/24 Rx tamsulosin 0.4 mg capsule 0.4 mg PO QHS prostate 06/07/24 10/31/24 History finasteride 5 mg tablet 5 mg PO DAILY 10/23/24 10/30/24 History phenytoin 50 mg chewable tablet 50 mg PO DAILY seizures 10/23/24 10/31/24 History polyethylene glycol 3350 17 gram 17 g PO Q10M PRN 10/23/24 Unknown History oral powder packet (Miralax) Allergy/AdvReac Type Severity Reaction Status Date / Time No Known Allergies Allergy Verified 11/01/24 09:13 Family History Father Cancer Liver cancer, liver cirrhosis, alcoholic Brother Parkinson's disease Cancer Nonmelanoma skin cancer Sister Cancer Nonmelanoma skin cancer Surgical History (Updated 11/01/24 @ 10:[address] Antelmo Sargent MD) S/P cholecystectomy Hx of colonoscopy with polypectomy Fracture of left lower leg History of tonsillectomy Social History household members: spouse Smoking Status: Never smoker second hand exposure: No alcohol intake: never substance use type: does not use what type of physical activity do you participate in: none lenard/yazdanism: Rastafarian seatbelt use: always Review of Systems (Anesthesia) ROS Narrative System reviewed and no additional complaints, except as documented.
--- NOTE | 2024-11-01 10:40 | PROS_PTH ---
PATIENT: JAIMIE STEVENS LOC: [facility] U#:[id number] AGE/SX: 68/M ROOM: TN318 RE11/01/[address]: Dr. Delta Conti MD : [id number] BED: 1 DIS: 11/02/2024 SPEC #: [id number] RECD: 11/01/24 13:30 STATUS: ISADORA REYNOSO #: [id number] LORA: 11/01/24 10:[address]: Delta Conti DEPT: SURGICAL PATHOLOGY RECD BY: Ian Amor ENTERED: 11/01/24 14:31 SP TYPE: TURP OTHR DR: Dr. Dede Galan MD Tissues: A - Prostate, NOS Procedures: Surgery Specimen Level IV HEADER OPERATION: Cystoscopy, transurethral resection with Olympus PRE-OP DIAGNOSIS: Benign prostatic hyperplasia with obstruction TISSUE SUBMITTED: A- Prostate tissue MICROSCOPIC DIAGNOSIS A. Prostate, BPH with obstruction, transurethral resection: - Benign prostate tissue. MICROSCOPIC DESCRIPTION Slides are reviewed. GROSS DESCRIPTION A. Received in formalin labeled with the patient's name and date of . Designated as prostate tissue is a 18.5 g, 5.5 x 5.3 x 1.7 cm aggregate of irregular, del angel, rubbery and cauterized tissue fragments. Entirely submitted in 7 cassettes. MN [id number]
--- NOTE | 2024-11-01 12:38 | DCINST_ITS ---
Discharge Instructions DC O2, CPAP, BIPAP needs Home O2 Discharge instructions: No Dressing / Incision Discharge Activity: Return to Normal Activity and No Restrictions Dressing / Incision Call your doctor if your incision/area has: Continuous Slow Oozing and Sudden Increased Bleeding Call your doctor if you observe: Fever of 101 or Higher and Uncontrolled pain Suture Line Care: Avoid Pulling/Pushing and Avoid Pinching/Bending Follow Up Care Please Follow Up With: Delta Conti MD When: Call [phone] for an appointment Test Results: Test results from this visit will be discussed in further detail at your follow- up appointment, if applicable. Discharge Plan Admission Primary Reason for Your Visit: turp Attending Provider: Delta Conti Primary Care Provider: Dede Galan Instructions Print Language: Slovenian Discharge Orders/Prescriptions Prescriptions: New ciprofloxacin HCl [Cipro] 500 mg tablet 500 mg PO BID Qty: 10 0RF Continued montelukast 10 mg tablet 10 mg PO DAILY calcium carbonate 600 mg calcium (1,500 mg) tablet 600 mg PO DAILY levothyroxine 50 mcg tablet 50 mcg PO DAILY omeprazole 40 mg capsule,delayed release(DR/EC) 40 mg PO DAILY primidone 250 mg tablet 250 mg PO 4X/DAY Qty: 360 3RF phenytoin sodium extended 100 mg capsule 100 mg PO TID Qty: 270 3RF multivitamin 1 TABLET tablet 1 tab PO DAILY ascorbic acid (vitamin C) 500 MG tablet 1,000 mg PO DAILY@0800 ergocalciferol (vitamin D2) 50,000 UNIT capsule 50,000 unit PO Q7D fluticasone propionate 16 GM spray,suspension 2 spray NS DAILY fluocinolone 120 GM cream 1 applic TP DAILY paroxetine HCl 20 mg tablet 30 mg PO DAILY tamsulosin 0.4 mg capsule 0.4 mg PO QHS finasteride 5 mg tablet 5 mg PO DAILY phenytoin 50 mg tablet,chewable 50 mg PO DAILY polyethylene glycol 3350 [Miralax] 17 gram powder in packet 17 g PO Q10M PRN Referrals / Follow Up: Dede Galan MD [Primary Care Provider] - Delta Conti MD [Med Staff - Active Staff] - Disposition Disposition (needs filled in before D/C Order can be placed): Home, Self Care
--- NOTE | 2024-11-01 12:38 | OP.PCM_ITS ---
Operative Report (Standard) Operative Information Date of Procedure: 11/01/24 Pre-Operative Diagnosis: BPH with obstruction Post-Operative Diagnosis: Same with urinary retention Surgery/Procedure Performed: transurethral section of the prostate lockstitch waistband setter: No Type of Anesthesia: General RN Documented Start/Stop Times: Operation Date: 11/01/24 10:40 Case Time Into Pre-Op 11/01/24 08:55 Out of Pre-Op 11/01/24 11:05 Anesthesia Start 11/01/24 11:08 Into Room 11/01/24 11:08 Procedure Start 11/01/24 11:26 Procedure Start Time: 11:08 Procedure Stop Time: 12:39 Select all DRAINS/GRAFTS/IMPLANTS that apply: None and Drains Drain details: 22 [place] three-way Diehl Estimated Blood Loss: 5cc Specimen collected: Yes Description of specimen(s) removed: Prostate tissue Description of surgery: Indication 68-year-old gentleman who has significant enlargement of the prostate with adenoma significant incomplete emptying as distended bladder he does have a atonic distended bladder today we can proceed with a transurethral resection of the prostate to alleviate the obstruction hopefully this will help with and improve bladder emptying understands it is always possible that it may not and he may need to continue to manage his bladder with a catheter. Patient was taken back to the operating room after smooth duction of anesthesia he was placed in dorsolithotomy position the penis and testicles were prepped and draped in usual sterile fashion went into the bladder with a 24 [place] Island[place] continuous bipolar Olympus resectoscope identify the anatomy he had a large obstructing prostate median lobe very distended trabeculated bladder left and right ureteral orifice were identified the verumontanum was identified I then proceeded with the resection and resected the right lobe of the prostate I then resected the left lobe of the prostate I then very carefully resected the apical tissue in the anterior tissue I did a flow test adequate flow and then after resection was completed cauterized obtain hemostasis we then placed a Diehl catheter in his bladder at 22 [place] Island[place] continuous-flow used the wire to get the wire into the bladder and put the catheter over the wire and then the patient ascetic reversed taken back to the PACU in good condition he will stay the night for irrigation will take the catheter out tomorrow for a voiding trial. Surgical Findings: Prostate resected completely Complications Complications: No Admit VTE Documentation VTE Present on Admission: No VTE Mechan Device Prophylaxis: SCD's VTE Pharm Prophylaxis ordered?: No
--- NOTE | 2024-11-01 12:53 | PCM.POST.ANE ---
Anesthesia: Postop Eval I Current Vital Signs Temperature: 97.7 F Pulse Rate: 76 Blood Pressure: 130/81 Respiratory Rate: 16 Pulse Ox: 95 Oxygen Delivery Method: Room Air Assessment Airway patent: Yes Spontaneous unlabored respirations: Yes Mental status: Awake and Calm nausea: No Vomiting: No Anesthesia Complication: No Fluid Hydration Crystalloid volume administer (ml): 700 Total IV fluid infused: 700 Progress Note Anesthesia document: Postop Eval 1 completed: Yes
[2024-11-01] MEDS: 0.9% Normal Saline (1000mL) 1,000 ML 125 ML IV ×2 (14:30→22:18)
[2024-11-01] MEDS: Phenytoin Na 100 MG/4 ML UDC 50 MG PO (18:06)
--- NOTE | 2024-11-01 19:12 | POSTOPAN2_ITS ---
Anesthesia Postop Eval I Sum Postop Eval Completion status Anesthesia document: Postop Eval 1 completed: Yes Anesthesia Postop Eval I Summary Anesthesia Postop Eval I Summary: Anesthesia Postop Eval I: Assessment Summary Airway patent Yes 11/01/24 12:54 [email or web address] Spontaneous unlabored Yes 11/01/24 12:54 MANAGER [email or web address] respirations Mental status Awake,Calm 11/01/24 12:54 MANAGER [email or web address] nausea No 11/01/24 12:54 MANAGER [email or web address] Vomiting No 11/01/24 12:54 MANAGER [email or web address] Anesthesia Postop Eval I: Fluid Summary Crystalloid volume administer 700 11/01/24 12:54 MANAGER [email or web address] (ml) Colloids volume administered ( ml) Blood Product volume administered (ml) Total IV fluid infused 700 11/01/24 12:54 MANAGER [email or web address] Anesthesia Postop Eval I: Summary Notes Anesthesia Complication No 11/01/24 12:54 MANAGER [email or web address] Anesthesia Complication Comment: Post-operative progress note Anesthesia: Postop Eval II Evaluation Mental status: Awake Pain Level: 3 nausea: No Vomiting: No
--- NOTE | 2024-11-01 19:12 | PCM.POSTANE2 ---
Anesthesia Postop Eval I Sum Postop Eval Completion status Anesthesia document: Postop Eval 1 completed: Yes Anesthesia Postop Eval I Summary Anesthesia Postop Eval I Summary: Anesthesia Postop Eval I: Assessment Summary Airway patent Yes 11/01/24 12:54 DISPLAY DESIGNER [email or web address] Spontaneous unlabored Yes 11/01/24 12:54 DISPLAY DESIGNER OUTSIDE.SHOF respirations Mental status Awake,Calm 11/01/24 12:54 DISPLAY DESIGNER [email or web address].SHOF nausea No 11/01/24 12:54 DISPLAY DESIGNER [email or web address].SHOF Vomiting No 11/01/24 12:54 DISPLAY DESIGNER [email or web address].SHOF Anesthesia Postop Eval I: Fluid Summary Crystalloid volume administer 700 11/01/24 12:54 DISPLAY DESIGNER [email or web address].SHOF (ml) Colloids volume administered ( ml) Blood Product volume administered (ml) Total IV fluid infused 700 11/01/24 12:54 DISPLAY DESIGNER [email or web address].SHOF Anesthesia Postop Eval I: Summary Notes Anesthesia Complication No 11/01/24 12:54 DISPLAY DESIGNER [email or web address] Anesthesia Complication Comment: Post-operative progress note Anesthesia: Postop Eval II Evaluation Mental status: Awake Pain Level: 3 nausea: No Vomiting: No
[2024-11-01] MEDS: Phenytoin Na 100 MG Capsule PO (22:03)
[2024-11-02 03:13] VITALS: BP 103/68; PULSE 67; RESP 16; TEMP 36.1; O2SAT 97
[2024-11-02] MEDS: Phenytoin Na 100 MG Capsule PO (05:47)
[2024-11-02] MEDS: 0.9% Normal Saline (1000mL) 1,000 ML 125 ML IV (05:48)
[2024-11-02 06:13] LABS: Hematocrit 32.9 % (40-54); Hemoglobin 11.4 g/dL (13.0-16.5); Immature Granulocytes Count 0.020 X10^3/uL (0.0-0.0); Mean Corp Hgb Conc 34.7 g/dL (32-36); Mean Corpuscular Volume 96.5 fL (80-94); Mean Platelet Vol. 8.1 fl (6.2-12.0); NRBC Flagged by Analyzer 0 % (0-5); Platelet Count 222 K/mm3 (150-450); RBC Distribution Width CV 13.7 % (11.6-14.6); RBC Distribution Width SD 48.5 fl (35.1-43.9); Red Blood Count 3.41 M/mm3 (4.6-6.2); White Blood Count 7.5 K/mm3 (4.4-11.0)
[2024-11-02 06:49] LABS: Anion Gap 6 (5-15); BUN 12 mg/dL (4-19); BUN/Creat Ratio 14.3 RATIO (10-20); Calcium,Total 7.5 mg/dL (7.6-11.0); Carbon Dioxide 26.8 mmol/L (21.0-32.0); Chloride 104 mmol/L (98-108); Estimated Creatinine Clearance 83.49 ml/min (50-250); Glucose 99 mg/dL (70-99); Potassium 3.9 mmol/L (3.3-5.1)
--- NOTE | 2024-11-02 07:33 | PCM.DC.SUM ---
Providers Date of Admission: 11/01/24 Primary Care Physician: Dr. Dede Galan MD Reason For Visit: Cysto,TUR,Prostate,Olympus Medications at Discharge Home Medications ascorbic acid (vitamin C) 500 mg tablet 1,000 mg PO DAILY@0800 multivit 05/21/14 ergocalciferol (vitamin D2) 1,250 mcg (50,000 unit) capsule 50,000 unit PO Q7D vitamin 05/21/14 fluocinolone 0.025 % topical cream 1 applic TP DAILY psoriasis 05/21/14 fluticasone propionate 50 mcg/actuation nasal spray,suspension 2 spray NS DAILY allergies 05/21/14 multivitamin 1 tab PO DAILY multivit 05/21/14 calcium carbonate 600 mg PO DAILY vit 04/24/20 montelukast 10 mg tablet 10 mg PO DAILY allergies 04/24/20 levothyroxine 50 mcg tablet 50 mcg PO DAILY thyroid 10/03/20 omeprazole 40 mg capsule,delayed release 40 mg PO DAILY reflux 03/03/21 paroxetine HCl 20 mg tablet 30 mg PO DAILY depression 08/25/21 phenytoin sodium extended 100 mg capsule 100 mg PO TID #270 caps 05/23/24 primidone 250 mg tablet 250 mg PO 4X/DAY epilepsy #360 tabs 05/23/24 tamsulosin 0.4 mg capsule 0.4 mg PO QHS prostate 06/07/24 finasteride 5 mg tablet 5 mg PO DAILY 10/23/24 phenytoin 50 mg chewable tablet 50 mg PO DAILY seizures 10/23/24 polyethylene glycol 3350 17 gram oral powder packet (Miralax) 17 g PO Q10M PRN 10/23/24 ciprofloxacin HCl 500 mg tablet (Cipro) 500 mg PO BID #10 tabs 11/01/24 Hospital Course Operations TURP Weight / BMI Weight Weight: 89 kg Body Mass Index (BMI) 33.7 ABG / Lab / Microbiology Data 11/02/24 05:38 11/02/24 05:38 Laboratory: Laboratory Results - last 24 hr 11/02/24 05:38: WBC 7.5, RBC 3.41 L, Hgb 11.4 L, Hct 32.9 L, MCV 96.5 H, MCH 33.4 H, MCHC 34.7, RDW Std Deviation 48.5 H, RDW Coeff of Aramis 13.7, Plt Count 222, MPV 8.1, Immature Gran % (Auto) 0.300, Neut % (Auto) 52.8, Lymph % (Auto) 32.5, [place] % (Auto) 9.7, Eos % (Auto) 4.2, Baso % (Auto) 0.5, Absolute Neuts (auto) 3.9, Absolute Lymphs (auto) 2.42, Nucleated RBC % 0, Sodium 137, Potassium 3.9, Chloride 104, Carbon Dioxide 26.8, Anion Gap 6, BUN 12, Creatinine 0.84, Estim Creat Clear Calc 83.49, Est GFR (MDRD) Non-Af 95, BUN/Creatinine Ratio 14.3, Glucose 99, Calcium 7.5 L D/C Instructions Call your doctor if your incision/area has: Continuous Slow Oozing and Sudden Increased Bleeding Call your doctor if you observe: Fever of 101 or Higher and Uncontrolled pain Suture Line Care: Avoid Pulling/Pushing and Avoid Pinching/Bending DC O2, CPAP, BIPAP Needs Home O2 Discharge instructions: No Please Follow Up With: Delta Conti MD When: Call [phone] for an appointment Meaningful Use Info Meaningful Use Meaningful Use Diagnoses (Choose all that apply): None applicable Discharge Plan Admission Admit Date/Time: 11/01/24 13:34 Primary Reason for Your Visit: heron Attending Provider: Delta Conti Primary Care Provider: Dede Galan Discharge Orders/Prescriptions Prescriptions: New ciprofloxacin HCl [Cipro] 500 mg tablet 500 mg PO BID Qty: 10 0RF Continued montelukast 10 mg tablet 10 mg PO DAILY calcium carbonate 600 mg calcium (1,500 mg) tablet 600 mg PO DAILY levothyroxine 50 mcg tablet 50 mcg PO DAILY omeprazole 40 mg capsule,delayed release(DR/EC) 40 mg PO DAILY primidone 250 mg tablet 250 mg PO 4X/DAY Qty: 360 3RF phenytoin sodium extended 100 mg capsule 100 mg PO TID Qty: 270 3RF Patient Comments: pt takes this dose at the following times: 0600, 1400, 2200 multivitamin 1 TABLET tablet 1 tab PO DAILY ascorbic acid (vitamin C) 500 MG tablet 1,000 mg PO DAILY@0800 ergocalciferol (vitamin D2) 50,000 UNIT capsule 50,000 unit PO Q7D fluticasone propionate 16 GM spray,suspension 2 spray NS DAILY fluocinolone 120 GM cream 1 applic TP DAILY paroxetine HCl 20 mg tablet 30 mg PO DAILY tamsulosin 0.4 mg capsule 0.4 mg PO QHS finasteride 5 mg tablet 5 mg PO DAILY phenytoin 50 mg tablet,chewable 50 mg PO DAILY Patient Comments: pt takes this at 1800 daily polyethylene glycol 3350 [Miralax] 17 gram powder in packet 17 g PO Q10M PRN Referrals / Follow Up: Dede Galan MD [Primary Care Provider] - Delta Conti MD [Med Staff - Active Staff] -
[2024-11-02 08:59] VITALS: BP 115/57; PULSE 72; RESP 18; TEMP 36.3; O2SAT 96
[2024-11-02] MEDS: Polyethylene Glycol 3350 17 GM PACKET PO (09:03)
== END 2024-11-02 13:17 | disposition home or self-care (01) ==
LOC: SDC 16:43 → MS3 16:43
PROVIDERS: Anesthesiology; Admitting Provider Urology; PCP Internal Medicine; Referring Provider Urology; Visit Provider Urology
PROC: (CPT 52601; principal; 2024-11-01 10:30)
DX: N40.1 Benign prostatic hyperplasia with lower urinary tract symptoms (principal); E78.5 Hyperlipidemia, unspecified; D29.1 Benign neoplasm of prostate; N13.8 Other obstructive and reflux uropathy; R33.8 Other retention of urine; E03.9 Hypothyroidism, unspecified; Z79.890 Hormone replacement therapy; Z79.899 Other long term (current) drug therapy; G47.33 Obstructive sleep apnea (adult) (pediatric); K21.9 Gastro-esophageal reflux disease without esophagitis; N31.2 Flaccid neuropathic bladder, not elsewhere classified
CPT/HCPCS: 52601; 00914; 36415; 80048; 84443; 85025; 85027; 85730; 88305; 93005; 96361; 96365; 96366; 99221; C1769; G0378; J0744; J2405

== ENCOUNTER 2025-02-12 08:00 | Emergency (ER) | payer MEDICARE, SELFPAY ==
[2025-02-12 08:01] VITALS: BP 112/95; PULSE 86; RESP 18; TEMP 36.7; O2SAT 98; BMI 33.3
--- NOTE | 2025-02-12 08:31 | CT_ITS ---
PROCEDURE: CT/Brain/Head without Contrast
--- NOTE | 2025-02-12 08:35 | EX.ED.DYSGE1 ---
HPI History of Present Illness Chief Complaint: Fever Informant: patient and spouse/S.O. Narrative Narrative: 69-year-old male presenting to the emergency room with 1 week history of fever. Patient states that last Wednesday he went to see his doctor for the evaluation of fever. States is pretty common that he gets some sinus infections and so he started Augmentin but really was only having generalized myalgias. He states he started to feel better at the end of last week and over the weekend began to have his fevers again. He states he has fallen twice the second time being this morning when he injured his head causing an abrasion to the left high parietal scalp. No loss of consciousness. No back pain neck pain. He states he had a prostate surgery earlier in the year and had been urinating much better until over the weekend when he notes that the stream seems to spraying everywhere. He denies any diarrhea. He denies any significant cough no abdominal pain no chest pain. He notes no sinus drainage or ear pain. He denies any rashes or sores other than the abrasion from the fall this morning. He has been taking Tylenol for fever. states that when he had his gallbladder out he developed a infection and was septic and she is concerned that he is septic again. [facility] Medical History Wears hearing aid Wears glasses Prostate disease Non-smoker CPAP (continuous positive airway pressure) dependence Sleep apnea Seizures Hypothyroid Nontoxic goiter Vitamin D deficiency Hyperlipidemia Depression Mild cognitive impairment Epilepsy Obstructive sleep apnea Retinal cyst of right eye Raised intraocular pressure of both eyes Bilateral hearing loss Cardiomegaly Chronic sinusitis GERD (gastroesophageal reflux disease) Chronic constipation Psoriasis BPH (benign prostatic hyperplasia) Tremor Age-related cognitive decline History of fracture of leg Home Medications ?Medication ?Instructions ?Recorded ?Last Taken ?Type ascorbic acid (vitamin C) 500 mg 1,000 mg PO DAILY@0800 multivit 05/21/14 10/31/24 History tablet ergocalciferol (vitamin D2) 1,250 50,000 unit PO Q7D vitamin 05/21/14 10/25/24 History mcg (50,000 unit) capsule fluocinolone 0.025 % topical cream 1 applic TP DAILY psoriasis 05/21/14 Unknown History fluticasone propionate 50 2 spray NS DAILY allergies 05/21/14 10/31/24 History mcg/actuation nasal spray,suspension multivitamin 1 tab PO DAILY multivit 05/21/14 10/31/24 History calcium carbonate 600 mg PO DAILY vit 04/24/20 10/31/24 History montelukast 10 mg tablet 10 mg PO DAILY allergies 04/24/20 10/31/24 History levothyroxine 50 mcg tablet 50 mcg PO DAILY thyroid 10/03/20 10/30/24 History omeprazole 40 mg capsule,delayed 40 mg PO DAILY reflux 03/03/21 10/31/24 History release paroxetine HCl 20 mg tablet 30 mg PO DAILY depression 08/25/21 10/31/24 History phenytoin sodium extended 100 mg 100 mg PO TID #270 caps 05/23/24 11/01/24 Rx capsule primidone 250 mg tablet 250 mg PO 4X/DAY epilepsy #360 tabs 05/23/24 11/01/24 Rx tamsulosin 0.4 mg capsule 0.4 mg PO QHS prostate 06/07/24 10/31/24 History finasteride 5 mg tablet 5 mg PO DAILY 10/23/24 10/30/24 History phenytoin 50 mg chewable tablet 50 mg PO DAILY seizures 10/23/24 10/31/24 History polyethylene glycol 3350 17 gram 17 g PO Q10M PRN 10/23/24 Unknown History oral powder packet (Miralax) ciprofloxacin HCl 500 mg tablet 500 mg PO BID #10 tabs 11/01/24 Unknown Rx (Cipro) Allergy/AdvReac Type Severity Reaction Status Date / Time No Known Allergies Allergy Verified 02/12/25 08:00 Family History Father Cancer Liver cancer, liver cirrhosis, alcoholic Brother Parkinson's disease Cancer Nonmelanoma skin cancer Sister Cancer Nonmelanoma skin cancer Surgical History S/P cholecystectomy Hx of colonoscopy with polypectomy Fracture of left lower leg History of tonsillectomy Social History household members: spouse Smoking Status: Never smoker second hand exposure: No alcohol intake: never substance use type: does not use what type of physical activity do you participate in: none lenard/baptist: [employer] seatbelt use: always ROS ROS ED Constitutional Constitutional ED: Reports chills, fever(s) and sweats; Denies weight loss Eyes Eyes: Denies change in vision or diplopia ENT ENT ED: Reports other Details: Per patient increased saliva ; Denies ear pain, rhinorrhea or sore throat Cardiovascular Cardiovascular: Denies chest pain, orthopnea, palpitations or racing heartbeat Respiratory/Chest Respiratory/Chest: Denies cough, dyspnea or orthopnea Gastrointestinal Gastrointestinal: Denies abdominal pain, diarrhea, nausea or vomiting Genitourinary Genitourinary ED: Reports other Details: Patient states that his stream with urination sprays everywhere ; Denies dysuria, hematuria or urinary frequency Musculoskeletal Musculoskeletal: Reports arthralgias and myalgias; Denies back pain or neck pain Integumentary Reports Abrasions; Denies abscess or rash Neurologic Neurologic: Reports other Details: Generalized weakness ; Denies headache(s) Psychiatric Psychiatric: Denies anxiety, depression, suicidal ideation or suicidal thoughts Endocrine Endocrinology: Denies polydipsia, polyphagia or polyuria Allergic/Immunologic Allergic/Immunologic ED: Denies mouth swelling, tongue swelling or urticaria EXAM Physical Exam Const Vital Signs: 02/12/25 08:01 02/12/25 08:39 02/12/25 09:03 Temperature 98.1 F 98 F Temperature Source Oral Oral Pulse Rate 86 75 Respiratory Rate 18 18 Respiratory Pattern Normal Blood Pressure 112/95 H 112/66 Blood Pressure Mean 100 81 Pulse Ox 98 97 Oxygen Delivery Method Room Air Room Air 02/12/25 10:39 02/12/25 11:00 Temperature 97.5 F L Temperature Source Oral Pulse Rate 69 69 Respiratory Rate 16 16 Respiratory Pattern Blood Pressure 117/69 132/81 H Blood Pressure Mean 85 98 Pulse Ox 95 97 Oxygen Delivery Method Room Air Room Air Positive well nourished, well developed and obese General Appearance ED: well developed and NAD Nutritional Appearance: obese HEENT Reports normocephalic, head/scalp atraumatic and moist mucous membranes Eyes PERRL and EOMs intact bilaterally Neck no lymphadenopathy, supple and no JVD Resp normal respiratory effort and clear to auscultation bilaterally Cardio regular rate, regular rhythm and no murmurs GI normal to inspection, nondistended, normoactive bowel sounds and non-tender Palpation: soft Narrative: The prostate is boggy and enlarged but not particularly tender. Back/Spine no CVA tenderness and normal ROM Extremity normal to inspection General Extremety ED: Negative for edema General Extremity: Negative for edema Neuro oriented x3 and CN's II-XII intact bilaterally Sensorium / Orientation: alert Motor Exam: strength 5/5 throughout Psych mental status grossly normal Mood & Affect: Negative for depressed or tearful Skin no rashes or lesions noted and no wounds MDM MDM MDM Narrative Medical decision making narrative: Differential diagnosis includes but not limited to UTI prostatitis sinusitis viral syndrome bacteremia pneumonia intracranial hemorrhage skull fracture Basic blood work is obtained shows a white count of 14. Lactic acid is normal at 1.9. CO2 is 22.5 anion gap is 9 creatinine 0.75. Slight elevation of his transaminases and alk phos at 158. Urinalysis shows 5-10 white cells. Dilantin 5.3. Urinalysis and blood cultures were obtained. CT of the brain demonstrates no intracranial hemorrhage does show some mild frontal and ethmoidal sinus disease. My independent interpretation of the chest x-ray is no acute process. COVID RSV and influenza swabs were negative. Patient vital signs appear stable. He is not tachycardic he is not hypotensive. He clinically appears well. I reviewed the above findings with the patient and his . Using shared decision making and we did have him stop his Augmentin and placed him on Levaquin. This should cover both sinus as well as prostate issues. Given that he has had an abrupt change in his stream quality and his history of a prostate surgery with the prostate being enlarged and boggy on examination I do feel like that is a potential source. [place] continue to hydrate Tylenol Motrin for fever. Of asked that he follow-up with his primary care doctor in 3 to 5 days. History & Record Review Discussion w/independent historian: Patient and Family Additional record(s) reviewed:: Prior inpatient record, Prior ED visit and Prior labs Lab Data Attestation: I reviewed the patient's lab results. Labs: Laboratory Results - last 24 hr 02/12/25 02/12/25 08:48 08:55 WBC 14.0 H RBC 3.54 L Hgb 10.8 L Hct 31.2 L MCV 88.1 MCH 30.5 MCHC 34.6 RDW Std Deviation 42.5 RDW Coeff of Aramis 13.1 Plt Count 517 H MPV 7.6 Immature Gran % (Auto) 1.300 H Neut % (Auto) 74.5 H Lymph % (Auto) 12.1 L [place] % (Auto) 9.3 Eos % (Auto) 2.5 Baso % (Auto) 0.3 Absolute Neuts (auto) 10.5 H Absolute Lymphs (auto) 1.69 Nucleated RBC % 0 PT 16.3 H INR 1.3 APTT 40.6 H Sodium 127 L Potassium 3.9 Chloride 96 L Carbon Dioxide 22.5 Anion Gap 9 BUN 10 Creatinine 0.75 Estim Creat Clear Calc 85.94 Est GFR (MDRD) Non-Af 97 BUN/Creatinine Ratio 13.7 Glucose 123 H Lactic Acid < 1.0 Calcium 7.8 Total Bilirubin 0.24 AST 79 H ALT 55 H Alkaline Phosphatase 158 H Total Protein 6.0 Albumin 2.8 L Globulin 3.2 Albumin/Globulin Ratio 0.9 Urine Color Yellow Urine Clarity Clear Urine pH 7.0 Ur Specific Daisy 1.010 Urine Protein 30 H Urine Glucose (UA) Normal Urine Ketones Negative Urine Occult Blood Negative Urine Nitrite Negative Urine Bilirubin Negative Urine Urobilinogen Normal Ur Leukocyte Esterase 100 H Urine RBC 0 SEEN Urine WBC 5-10 SEEN Ur Squamous Epith Cells 0 SEEN Urine Bacteria 0 SEEN Urine Mucus 0 SEEN Phenytoin 5.3 L Radiography Diagnostic Testing: Clinical Impression(s) from Imaging Studies Brain CT 02/12/25 08:31 IMPRESSION: 1. No evidence of intracranial hemorrhage or acute ischemia. 2. Changes of chronic microvascular ischemia and volume loss. Reading Location: [id number] Chest X-Ray 02/12/25 09:12 IMPRESSION: Parenchymal scarring left lung base. No acute cardiopulmonary process identified radiographically. Reading Location: [id number] EKG Initial EKG: Attestation: I personally reviewed and interpreted this EKG as follows: Comments: Normal sinus rhythm ventricular rate of 77 bpm Prior EKG tracings: available for review Prior: Unchanged (October 30, 2024) Discharge Plan Triage Chief Complaint: Fever ED Provider: Troy Cheney Dx/Rx/DC Orders Prescriptions: No Action montelukast 10 mg tablet 10 mg PO DAILY calcium carbonate 600 mg calcium (1,500 mg) tablet 600 mg PO DAILY levothyroxine 50 mcg tablet 50 mcg PO DAILY omeprazole 40 mg capsule,delayed release(DR/EC) 40 mg PO DAILY primidone 250 mg tablet 250 mg PO 4X/DAY Qty: 360 3RF phenytoin sodium extended 100 mg capsule 100 mg PO TID Qty: 270 3RF Patient Comments: pt takes this dose at the following times: 0600, 1400, 2200 multivitamin 1 TABLET tablet 1 tab PO DAILY ascorbic acid (vitamin C) 500 MG tablet 1,000 mg PO DAILY@0800 ergocalciferol (vitamin D2) 50,000 UNIT capsule 50,000 unit PO Q7D fluticasone propionate 16 GM spray,suspension 2 spray NS DAILY fluocinolone 120 GM cream 1 applic TP DAILY paroxetine HCl 20 mg tablet 30 mg PO DAILY tamsulosin 0.4 mg capsule 0.4 mg PO QHS finasteride 5 mg tablet 5 mg PO DAILY phenytoin 50 mg tablet,chewable 50 mg PO DAILY Patient Comments: pt takes this at 1800 daily polyethylene glycol 3350 [Miralax] 17 gram powder in packet 17 g PO Q10M PRN ciprofloxacin HCl [Cipro] 500 mg tablet 500 mg PO BID Qty: 10 0RF Primary Care Provider: Dede Galan Referrals: Dede Galan MD [Primary Care Provider, Internal Medicine] Print Language: Azeri
[2025-02-12 08:59] LABS: Hematocrit 31.2 % (40-54); Hemoglobin 10.8 g/dL (13.0-16.5); Immature Granulocytes Count 0.180 X10^3/uL (0.0-0.0); Mean Corp Hgb Conc 34.6 g/dL (32-36); Mean Corpuscular Volume 88.1 fL (80-94); Mean Platelet Vol. 7.6 fl (6.2-12.0); NRBC Flagged by Analyzer 0 % (0-5); Platelet Count 517 K/mm3 (150-450); RBC Distribution Width CV 13.1 % (11.6-14.6); RBC Distribution Width SD 42.5 fl (35.1-43.9); Red Blood Count 3.54 M/mm3 (4.6-6.2); White Blood Count 14.0 K/mm3 (4.4-11.0)
[2025-02-12 09:03] VITALS: BP 112/66; PULSE 75; RESP 18; TEMP 36.6; O2SAT 97
[2025-02-12 09:04] LABS: Mucous, Urine 0 SEEN /hpf (<or=2+); Red Blood Cells-Urine 0 SEEN /hpf (0-5); Squamous Epithelial Cells - UA 0 SEEN /hpf (0-5)
[2025-02-12] MEDS: 0.9% Normal Saline (1000mL) 1,000 ML 999 ML IV (09:10)
--- NOTE | 2025-02-12 09:12 | RAD_ITS ---
PROCEDURE: RAD/Chest 1 View (Portable)
[2025-02-12 09:14] LABS: Prothrombin Time (Protime)PT. 16.3 SECONDS (11.7-14.9)
[2025-02-12 09:15] LABS: Color, Urine Yellow (Yellow); Glucose, Dipstick Normal (Normal); Ketone-Dipstick Negative (Negative); Leukocyte Esterase-Dipstick 100 /ul (Negative); Nitrite-Dipstick Negative (Negative); Occult Blood-Urine Negative /ul (Negative); Protein-Dipstick 30 mg/dl (Negative); Specific Gravity, Urine 1.010 (1.002-1.030); Urine Bilirubin Dipstick Negative (Negative)
[2025-02-12 09:15] LABS: Partial Thromboplast Time 40.6 Seconds (24.1-36.2)
[2025-02-12 09:39] LABS: AST(SGOT) 79 U/L (<=37); Alanine Aminotransfer ALT/SGPT 55 U/L (<=46); Albumin, Serum 2.8 g/dL (3.4-4.8); Alkaline Phosphatase 158 U/L (40-129); Anion Gap 9 (5-15); BUN 10 mg/dL (4-19); BUN/Creat Ratio 13.7 RATIO (10-20); Calcium,Total 7.8 mg/dL (7.6-11.0); Carbon Dioxide 22.5 mmol/L (21.0-32.0); Chloride 96 mmol/L (98-108); Estimated Creatinine Clearance 85.94 ml/min (50-250); Globulin 3.2 g/dL (2.2-4.2); Glucose 123 mg/dL (70-99); Potassium 3.9 mmol/L (3.3-5.1)
[2025-02-12 10:39] VITALS: BP 117/69; PULSE 69; RESP 16; TEMP 36.4; O2SAT 95
[2025-02-12 11:00] VITALS: BP 132/81; PULSE 69; RESP 16; O2SAT 97
[2025-02-12 12:02] VITALS: BP 132/70; PULSE 73; RESP 16; O2SAT 94
== END 2025-02-12 12:04 | disposition home or self-care (01) ==
PROVIDERS: Emergency Provider Emergency Medicine; PCP Internal Medicine; Visit Provider Emergency Medicine
DX: R50.9 Fever, unspecified (principal); S00.01XA Abrasion of scalp, initial encounter; W19.XXXA Unspecified fall, initial encounter; Z11.52 Encounter for screening for COVID-19; N40.1 Benign prostatic hyperplasia with lower urinary tract symptoms; E78.5 Hyperlipidemia, unspecified; E03.9 Hypothyroidism, unspecified; M79.10 Myalgia, unspecified site; Z79.890 Hormone replacement therapy; Z79.899 Other long term (current) drug therapy
CPT/HCPCS: 70450; 71045; 80053; 80185; 81001; 83605; 85025; 85610; 85730; 87040; 87086; 87631; 93005; 96360; 96361; 99284; A4216

== ENCOUNTER → 2025-02-16 | Outpatient (CLI) | payer MEDICARE, SELFPAY ==
[2025-02-16 13:20] LABS: Hematocrit 31.3 % (40-54); Hemoglobin 10.5 g/dL (13.0-16.5); Immature Granulocytes Count 0.180 X10^3/uL (0.0-0.0); Mean Corp Hgb Conc 33.5 g/dL (32-36); Mean Corpuscular Volume 91.8 fL (80-94); Mean Platelet Vol. 7.8 fl (6.2-12.0); NRBC Flagged by Analyzer 0 % (0-5); Platelet Count 734 K/mm3 (150-450); RBC Distribution Width CV 13.7 % (11.6-14.6); RBC Distribution Width SD 46.3 fl (35.1-43.9); Red Blood Count 3.41 M/mm3 (4.6-6.2); White Blood Count 13.0 K/mm3 (4.4-11.0)
[2025-02-16 13:29] LABS: Prothrombin Time (Protime)PT. 16.8 SECONDS (11.7-14.9)
[2025-02-16 13:30] LABS: Partial Thromboplast Time 45.2 Seconds (24.1-36.2)
[2025-02-16 13:59] LABS: AST(SGOT) 73 U/L (<=37); Alanine Aminotransfer ALT/SGPT 47 U/L (<=46); Albumin, Serum 2.8 g/dL (3.4-4.8); Alkaline Phosphatase 121 U/L (40-129); Anion Gap 9 (5-15); BUN 11 mg/dL (4-19); BUN/Creat Ratio 16.3 RATIO (10-20); Calcium,Total 8.1 mg/dL (7.6-11.0); Carbon Dioxide 26.3 mmol/L (21.0-32.0); Chloride 95 mmol/L (98-108); Globulin 2.8 g/dL (2.2-4.2); Glucose 91 mg/dL (70-99); Potassium 4.3 mmol/L (3.3-5.1)
== END | disposition home or self-care (01) ==
PROVIDERS: PCP Internal Medicine; Referring Provider Internal Medicine; Visit Provider Internal Medicine
DX: D68.9 Coagulation defect, unspecified (principal); D64.9 Anemia, unspecified; R74.8 Abnormal levels of other serum enzymes
CPT/HCPCS: 80053; 85025; 85610; 85730